=== PATIENT | female | born 1935 | race Caucasian/White ===

== ENCOUNTER → 2019-09-16 13:57 | Outpatient (CLI) | payer MEDICARE, OTHER, SELFPAY ==
[2019-09-16 14:51] LABS: Appearance Urine UA CLOUDY; Bilirubin Urine UA NEGATIVE (NEGATIVE); Color Urine UA YELLOW; Glucose Urine UA NEGATIVE (Negative); Ketones Urine UA NEGATIVE (NEGATIVE); Leukocyte Esterase Urine UA TRACE (NEGATIVE); Nitrite Urine UA POSITIVE (Negative); Occult Blood Urine UA NEGATIVE (Negative); Protein Urine UA NEGATIVE (Negative)
[2019-09-16 14:58] LABS: Add Manual Diff / Slide Review NO; Basophils Absolute Auto 0 /uL (0-100); Basophils Percent Auto 0.2 % (0-2); Eosinophils Absolute Auto 0 /uL (0-450); Eosinophils Percent Auto 0.1 % (2-4); Hematocrit 43.1 % (36-46); Hemoglobin 14.7 g/dL (12.0-16.0); Lymphocytes Absolute Auto 500 /uL (1100-4500); Lymphocytes Percent Auto 5.9 % (25-40); Mean Corpuscular HGB Conc 34.2 % (30-36); Mean Corpuscular Hemoglobin 33.1 PG (26-34); Mean Corpuscular Volume 96.9 fL (80-100); Monocytes Absolute Auto 1100 /uL (0-900); Monocytes Percent Auto 11.6 % (3-14); Neutrophils Absolute Auto 7600 /uL (1500-7000); Neutrophils Percent Auto 82.2 % (50-75); Platelet Count 121 X10^3/uL (150-400); Red Blood Cell Count 4.45 X10^6/uL (4.0-5.2); Red Cell Distribution Width 13.4 % (11.6-14.8); White Blood Cell Count 9.2 X10^3/uL (4.5-11.0)
[2019-09-16 15:01] LABS: pH Urine UA 5.5 (4.5-8.0)
[2019-09-16 15:02] LABS: Bacteria Urine Many (>30); Culture Indicated Urine Specimen Cultured; RBC Urine 0-1/HPF (0-5/HPF); WBC Urine 1-5/HPF (0-5/HPF)
[2019-09-16 15:52] LABS: Alanine Aminotransferase 18 IU/L (<35); Albumin 4.2 g/dL (3.5-5.0); Albumin Globulin Ratio 1.4 (1.0-2.8); Alkaline Phosphatase 123 U/L (38-126); Aspartate Aminotransferase 21 IU/L (14-36); BUN Creatinine Ratio 24.4 (6-22); Bilirubin Total 0.8 mg/dL (0.2-1.3); Blood Urea Nitrogen 22 mg/dL (7-17); Calcium 9.4 mg/dL (8.4-10.2); Carbon Dioxide 27 mmol/L (22-32); Chloride 103 mmol/L (98-107); Cholesterol 221 mg/dL (140-199); Estimated Glomerular Filt Rate > 60.0 mL/min (>60); Glucose 87 mg/dL (80-110); HDL Cholesterol 63 mg/dL (40-60); HEMOLYSIS < 15 (0-50); LDL Cholesterol Calculated 140 mg/dL (<100); Potassium 3.9 mmol/L (3.4-5.1); Sodium 139 mmol/L (137-145); Total Protein 7.2 g/dL (6.3-8.2); Triglycerides 90 mg/dL (35-150)
[2019-09-16 16:14] LABS: Vitamin D 25 Hydroxy (D3) 38.5 ng/mL (30.0-100.0)
[2019-09-16 16:29] LABS: TSH w/ Reflex to FT4 5.02 uIU/mL (0.47-4.68)
[2019-09-16 17:11] LABS: Free T4, Direct Thyroxine 0.93 ng/dL (0.78-2.19)
== END ==
PROVIDERS: PCP Family Medicine; Visit Provider Family Medicine
DX: E55.9 Vitamin D deficiency, unspecified (principal); E78.5 Hyperlipidemia, unspecified; R05 Cough; R29.6 Repeated falls; R41.3 Other amnesia
CPT/HCPCS: 36415; 80053; 80061; 81001; 82306; 84439; 84443; 85025; 87077; 87086; 87186

== ENCOUNTER 2019-09-19 09:37 | Inpatient (IN) | payer MEDICARE, OTHER, SELFPAY ==
[2019-09-19] VITALS (14 sets, daily range): BP systolic 95–112; BP diastolic 52–64; PULSE 61–83; RESP 15–25; TEMP 36.2–36.8; O2SAT 92–97; BMI 27.8
--- NOTE | 2019-09-19 09:45 | DI.RAD.S_ITS ---
PROCEDURE: XR CHEST 1V INDICATIONS: SOB, fever, chills, cough TECHNIQUE: One view of the chest was acquired. COMPARISON: [facility], CR, XR RIBS RIGHT WITH PA CHEST, 08/29/2019, 14:12. FINDINGS: Surgical changes and devices: None. Lungs and pleura: The aeration of the lungs is similar to the prior study. Linear atelectasis within the left midlung is present. There slight blunting of left costophrenic angle. No pneumothorax is present. No larger pulmonary consolidation is identified. Mediastinum: Mediastinal contours appear normal. Heart size is normal. There is aortic atherosclerosis. Bones and chest wall: No suspicious bony lesions. The bone mineralization appears decreased. The patient's known inferior right rib fracture is only faintly visualized. Overlying soft tissues appear unremarkable. IMPRESSION: 1. Possible trace left-sided pleural effusion. 2. Unchanged left hilar scarring. Dictated by: Dexter Cedeno M.D. on 09/19/2019 at 9:21 Approved by: Dexter Cedeno M.D. on 09/19/2019 at 9:23
[2019-09-19] MEDS: ALBUTEROL/IPRATROPIUM 3 ML AMPUL INH ×2 (10:01→17:26)
[2019-09-19] MEDS: SODIUM CHLORIDE 0.9% 1,000 ML 150 ML IV (10:34)
[2019-09-19] MEDS: methylPREDNISolone 125 MG/2 ML VIAL IV (10:34)
[2019-09-19 10:35] LABS: Add Manual Diff / Slide Review NO; Basophils Absolute Auto 0 /uL (0-100); Basophils Percent Auto 0.4 % (0-2); Eosinophils Absolute Auto 0 /uL (0-450); Eosinophils Percent Auto 0.2 % (2-4); Hematocrit 39.7 % (36-46); Hemoglobin 13.9 g/dL (12.0-16.0); Lymphocytes Absolute Auto 400 /uL (1100-4500); Lymphocytes Percent Auto 4.3 % (25-40); Mean Corpuscular Hemoglobin 33.4 PG (26-34); Mean Corpuscular Volume 95.4 fL (80-100); Monocytes Absolute Auto 1200 /uL (0-900); Monocytes Percent Auto 11.9 % (3-14); Neutrophils Absolute Auto 8400 /uL (1500-7000); Neutrophils Percent Auto 83.2 % (50-75); Platelet Count 124 X10^3/uL (150-400); Red Blood Cell Count 4.17 X10^6/uL (4.0-5.2); Red Cell Distribution Width 13.5 % (11.6-14.8); White Blood Cell Count 10.1 X10^3/uL (4.5-11.0)
[2019-09-19 10:49] LABS: Lactate (Lactic Acid) 0.9 mmol/L (0.7-2.1)
[2019-09-19 10:50] LABS: Blood Urea Nitrogen 18 mg/dL (7-17); Calcium 8.9 mg/dL (8.4-10.2); Carbon Dioxide 27 mmol/L (22-32); Chloride 102 mmol/L (98-107); Creatine Kinase 74 U/L (30-135); Estimated Glomerular Filt Rate > 60.0 mL/min (>60); Glucose 104 mg/dL (80-110); HEMOLYSIS < 15 (0-50); Magnesium 1.9 mg/dL (1.6-2.3); Potassium 3.7 mmol/L (3.4-5.1); Sodium 137 mmol/L (137-145)
--- NOTE | 2019-09-19 10:59 | ED.SOB ---
HPI - SOB/Dyspnea General Chief Complaint: Shortness of Breath/Dyspnea Stated Complaint: Weakness, SOB, Productive Cough Time Seen by Provider: 09/19/19 09:40 Source: patient and family Mode of arrival: Wheelchair Limitations: altered mental status History of Present Illness HPI Narrative: 83-year-old female former smoker with history of COPD and a recent fall resulting in broken ribs presents with a chief complaint of cough, shortness of breath fatigue as well as fever and shaking chills over the past few days. She is fatigued but denies any nausea, vomiting or diarrhea. She is otherwise well and free of complaint MD Complaint: shortness of breath and cough Onset (ago): day(s) Context: trauma/injury Severity: moderate Consistency/Duration: constant Relieving factors: rest Exacerbating factors: nothing Known history of: COPD Associated symptoms: chest pain (Rib pain) Treatment prior to arrival: none Related Data Home oxygen amount: none Home Medications Medication Instructions Recorded Confirmed lifitegrast 5 % eye drops in a EYE-BOTH BID each 09/16/19 09/16/19 dropperette Allergies Allergy/AdvReac Type Severity Reaction Status Date / Time No Known Drug Allergies Allergy Verified 09/16/19 13:03 Review of Systems Constitutional Constitutional: Reports chills, Denies fatigue, Reports fever(s), Denies frequent falls, Denies lethargy and Denies weakness Eyes Eyes: Denies change in vision, Denies eye discharge, Denies irritation and Denies loss of vision ENT Ears, Nose, Mouth, and Throat: Denies change in voice, Denies dizziness, Denies neck pain, Denies sore throat and Denies throat swelling Cardiovascular Cardiovascular: Denies chest pain, Denies irregular heart rhythm, Denies lightheadedness, Denies palpitations, Reports dyspnea, Denies dyspnea on exertion and Denies orthopnea Respiratory Respiratory: Reports cough, Reports pain with cough, Reports dyspnea, Denies dyspnea on exertion and Denies wheezing Gastrointestinal Gastrointestinal: Denies abdominal pain, Denies change in bowel habits, Denies diarrhea, Denies nausea and Denies vomiting Genitourinary Genitourinary: Denies hematuria, Denies flank pain, Denies urinary incontinence and Denies urinary urgency Musculoskeletal Musculoskeletal: Denies back pain, Denies muscle weakness, Denies neck pain, Denies numbness and Denies tingling Integumentary/Breasts Skin/Breast: Denies pruritus, Denies erythema, Denies rash and Denies wounds Neurologic Neurologic: Denies behavioral changes, Denies confusion, Denies dizziness, Denies frequent falls, Denies loss of vision, Denies numbness, Denies tingling and Denies weakness Psychiatric Psychiatric: Denies anxiety, Denies behavioral changes, Denies confusion, Denies depression, Denies homicidal ideation and Denies suicidal ideation Endocrine Endocrine: Denies fatigue, Denies flushing and Denies palpitations Hematologic/Lymphatic Hematologic/Lymphatic: Denies easy bruising Allergic/Immunologic Allergic/Immunologic: Denies urticaria, Denies throat swelling and Denies wheezing Patient History Medical History Cough (Acute) Dry eyes (Acute) Frequent falls (Acute) History of lung cancer in adulthood (Acute) Hyperlipidemia (Acute) Onychomycosis (Acute) Short-term memory loss (Acute) Surgical History History of pneumonectomy (Acute) Social History Smoking Status: Former smoker Exam Narrative Exam Narrative: GENERAL: [83] year old patient appears stated age. Appears unwell, frequent cough, wet sounding, poor historian HEAD: Atraumatic. Normocephalic. EYES: Pupils equal round and reactive. Extraocular motions intact. No scleral icterus. No injection or drainage. ENT: Nose without bleeding, purulent drainage. Throat without erythema, tonsillar hypertrophy or exudate. Airway patent. NECK: Trachea midline. Non tender CARDIOVASCULAR: Regular rate and rhythm without murmurs, gallops, or rubs. RESPIRATORY: Decreased breath sounds bilaterally with prolonged expiratory phase faint crackles in left base GASTROINTESTINAL: Abdomen soft, non-tender, nondistended. EXTREMITIES: No edema or joint tenderness. BACK: Nontender without deformity or crepitance. No flank tenderness. NEURO: AOx3. SKIN: No rash or erythema of visible areas Initial Vital Signs Initial Vital Signs: Vital Signs Temperature 98.2 F 09/19/19 09:55 Pulse Rate 70 09/19/19 09:55 Respiratory Rate 25 H 09/19/19 09:55 Blood Pressure 112/60 09/19/19 09:55 Pulse Oximetry 93 09/19/19 09:55 Course Course Course Narrative: Tremendous improvement in respiratory status after the above-stated therapies. We will perform orthostatics and ambulation trial, possible physical therapy evaluation Orders Ordered: ED Orders 09/19/19 09:45 Consult to Respiratory Therapy Evaluate & Treat XR chest 1V Stat EKG-12 Lead Stat 09/19/19 10:24 B Type Natriuretic Peptide Stat Basic Metabolic Panel Stat Blood Culture Stat Complete Blood Count AUTO DIFF Stat Lactate (Lactic Acid) Stat Magnesium Stat Procalcitonin Stat Troponin & CK Cardiac Panel Stat 09/19/19 10:30 Influenza A and B by PCR Rapid Stat Sodium Chloride (Normal Saline 0.9%) 1,000 mls @ 150 mls/hr IV CONT VILMA Last Admin: 09/19/19 10:34 Dose: 150 mls/hr Documented by: ORIN Discontinued Medications Albuterol/Ipratropium (Duoneb) 3 ml INH NOW ONE Stop: 09/19/19 09:45 Last Admin: 09/19/19 10:01 Dose: 3 ml Documented by: KALEB Methylprednisolone (Solu-Medrol 125 Mg Vial) 125 mg IV NOW ONE Stop: 09/19/19 09:45 Last Admin: 09/19/19 10:34 Dose: 125 mg Documented by: ORIN Vital Signs Vital signs: Vital Signs - 8 hr 09/19/19 09:55 09/19/19 10:01 09/19/19 10:32 Temperature 98.2 F Pulse Rate 70 75 Pulse Rate [Orthostatic Lying] Pulse Rate [Orthostatic Sitting] Pulse Rate [Orthostatic Standing] Respiratory Rate 25 H 18 Blood Pressure 112/60 Blood Pressure [Orthostatic Lying] Blood Pressure [Orthostatic Sitting] Blood Pressure [Orthostatic Standing] Blood Pressure [Right Arm] Pulse Oximetry 93 93 96 09/19/19 11:00 09/19/19 11:49 09/19/19 11:51 Temperature Pulse Rate 61 80 Pulse Rate [Orthostatic Lying] 64 Pulse Rate [Orthostatic Sitting] 70 Pulse Rate [Orthostatic Standing] 77 Respiratory Rate 20 Blood Pressure Blood Pressure [Orthostatic Lying] 107/55 L Blood Pressure [Orthostatic Sitting] 111/59 L Blood Pressure [Orthostatic Standing] 97/58 L Blood Pressure [Right Arm] 95/52 L Pulse Oximetry 97 93 MDM - SOB/Dyspnea Lab Data Result diagrams: 09/19/19 10:24 09/19/19 10:24 Labs: Lab Results 09/19/19 09/19/19 09/19/19 Range/Units 10:24 10:24 10:24 WBC 10.1 (4.5-11.0) X10^3/uL RBC 4.17 (4.0-5.2) X10^6/uL Hgb 13.9 (12.0-16.0) g/dL Hct 39.7 (36-46) % MCV 95.4 (80-100) fL MCH 33.4 (26-34) PG MCHC 35.0 (30-36) % RDW 13.5 (11.6-14.8) % Plt Count 124 L (150-400) X10^3/uL Neut % (Auto) 83.2 H (50-75) % Lymph % (Auto) 4.3 L (25-40) % [place] % (Auto) 11.9 (3-14) % Eos % (Auto) 0.2 L (2-4) % Baso % (Auto) 0.4 (0-2) % Neut # (Auto) 8400 H (8847-7986) /uL Lymph # (Auto) 400 L (1049-0924) /uL [place] # (Auto) 1200 H (0-900) /uL Eos # (Auto) 0 (0-450) /uL Baso # (Auto) 0 (0-100) /uL Sodium 137 (137-145) mmol/L Potassium 3.7 (3.4-5.1) mmol/L Chloride 102 (98-107) mmol/L Carbon Dioxide 27 (22-32) mmol/L BUN 18 H (7-17) mg/dL Creatinine 0.90 (0.52-1.04) mg/dL Estimated GFR > 60.0 (>60) mL/min BUN/Creatinine Ratio 20.0 (6-22) Glucose 104 (80-110) mg/dL Lactate (0.7-2.1) mmol/L Calcium 8.9 (8.4-10.2) mg/dL Magnesium 1.9 (1.6-2.3) mg/dL Total Creatine Kinase 74 (30-135) U/L CK-MB (CK-2) TNP CK-MB (CK-2) Rel Index TNP Troponin I < 0.012 (0.01-0.034) ng/mL B-Natriuretic Peptide 218 H (<100) Procalcitonin 0.07 (<0.5) ng/mL Influenza A & B (PCR) (Negative) 09/19/19 09/19/19 Range/Units 10:24 10:30 WBC (4.5-11.0) X10^3/uL RBC (4.0-5.2) X10^6/uL Hgb (12.0-16.0) g/dL Hct (36-46) % MCV (80-100) fL MCH (26-34) PG MCHC (30-36) % RDW (11.6-14.8) % Plt Count (150-400) X10^3/uL Neut % (Auto) (50-75) % Lymph % (Auto) (25-40) % [place] % (Auto) (3-14) % Eos % (Auto) (2-4) % Baso % (Auto) (0-2) % Neut # (Auto) (8142-1788) /uL Lymph # (Auto) (2742-0183) /uL [place] # (Auto) (0-900) /uL Eos # (Auto) (0-450) /uL Baso # (Auto) (0-100) /uL Sodium (137-145) mmol/L Potassium (3.4-5.1) mmol/L Chloride (98-107) mmol/L Carbon Dioxide (22-32) mmol/L BUN (7-17) mg/dL Creatinine (0.52-1.04) mg/dL Estimated GFR (>60) mL/min BUN/Creatinine Ratio (6-22) Glucose (80-110) mg/dL Lactate 0.9 (0.7-2.1) mmol/L Calcium (8.4-10.2) mg/dL Magnesium (1.6-2.3) mg/dL Total Creatine Kinase (30-135) U/L CK-MB (CK-2) CK-MB (CK-2) Rel Index Troponin I (0.01-0.034) ng/mL B-Natriuretic Peptide (<100) Procalcitonin (<0.5) ng/mL Influenza A & B (PCR) Negative (Negative) Imaging Data Chest x-ray: Radiologist's impression: Chart Viewer Diagnostics DATE TYPE STATUS AUTHOR Hx 09/19/19 09:45 Jr CedenodidiMeg Sen 83, F1935 ADM JAKOB, Main ED R06 165.1cm 75.75kg BMI: 27.8kg/m? Search Chart No Data to Display ONSET Today 13:30 Meg Beltran 83 F 1935 [place] [address] XRay Report Signed Patient: Meg Beltran CMR#: [id number] : 1935cct:[id number] Age/Sex: 83 / FDate of Service: 09/19/19 Loc: ED Accession Number: [id number] Procedure: XR chest 1V Ordering Provider: Cm Real D.O. PROCEDURE: XR CHEST 1V INDICATIONS: SOB, fever, chills, cough TECHNIQUE: One view of the chest was acquired. COMPARISON: [facility], CR, XR RIBS RIGHT WITH PA CHEST, 08/29/2019, 14:12. FINDINGS: Surgical changes and devices: None. Lungs and pleura: The aeration of the lungs is similar to the prior study. Linear atelectasis within the left midlung is present. There slight blunting of left costophrenic angle. No pneumothorax is present. No larger pulmonary consolidation is identified. Mediastinum: Mediastinal contours appear normal. Heart size is normal. There is aortic atherosclerosis. Bones and chest wall: No suspicious bony lesions. The bone mineralization appears decreased. The patient's known inferior right rib fracture is only faintly visualized. Overlying soft tissues appear unremarkable. IMPRESSION: 1. Possible trace left-sided pleural effusion. 2. Unchanged left hilar scarring. Dictated by: Dexter Cedeno M.D. on 09/19/2019 at 9:21 Approved by: Dexter Cedeno M.D. on 09/19/2019 at 9:23 MDM Narrative Medical decision making narrative: Patient presents with a complex story including a gradual decline which has rapidly worsened over the past few days. She was at home without sufficient support and has frequent falls. She presented with significant shortness of breath and initial pulse ox in the mid 80s. She did improve somewhat with our pulmonary toilet but ongoing evaluation was difficult to sort through. Patient has elements of her story and exam which are consistent with dehydration including dry mucous membranes, poor skin turgor and orthostatic hypotension. Furthermore she has exam elements consistent with CHF including a wet sounding cough, crackles in her bases, a chest x-ray route with pulmonary effusion and elevated BNP. For this reason the patient obviously needs fluid resuscitation but and a calculated fashion. Her PCP has taken steps to arrange home health care but that has yet to be established. Patient requires hospitalization for stabilization of her condition, further evaluation including physical therapy. Discharge Plan Departure Patient Disposition: Admitted as Observation Clinical Impression: Acute dehydration, Acute exacerbation of chronic obstructive pulmonary disease, Adult failure to thrive Admit Date/Time: 09/19/19 11:58 Admit Provider: Rina Jiang
[2019-09-19 11:02] LABS: Troponin I < 0.012 ng/mL (0.01-0.034)
[2019-09-19 11:05] LABS: Procalcitonin 0.07 ng/mL (<0.5)
[2019-09-19 11:06] LABS: B Type Natriuretic Peptide 218 (<100)
[2019-09-19 11:20] LABS: Influenza A and B by PCR Rapid Negative (Negative)
--- NOTE | 2019-09-19 11:50 | PC.NURSE ---
Patient feels dizzy upon standing
--- NOTE | 2019-09-19 11:51 | PC.NURSE ---
feels dizzy when walking
--- NOTE | 2019-09-19 15:43 | PC.NURSE ---
Day Shift- Report rec'd from MARK Burnham in ED at 1423. Pt arrived to unit at 1545 into room 208 with her daughter and great grandson. Pt assisted from stretcher to BR, pt unsteady, fatigued, used gait belt and pt's own cane. pt's daughter stated pt had fallen yesterday using a walker at home. Pt voided small amount then assisted to recliner chair then back to bed. Oriented to call light, bed alarm on. Brief skin assessment done. Pt had a fall 3-4 weeks ago and had right ribs broken. Yellow and green bruising noted to right mid flank and right mid buttock. Report given to evening RN , aware full admission needed. Dr. Jiang called and spoke to at 1502 to be made aware of pt's arrival to unit.
--- NOTE | 2019-09-19 16:25 | DI.ECHO.S_ITS ---
[facility]---------+ [facility] +---------+ : : [address] [place] : : : : [id number] : : : : Phone: [phone] Echocardiogram Report + + :Name: BROCK LAUGHLIN Study Date: 09/20/2019 Height: 65 in : :[facility] Weight: 167 lb : : Gender: Female BSA: 1.8 m2 : :: 1935 Age: 83 yrs BP: 109/58 mmHg: :Reason For Study: Syncope : : Performed By: [facility] Staff : :Referring: DRISS MILLER : + + Interpretation Summary Normal left ventricle size with ejection fraction 60-65%. Mild mitral annular calcification. Procedure: A two-dimensional transthoracic echocardiogram with color flow and Doppler was performed. The study quality was technically adequate. There is no prior echocardiogram noted for this patient. The patient was in normal sinus rhythm during the exam. Left Ventricle: The left ventricle is normal in size. There is normal left ventricular wall thickness. The ejection fraction is estimated to be 60-65%. There are no focal wall motion abnormalities. Right Ventricle: The right ventricle is normal in size and function. Atria: The left atrial size is normal. Right atrial size is normal. The interatrial septum is intact with no evidence for an atrial septal defect. Mitral Valve: The mitral valve is normal. There is mild mitral annular calcification. There is no mitral regurgitation noted. Aortic Valve: The aortic valve is trileaflet. The aortic valve opens well. There is trace aortic regurgitation. Tricuspid Valve: The tricuspid valve is normal in structure and function. There is trace tricuspid regurgitation. Pulmonary artery pressures cannot be estimated because of the lack of a measurable TR jet velocity. Pulmonic Valve: The pulmonic valve is normal in structure and function. There is mild pulmonic regurgitation. Great Vessels: The aortic root is normal size. The dimensions of the ascending aorta are normal. The pulmonary artery is normal size. The IVC is dilated (diameter is greater than 2.1 cm) yet it collapses greater than 50% with a sniff. This suggests a right atrial pressure of 8 mm Hg. Pericardium/ Pleura There is no pericardial effusion. There is no pleural effusion. MMode/2D Measurements & Calculations LVIDd: 3.9 cm LVOT diam: 1.9 cm LVIDs: 2.4 cm Ao root diam: 3.3 cm FS: 38.2 % Aortic Jxn: 2.8 cm EPSS: 0.40 cm asc Aorta Diam: 3.2 cm IVSd: 0.99 cm LVPWd: 0.98 cm LV schultz. diameter/BSA (cm/m^2): 2.2 LV sys. diameter/BSA (cm/m^2): 1.3 LA A2 area: 18.0 cm2 RA long axis: 3.9 cm LA A4 area: 18.4 cm2 RA area: 11.3 cm2 LA length (vol): 5.1 cm RA vol: 28.0 ml LA vol: 55.1 ml RA : 15.3 ml/m2 LA vol index: 30.1 ml/m2 IVC diam: 2.3 cm TAPSE: 2.0 cm Doppler Measurements & Calculations Ao V2 max: 129.7 cm/sec LVOT Max Jovan: 131.3 cm/sec Ao V2 mean: 90.0 cm/sec LV V1 max P.9 mmHg Ao max P.7 mmHg LV V1 VTI: 33.5 cm Ao mean P.8 mmHg JOE(I,D): 3.5 cm2 Ao V2 VTI: 28.0 cm JOE(V,D): 2.9 cm2 sev ratio: 1.2 JOE indexed to BSA (cm^2/m^2): 1.9 MV E max jovan: 74.0 cm/sec PA V2 max: 66.4 cm/sec MV A max jovan: 90.7 cm/sec PA V2 mean: 42.9 cm/sec MV E/A: 0.82 PA mean P.87 mmHg Med Peak E' Jovan: 8.1 cm/sec PA Accel Time: 0.07 sec E/E' med: 9.2 Lat Peak E' Jovan: 6.3 cm/sec E/E' lat: 11.7 E/e' average: 10.5 MV dec time: 0.27 sec SV(LVOT): 97.2 ml Electronically signed by: Silvina Saldivar on Reading Physician:09/20/2019 01:35 PM
--- NOTE | 2019-09-19 16:28 | P.HP_ITS ---
History of Present Illness History of Present Illness Date Patient Seen: 09/19/19 Chief complaint: Weakness, SOB, Productive Cough Narrative: The patient is an 83-year-old female with a history of COPD, a lung cancer in 2004 followed by recurrence in 2007 treated with radiation and chemoth erapy, history of acute kidney injury, history of thrombocytopenia, traumatic right pneumothorax requiring chest tube placement 1 year ago. The patient moved from [place] to [place] to be with her daughter 1 month ago. According to the daughter since she has moved to the area she has been weak, and experienced multiple falls. The daughter is concerned that her mom cannot be left alone because when she tries to ambulate she has fallen. She did sustain a rib fracture of for 3 of her ribs 2-3 weeks ago. In addition she has had increasing cough, shortness of breath, and fever. They do not know what her temperature has been however she has been gradually declining. The patient has a 45 pack year history of smoking. She quit in 2004. The patient was seen and evaluated in the emergency department. A chest x-ray was obtained which showed a small pleural effusion but no evidence of pneumonia. Her influenza screening was negative. The patient is saturating at 93% on room air, she did have orthostatic vital signs done in the emergency room and was found to be markedly orthostatic. The patient does report intermittent chest pain that lasts briefly and quickly resolves. She has not been evaluated for this. In addition the patient is somewhat tearful, she notes that 2 of her sisters a few months ago, she has recently relocated to the area, she has not made any sign ificant social acquaintances today. In addition the patient reports decreased appetite. She does not know if she has lost any weight. She does not report any difficulty with sleeping or hallucinations. The patient is admitted to the hospital at this time for generalized weakness, dehydration, at a COPD exacerbation. Patient History Medical History (Updated 09/19/19 @ 16:35 by Rina Jiang MD) COPD (chronic obstructive pulmonary disease) (Inactive) Cough (Acute) Dry eyes (Acute) Frequent falls (Acute) History of lung cancer (Acute) History of lung cancer in adulthood (Acute) History of pneumothorax (Acute) History of rib fracture (Acute) Hyperlipidemia (Acute) Onychomycosis (Acute) Short-term memory loss (Acute) Thrombocytopenia (Acute) Surgical History History of pneumonectomy (Acute) Family & Social History Family History (Updated 09/19/19 @ 16:36 by Rina Jiang MD) Sister Cancer Sister Multiple complications of type 2 diabetes mellitus Safety & Behavioral: Feels Safe in Current Yes Environment Tobacco & Substance use: Smoking Status Former smoker Meds Home Medications and Allergies Home Medications Medication Instructions Recorded Confirmed Type lifitegrast 5 % eye drops in a EYE-BOTH BID each 09/16/19 09/16/19 History dropperette Allergies Allergy/AdvReac Type Severity Reaction Status Date / Time No Known Drug Allergies Allergy Verified 09/16/19 13:03 Review of Systems Review of Systems ROS Unobtainable: All systems reviewed & are unremarkable except as noted in HPI and below Exam Vital Signs (past 8 hours): - 09/19/19 09:55 09/19/19 10:01 09/19/19 10:32 Temperature 98.2 F Pulse Rate 70 75 Pulse Rate [Orthostatic Lying] Pulse Rate [Orthostatic Sitting] Pulse Rate [Orthostatic Standing] Respiratory Rate 25 H 18 Blood Pressure 112/60 Blood Pressure [Orthostatic Lying] Blood Pressure [Orthostatic Sitting] Blood Pressure [Orthostatic Standing] Blood Pressure [Right Arm] Pulse Oximetry 93 93 96 09/19/19 11:00 09/19/19 11:49 09/19/19 11:51 Temperature Pulse Rate 61 80 Pulse Rate [Orthostatic Lying] 64 Pulse Rate [Orthostatic Sitting] 70 Pulse Rate [Orthostatic Standing] 77 Respiratory Rate 20 Blood Pressure Blood Pressure [Orthostatic Lying] 107/55 L Blood Pressure [Orthostatic Sitting] 111/59 L Blood Pressure [Orthostatic Standing] 97/58 L Blood Pressure [Right Arm] 95/52 L Pulse Oximetry 97 93 09/19/19 13:30 09/19/19 14:14 09/19/19 14:45 Temperature 97.1 F L Pulse Rate 61 68 67 Pulse Rate [Orthostatic Lying] Pulse Rate [Orthostatic Sitting] Pulse Rate [Orthostatic Standing] Respiratory Rate 17 15 16 Blood Pressure 110/64 Blood Pressure [Orthostatic Lying] Blood Pressure [Orthostatic Sitting] Blood Pressure [Orthostatic Standing] Blood Pressure [Right Arm] 109/55 L 108/56 L Pulse Oximetry 92 94 94 Oxygen Delivery Method Room Air Oxygen Flow Rate 0 Narrative Exam Narrative: Ill-appearing female tearful somewhat short of breath HEENT: Normocephalic atraumatic, extraocular muscles are intact, oropharynx reveals moist mucous membranes neck is supple without adenopathy Lungs: Decreased breath sounds, bibasilar crackles noted, no rhonchi or wheezing noted Cardiac exam: Regular rate rhythm, normal S1-S2 with a 2/6 systolic ejection murmur Abdomen: Soft nontender nondistended, no hepatosplenomegaly, no board-like rigidity, no palpable mass Extremities: No clubbing cyanosis or edema bilateral varicosities on the lower extremities are noted Skin exam: No lesions ulcers or rashes noted Neuro exam: Cranial nerves 2-12 are intact, speech is clear, there is no facial droop strength is symmetric and equal, sensation is grossly intact reflexes are brisk in the Patient know she is at the hospital, and anti Cordis, she knows what year it is, and can state who the current president is Objective Labs Result Diagrams: 09/19/19 10:24 09/19/19 10:24 Labs: Laboratory Results - last 24 hr 09/19/19 09/19/19 09/19/19 10:24 10:24 10:24 WBC 10.1 RBC 4.17 Hgb 13.9 Hct 39.7 MCV 95.4 MCH 33.4 MCHC 35.0 RDW 13.5 Plt Count 124 L Neut % (Auto) 83.2 H Lymph % (Auto) 4.3 L [place] % (Auto) 11.9 Eos % (Auto) 0.2 L Baso % (Auto) 0.4 Neut # (Auto) 8400 H Lymph # (Auto) 400 L [place] # (Auto) 1200 H Eos # (Auto) 0 Baso # (Auto) 0 Sodium 137 Potassium 3.7 Chloride 102 Carbon Dioxide 27 BUN 18 H Creatinine 0.90 Estimated GFR > 60.0 BUN/Creatinine Ratio 20.0 Glucose 104 Lactate Calcium 8.9 Magnesium 1.9 Total Creatine Kinase 74 CK-MB (CK-2) TNP CK-MB (CK-2) Rel Index TNP Troponin I < 0.012 B-Natriuretic Peptide 218 H Procalcitonin 0.07 Influenza A & B (PCR) 09/19/19 09/19/19 10:24 10:30 WBC RBC Hgb Hct MCV MCH MCHC RDW Plt Count Neut % (Auto) Lymph % (Auto) [place] % (Auto) Eos % (Auto) Baso % (Auto) Neut # (Auto) Lymph # (Auto) [place] # (Auto) Eos # (Auto) Baso # (Auto) Sodium Potassium Chloride Carbon Dioxide BUN Creatinine Estimated GFR BUN/Creatinine Ratio Glucose Lactate 0.9 Calcium Magnesium Total Creatine Kinase CK-MB (CK-2) CK-MB (CK-2) Rel Index Troponin I B-Natriuretic Peptide Procalcitonin Influenza A & B (PCR) Negative Assessment & Plan Assessment & Plan narrative: Impression 1. 83-year-old female admitted to the hospital for shortness of breath, cough, wheezing. Patient has a known history of COPD, she also has a 45 pack-year history of smoking, and a history of lung cancer. Patient had a recent rib fractures involving the left rib. She has a small left pleural effusion on chest x-ray. There is no evidence to suggest pneumonia. Plan at this time, patient will be started on albuterol Atrovent nebulizers, she will be given oral prednisone at 40 mg a day for 5 days, and will start her on ceftriaxone given her admission to the hospital. Chest CT to rule out PE patient had a mildly elevated BNP. She has had no history of echocardiogram or known diagnosis of heart failure. Will obtain a cardiac echo to evaluate her LV function further. Patient is not hypoxic, will use oxygen as needed. Procalcitonin is normal, influenza a and B is negative, lactate is negative as well. Will obtain a respiratory viral panel. 2. History of lung cancer, treated in 2004 and 2007 with radiation chemotherapy, no evidence to suggest recurrence at this time. Will continue to monitor closely 3. Weakness, with failure to thrive, the patient has known orthostatic hypotension, this is likely related to dehydration, patient will receive IV hydration and will recheck orthostatic vital signs in the morning. 4. Hyperlipidemia, will start low-dose statin patient will start simvastatin at 20 mg tonight. 5. Hypothyroidism, will start low-dose levothyroxine 6. Depression, patient is tearful during her exam, she admits to being sad over the loss of her sister, loss of her independence, and her recent move. I have asked the veneer clipper to visit with the patient, she is interested in meeting with veneer clipper, would consider antidepressant therapy as well. 7. History of thrombocytopenia, platelet count 124, will continue to follow 8. History of frequent falls, will ask PT OT to evaluate. Patient may require retirement at discharge given she is home alone during the day. Although the patient denies any symptoms of urinary tract infection, given her frequent falls dehydration decreased appetite and generalized weakness this will empirically treat with ceftriaxone for 3 days. Urine cultures growing E coli which is pansensitive. 9. Code status, the patient EKG like to be DNR. Will note that her record accordingly. Patient has been placed on Lovenox for DVT prophylaxis.
[2019-09-19] MEDS: DEXTROSE 5%-LACTATED RINGERS 1,000 ML 100 ML IV (17:00)
[2019-09-19] MEDS: CEFTRIAXONE 2 GM/50 ML FROZ.PIGGY IV (17:03)
--- NOTE | 2019-09-19 17:25 | PC.NURSE ---
Addendum entered by Aleta Aparicio R.N. 09/19/19 22:03: Dtr states pt has valuables in purse. Notified of Valuables policy. Dtr took purse containing all valuables home. Addendum entered by Aleta Aparicio R.N. 09/19/19 21:02: Pt has nicotine gum and requests to have it. Per Hospitalist okay to administer once sent to pharmacy for ID. Dtr to provide bring in more gum to be sent to pharmacy. Pt reports burning on urination. Hospitalist notified; no new orders. Original Note: Assumed care of pt at 1500. for rounding and orders written. Rosalba RN completed admission interventions. This documentation writer provided I.S. and flutter valve teaching. Pt demonstrated proper use; enc 10x/hr while awake. Sats 94% RA. Denies chest discomfort, pressure, SOB. SCD's placed on. IVF infusing per orders. Supportive family at bedside. Bed alarm on. Call light within reach.
[2019-09-19] MEDS: BUDESONIDE 0.5 MG/2 ML NEB INH (17:26)
[2019-09-19] MEDS: SENNOSIDES 8.6 MG TABLET 17.2 MG PO (21:32)
[2019-09-19] MEDS: SIMVASTATIN 20 MG TABLET PO (21:32)
[2019-09-19 21:58] LABS: D Dimer 3819 ng/mL (<230)
[2019-09-20] VITALS (19 sets, daily range): BP systolic 109–146; BP diastolic 54–87; PULSE 58–84; RESP 16–20; TEMP 36.1–36.7; O2SAT 92–98
[2019-09-20 00:36] LABS: Adenovirus Not Detected (Not Detect); Bordetella pertussis Not Detected (Not Detect); Chlamydophila pneumoniae Not Detected (Not Detect); Coronavirus 229E Not Detected (Not Detect); Coronavirus HKU1 Not Detected (Not Detect); Coronavirus NL 63 Not Detected (Not Detect); Coronavirus OC43 Not Detected (Not Detect); Human Metapneumovirus Not Detected (Not Detect); Human Rhinovirus/Enterovirus Not Detected (Not Detect); Influenza A Not Detected (Not Detect); Influenza B Not Detected (Not Detect); Mycoplasma pneumoniae Not Detected (Not Detect); Parainfluenza Virus 1 Not Detected (Not Detect); Parainfluenza Virus 2 Not Detected (Not Detect); Parainfluenza Virus 3 Not Detected (Not Detect); Parainfluenza Virus 4 Not Detected (Not Detect); Respiratory Syncytial Virus Not Detected (Not Detect)
[2019-09-20] MEDS: DEXTROSE 5%-LACTATED RINGERS 1,000 ML 100 ML IV (03:51)
[2019-09-20 06:03] LABS: Add Manual Diff / Slide Review NO; Basophils Absolute Auto 0 /uL (0-100); Basophils Percent Auto 0.1 % (0-2); Eosinophils Absolute Auto 0 /uL (0-450); Hematocrit 37.3 % (36-46); Hemoglobin 12.8 g/dL (12.0-16.0); Lymphocytes Absolute Auto 300 /uL (1100-4500); Lymphocytes Percent Auto 2.9 % (25-40); Mean Corpuscular HGB Conc 34.2 % (30-36); Mean Corpuscular Hemoglobin 32.9 PG (26-34); Mean Corpuscular Volume 96.2 fL (80-100); Monocytes Absolute Auto 400 /uL (0-900); Monocytes Percent Auto 4.1 % (3-14); Neutrophils Absolute Auto 9300 /uL (1500-7000); Neutrophils Percent Auto 92.9 % (50-75); Platelet Count 131 X10^3/uL (150-400); Red Blood Cell Count 3.88 X10^6/uL (4.0-5.2); Red Cell Distribution Width 13.2 % (11.6-14.8)
[2019-09-20 06:13] LABS: BUN Creatinine Ratio 21.7 (6-22); Blood Urea Nitrogen 13 mg/dL (7-17); Calcium 8.8 mg/dL (8.4-10.2); Carbon Dioxide 24 mmol/L (22-32); Chloride 107 mmol/L (98-107); Estimated Glomerular Filt Rate > 60.0 mL/min (>60); Glucose 177 mg/dL (80-110); HEMOLYSIS < 15 (0-50); Potassium 3.7 mmol/L (3.4-5.1); Sodium 139 mmol/L (137-145)
[2019-09-20] MEDS: BUDESONIDE 0.5 MG/2 ML NEB INH ×2 (06:13→21:57)
[2019-09-20] MEDS: ALBUTEROL/IPRATROPIUM 3 ML AMPUL INH ×3 (06:13→18:16)
--- NOTE | 2019-09-20 06:22 | DI.RAD.S_ITS ---
PROCEDURE: XR CHEST 2V INDICATIONS: r/o pneumonia TECHNIQUE: 2 views of the chest were acquired. COMPARISON: [facility], CR, XR CHEST 1V, 09/19/2019, 10:09. FINDINGS: Surgical changes and devices: None. Lungs and pleura: Scarring in the left midlung is stable. Small left-sided pleural effusion. No pneumothorax. Mediastinum: Mediastinal contours are normal. Heart size is normal. Bones and chest wall: No suspicious bony abnormalities. Soft tissues appear unremarkable. IMPRESSION: Small left-sided pleural effusion. Dictated by: Lulu Lane MD, PhD on 09/20/2019 at 8:30 Approved by: Lulu Lane MD, PhD on 09/20/2019 at 8:32
[2019-09-20] MEDS: predniSONE 20 MG TABLET 40 MG PO (09:22)
[2019-09-20] MEDS: ENOXAPARIN 40 MG/0.4 ML SYRINGE SUBCUT (09:23)
--- NOTE | 2019-09-20 09:58 | CM.DANOTE ---
Addendum entered by Pao Turner R.N. 09/20/19 14:09: Confirmed with Kate in UR, as case was reviewed with EHR/[employer], that she is inpatient status. Met with patient, daughter, Elmira, was not present. Was going to give her a Senior Resources book. Patient stated, she does want to go to [facility], but is hoping she can get better so she can be home for Thanksgiving. Patient will qualify for [facility] by 09/22. Addendum entered by Pao Turner R.N. 09/20/19 11:29: Did get in touch with April admissions at [facility]. She is currently reviewing. Let her know that inpatient status is not yet determined, and did discuss potential private pay. Original Note: DCP; Case received, EMR reviewed and met with patient. Daughter, Elmira, at bedside. Introduced self and role. Was able to speak to patient's daughter, Elmira, and retrieve baseline history, including health and activity level. DCP template/assessment, completed with information currently available. Patient is an 83 year old female who admitted yesterday morning to the care of the hospitalist team. PCP: Dr. Lang. Payer: confirmed: Medicare/[employer]. Patient came to the hospital via family vehicle, due to weakness, coughing, as well as increased shortness of breath. Patient has history of COPD, frequent falls. Patient holds diagnosis of hypotension, dehydration, COPD exacerbation, as well as pleural effusion. Met with daughter, Elmira, who was in room. When this town planner introduced self, daughter stated, what do you mean, where is physical therapy, she can't go home yet. Reassured that this rn field case manager was not stating that patient would be discharged, just introducing self for resource purposes. Daughter anxious, stated, we need to talk, she can't go home, I want her to go to [facility]. Let daughter know that currently patient is under observation status, and would need to be reviewed. Daughter stated, make the doctor have her be inpatient status. Reminded daughter that she would need to be reviewed by utilization review to indicate if she can be inpatient status. Discussed daily rate at [facility] if needed to pay privately, and daughter stated, she has the money. Daughter stated that her mother was living in [place] up until August, and she was having falls, not thriving,and had to go get her and bring her home. Patient also was at [facility] recently for rib fractures secondary to falls. Elmira stated that she lives with a friend, her mom is living with her. She stated, when I leave her alone, she falls, and she doesn't know how to use the walker, she falls over it. Daughter stated that patient had just seen Dr. Lang, and he ordered home health, but she stated, what good is that going to do. Reminded patient that insurance does not cover private caregivers as well. P: DCP will follow closely. Left [facility] a message regarding patient, and asked to review. Will meet again with daughter and discuss other home resources with Senior Resource book. Will see if patient meets inpatient criteria. Pao Turner RN/Night Club Manager
--- NOTE | 2019-09-20 10:42 | PT.IIE ---
Addendum entered and electronically signed by Dominique Cortez, PT 09/20/19 18:08: Pt wears glasses for vision impairment. Without her glasses she has double vision. Original Note: Current Diagnoses Chronic obstructive pulmonary disease with (acute) exacerbation (09/19/19) Surgical History (Last Reviewed 09/19/19 @ 11:02 by Cm Real DO) History of pneumonectomy (Acute) Medical History (Last Updated 09/19/19 @ 16:35 by Rina Jiang MD) COPD (chronic obstructive pulmonary disease) (Inactive) Cough (Acute) Dry eyes (Acute) Frequent falls (Acute) History of lung cancer (Acute) History of lung cancer in adulthood (Acute) History of pneumothorax (Acute) History of rib fracture (Acute) Hyperlipidemia (Acute) Onychomycosis (Acute) Short-term memory loss (Acute) Thrombocytopenia (Acute) Physical Therapy Inpatient Evaluation/Re-Eval M1 PT/OT-IP Prior Functional Status Start: 09/20/19 16:58 Freq: NEEDED Status: Active Protocol: Document 09/20/19 10:42 DLM (Rec: 09/20/19 18:06 DLM [id number]) Medical Review Prior Functional Status Medical History Reviewed Yes Diet/Fluid Consistency Regular Communication WFL Mobility and Gait Independent gait without device, recent decreased balance with falls at home, has been trying to use and upright cane to help balance Activities of Daily Living and IADL's Independent, has not been showering due to fear of falling when alone, Daughter recently has been home to assist during showers Prior Functional Level (Other details) Pt moved to [place] from [place] to stay with her Daughter. Pt has been alone during the day when family works. Social History Household Members family Living Arrangements House Number of Floors (Floors) Two Floors Number of Stairs To Enter/Railing? 2-3 Home Environment High Toilet,Walk in Shower Home Equipment Front Wheel Walker,Straight Cane,Shower Seat with Backrest ,Grab Bars Near Toilet,Grab Bars In Shower Employment Status Retired Additional Social History Comment upright cane M2 PT-IP Current Condition Start: 09/20/19 16:58 Freq: NEEDED Status: Active Protocol: Document 09/20/19 10:42 DLM (Rec: 09/20/19 18:06 DLM [id number]) Physical Therapy Current Condition Current Condition Evaluation Date 09/20/19 Treatment Diagnosis weakness, impaired balance and gait Onset Date 09/19/19 Precautions Other Precautions multiple falls in recent past, recent left rib fx's due to fall 2-3 weeks ago, Daughter voices concerns about leaving pt alone due to her falling M3 PT-IP Subjective Start: 09/20/19 16:58 Freq: NEEDED Status: Active Protocol: Document 09/20/19 10:42 DLM (Rec: 09/20/19 18:06 [facility] [id number]) Subjective Physical Therapy Visit Type Type Initial Evaluation Visit Start Time 09:40 Visit Stop Time 10:42 Total Visit Minutes 58 Number of BOILERHOUSE MECHANIC Visits 0 Physical Therapy Visit Comments Patient Comments She describes getting dizzy easily when she bends over. She has fallen in the past with bending over to clean her feet or pick something up. Patient Goals get better Therapy Pain Assessment Pain When Pain Assessed During Mobility Pain Present Pain Present Pain Reported Location Left Ribs Intensity 3 Scale Used Numeric (1 - 10) Description Aching M4 PT-IP Mobility and Gait Start: 09/20/19 16:58 Freq: NEEDED Status: Active Protocol: Document 09/20/19 10:42 DLM (Rec: 09/20/19 18:06 [facility] [id number]) PT-Bed Mobility Assessment Rolling Level of Assist Independent Supine to Sit Supine to Sit Standby Assistance Sit to Supine Sit to Supine Standby Assistance Scooting Scooting to Edge of Bed Standby Assistance Scooting Up and Down in Bed Standby Assistance PT-Transfer Assessment Sit to and From Stand Sit to and from Stand Contact Guard Assistance, Minimal Assistance,Use of Upper Extremities Equipment Transfer Assistive Device Gait Belt,Front Wheeled Walker Transfers Transfer Destination Chair Transfer Technique Stand Step Pivot Transfer Ability Level of Assist Minimal Assistance Comments Mobility Comments decreased standing balance Gait Assessment Gait Gait Assistance Required: Minimum Assistance Distance (Feet) 110 Assistive Devices Assistive Device Gait Belt,Front Wheeled Walker Factors Limiting Gait Function Factors Limiting Gait Function Decreased Activity Tolerance, Decreased Sensation,Poor Balance,Poor Safety Awareness Comments Gait Comments lateral losses of balance with any head motions or when gets distracted, hard for her to stay coordinated within the FWW, also trailed the upright cane for gait but she then needs mod assist with short shuffling steps and frequent losses of balance PT-Balance Assessment Sitting Balance and Reactions Static Sitting Balance Ability Good Dynamic Sitting Balance Ability Fair Standing Balance and Reactions Static Standing Balance Ability Fair Dynamic Standing Balance Ability Fair Balance Tests Single Limb Standing unable to lift foot without balance loss Romberg losses of balance, right lean and posterior the worst Tandem Standing unable Comments Other Balance Tests/Deviations/Treatment unable to move feet into : narrow base of support without UE support and/or assistance, decreased anticipatory balance reactions seen with head motions M5 PT-IP Objective Assessments Start: 09/20/19 16:58 Freq: NEEDED Status: Active Protocol: Document 09/20/19 10:42 DLM (Rec: 09/20/19 18:06 [facility] [id number]) Orientation Orientation/Cognition Level of Alertness Alert Orientation Name,Age,Birthday,Day of Week, Place Language Function Ability No Deficits Noted Safety Awareness Decreased Safety Awareness Memory Description Short Term Impaired Comments She perseverates, hard for her to switch tasks. Gross Range of Motion Upper Extremity ROM Assessment Right Impaired Impairments pain with right shoulder flexion greater than 90 degrees Lower Extremity ROM Assessment Within Functional Limits Strength Upper Extremity Strength Assessment Right Impaired Shoulder shoulder flexion 2+/5, ER 0/5 Elbow ext 3+/5 Lower Extremity Strength Assessment Within Functional Limits Coordination Assessment Gross Coordination Gross Coordination Impaired Assessment Foot Tapping Test Moderate Impairment Coordination Comments mild to moderate impairment in motor planning, slow to initiate new tasks Sensation Assessment Sensation Gross Sensation Right UE Impaired,Left UE Impaired,Right LE Impaired, Left LE Impaired Light Touch Impaired Proprioception (Position) Impaired Sensation Description Numbness Comments Sensation Comments toes into mid foot is numb, numbness in finger tips Muscle Tone Muscle Tone WNL Yes M6 PT-IP Treatment Start: 09/20/19 16:58 Freq: NEEDED Status: Active Protocol: Document 09/20/19 10:42 DLM (Rec: 09/20/19 18:06 [facility] [id number]) Physical Therapy Treatment Education Education Provided Safety M7 PT-IP Assessment and Plan Start: 09/20/19 16:58 Freq: NEEDED Status: Active Protocol: Document 09/20/19 10:42 DLM (Rec: 09/20/19 18:06 [facility] [id number]) PT Summary Assessment and Plan Potential Rehabilitation Potential Good Status of Condition at Evaluation Evolving Summary Impairments Strength,Balance,Coordination, Sensation,Cognition,Transfers, Gait,Activity Tolerance Assessment Summary Patient presents with significant standing balance deficits that are complicated by vision impairments, impaired LE sensation and impaired cognition. She is able to follow simple instructions but gets distracted easily. She continues to be at high fall risk and needs to learn to compensate by using a fWW as well as a balance retraining program to improve her functional balance. Pt has been falling at home. Her family works and is not available to provide 24/7 assist. She could benefit from SNF rehab to address her deficits and maximize her functional independence. Goals Transfer Goal Standby Assistance,Front Wheeled Walker Gait Goal Contact Guard Assistance,Front Wheel Walker Gait Distance 200 feet Other Goals Up and down 2-3 stairs with min assist Days to Meet Goals 4 Frequency of Treatment Frequency Of Treatment Twice a Day Treatment Plan Physical Therapy Treatment Plan Bed Mobility Training,Transfer Training,Gait Training, Therapeutic Exercise,Balance Retraining,Discharge Planning, Neuromuscular Re-ed Other Recommendations and Next Treatment Focus on gait training with Focus fWW Recommendations To Nursing Amount of Assist Needed 1 Person Assist Discharge Recommendations PT Discharge Recommendations SNF Rehab Other Discharge Recommendations she needs 24/7 physical assist at this time due to impaired balance, anticipate she will be able to learn how to use a FWW safely but she will need a lot of repetition due to impaired cognition
--- NOTE | 2019-09-20 12:38 | ST.IPCSEOM ---
Visit Care Team Role Provider Type Gagan Lang DO Primary Care Provider Physician Specialty: Medical Address: [address] [place] [address], [id number] Email: Cm Real DO Emergency Provider Physician Specialty: Emergency Medicine Address: [address] [place] [address], [id number] Email: [email or web address] Rina Jiang MD Admit Provider Physician Attending Provider Specialty: Internal Medicine Address: [address] [place] [address], [facility] Email: [email or web address] Current Diagnoses Chronic obstructive pulmonary disease with (acute) exacerbation (09/19/19) Past Medical History (Last Updated 09/19/19 @ 16:35 by Rina Jiang MD) COPD (chronic obstructive pulmonary disease) (Inactive Medical) Cough (Acute Medical) Dry eyes (Acute Medical) Frequent falls (Acute Medical) History of lung cancer (Acute Medical) History of lung cancer in adulthood (Acute Medical) History of pneumothorax (Acute Medical) History of rib fracture (Acute Medical) Hyperlipidemia (Acute Medical) Onychomycosis (Acute Medical) Short-term memory loss (Acute Medical) Thrombocytopenia (Acute Medical) 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 Jiang Setting Assessment Location Acute Care Visit Type Note Type Initial Evaluation Patient Information Identification Type Name,ID Wristband History The patient moved from [facility] to be with her daughter 1 month ago. According to the daughter since she has moved to the area she has been weak, and experienced multiple falls. In addition she has had increasing cough, shortness of breath, and fever. They do not know what her temperature has been however she has been gradually declining. A chest x -ray was obtained which showed a small pleural effusion but no evidence of pneumonia. Subjective Observations Pt had just finished a shower and was seated in bedside chair. Lunch tray in the room . Evaluation Liquids Trialed Thin Solids Trialed Regular Administration Type Self-Feeding Oral Impairment WFL Oral Phase Comments Om assessment noted structures and function WFL. Rotary chew with adequate mastication . Pharyngeal Impairment WFL Pharyngeal Phase Comments hyolaryngeal elevation and movement of the hyoid bone noted to be WFL upon palpation . No wet voicing, no cough or choke observed. No oral residue following bite of sandwich. Pharyngeal phase appeared to be WFL. Silent aspiration cannot be ruled out . Findings Dysphagia Type None observed Diet Recommendations Liquids Order Thin Diet Order Regular Medication Recommendations As Tolerated Aspiration Precautions Additional Precautions Standard aspiration precautions Treatment Plan Appropriate for Therapy No
--- NOTE | 2019-09-20 14:43 | OT.IP.EVAL ---
Current Diagnoses Chronic obstructive pulmonary disease with (acute) exacerbation (09/19/19) Past Medical History (Last Updated 09/19/19 @ 16:35 by Rina Jiang MD) COPD (chronic obstructive pulmonary disease) (Inactive) Cough (Acute) Dry eyes (Acute) Frequent falls (Acute) History of lung cancer (Acute) History of lung cancer in adulthood (Acute) History of pneumothorax (Acute) History of rib fracture (Acute) Hyperlipidemia (Acute) Onychomycosis (Acute) Short-term memory loss (Acute) Thrombocytopenia (Acute) Surgical History (Last Reviewed 09/19/19 @ 11:02 by Cm Real DO) History of pneumonectomy (Acute) Occupational Therapy Inpatient Evaluation/Re-Eval M1 PT/OT-IP Prior Functional Status Start: 09/20/19 17:02 Freq: NEEDED Status: Active Protocol: Document 09/20/19 14:43 [facility] (Rec: 09/20/19 18:16 [facility] [id number]) Medical Review Prior Functional Status Medical History Reviewed Yes Communication Independent. Mobility and Gait Pt states uses her upright cane in the house. Activities of Daily Living and IADL's Pt states prior to coming to the hospital able to ADl's and clean up after herself. Prior Functional Level (Other details) Per pt just moves from [facility] just one month ago to her daughter's house. Social History Household Members family Living Arrangements House Number of Floors (Floors) Two Floors Number of Stairs To Enter/Railing? Pt has one step to the walkway and then threshold to get into the house. Pt states bedroom on the 2nd floor-7 steps, landing, and then another 7 steps which both have left hand rail going up. Home Environment Walk in Shower Home Equipment Front Wheel Walker,Straight Cane,Shower Seat without Backrest,Grab Bars Near Toilet ,Grab Bars In Shower M2 OT-IP Current Condition Start: 09/20/19 17:02 Freq: Status: Active Protocol: Document 09/20/19 14:43 [facility] (Rec: 09/20/19 18:16 [facility] [id number]) Occupational Therapy Current Condition Current Condition Evaluation Date 09/20/19 Treatment Diagnosis COPD exacer, recent rib fractures, decreased balance & mobility Diagnosis Onset Date 09/19/19 Weight Bearing Status Weight Bearing Status Weight Bear as Tolerated M3 OT- IP Subjective and Pain Start: 09/20/19 17:02 Freq: Status: Active Protocol: Document 09/20/19 14:43 [facility] (Rec: 09/20/19 18:16 [facility] [id number]) OT- Subjective Occupational Therapy Visit Type Type Initial Evaluation Visit Start Time 14:43 Visit Stop Time 15:10 Total Visit Minutes 72 Notes Pt also seen from [id number] due to pt having to get IV put in prior to completion of OT eval. Occupational Therapy Visit Comments Patient Comments Pt willing to get up for OT eval to brush her teeth. Patient/Caregiver Goals Pt not sure what she wants at this time. Pt feeling down of not being at home, pt moved from [place] last month to [place]. OT Pain Assessment Pain When Pain Assessed During Mobility Pain Present Pain Present Pain Reported Location Back Intensity 3 Scale Used Numeric (1 - 10) Management Techniques Re-positioning M4 OT- IP ADL's Start: 09/20/19 17:02 Freq: Status: Active Protocol: Document 09/20/19 14:43 [facility] (Rec: 09/20/19 18:16 [facility] [id number]) OT GYL-Srzz-Adrueiy Comments OT Self-Feeding Comments Not at meal time, able to bring cup to mouth while brushing her teeth independently. OT ADL-Grooming General Evaluation Grooming Ability Standby Assistance Areas Needing Assistance Retrieving/Set-up of Grooming Items Comments OT Grooming Comments Standing at sink with FWW. OT ADL-Oral Care General Eval Oral Care Ability Independent OT ADL-Dressing General Eval Lower Body Dressing Ability Standby Assistance Comments OT Dressing Comments Pt able to sit at edge of bed and able to lean forwards to jean/doff socks on her own. Not able to assess for other LB dressing needs, due to decreased balance will need more assist. OT ADL-Toileting Comments OT Toileting Comments Pt states just used the toilet with nursing earlier. OT ADL-Bathing Comments OT Bathing Comments Per nursing aid , pt able to shower while sitting down and needing assist for her hair and back. M5 OT- IP IADL's Start: 09/20/19 17:02 Freq: Status: Active Protocol: Document 09/20/19 14:43 [facility] (Rec: 09/20/19 18:16 [facility] [id number]) OT-Instrumental Activities of Daily Living Home Safety Awareness Home Safety Comments Pt able to answer home safety questions 80% accuracy. Pt had no idea what to do if toilet overflowing or how to use a fire extinguisher. Medication Management Medication Management Comments Pt states takes minimal medications and says just takes them out of the bottle. Money Management Money Management Comments Pt states mainly writes check and recently thinking about having her daughter take over for money management needs. Driving Driving Caregiver Provides Assist M6 OT- IP Functional Cognition Start: 09/20/19 17:02 Freq: Status: Active Protocol: Document 09/20/19 14:43 [facility] (Rec: 09/20/19 18:16 [facility] [id number]) Cognitive Factors Limiting Selfcare Function Cognitive Ability Level of Alertness Alert Patient Orientation Name,Day of Week,Situation Attention Span Ability Capable of Focused Attention, Unable to Sustain Attention Ability to Follow Commands Able to Follow One Step Commands Memory Description Short Term Impaired Safety Awareness Underestimates Need for Assistance Problem Solving Ability Unable to Identify Errors, Needs Assist to Identify Solutions Executive Function Ability Unable to Filter Distractions, Unable to Organize Plans, Unable to Remember Details Cognitive Tests SLUMS Pt scored 17/30 , normal score for pt's level of education is 27/30. Pt's score implies dementia. Pt states has trouble with short term memory more recently since move to [place]. Pt highly distracted and at times perservaerates on details. Pt unable to do math calculation and even after having the problem written out. Pt not able to recall any of the 5 words given to her, unable to accurately draw the hours hands on the clock after time given, and only able to answer 2/4 questions after paragraph read. Cognitive Comments Cognitive Assessment Comments Pt needing concrete simple commands to follow. Pt needing vc for safety awareness to keep FWW in front of her at all times. OT- Vision and Hearing OT- Hearing Assessment OT- Hearing Assessment Hearing Impaired OT- Vision Assessment Visual Acuity Glasses All The Time Occular Pursuits Impaired Vertical Visual Pascal WFL Vision Assessment Comments Pt states has double vision is not wearing her glasses. M7 OT- IP Mobility and Balance Start: 09/20/19 17:02 Freq: Status: Active Protocol: Document 09/20/19 14:43 [facility] (Rec: 09/20/19 18:16 [facility] [id number]) OT- Bed Mobility Assessment Rolling Level of Assistance Standby Assistance Supine to Sit Supine to Sit Assist Standby Assistance Sit to Supine Sit to Supine Assist Standby Assistance Scooting Scooting to Edge of Bed Standby Assistance OT-Transfer Assessment Sit to and From Stand Sit to and from Stand Contact Guard Assistance Transfers Transfer Ability Contact Guard Assistance, Minimal Assistance Technique Transfer Destination Bed Transfer Technique Stand Step Pivot Devices Transfer Assistive Devices Gait Belt,Front Wheeled Walker Comments Mobility Comments SBA for bed mobility as tends to sit up into long sitting and then get her legs out of the bed. Pt coming to stand with CGA as tend to stand on her heels and leaning backwards and does not realize that she is not balanced. CGA/TODD with FWW to cristal to the sink. Educated pt to stand first and be mindful of how she is standing and to be sure her weight is well distributed on her whole foot and not just her heels. OT- Balance Assessment Sitting Balance and Reactions Static Sitting Balance Ability Normal Dynamic Sitting Balance Ability Good Standing Balance and Reactions Static Standing Balance Ability Fair Dynamic Standing Balance Ability Poor M8 OT- IP Objective Assessments Start: 09/20/19 17:02 Freq: Status: Active Protocol: Document 09/20/19 14:43 [facility] (Rec: 09/20/19 18:16 [facility] [id number]) OT Gross Range of Motion Upper Extremity Range of Motion Assessment Right Impaired ROM Impairments RUE internally rotates. OT Strength Upper Extremity Strength Assessment Right Impaired Comments Strength Comments RUE 2+/5 to 3+/5 form proximal to distal, LUE 4-/5. Pt not able to pull up blankets with her right hand. OT-Muscle Tone Assessment Muscle Tone WNL Yes OT Sensation Assessment Comments Summary Comments Pt states tends to drop things in her right hand due to decreased sensation. M9 OT- IP Assessment and Plan Start: 09/20/19 17:02 Freq: Status: Active Protocol: Document 09/20/19 14:43 [facility] (Rec: 09/20/19 18:16 [facility] [id number]) OT Summary Assessment and Plan Potential Rehabilitation Potential Good Analytic Complexity at Evaluation Moderate Summary OT Impairments Pain,Range of Motion,Strength, Balance,Functional Cognition, Functional Mobility,Self- Feeding,Grooming,Dressing, Toileting,Bathing,Toilet Transfers,Shower Transfers Progress Towards Goals Slow Progress due to Medical Issues,Slow Progress due to Cognition Assessment Summary Pt MOD complexity due to decreased balance, functional cognition, activity tolerance and now needing assist for functional mobility and not safe to return home alone as daughter works due to high risk of falls and decreased safety awareness of deficits and needs. Goals Self-Feeding Goal Independent Grooming Goal Independent Dressing Goal Independent Toileting Goal Independent Bathing Goal Standby Assistance Toilet Transfer Goal Independent Shower Transfer Goal Standby Assistance Patient/Caregiver Education Goal Demonstrate Energy Conservation and Pacing, Caregiver Independent Assisting Patient Days to Meet Goals 7 Frequency of Treatment Frequency Of Treatment Once a Day Treatment Plan OT Treatment Plan ADL Training,Functional Cognition Training,Functional Mobility,Patient/Family Education,Discharge Planning Other Treatment Recommendations and Next LB dressing and toileting , Treatment Focus FWW safety Discharge Recommendations OT Discharge Recommendations SNF Rehab Home Equipment Needs [facility]
--- NOTE | 2019-09-20 14:53 | DI.CT.S_ITS ---
PROCEDURE: CT ANGIO CHEST PE PROTOCOL INDICATIONS: pleuritc pain, recent rib fx, r/o P.E. TECHNIQUE: After the administration of intravenous contrast, 2 mm thick sections acquired from the pulmonary apices to the posterior costophrenic angles. 3-dimensional maximum intensity projection (MIP) coronal and sagittal reformats were then acquired through the thorax. For radiation dose reduction, the following was used: automated exposure control, adjustment of mA and/or kV according to patient size. COMPARISON: [facility], CR, XR RIBS RIGHT WITH PA CHEST, 08/29/2019, 14:12. [facility], CT, CT ABDOMEN WITH CONTRAST, 08/29/2019, 16:59. [facility], CR, XR CHEST 2V, 09/20/2019, 6:32. [facility], CR, XR CHEST 1V, 09/19/2019, 10:09. FINDINGS: Image quality: Excellent. Pulmonary arteries: Pulmonary arteries are normal in size, and demonstrate no intraluminal filling defects to suggest central pulmonary embolism. Lungs and pleura: There is a masslike density in the left upper lobe. A small left pleural effusion is present. No pneumothorax. Mild/moderate emphysema. Central and peripheral airways are patent. Mediastinum: Heart size is normal, without pericardial effusion. No mediastinal or hilar adenopathy. Thoracic aorta is normal in caliber and enhancement. Esophagus is normal in caliber, without hiatal hernia. Bones and chest wall: No suspicious bony lesions. Nonacut rib fractures are noted bilaterally. The thoracic spine appears intact throughout. Thyroid gland is normal. No axillary or supraclavicular adenopathy. Abdomen: Multiple low-density nodules are noted in the liver. Visualized upper abdominal solid organs appear normal in the early arterial phase of enhancement. IMPRESSION: 1. No evidence for pulmonary embolism. 2. A masslike density in the left upper lobe. Differential diagnoses include focal consolidation secondary to pneumonia, atelectasis, scars and lung mass. Recommend clinical correlation and followup. 3. There is a small left pleural effusion. 4. Multiple low density nodules in the liver are most likely cysts. 5. Non-acute fractures bilaterally. 6. Mild/moderate emphysema. 7. Small hiatal hernia. Dictated by: Qing Velasco M.D. on 09/20/2019 at 16:17 Approved by: Qing Velasco M.D. on 09/20/2019 at 16:41
--- NOTE | 2019-09-20 15:51 | PC.NURSE ---
Late entry: New peripheral IV placed in LUE by CHRISTOPHER Lorenz. Patient off floor approx [address] scan.
--- NOTE | 2019-09-20 16:30 | PT-IP ANOTE ---
Pt unavailable this afternoon due to working with OT then getting new IV. Will follow-up tomorrow
[2019-09-20] MEDS: CEFTRIAXONE 2 GM/50 ML FROZ.PIGGY IV (17:36)
--- NOTE | 2019-09-20 17:50 | P.PN_ITS ---
Subjective Subjective Date Patient Seen: 09/20/19 Interval history: Patient is 83-year-old female with history of treated lung cancer in 2004 and 2007, multiple rib fractures within the past month, history of recurrent falls and traumatic right pneumothorax requiring chest tube placement a year ago, untreated depression, recently moved from [place] to stay with her daughter presented due to dehydration and COPD exacerbation. Patient reports some improvement in breathing since admission. Exam Vital Signs (past 8 hours): - 09/20/19 12:20 09/20/19 12:30 09/20/19 13:47 Temperature 98.1 F Pulse Rate 75 Respiratory Rate 16 Blood Pressure 112/54 L Pulse Oximetry 97 97 98 09/20/19 16:30 Temperature 97.4 F L Pulse Rate 76 Respiratory Rate 18 Blood Pressure 137/87 Pulse Oximetry 95 Fraction of Inspired Oxygen 21 Oxygen Delivery Method Room Air Oxygen Flow Rate 0 Narrative Exam Narrative: General: Alert and pleasant though slightly tearful female sitting in chair and in no acute distress Neck: No lymphadenopathy Lungs: Mild bilateral wheeze, no crackles Heart: Regular rhythm Abdomen: Soft and nontender Extremities: Without edema Neurological: Appears depressed, nonfocal Objective Labs Result Diagrams: 09/20/19 05:44 09/20/19 05:44 Labs: Laboratory Results - last 24 hr 09/19/19 09/19/19 09/20/19 21:34 22:50 05:44 WBC 10.0 RBC 3.88 L Hgb 12.8 Hct 37.3 MCV 96.2 MCH 32.9 MCHC 34.2 RDW 13.2 Plt Count 131 L Neut % (Auto) 92.9 H Lymph % (Auto) 2.9 L [place] % (Auto) 4.1 Eos % (Auto) 0.0 L Baso % (Auto) 0.1 Neut # (Auto) 9300 H Lymph # (Auto) 300 L [place] # (Auto) 400 Eos # (Auto) 0 Baso # (Auto) 0 D-Dimer 3819 H Sodium Potassium Chloride Carbon Dioxide BUN Creatinine Estimated GFR BUN/Creatinine Ratio Glucose Calcium Chlamy pneumoniae PCR Not detected Adenovirus (PCR) Not detected B.parapertussis DNA PCR Not detected Coronavirus OC43 (PCR) Not detected Coronavirus HKU1 (PCR) Not detected Coronavirus 229E (PCR) Not detected Coronavirus NL63 (PCR) Not detected Human Metapneumovir PCR Not detected Influenza Type A (PCR) Not detected Influenza Type B (PCR) Not detected M. pneumoniae (PCR) Not detected Parainfluenza 1 (PCR) Not detected Parainfluenza 2 (PCR) Not detected Parainfluenza 3 (PCR) Not detected Parainfluenza 4 (PCR) Not detected RSV (PCR) Not detected Entero/Rhino (PCR) Not detected 09/20/19 05:44 WBC RBC Hgb Hct MCV MCH MCHC RDW Plt Count Neut % (Auto) Lymph % (Auto) [place] % (Auto) Eos % (Auto) Baso % (Auto) Neut # (Auto) Lymph # (Auto) [place] # (Auto) Eos # (Auto) Baso # (Auto) D-Dimer Sodium 139 Potassium 3.7 Chloride 107 Carbon Dioxide 24 BUN 13 Creatinine 0.60 Estimated GFR > 60.0 BUN/Creatinine Ratio 21.7 Glucose 177 H Calcium 8.8 Chlamy pneumoniae PCR Adenovirus (PCR) B.parapertussis DNA PCR Coronavirus OC43 (PCR) Coronavirus HKU1 (PCR) Coronavirus 229E (PCR) Coronavirus NL63 (PCR) Human Metapneumovir PCR Influenza Type A (PCR) Influenza Type B (PCR) M. pneumoniae (PCR) Parainfluenza 1 (PCR) Parainfluenza 2 (PCR) Parainfluenza 3 (PCR) Parainfluenza 4 (PCR) RSV (PCR) Entero/Rhino (PCR) Assessment & Plan Assessment & Plan narrative: Patient is 83-year-old female with history of treated lung cancer in 2004 and 2007, multiple rib fractures within the past month, history of recurrent falls and traumatic right pneumothorax requiring chest tube placement a year ago, untreated depression, recently moved from [place] to stay with her daughter admitted due to dehydration and COPD exacerbation. 1. Acute COPD exacerbation, present on admission -patient improving, productive cough, not hypoxic -elevated D-dimer, angio chest CT negative for pulmonary embolism -continue albuterol nebulizers and prednisone -continue Rocephin and switch to oral Ceftin prior to discharge 2. History of lung cancer, treated in 2004 and 2007 with radiation chemotherapy, no evidence to suggest recurrence at this time -chest CT showed left upper lobe masslike appearance which is likely scarring from previous radiation treatment in less likely due to a new lung mass or pneumonia, it would be helpful to obtain any previous imaging records from her providers in [place] 3. Acute dehydration with orthostatic hypotension, present on admission -improved with IV hydration, patient had been hesitant to get up from bed at home to eat and take fluids due to weakness and falls -encourage oral fluid intake 4. Weakness, failure to thrive, recurrent falls -multifactorial, continue PT and OT, she passed a swallowing study with ST 5. Chronic depression, untreated prior to admission -patient with sadness, loss of interest in activities now is open to antidepressant treatment -started citalopram 10 mg daily to continue as outpatient 6. Possible dementia -per OT MMSE patient scored 17/30 mainly having problems with short-term recall concerning for dementia although test affected by depression as well 7. Hypothyroidism, likely subclinical but may be affecting mood -outpatient labs September 16, 2019 TSH 5.02, normal free T4 0.93 -levothyroxine 25 mcg daily and recheck TSH in 4-6 weeks 8. Hyperlipidemia -patient previously on atorvastatin but ran out and discontinued, restarted atorvastatin 10 mg daily this admission 9. Urinary tract infection, present on admission -outpatient urine culture on 09/16/2019 grew pansensitive E coli -likely result of decreased fluid intake and avoiding going to bathroom due to mobility problems -continue Rocephin as above treatment for COPD exacerbation Patient with improving course but will need long term rehab due to weakness, frequent falls and failure to thrive. Quality VTE Deep Vein Thrombosis/Pulmonary Embolism Present on Admission: No
[2019-09-20] MEDS: SENNOSIDES 8.6 MG TABLET 17.2 MG PO (20:33)
[2019-09-20] MEDS: ATORVASTATIN 10 MG TABLET PO (20:34)
[2019-09-20] MEDS: SODIUM CHLORIDE 0.9% FLUSH 10 ML IV (20:34)
[2019-09-20] MEDS: NICOTINE 4 EACH PO (21:07)
[2019-09-21] VITALS (12 sets, daily range): BP systolic 116–149; BP diastolic 56–86; PULSE 58–78; RESP 16–24; TEMP 35.9–36.8; O2SAT 92–96
[2019-09-21] MEDS: ONDANSETRON 4 MG/2 ML INJ IV (00:28)
[2019-09-21] MEDS: LEVOTHYROXINE 50 MCG TABLET 25 MCG PO (06:10)
[2019-09-21] MEDS: BUDESONIDE 0.5 MG/2 ML NEB INH ×2 (06:12→19:44)
[2019-09-21] MEDS: ALBUTEROL/IPRATROPIUM 3 ML AMPUL INH ×3 (06:12→19:43)
[2019-09-21 06:32] LABS: BUN Creatinine Ratio 22.5 (6-22); Blood Urea Nitrogen 18 mg/dL (7-17); Calcium 8.7 mg/dL (8.4-10.2); Carbon Dioxide 27 mmol/L (22-32); Chloride 106 mmol/L (98-107); Estimated Glomerular Filt Rate > 60.0 mL/min (>60); Glucose 108 mg/dL (80-110); HEMOLYSIS < 15 (0-50); Potassium 3.8 mmol/L (3.4-5.1); Sodium 139 mmol/L (137-145)
--- NOTE | 2019-09-21 08:55 | OT.IP.TRT ---
Current Diagnoses Chronic obstructive pulmonary disease with (acute) exacerbation (09/19/19) Occupational Therapy Treatment Note M2 OT-IP Current Condition Start: 09/20/19 17:02 Freq: Status: Active Protocol: Document 09/20/19 14:43 [facility] (Rec: 09/20/19 18:16 [facility] [email or web address]) Occupational Therapy Current Condition Current Condition Evaluation Date 09/20/19 Treatment Diagnosis COPD exacer, recent rib fractures, decreased balance & mobility Diagnosis Onset Date 09/19/19 Weight Bearing Status Weight Bearing Status Weight Bear as Tolerated M3 OT- IP Subjective and Pain Start: 09/20/19 17:02 Freq: Status: Active Protocol: Document 09/21/19 14:19 [facility] (Rec: 09/21/19 14:36 [facility] [email or web address]) OT- Subjective Occupational Therapy Visit Type Type Treatment Note Visit Start Time 08:55 Visit Stop Time 09:30 Total Visit Minutes 35 Occupational Therapy Visit Comments Patient Comments Pt agreed to get up to use the bathroom and wash up at the sink. pt's daughter came in at the end of the session and expressed concerns that pt's short term memory and safety had declined recently. OT Pain Assessment Pain When Pain Assessed At Rest Pain Present Pain Present Pain Reported M4 OT- IP ADL's Start: 09/20/19 17:02 Freq: Status: Active Protocol: Document 09/21/19 14:19 [facility] (Rec: 09/21/19 14:36 [facility] [email or web address]) OT ADL-Grooming General Evaluation Grooming Ability Standby Assistance Areas Needing Assistance Retrieving/Set-up of Grooming Items Comments OT Grooming Comments Standing at sink with FWW. OT ADL-Oral Care General Eval Oral Care Ability Independent OT ADL-Dressing General Eval Lower Body Dressing Ability Contact Guard Assistance Comments OT Dressing Comments Pt able to doff/jean brief while sitting on the toilet. CGA for balance while standing to pull up brief over her hips. OT ADL-Toileting General Evaluation Toileting Ability Standby Assistance Comments OT Toileting Comments VC for completeness to wipe ude ot pt's decreased vision. M6 OT- IP Functional Cognition Start: 09/20/19 17:02 Freq: Status: Active Protocol: Document 09/21/19 14:19 [facility] (Rec: 09/21/19 14:36 [facility] [email or web address]) Cognitive Factors Limiting Selfcare Function Cognitive Ability Level of Alertness Alert,Confusional State Patient Orientation Name,Day of Week,Situation Attention Span Ability Capable of Focused Attention, Unable to Sustain Attention Ability to Follow Commands Able to Follow One Step Commands Memory Description Short Term Impaired Safety Awareness Underestimates Need for Assistance Problem Solving Ability Unable to Identify Errors, Needs Assist to Identify Solutions Executive Function Ability Unable to Filter Distractions, Unable to Organize Plans, Unable to Remember Details Cognitive Comments Cognitive Assessment Comments Pt states told someone had come in to have her sign papers in the AM, worried that she is not walking enough, and states that not sure what is going on with her care. Notified nursing but also re- explained what therapy focuses on with pt while in the hospital. Pt has decreased short term memory which may also feed into her frustrations as unable to remember what is being told to her. Pt would benefit form a memory book. Pt needing vc for safety awareness to keep FWW in front her at all times. M7 OT- IP Mobility and Balance Start: 09/20/19 17:02 Freq: Status: Active Protocol: Document 09/21/19 14:19 [facility] (Rec: 09/21/19 14:36 [facility] [email or web address]) OT- Bed Mobility Assessment Rolling Level of Assistance Standby Assistance Supine to Sit Supine to Sit Assist Standby Assistance Sit to Supine Sit to Supine Assist Standby Assistance Scooting Scooting to Edge of Bed Standby Assistance OT-Transfer Assessment Sit to and From Stand Sit to and from Stand Contact Guard Assistance Transfers Transfer Ability Contact Guard Assistance Technique Transfer Destination Bed,Toilet Transfer Technique Stand Step Pivot Devices Transfer Assistive Devices Gait Belt,Front Wheeled Walker Comments Mobility Comments CGA with FWW dur to decrease balance and at times FWW gets away from her. M8 OT- IP Objective Assessments Start: 09/20/19 17:02 Freq: Status: Active Protocol: Document 09/20/19 14:43 [facility] (Rec: 09/20/19 18:16 [facility] [email or web address]) OT Gross Range of Motion Upper Extremity Range of Motion Assessment Right Impaired ROM Impairments RUE internally rotates. OT Strength Upper Extremity Strength Assessment Right Impaired Comments Strength Comments RUE 2+/5 to 3+/5 form proximal to distal, LUE 4-/5. Pt not able to pull up blankets with her right hand. OT-Muscle Tone Assessment Muscle Tone WNL Yes OT Sensation Assessment Comments Summary Comments Pt states tends to drop things in her right hand due to decreased sensation. M9 OT- IP Assessment and Plan Start: 09/20/19 17:02 Freq: Status: Active Protocol: Document 09/21/19 14:19 [facility] (Rec: 09/21/19 14:36 [facility] [email or web address]) OT Summary Assessment and Plan Potential Rehabilitation Potential Good Analytic Complexity at Evaluation Moderate Summary OT Impairments Pain,Range of Motion,Strength, Balance,Functional Cognition, Functional Mobility,Self- Feeding,Grooming,Dressing, Toileting,Bathing,Toilet Transfers,Shower Transfers Progress Towards Goals Progressing Toward Goals,Slow Progress due to Cognition Assessment Summary Pt having difficulty with short term memory which influences her safety awareness. Pt will benefit form skilled rehab to work on safety awareness, memory strategies , to help increase independence for ADl and functional mobility needs. Pt to go to skilled rehab when medically stable. Goals Self-Feeding Goal Independent Grooming Goal Independent Dressing Goal Independent Toileting Goal Independent Bathing Goal Standby Assistance Toilet Transfer Goal Independent Shower Transfer Goal Standby Assistance Patient/Caregiver Education Goal Demonstrate Energy Conservation and Pacing, Caregiver Independent Assisting Patient Days to Meet Goals 5 Frequency of Treatment Frequency Of Treatment Once a Day Treatment Plan OT Treatment Plan ADL Training,Functional Cognition Training,Functional Mobility,Patient/Family Education,Discharge Planning Other Treatment Recommendations and Next shower safety Treatment Focus Discharge Recommendations OT Discharge Recommendations SNF Rehab Home Equipment Needs [facility] [place]
[2019-09-21] MEDS: CITALOPRAM 10 MG TABLET PO (10:05)
[2019-09-21] MEDS: ENOXAPARIN 40 MG/0.4 ML SYRINGE SUBCUT (10:05)
[2019-09-21] MEDS: SODIUM CHLORIDE 0.9% FLUSH 10 ML IV ×3 (10:05→22:05)
[2019-09-21] MEDS: predniSONE 20 MG TABLET 40 MG PO (10:05)
--- NOTE | 2019-09-21 10:50 | PT.IPTN ---
Current Diagnoses Chronic obstructive pulmonary disease with (acute) exacerbation (09/19/19) Physical Therapy Treatment Note M2 PT-IP Current Condition Start: 09/20/19 16:58 Freq: NEEDED Status: Active Protocol: Document 09/20/19 10:42 [facility] (Rec: 09/20/19 18:06 [facility] [id number]) Physical Therapy Current Condition Current Condition Evaluation Date 09/20/19 Treatment Diagnosis weakness, impaired balance and gait Onset Date 09/19/19 Precautions Other Precautions multiple falls in recent past, recent left rib fx's due to fall 2-3 weeks ago, Daughter voices concerns about leaving pt alone due to her falling M3 PT-IP Subjective Start: 09/20/19 16:58 Freq: NEEDED Status: Active Protocol: Document 09/21/19 10:50 [facility] (Rec: 09/21/19 12:15 [facility] [email or web address]) Subjective Physical Therapy Visit Type Type Treatment Note Visit Start Time 10:50 Visit Stop Time 11:25 Total Visit Minutes 35 Notes Treatment supervised by TYPESETTERS PRINTER Mariann. Number of TYPESETTERS PRINTER Visits 1 Physical Therapy Visit Comments Patient Comments Pt is eager to work with therapy today and go for a walk. Reported dizziness and mild nausea upon standing and is feeling more confused today . Therapy Pain Assessment Pain When Pain Assessed During Mobility Pain Present Pain Present Pain Reported Location Left Ribs Description Aching M4 PT-IP Mobility and Gait Start: 09/20/19 16:58 Freq: NEEDED Status: Active Protocol: Document 09/21/19 10:50 [facility] (Rec: 09/21/19 12:15 [facility] [email or web address]) PT-Bed Mobility Assessment Sit to Supine Sit to Supine Minimal Assistance,1 Person Assistance PT-Transfer Assessment Sit to and From Stand Sit to and from Stand Contact Guard Assistance, Minimal Assistance,Use of Upper Extremities Equipment Transfer Assistive Device Gait Belt,Front Wheeled Walker Transfers Transfer Destination Bed Transfer Technique Pt ambulated with FWW. Transfer Ability Level of Assist Minimal Assistance Comments Mobility Comments Pt remains CGA for sit<>stand with FWW. Required frequent cues for keeping one hand on FWW and one pushing up from bed and commode. Pt ambulated with FWW to use toilet, able to perform own pericare but needed assistance donning and doffing brief. Required min A and elevated head of bed to get legs back in bed secondary to ambulation. Pt had decreased balance while looking up and down. Pt left in bed with alarm on and all needs in reach. Daughter present in room. Gait Assessment Gait Gait Assistance Required: Contact Guard Assist Distance (Feet) 80 Able to Maintain Weight Bearing Status Yes During Gait Assistive Devices Assistive Device Gait Belt,Front Wheeled Walker Factors Limiting Gait Function Factors Limiting Gait Function Decreased Activity Tolerance, Decreased Sensation,Poor Balance,Poor Safety Awareness Comments Gait Comments Pt loses balance with head turns and looking up and down. Required cues for proper use of FWW. Pt had poor safety awareness and needed reminder to use FWW after handwashing at sink. Verbalized left rib discomfort and mild nausea during ambulation. Short step length due to poor balance and deconditioning. FWW was incorrect size, replaced with properly fitting FWW. M5 PT-IP Objective Assessments Start: 09/20/19 16:58 Freq: NEEDED Status: Active Protocol: Document 09/20/19 10:42 [facility] (Rec: 09/20/19 18:06 [facility] [id number]) Orientation Orientation/Cognition Level of Alertness Alert Orientation Name,Age,Birthday,Day of Week, Place Language Function Ability No Deficits Noted Safety Awareness Decreased Safety Awareness Memory Description Short Term Impaired Comments She perseverates, hard for her to switch tasks. Gross Range of Motion Upper Extremity ROM Assessment Right Impaired Impairments pain with right shoulder flexion greater than 90 degrees Lower Extremity ROM Assessment Within Functional Limits Strength Upper Extremity Strength Assessment Right Impaired Shoulder shoulder flexion 2+/5, ER 0/5 Elbow ext 3+/5 Lower Extremity Strength Assessment Within Functional Limits Coordination Assessment Gross Coordination Gross Coordination Impaired Assessment Foot Tapping Test Moderate Impairment Coordination Comments mild to moderate impairment in motor planning, slow to initiate new tasks Sensation Assessment Sensation Gross Sensation Right UE Impaired,Left UE Impaired,Right LE Impaired, Left LE Impaired Light Touch Impaired Proprioception (Position) Impaired Sensation Description Numbness Comments Sensation Comments toes into mid foot is numb, numbness in finger tips Muscle Tone Muscle Tone WNL Yes M6 PT-IP Treatment Start: 09/20/19 16:58 Freq: NEEDED Status: Active Protocol: Document 09/21/19 10:50 [facility] (Rec: 09/21/19 12:15 [facility] [email or web address]) Physical Therapy Treatment Exercises Exercises Ankle Pumps Education Education Provided Safety M7 PT-IP Assessment and Plan Start: 09/20/19 16:58 Freq: NEEDED Status: Active Protocol: Document 09/21/19 10:50 [facility] (Rec: 09/21/19 12:15 [facility] [email or web address]) PT Summary Assessment and Plan Potential Rehabilitation Potential Good Status of Condition at Evaluation Evolving Summary Impairments Strength,Balance,Coordination, Sensation,Cognition,Transfers, Gait,Activity Tolerance Assessment Summary Pt has impaired balance, poor safety awareness, and increased confusion. Able to tolerate ambulation ~80ft w/ FWW, but loses balance with head turns and required frequent cues for proper FWW use. Needs repetitive instructions to remember how to use FWW safely. Pt used toilet and washed hands at sink with FWW. CGA for sit<> stand, Min A for stand<>supine due to increased fatigue after ambulation. Goals Transfer Goal Standby Assistance,Front Wheeled Walker Gait Goal Contact Guard Assistance,Front Wheel Walker Gait Distance 200 feet Other Goals Up and down 2-3 stairs with min assist Days to Meet Goals 4 Frequency of Treatment Frequency Of Treatment Twice a Day Treatment Plan Physical Therapy Treatment Plan Bed Mobility Training,Transfer Training,Gait Training, Therapeutic Exercise,Balance Retraining,Discharge Planning, Neuromuscular Re-ed Other Recommendations and Next Treatment Focus on gait training with Focus fWW Recommendations To Nursing Amount of Assist Needed 1 Person Assist Discharge Recommendations PT Discharge Recommendations SNF Rehab Other Discharge Recommendations she needs 24/7 physical assist at this time due to impaired balance, anticipate she will be able to learn how to use a FWW safely but she will need a lot of repetition due to impaired cognition documentation reviewed by Essie Gamez
--- NOTE | 2019-09-21 12:24 | P.PN_ITS ---
Subjective Subjective Date Patient Seen: 09/21/19 Interval history: Patient is 83-year-old female with history of treated lung cancer in 2004 and 2007, multiple rib fractures within the past month, history of recurrent falls and traumatic right pneumothorax requiring chest tube placement over a year ago, untreated depression, recently moved from [place] to stay with her daughter presented to the hospital due to dehydration and COPD exacerbation. Patient reports some improvement in breathing since admission. Yesterday evening and last night she appeared disoriented, confused, thinking people were having her come and sign papers in middle of night. Exam Vital Signs (past 8 hours): - 09/21/19 06:13 09/21/19 10:21 09/21/19 10:24 Temperature 98.2 F Pulse Rate 58 L 78 Respiratory Rate 24 17 Blood Pressure 116/58 L Pulse Oximetry 93 93 94 Fraction of Inspired Oxygen 21 Oxygen Delivery Method Room Air Oxygen Flow Rate 0 Narrative Exam Narrative: General: Alert and pleasant though slightly anxious or worried appearing Neck: No lymphadenopathy Lungs: Mild bilateral wheeze, no crackles Heart: Regular rhythm Abdomen: Soft and nontender Extremities: Without edema Neurological: Affect slightly depressed, slightly anxious, nonfocal Objective Labs Result Diagrams: 09/20/19 05:44 09/21/19 06:05 Labs: Laboratory Results - last 24 hr 09/21/19 06:05 Sodium 139 Potassium 3.8 Chloride 106 Carbon Dioxide 27 BUN 18 H Creatinine 0.80 Estimated GFR > 60.0 BUN/Creatinine Ratio 22.5 H Glucose 108 Calcium 8.7 Assessment & Plan Assessment & Plan narrative: Patient is 83-year-old female with history of treated lung cancer in 2004 and 2007, multiple rib fractures within the past month, history of recurrent falls and traumatic right pneumothorax requiring chest tube placement over a year ago, untreated depression, recently moved from [place] to stay with her daughter admitted due to dehydration and COPD exacerbation. 1. Acute COPD exacerbation, present on admission -patient improving, productive cough, not hypoxic -elevated D-dimer, angio chest CT negative for pulmonary embolism -continue albuterol nebulizers and prednisone -continue Rocephin and switch to oral Ceftin prior to discharge 2. History of lung cancer, treated in 2004 and 2007 with radiation chemotherapy, no evidence to suggest recurrence at this time -chest CT showed left upper lobe masslike appearance which is likely scarring from previous radiation treatment -reviewed past records from [facility] from December 2017 when ame payton was in with traumatic pneumothorax, chest x-ray report at that time indicated stable scarring in the left central lung extending to the pleura, which probably corresponds to current CT finding -further imaging probably not necessary but can consider a repeat chest x-ray or CT in 3-6 months if there is any remaining concern 3. Acute dehydration with orthostatic hypotension, present on admission -improved with IV hydration, patient had been hesitant to get up from bed at home to eat and take fluids due to weakness and falls -encourage oral fluid intake 4. Weakness, failure to thrive, recurrent falls -multifactorial, continue PT and OT, she passed a swallowing study with ST 5. Chronic depression, untreated prior to admission -patient with sadness, loss of interest in activities now is open to antidepressant treatment -started citalopram 10 mg daily to continue as outpatient 6. Possible dementia -per OT MMSE patient scored 17/30 mainly having problems with short-term recall concerning for dementia although test affected by depression and acute illness in hospital -recommend repeat cognitive evaluation in outpatient setting 7. Hypothyroidism, likely subclinical but may be affecting mood -outpatient labs September 16, 2019 TSH 5.02, normal free T4 0.93 -levothyroxine 25 mcg daily and recheck TSH in 4-6 weeks 8. Hyperlipidemia -patient previously on atorvastatin but ran out and discontinued, restarted atorvastatin 10 mg daily this admission 9. Urinary tract infection, present on admission -outpatient urine culture on 09/16/2019 grew pansensitive E coli -likely result of decreased fluid intake and avoiding going to bathroom due to mobility problems -continue Rocephin as above treatment for COPD exacerbation Patient with improving course but will need fci rehab due to weakness, frequent falls and failure to thrive. We are expecting she will discharge to [facility] tomorrow Friday for rehab services. Quality VTE Deep Vein Thrombosis/Pulmonary Embolism Present on Admission: No
--- NOTE | 2019-09-21 12:35 | CM.DPC ---
DCP Cont: Spoke with Mylene at [facility] to inquire if patient can be accepted tomorrow. Also, she was going to get in touch with patient's daughter, Gia. After reviewing and speaking to daughter, is confirmed that she can be accepted tomorrow. PASSR completed. Daughter was in earlier, anxious, she was talking to nurse, Janeth. Daughter has also been having some personal problems, and an illness in the family. Have not yet been able to meet with her today. Will attempt later. P: Plan is for [facility] for tomorrow. Was going to bring by [employer] book for daughter, but can try later. Patient may need 24 hour care after [facility]. Pao Turner RN/Automobile Spring Repairer
[2019-09-21] MEDS: ACETAMINOPHEN 325 MG TABLET 650 MG PO (12:42)
--- NOTE | 2019-09-21 13:34 | PC.NURSE ---
Shift summary: Alert and oriented X3. Forgetful, and daughter reported that she felt her mom was more confused and a little paranoid today. Patient's daughter said that she addressed this with Dr Martinez when he made rounds and had her questions answered to her satisfaction. Patient has been appropriate with care interventions, is able to make needs known and follows commands appropriately. She has not been impulsive Denies shortness of breath. Lungs CTA, dim bases. Room air w/ SpO2 in the mid 90's. C/O pain in her back and ribs. Pain improved w/ application of warm blankets to back and 650 mg Tylenol. Resting quietly in bed at this time and appears comfortable. SCD's on BLE's. Call light and belongings within reach, bed alarm on.
--- NOTE | 2019-09-21 15:14 | PT.IPTN ---
documentation review by Essie Gamez PTA Current Diagnoses Chronic obstructive pulmonary disease with (acute) exacerbation (09/19/19) Physical Therapy Treatment Note M2 PT-IP Current Condition Start: 09/20/19 16:58 Freq: NEEDED Status: Active Protocol: Document 09/20/19 10:42 DLM (Rec: 09/20/19 18:06 DLM [id number]) Physical Therapy Current Condition Current Condition Evaluation Date 09/20/19 Treatment Diagnosis weakness, impaired balance and gait Onset Date 09/19/19 Precautions Other Precautions multiple falls in recent past, recent left rib fx's due to fall 2-3 weeks ago, Daughter voices concerns about leaving pt alone due to her falling M3 PT-IP Subjective Start: 09/20/19 16:58 Freq: NEEDED Status: Active Protocol: Document 09/21/19 15:14 URI (Rec: 09/21/19 16:24 URI [id number]) Subjective Physical Therapy Visit Type Type Treatment Note Visit Start Time 15:14 Visit Stop Time 15:40 Total Visit Minutes 26 Notes Treatment supervised by RISSA Waite. Number of LAY OUT FORMER Visits 2 Physical Therapy Visit Comments Patient Comments Pt sleeping upon arrival, but reported that she was waiting for PT to arrive. Therapy Pain Assessment Pain When Pain Assessed During Mobility Pain Present Pain Present Pain Reported Location Back Description Aching M4 PT-IP Mobility and Gait Start: 09/20/19 16:58 Freq: NEEDED Status: Active Protocol: Document 09/21/19 15:14 URI (Rec: 09/21/19 16:24 URI [id number]) PT-Bed Mobility Assessment Rolling Level of Assist Independent Supine to Sit Supine to Sit Standby Assistance Sit to Supine Sit to Supine Contact Guard Assistance,1 Person Assistance Scooting Scooting to Edge of Bed Standby Assistance Scooting Up and Down in Bed Standby Assistance PT-Transfer Assessment Sit to and From Stand Sit to and from Stand Contact Guard Assistance, Minimal Assistance,Use of Upper Extremities Equipment Transfer Assistive Device Gait Belt,Front Wheeled Walker Transfers Transfer Destination Bed Transfer Technique Pt ambulated with FWW. Transfer Ability Level of Assist Minimal Assistance Comments Mobility Comments Pt required less assistance with bed mobility this afternoon. SBA for scooting EOB and up and down in bed. CGA for sit<>stand, required cueing to push up from bed and keep only one hand on FWW. CGA for stand<>supine. Pt left in bed with all needs met and SCDs on. Gait Assessment Gait Gait Assistance Required: Contact Guard Assist Distance (Feet) 220 Able to Maintain Weight Bearing Status Yes During Gait Assistive Devices Assistive Device Gait Belt,Front Wheeled Walker Factors Limiting Gait Function Factors Limiting Gait Function Decreased Activity Tolerance, Decreased Sensation,Poor Balance,Poor Safety Awareness Comments Gait Comments Pt was more stable during ambulation this afternoon. Required cues to continue using FWW after stopping to look at artwork in hallways. Verbalized discomfort in L ribs, but denied nausea and dizziness. Improved step length with properly adjusted FWW. M5 PT-IP Objective Assessments Start: 09/20/19 16:58 Freq: NEEDED Status: Active Protocol: Document 09/20/19 10:42 DLM (Rec: 09/20/19 18:06 DLM [id number]) Orientation Orientation/Cognition Level of Alertness Alert Orientation Name,Age,Birthday,Day of Week, Place Language Function Ability No Deficits Noted Safety Awareness Decreased Safety Awareness Memory Description Short Term Impaired Comments She perseverates, hard for her to switch tasks. Gross Range of Motion Upper Extremity ROM Assessment Right Impaired Impairments pain with right shoulder flexion greater than 90 degrees Lower Extremity ROM Assessment Within Functional Limits Strength Upper Extremity Strength Assessment Right Impaired Shoulder shoulder flexion 2+/5, ER 0/5 Elbow ext 3+/5 Lower Extremity Strength Assessment Within Functional Limits Coordination Assessment Gross Coordination Gross Coordination Impaired Assessment Foot Tapping Test Moderate Impairment Coordination Comments mild to moderate impairment in motor planning, slow to initiate new tasks Sensation Assessment Sensation Gross Sensation Right UE Impaired,Left UE Impaired,Right LE Impaired, Left LE Impaired Light Touch Impaired Proprioception (Position) Impaired Sensation Description Numbness Comments Sensation Comments toes into mid foot is numb, numbness in finger tips Muscle Tone Muscle Tone WNL Yes M6 PT-IP Treatment Start: 09/20/19 16:58 Freq: NEEDED Status: Active Protocol: Document 09/21/19 15:14 URI (Rec: 09/21/19 16:24 [id number]) Physical Therapy Treatment Education Education Provided Safety M7 PT-IP Assessment and Plan Start: 09/20/19 16:58 Freq: NEEDED Status: Active Protocol: Document 09/21/19 15:14 URI (Rec: 09/21/19 16:24 [id number]) PT Summary Assessment and Plan Potential Rehabilitation Potential Good Status of Condition at Evaluation Evolving Summary Impairments Strength,Balance,Coordination, Sensation,Cognition,Transfers, Gait,Activity Tolerance Assessment Summary SBA > CGA for bed mobility and ambulation. Still required frequent cueing for proper usage of FWW. Able to ambulate ~220ft w/o increased dizziness, nausea, or loss of balance. Cues to wait and reach back before sitting back into bed. Pt appeared less confused compared to this morning. Goals Transfer Goal Standby Assistance,Front Wheeled Walker Gait Goal Contact Guard Assistance,Front Wheel Walker Gait Distance 200 feet Other Goals Up and down 2-3 stairs with min assist Days to Meet Goals 4 Frequency of Treatment Frequency Of Treatment Twice a Day Treatment Plan Physical Therapy Treatment Plan Bed Mobility Training,Transfer Training,Gait Training, Therapeutic Exercise,Balance Retraining,Discharge Planning, Neuromuscular Re-ed Other Recommendations and Next Treatment Focus on gait training with Focus fWW Recommendations To Nursing Amount of Assist Needed 1 Person Assist Discharge Recommendations PT Discharge Recommendations SNF Rehab Other Discharge Recommendations she needs 24/7 physical assist at this time due to impaired balance, anticipate she will be able to learn how to use a FWW safely but she will need a lot of repetition due to impaired cognition d
[2019-09-21] MEDS: CEFTRIAXONE 2 GM/50 ML FROZ.PIGGY IV (16:44)
[2019-09-21] MEDS: NICOTINE 4 EACH PO (17:53)
[2019-09-21] MEDS: SENNOSIDES 8.6 MG TABLET 17.2 MG PO (22:05)
[2019-09-21] MEDS: ATORVASTATIN 10 MG TABLET PO (22:05)
[2019-09-22 00:10] VITALS: BP 142/75; PULSE 58; RESP 16; TEMP 36.8; O2SAT 94
[2019-09-22 02:00] VITALS: O2SAT 93
[2019-09-22 05:00] VITALS: O2SAT 96
[2019-09-22] MEDS: ALBUTEROL/IPRATROPIUM 3 ML AMPUL INH (05:06)
[2019-09-22] MEDS: BUDESONIDE 0.5 MG/2 ML NEB INH (05:06)
[2019-09-22 05:29] VITALS: BP 140/75; PULSE 67; RESP 20; TEMP 36.6; O2SAT 91
[2019-09-22] MEDS: LEVOTHYROXINE 50 MCG TABLET 25 MCG PO (05:56)
[2019-09-22 06:00] VITALS: O2SAT 91
--- NOTE | 2019-09-22 07:35 | PM.DS.1 ---
History of Present Illness History of Present Illness Date Patient Seen: 09/19/19 Chief complaint: Weakness, SOB, Productive Cough Narrative: Written by Dr. Jiang: The patient is an 83-year-old female with a history of COPD, a lung cancer in 2004 followed by recurrence in 2007 treated with radiation and chemotherapy, history of acute kidney injury, history of thrombocytopenia, traumatic right pneumothorax requiring chest tube placement 1 year ago. The patient moved from [facility] to be with her daughter 1 month ago. According to the daughter since she has moved to the area she has been weak, and experienced multiple falls. The daughter is concerned that her mom cannot be left alone because when she tries to ambulate she has fallen. She did sustain a rib fracture of for 3 of her ribs 2-3 weeks ago. In addition she has had increasing cough, shortness of breath, and fever. They do not know what her temperature has been however she has been gradually declining. The patient has a 45 pack year history of smoking. She quit in 2004. The patient was seen and evaluated in the emergency department. A chest x-ray was obtained which showed a small pleural effusion but no evidence of pneumonia. Her influenza screening was negative. The patient is saturating at 93% on room air, she did have orthostatic vital signs done in the emergency room and was found to be markedly orthostatic. The patient does report intermittent chest pain that lasts briefly and quickly resolves. She has not been evaluated for this. In addition the patient is somewhat tearful, she notes that 2 of her sisters a few months ago, she has recently relocated to the area, she has not made any significant social acquaintances today. In addition the patient reports decreased appetite. She does not know if she has lost any weight. She does not report any difficulty with sleeping or hallucinations. The patient is admitted to the hospital at this time for generalized weakness, dehydration, at a COPD exacerbation. Discharge Providers Provider Date of admission: 09/19/19 11:58 Discharge Date: 09/22/19 Primary care physician: Gagan Lang DO Consults: 09/19/19 09:45 Consult to Respiratory Therapy Evaluate & Treat Comment: Physician Instructions: Evaluate and treat 09/19/19 16:20 Consult to Occupational Therapy Evaluate & Treat Comment: Physician Instructions: Evaluate and treat Consult to Physical Therapy Evaluate & Treat Comment: Physician Instructions: Evaluate and Treat Consult to Speech Therapy Evaluate & Treat Comment: cognitive eval Physician Instructions: Evaluate and treat 09/19/19 16:27 Consult to Pastoral Services Routine Comment: patient would like to speak with the vianca Discharge provider: Daisy Sterling DO Summary Hospital Course Discharge Diagnosis: 1. Acute COPD exacerbation, present on admission. Resolved. 2. History of lung cancer. 3. Acute dehydration with orthostatic hypotension, present on admission. Resolved. 4. Generalized weakness and deconditioning with recurrent falls and failure to thrive, present on admission. Active. 5. Acute E. coli urinary tract infection, present on admission. Resolving. 6. Chronic depression, untreated prior to admission. Stable. 7. Possible dementia, present on admission. 8. Subclinical and symptomatic hypothyroidism, present on admission. Active. 9. Hyperlipidemia, chronic, present on admission. Stable. Hospital Course: Meg Beltran is an 83-year-old female with a past medical history significant for treated lung cancer in 2004 and 2007, recurrent falls with multiple rib fractures within the past month, history of a traumatic right pneumothorax requiring chest tube placement over a year ago, and untreated depression who recently moved to [facility] to stay with her daughter and was admitted due to dehydration and COPD exacerbation. 1. Acute COPD exacerbation, present on admission. Resolved. -Patient with productive cough that is improving. -Elevated D-dimer, angio chest CT negative for pulmonary embolism. -Continued albuterol nebulizers every 6 hours while awake. -Continued prednisone 40 daily for 5 days. -Continued ceftriaxone 2 g IV daily x 3 days which is sufficient for COPD exacerbation and UTI as below. 2. History of lung cancer. -Treated in 2004 and 2007 with radiation and chemotherapy. No evidence to suggest recurrence at this time. -Chest CT demonstrated left upper lobe mass-like appearance which is likely scarring from previous radiation treatment. -Previous provider reviewed past records from [facility] from December 2017 when patient was in with traumatic pneumothorax, chest x-ray report at that time indicated stable scarring in the left central lung extending to the pleura, which probably corresponds to current CT finding. -Further imaging probably not necessary but can consider a repeat chest x-ray or CT in 3-6 months if there is any remaining concern. 3. Acute dehydration with orthostatic hypotension, present on admission. Resolved. -Patient had been hesitant to get up from bed at home to eat and take fluids due to weakness and recurrent falls. -Continued IV fluids until adequately hydrated then discontinued. Continued to encourage oral fluid intake. -Orthostasis resolved. 4. Generalized weakness and deconditioning with recurrent falls and failure to thrive, present on admission. Active. -Continued PT and OT evaluation and treatment. She passed a swallowing study with ST. -Depression is likely playing a significant role, as well as, possibly subclinical hypothyroidism. 5. Acute E. coli urinary tract infection, present on admission. Resolving. -Outpatient urine culture on 09/16/2019 grew pansensitive E coli. -Likely result of decreased fluid intake and avoiding going to bathroom due to mobility problems. -Continued ceftriaxone 2 g IV daily x 3 days as above treatment for COPD exacerbation. 6. Chronic depression, untreated prior to admission. Stable. -Patient with depressed mood, decreased energy, and loss of interest in activities. -She is now open to antidepressant treatment and started citalopram 10 mg daily. -Recommend depression continue to be monitored and treated as outpatient. May need to titrate citalopram to effect. 7. Possible dementia, present on admission. -Per OT MMSE patient scored +17/30 mainly having problems with short-term memory recall concerning for dementia although test affected by depression and acute illness in hospital. -Recommend repeat cognitive evaluation in outpatient setting once depression improving. 8. Subclinical and symptomatic hypothyroidism, present on admission. Active. -Subclinical hypothyroidism but may be affecting mood, therefore will treat. -Outpatient labs September 16, 2019 TSH 5.02, normal free T4 0.93 -Started and continued levothyroxine 25 mcg daily. Patient will need outpatient recheck of thyroid function in 4-6 weeks. 9. Hyperlipidemia, chronic, present on admission. Stable. -Patient previously on atorvastatin but ran out and discontinued. -Restarted and continued atorvastatin 10 mg daily. Exam Vital Signs (past 8 hours): - 09/22/19 00:10 09/22/19 02:00 09/22/19 05:00 Temperature 98.3 F Pulse Rate 58 L Respiratory Rate 16 Blood Pressure 142/75 H Pulse Oximetry 94 93 96 09/22/19 05:29 09/22/19 06:00 Temperature 97.8 F Pulse Rate 67 Respiratory Rate 20 Blood Pressure 140/75 Pulse Oximetry 91 91 Fraction of Inspired Oxygen 21 Oxygen Delivery Method Room Air Oxygen Flow Rate 0 Narrative Exam Narrative: General: Elderly female sitting in bedside chair and in no acute distress, well-developed, well-nourished, mildly anxious but appropriately interactive HEENT: Normocephalic, atraumatic. External ears without defect. Pupils equal, round, and reactive to light and accommodation. Anicteric sclerae, moist conjunctivae, and no lid lag. Oropharynx free of erythema and cobble stoning with moist mucosa. Neck: Supple with full range of motion. No jugular venous distension. No bruits. No lymphadenopathy or thyromegaly. Cardiovascular: Regular rate and rhythm without murmurs, rubs, or gallops appreciated. Pulmonary: Clear to auscultation bilaterally without crackles, wheezes, or rhonchi. Normal respiratory effort with no use of accessory muscles. Abdomen: Soft, bowel sounds present, nontender, nondistended. Mild reproducible and superficial flank/chest wall tenderness. No hepatosplenomegaly or masses appreciated. Extremities: No clubbing, cyanosis, or edema. Skin: Normal temperature, turgor, and texture; no rash, ulcers, or subcutaneous nodules appreciated. Neurological: Cranial nerves grossly intact. Generalized weakness. Psychiatric: Mildly anxious mood and affect. Alert and oriented to person and place. Probable [id number] dementia with short-term memory recall deficit. Objective Labs Result Diagrams: 09/20/19 05:44 09/21/19 06:05 Discharge Plan Discharge Plan Patient Disposition: SNF Transfer to: [facility] Under care of provider: Information Systems Administrator Discharge orders & Medications Prescriptions: New acetaminophen 325 mg Tablet 650 mg PO Q6HR PRN (Reason: As Needed For Fever/Mild Pain) Qty: 30 RF: 0 ipratropium-albuterol 0.5 mg-3 mg(2.5 mg base)/3 mL Solution For Nebulization 3 ml inhalation [id number] PRN (Reason: shortness of breath or wheezing) Qty: 90 RF: 0 atorvastatin [Lipitor] 10 mg Tablet 10 mg PO BEDTIME Qty: 30 RF: 0 citalopram 10 mg Tablet 10 mg PO DAILY Qty: 30 RF: 0 prednisone 20 mg Tablet 40 mg PO DAILY Qty: 4 RF: 0 levothyroxine [Synthroid] 50 mcg Tablet 25 mcg PO 0600 Qty: 30 RF: 0 bisacodyl 10 mg Suppository 10 mg MT DAILY PRN (Reason: Constipation) Qty: 10 RF: 0 Continued Xiidra 5 % dropperette EYE-BOTH BID RF: 0 Follow up/Referrals: Gagan Lang DO [Primary Care Provider] - Discharge Data Primary Care Provider: Gagan Lang Quality VTE Deep Vein Thrombosis/Pulmonary Embolism Present on Admission: No
[2019-09-22 09:00] VITALS: BP 145/73; PULSE 68; RESP 16; TEMP 36.3; O2SAT 94
[2019-09-22] MEDS: predniSONE 20 MG TABLET 40 MG PO (09:13)
[2019-09-22] MEDS: ENOXAPARIN 40 MG/0.4 ML SYRINGE SUBCUT (09:13)
[2019-09-22] MEDS: SODIUM CHLORIDE 0.9% FLUSH 10 ML IV (09:13)
[2019-09-22] MEDS: CITALOPRAM 10 MG TABLET PO (09:13)
--- NOTE | 2019-09-22 09:25 | PT.IPTN ---
Current Diagnoses Chronic obstructive pulmonary disease with (acute) exacerbation (09/19/19) Physical Therapy Treatment Note M2 PT-IP Current Condition Start: 09/20/19 16:58 Freq: NEEDED Status: Discharge Protocol: Document 09/20/19 10:42 DLM (Rec: 09/20/19 18:06 DLM [id number]) Physical Therapy Current Condition Current Condition Evaluation Date 09/20/19 Treatment Diagnosis weakness, impaired balance and gait Onset Date 09/19/19 Precautions Other Precautions multiple falls in recent past, recent left rib fx's due to fall 2-3 weeks ago, Daughter voices concerns about leaving pt alone due to her falling M3 PT-IP Subjective Start: 09/20/19 16:58 Freq: NEEDED Status: Discharge Protocol: Document 09/22/19 09:25 AB (Rec: 09/22/19 12:00 AB [id number]) Subjective Physical Therapy Visit Type Type Treatment Note Visit Start Time 09:25 Visit Stop Time 09:53 Total Visit Minutes 28 Number of TISSUE INSERTER Visits 0 Physical Therapy Visit Comments Patient Comments pt agreeable to do PT; requested to use the toilet Therapy Pain Assessment Pain When Pain Assessed At Rest Pain Present Pain Present Pain Reported Location Left Ribs Scale Used pain scale not stated Pain Management Techniques Re-positioning,Timing of Activity with Medications M4 PT-IP Mobility and Gait Start: 09/20/19 16:58 Freq: NEEDED Status: Discharge Protocol: Document 09/22/19 09:25 AB (Rec: 09/22/19 12:00 AB [id number]) PT-Bed Mobility Assessment Supine to Sit Supine to Sit Standby Assistance PT-Transfer Assessment Sit to and From Stand Sit to and from Stand Contact Guard Assistance,1 Person Assistance,Use of Upper Extremities Equipment Transfer Assistive Device Gait Belt,Front Wheeled Walker Orthotic/Prosthetic Devices or Brace: No Transfers Transfer Destination Toilet Transfer Technique ambulated using FWW Transfer Ability Level of Assist Contact Guard Assistance, Minimal Assistance,1 Person Assistance,Use of Upper Extremities Comments Mobility Comments pt can be impulsive and requires cues to slow down for safety. pt was able to ambulated to the toilet using FWW CGA to min A and cues. completed sit to stand from the toilet min A and cues and ambulated towards the sink using FWW CGA to min A and cues. pt was able to maintain standing CGA while completing handwashing. pt agreed to do more ambulation and also completed stair climbing. agreed to sit up on chair afterwards. Left pt with OT. Gait Assessment Gait Gait Assistance Required: Contact Guard Assist Distance (Feet) 50 Able to Maintain Weight Bearing Status Yes During Gait Assistive Devices Assistive Device Gait Belt,Front Wheeled Walker Orthotic/Prosthetic Devices or Brace: No Gait Deviations General Gait Pattern Antalgic,Decreased Stride Length,Decreased Feet Clearance Factors Limiting Gait Function Factors Limiting Gait Function Decreased Activity Tolerance, Decreased Strength,Difficulty Following Directions,Pain,Poor Balance,Poor Safety Awareness Comments Gait Comments completed ambulation 50 ft x 2 using FWW CGA to min A and cues for safety. Stair Climbing Assessment Evaluation Level of Assist On Stairs Minimal Assistance,1 Person Assistance Devices Stair Climbing Assistive Devices Left Railing Technique/Endurance Stair Climbing Direction Ascend and Descend Stair Climbing Technique Step to Step Number of Steps Climbed 3 Stair Climbing Set # Repetitions (reps) 2 Comments Stair Climbing Comments requires cues for safety and techniques. M5 PT-IP Objective Assessments Start: 09/20/19 16:58 Freq: NEEDED Status: Discharge Protocol: Document 09/20/19 10:42 DLM (Rec: 09/20/19 18:06 DL [id number]) Orientation Orientation/Cognition Level of Alertness Alert Orientation Name,Age,Birthday,Day of Week, Place Language Function Ability No Deficits Noted Safety Awareness Decreased Safety Awareness Memory Description Short Term Impaired Comments She perseverates, hard for her to switch tasks. Gross Range of Motion Upper Extremity ROM Assessment Right Impaired Impairments pain with right shoulder flexion greater than 90 degrees Lower Extremity ROM Assessment Within Functional Limits Strength Upper Extremity Strength Assessment Right Impaired Shoulder shoulder flexion 2+/5, ER 0/5 Elbow ext 3+/5 Lower Extremity Strength Assessment Within Functional Limits Coordination Assessment Gross Coordination Gross Coordination Impaired Assessment Foot Tapping Test Moderate Impairment Coordination Comments mild to moderate impairment in motor planning, slow to initiate new tasks Sensation Assessment Sensation Gross Sensation Right UE Impaired,Left UE Impaired,Right LE Impaired, Left LE Impaired Light Touch Impaired Proprioception (Position) Impaired Sensation Description Numbness Comments Sensation Comments toes into mid foot is numb, numbness in finger tips Muscle Tone Muscle Tone WNL Yes M6 PT-IP Treatment Start: 09/20/19 16:58 Freq: NEEDED Status: Discharge Protocol: Document 09/22/19 09:25 AB (Rec: 09/22/19 12:00 AB [id number]) Physical Therapy Treatment Education Education Provided Safety M7 PT-IP Assessment and Plan Start: 09/20/19 16:58 Freq: NEEDED Status: Discharge Protocol: Document 09/22/19 09:25 (Rec: 09/22/19 12:00 [id number]) PT Summary Assessment and Plan Potential Rehabilitation Potential Good Summary Impairments Pain,ROM,Strength,Balance, Coordination,Sensation,Tone, Cognition,Bed Mobility, Transfers,Gait,Activity Tolerance Progress Towards Goals Slow Progress - Other Assessment Summary pt requires CGA to min A with mobility. will require 24/7 assist at this time due to decrease safety awareness. pt will benefit from SNF rehab. Goals Bed Mobility Goal Independent Transfer Goal Standby Assistance,Front Wheeled Walker Gait Goal Contact Guard Assistance,Front Wheel Walker Gait Distance 200 feet Other Goals Up and down 2-3 stairs with min assist Days to Meet Goals 5 Frequency of Treatment Frequency Of Treatment Twice a Day Treatment Plan Physical Therapy Treatment Plan Bed Mobility Training,Transfer Training,Gait Training, Therapeutic Exercise,Balance Retraining,Discharge Planning, Neuromuscular Re-ed Recommendations To Nursing Amount of Assist Needed 1 Person Assist Discharge Recommendations PT Discharge Recommendations SNF Rehab
--- NOTE | 2019-09-22 10:07 | CM.DPC ---
DCP Discharge SNF Per MD, pt is medically stable to d/c to SNF today for further therapies and care. SW spoke to Mylene at [facility] who confirms they can accept the pt today and would like to transport around 1130. MARC met bedside with pt and RN and updated pt on d/c plan and timeline for today and pt states she is agreeable but wondering about her clothes and when her Dtr Katerina will arrive. SW called pt's Dtr Katerina and explained role and Dtr confirms she will be bedside within 10 min and has pt's clothes and is very agreeable with plan of [facility] at d/c and anticipated that it would be today around 1100. MARC updated [employer], N[facility], and RN on d/c to [facility] around 1130. Per OT, Dtr was quite anxious and stated she was having a panic attack due to many responsibilities at home she needs to take care of and was encouraged that pt in good hands with transport already set up through [facility] and encouraged to go home if needed and Dtr very appreciative. ZACHARY Bass kindly agrees to fax d/c packet to [facility] when available. Plan: Patient to d/c to [facility] today at 1130 via facility van prior to safe return to Dtr's house. MINERVA [place]
--- NOTE | 2019-09-22 10:59 | OT.IP.TRT ---
Current Diagnoses Chronic obstructive pulmonary disease with (acute) exacerbation (09/19/19) Occupational Therapy Treatment Note M3 OT- IP Subjective and Pain Start: 09/20/19 17:02 Freq: Status: Active Protocol: Document 09/22/19 10:59 PJM (Rec: 09/22/19 15:50 PJ [id number]) OT- Subjective Occupational Therapy Visit Type Type Treatment Note Visit Start Time 09:45 Visit Stop Time 10:59 Total Visit Minutes 74 Notes Pt's daughter here at beginning of session for education. Daughter anxious about d/c planning. project program manager here. Occupational Therapy Visit Comments Patient Comments I really need a shower. Patient/Caregiver Goals to get clean OT Pain Assessment Pain When Pain Assessed After Treatment Pain Present Pain Present Denied Pain M4 OT- IP ADL's Start: 09/20/19 17:02 Freq: Status: Active Protocol: Document 09/22/19 10:59 PJM (Rec: 09/22/19 15:50 PJ [id number]) OT RHB-Lxsq-Chodswp General Evaluation Self-Feeding Ability Independent OT ADL-Grooming General Evaluation Grooming Ability Standby Assistance Areas Needing Assistance Combing/Brushing Hair Comments OT Grooming Comments standing at sink with FWW OT ADL-Oral Care General Eval Oral Care Ability Standby Assistance Devices Oral Care Devices Toothbrush Comments Oral Care Comments standing at sink with FWW OT ADL-Dressing General Eval Upper Body Dressing Ability Standby Assistance Lower Body Dressing Ability Standby Assistance Areas Needing Assistance Underpants/Brief,Socks Comments OT Dressing Comments Pt able to cross legs to don and doff socks with SBA seated in chair OT ADL-Toileting Comments OT Toileting Comments did not occur this session OT ADL-Bathing Bathing Type Bathing Type Shower General Evaluation Bathing Ability Minimal Assistance Areas Needing Assistance Wash/Dry Back Devices Bathing Equipment Long Handled Sponge or [place], Hand Held Shower Sprayer, Shower Chair with Arms,Grab Bars Comments OT Bathing Comments Pt performs very slowly and repetitively scrubbing body parts 3-4x with unorganized bathing pattern noted. Pt needs min to mod verbal cues for sequencing and to use grab bars when standing for viky care. Long bath sponge provided. M6 OT- IP Functional Cognition Start: 09/20/19 17:02 Freq: Status: Active Protocol: Document 09/22/19 10:59 PJM (Rec: 09/22/19 15:50 [facility] [id number]) Cognitive Factors Limiting Selfcare Function Cognitive Ability Level of Alertness Alert Attention Span Ability Capable of Focused Attention, Capable of Sustained Attention Ability to Follow Commands Able to Follow One Step Commands Cognitive Comments Cognitive Assessment Comments pt mildly distractable and distracts herself with conversation at times, M7 OT- IP Mobility and Balance Start: 09/20/19 17:02 Freq: Status: Active Protocol: Document 09/22/19 10:59 PJM (Rec: 09/22/19 15:50 [facility] [id number]) OT-Transfer Assessment Sit to and From Stand Sit to and from Stand Contact Guard Assistance,1 Person Assistance Transfers Transfer Ability Contact Guard Assistance Technique Transfer Destination Chair,Shower Stall Transfer Technique Stand Step Pivot Devices Transfer Assistive Devices Gait Belt,Front Wheeled Walker OT- Gait Assessment Gait Gait Assistance Required: Contact Guard Assist Distance (Feet) 25 Assistive Devices Assistive Device Gait Belt,Front Wheeled Walker Comments Gait Ability Comments no loss of balance noted during functional mobility with FWW this session OT- Balance Assessment Sitting Balance and Reactions Static Sitting Balance Ability Good Standing Balance and Reactions Static Standing Balance Ability Good Dynamic Standing Balance Ability Good Comments Other Balance Tests/Deviations/Treatment use of grab bars when standing : in shower M9 OT- IP Assessment and Plan Start: 09/20/19 17:02 Freq: Status: Active Protocol: Document 09/22/19 10:59 PJM (Rec: 09/22/19 15:50 [facility] [id number]) OT Summary Assessment and Plan Potential Rehabilitation Potential Good Summary OT Impairments Functional Mobility,Dressing, Toileting,Bathing,Toilet Transfers,Shower Transfers Progress Towards Goals Progressing Toward Goals Assessment Summary Pt distracts self with conversation and needs verbal cues to organize and sequence self care tasks such as shower in order to complete task in a reasonable amount of time. Good effort and participation from pt with good balance with FWW during functional mobility in/out of shower. Recommend further rehab services at SNF at d/c. Pt recently moved in with her daughter and daughter works caring for her grandchildren during the day. Pt may be home alone at times. Per chart notes, pt to d/c to SNF later today. Frequency of Treatment Frequency Of Treatment Discharge Discharge Recommendations OT Discharge Recommendations SNF Rehab Home Equipment Needs to be determined in next rehab setting
--- NOTE | 2019-09-22 11:02 | PC.NURSE ---
Report given to Kanika at [facility] to prepare for patient to discharge to there at 1130 today.
--- NOTE | 2019-09-22 11:56 | PC.NURSE ---
Patient picked up by Faciliy designee for discharge to [facility], paperwork packet sent.
== END 2019-09-22 11:56 | DRG 191 ==
LOC: ED 11:57 → AC 09-20 07:01
PROVIDERS: Internal Medicine; Admitting Provider Internal Medicine; Emergency Provider Emergency Medicine; PCP Family Medicine; Visit Provider Internal Medicine
DX: J44.1 Chronic obstructive pulmonary disease with (acute) exacerbation (principal); N39.0 Urinary tract infection, site not specified; R62.7 Adult failure to thrive; Z68.24 Body mass index [BMI] 24.0-24.9, adult; F32.9 Major depressive disorder, single episode, unspecified; D69.6 Thrombocytopenia, unspecified; Z85.118 Personal history of other malignant neoplasm of bronchus and lung; E86.0 Dehydration; I95.1 Orthostatic hypotension; B96.20 Unspecified Escherichia coli [E. coli] as the cause of diseases classified elsewhere; Z87.891 Personal history of nicotine dependence; E78.5 Hyperlipidemia, unspecified; E03.9 Hypothyroidism, unspecified; R53.1 Weakness
CPT/HCPCS: 36415; 71045; 71046; 71275; 80048; 80053; 80061; 81001; 82306; 82550; 83605; 83735; 83880; 84145; 84439; 84443; 84484; 85025; 85379; 87040; 87077; 87086; 87186; 87502; 87633; 92610; 93005; 93306; 94640; 94667; 94760; 96361; 96374; 97116; 97162; 97166; 97530; 97535; 99283; 99284; J0696; J1650; J2405; J2930; J7121; Q9967

== ENCOUNTER 2019-10-27 10:42 | Emergency (ER) | payer MEDICARE, OTHER, SELFPAY ==
[2019-09-19 15:47] VITALS: BMI 27.8
[2019-10-27 10:48] VITALS: BP 114/60; PULSE 84; RESP 15; TEMP 36.5; O2SAT 98; BMI 25.2
[2019-10-27 11:06] VITALS: BP 100/60; PULSE 83; RESP 22; O2SAT 95
[2019-10-27 11:12] LABS: Add Manual Diff / Slide Review NO; Basophils Absolute Auto 0 /uL (0-100); Basophils Percent Auto 0.4 % (0-2); Eosinophils Absolute Auto 0 /uL (0-450); Eosinophils Percent Auto 0.6 % (2-4); Hematocrit 47.2 % (36-46); Hemoglobin 16.3 g/dL (12.0-16.0); Lymphocytes Absolute Auto 300 /uL (1100-4500); Mean Corpuscular HGB Conc 34.5 % (30-36); Mean Corpuscular Hemoglobin 33.1 PG (26-34); Mean Corpuscular Volume 96.1 fL (80-100); Monocytes Absolute Auto 500 /uL (0-900); Monocytes Percent Auto 7.7 % (3-14); Neutrophils Absolute Auto 5300 /uL (1500-7000); Neutrophils Percent Auto 86.3 % (50-75); Platelet Count 88 X10^3/uL (150-400); Red Blood Cell Count 4.91 X10^6/uL (4.0-5.2); Red Cell Distribution Width 15.3 % (11.6-14.8); White Blood Cell Count 6.2 X10^3/uL (4.5-11.0)
[2019-10-27 11:23] LABS: Alanine Aminotransferase 25 IU/L (<35); Albumin 3.5 g/dL (3.5-5.0); Albumin Globulin Ratio 1.3 (1.0-2.8); Alkaline Phosphatase 49 U/L (38-126); Aspartate Aminotransferase 33 IU/L (14-36); BUN Creatinine Ratio 23.8 (6-22); Bilirubin Total 0.9 mg/dL (0.2-1.3); Blood Urea Nitrogen 19 mg/dL (7-17); Calcium 8.1 mg/dL (8.4-10.2); Carbon Dioxide 24 mmol/L (22-32); Chloride 102 mmol/L (98-107); Estimated Glomerular Filt Rate > 60.0 mL/min (>60); Globulin 2.7 g/dL (1.7-4.1); Glucose 85 mg/dL (80-110); Lipase 23 U/L (23-300); Sodium 132 mmol/L (137-145); Total Protein 6.2 g/dL (6.3-8.2)
[2019-10-27 11:25] LABS: HEMOLYSIS 110 (0-50)
[2019-10-27 11:29] LABS: Potassium 4.5 mmol/L (3.4-5.1)
[2019-10-27 11:32] LABS: Prothrombin Time 11.2 SECONDS (10.1-12.7)
--- NOTE | 2019-10-27 11:32 | DI.CT.S_ITS ---
PROCEDURE: CT HEAD/BRAIN WO CON INDICATIONS: dizzy,lightheaded TECHNIQUE: Noncontrast 4.5 mm thick angled axial sections acquired from the foramen magnum to the vertex, with coronal and sagittal reformats. For radiation dose reduction, the following was used: automated exposure control, adjustment of mA and/or kV according to patient size. COMPARISON: None. FINDINGS: Image quality: Excellent. CSF spaces: Basal cisterns are patent. No extra-axial fluid collections. The ventricles are symmetric in size and shape. Brain: No intracranial bleeds or masses. There is marked cerebral volume loss for age, with resultant ventricular and sulcal prominence. There are periventricular and deep white matter chronic small vessel ischemic changes. There is intracranial internal carotid artery atherosclerosis. Skull and face: Calvarium and visualized facial bones appear intact, without suspicious lesions. Sinuses: There is left mild maxillary sinus mucosal thickening. Visualized sinuses and mastoids are otherwise clear. IMPRESSION: 1. No acute intracranial findings. 2. Findings consistent with chronic microvascular ischemic changes. Dictated by: Ana Coleman M.D. on 10/27/2019 at 10:59 Approved by: Ana Coleman M.D. on 10/27/2019 at 11:01
--- NOTE | 2019-10-27 11:32 | DI.RAD.S_ITS ---
PROCEDURE: XR ACUTE ABDOMEN SERIES INDICATIONS: weak, vomiting TECHNIQUE: One view chest and two views of the abdomen were acquired. COMPARISON: [facility], CR, XR CHEST 2V, 09/20/2019, 6:32. FINDINGS: Surgical changes and devices: None. Chest: Atelectasis or scar is present within the left midlung, unchanged from the prior plain film dated 09/20/19. The lungs are otherwise clear. No pleural effusion or pneumothorax. Abdomen: Bowel gas pattern is normal. No suspicious calcifications. Visualized solid organ contours appear normal. Bones: No suspicious bony lesions. IMPRESSION: 1. No acute cardiopulmonary or intra-abdominal findings. Dictated by: Ana Coleman M.D. on 10/27/2019 at 10:58 Approved by: Ana Coleman M.D. on 10/27/2019 at 10:58
[2019-10-27 11:34] LABS: PTT Partial Thromboplastin Tim 23 SECONDS (26.4-36.2)
--- NOTE | 2019-10-27 11:34 | ED.NAVMDI ---
HPI - Nausea/Vomiting/Diarrhea <Elina Plaza, JACKHAMMER OPERATOR-BC - Last Filed: 10/27/19 14:58> General Chief complaint: Nausea/Vomiting/Diarrhea Stated complaint: vomiting/weakness/uti?/dizziness x2 days Time Seen by Provider: 10/27/19 11:05 Source: patient Mode of arrival: Wheelchair Limitations: no limitations History of Present Illness HPI Narrative: The patient is an 83-year-old female former smoker with history of dehydration and UTI who presents with a daughter with a chief complaint of generalized weakness, smelly urine, vomiting, diarrhea, dark emesis on Friday, and dizziness. The patient was admitted to this facility on 09/19 for dehydration. She was discharged on the . She was transferred to [facility] for senior living rehab and was discharged from [facility] this past weekend. The patient has a history of COPD, lung cancer in 2004 followed by recurrence in 2007 those treated with radiation and chemotherapy, history of thrombocytopenia acute kidney injury traumatic right pneumothorax and generalized weakness and multiple falls. Today she states with the previously stated multiple complaints, denies any chest pain, does complain of dizziness all the time, denies any dysuria, but states that her urine smells. She is a poor historian, not sure when she was vomiting and not vomiting, not sure when she had diarrhea or did not have diarrhea. It is difficult to ascertain and appropriate history and timeline of sequential events leading up to the emergency department visit today. Related Data Home Medications Medication Instructions Recorded Confirmed lifitegrast 5 % eye drops in a EYE-BOTH BID each 09/16/19 09/16/19 dropperette Previous Rx's Medication Instructions Recorded acetaminophen 650 mg PO Q6HR PRN #30 tab 09/22/19 atorvastatin [Lipitor] 10 mg PO BEDTIME #30 tab 09/22/19 bisacodyl 10 mg AL DAILY PRN #10 ea 09/22/19 citalopram 10 mg PO DAILY #30 tab 09/22/19 ipratropium-albuterol 3 ml INHALATION [id number] PRN #90 ml 09/22/19 levothyroxine [Synthroid] 25 mcg PO 0600 #30 tab 09/22/19 prednisone 40 mg PO DAILY #4 tab 09/22/19 sulfamethoxazole-trimethoprim 1 tab PO BID #11 tab 10/27/19 [Bactrim DS] Allergies Allergy/AdvReac Type Severity Reaction Status Date / Time No Known Drug Allergies Allergy Verified 09/16/19 13:03 Review of Systems <RENATO Maldonado - Last Filed: 10/27/19 14:58> Review of Systems Narrative: GENERAL: See HPI HEENT: Denies sinus pain, ear pain, sore throat, difficulty swallowing, dizziness. RESPIRATORY: See HPI CARDIOVASCULAR: Denies chest pain, palpitations, orthopnea, edema, GASTROINTESTINAL: Denies nausea, vomiting, abdominal pain, diarrhea, constipation, melena. : See HPI MUSCULOSKELETAL: denies weakness, joint pain, or bony pain SKIN: Denies rash, skin lesions, or other NEUROLOGIC: Denies weakness, headache, numbness, change in speech, confusion, seizures, incoordination. PSYCHIATRIC: No concerning psychosocial issues. 12 point review of systems is negative except for those stated above Patient History <RENATO Maldonado - Last Filed: 10/27/19 14:58> Medical History COPD (chronic obstructive pulmonary disease) (Inactive) Cough (Acute) Dry eyes (Acute) Frequent falls (Acute) History of lung cancer (Acute) History of lung cancer in adulthood (Acute) History of pneumothorax (Acute) History of rib fracture (Acute) Hyperlipidemia (Acute) Onychomycosis (Acute) Short-term memory loss (Acute) Thrombocytopenia (Acute) Surgical History History of pneumonectomy (Acute) Family History Sister Cancer Sister Multiple complications of type 2 diabetes mellitus Social History household members: family Smoking Status: Former smoker alcohol intake: never Smoking Status: Former smoker Substance Use Type: does not use Exam <RENATO Maldonado - Last Filed: 10/27/19 14:58> Narrative Exam Narrative: GENERAL: Elderly female lying on stretcher in no acute distress HEAD: Atraumatic. Normocephalic. No temporal or scalp tenderness. EYES: Pupils equal round and reactive. Extraocular motions intact. No scleral icterus. No injection or drainage. Splinting slightly with right eye. Patient states that this is baseline. ENT: Nose without bleeding, purulent drainage or septal hematoma. Throat without erythema, tonsillar hypertrophy or exudate. Uvula midline. Airway patent. NECK: Trachea midline. No JVD or lymphadenopathy. Supple, nontender, no meningeal signs. CARDIOVASCULAR: Regular rate and rhythm RESPIRATORY: Clear to auscultation. Breath sounds equal bilaterally. No wheezes, rales, or rhonchi. Occasional cough. No increased respiratory effort. No stridor. No retractions. GASTROINTESTINAL: Abdomen soft, non-tender, nondistended. No hepato-splenomegaly, or palpable masses. No guarding. Active bowel sounds all 4 quadrants EXTREMITIES: No clubbing, cyanosis, or edema. No joint tenderness, effusion, or edema noted. BACK: Nontender without deformity or crepitance. No flank tenderness. NEURO: AOx3. strength is equal upper and lower extremities bilaterally. No gross cranial nerve deficit. Clear speech. Finger-nose test intact. SKIN: No rash or erythema on visible skin Initial Vital Signs Initial Vital Signs: Vital Signs Temperature 97.7 F 10/27/19 10:48 Pulse Rate 84 10/27/19 10:48 Respiratory Rate 15 10/27/19 10:48 Blood Pressure 114/60 10/27/19 10:48 Pulse Oximetry 98 10/27/19 10:48 <Elvira Cui DO - Last Filed: 10/28/19 07:10> Initial Vital Signs Initial Vital Signs: Vital Signs Temperature 97.7 F 10/27/19 10:48 Pulse Rate 84 10/27/19 10:48 Respiratory Rate 15 10/27/19 10:48 Blood Pressure 114/60 10/27/19 10:48 Pulse Oximetry 98 10/27/19 10:48 Scores <RENATO Maldonado - Last Filed: 10/27/19 14:58> GCS Patricia coma scale eye opening: Spontaneous Patricia coma scale verbal response: Orientated [place] coma scale motor response: Obey commands [place] coma scale total score: 15 Course <RENATO Maldonado - Last Filed: 10/27/19 14:58> Orders Ordered: Discontinued Medications Sodium Chloride (Normal Saline 0.9%) 1,000 mls @ 150 mls/hr IV CONT VILMA Last Admin: 10/27/19 14:26 Dose: Not Given Documented by: ROVERTO Sodium Chloride (Normal Saline 0.9%) 1,000 mls @ 1,000 mls/hr IV BOLUS ONE Stop: 10/27/19 12:49 Last Infusion: 10/27/19 14:05 Dose: 0 mls/hr Documented by: Admin: 10/27/19 12:07 Dose: 1,000 mls/hr Documented by: ROVERTO Ondansetron HCl (Zofran) 4 mg IV NOW ONE Stop: 10/27/19 11:33 Last Admin: 10/27/19 12:05 Dose: 4 mg Documented by: ROVERTO Ondansetron HCl (Zofran Odt Prepack) 1 bottle MISC SEEINSTR ONE Stop: 10/27/19 14:14 Last Admin: 10/27/19 14:19 Dose: 1 bottle Documented by: ROVERTO Trimethoprim/Sulfamethoxazole (Bactrim Ds Prepack) 1 bottle MISC SEEINSTR ONE Stop: 10/27/19 13:55 Last Admin: 10/27/19 14:08 Dose: 1 bottle Documented by: ROVERTO Trimethoprim/Sulfamethoxazole (Bactrim Ds) 1 tab PO NOW ONE Stop: 10/27/19 13:55 Last Admin: 10/27/19 14:08 Dose: 1 tab Documented by: ROVERTO Vital Signs Vital signs: Vital Signs - 8 hr 10/27/19 10:48 10/27/19 11:06 10/27/19 12:00 Temperature 97.7 F Pulse Rate 84 83 76 Respiratory Rate 15 22 12 Blood Pressure 114/60 Blood Pressure [Left Arm] 100/60 121/53 L Pulse Oximetry 98 95 100 10/27/19 12:45 10/27/19 13:39 10/27/19 14:15 Temperature Pulse Rate 71 66 70 Respiratory Rate 15 20 17 Blood Pressure Blood Pressure [Left Arm] 101/50 L 115/51 L 117/93 H Pulse Oximetry 100 99 91 <Elvira Cui DO - Last Filed: 10/28/19 07:10> Orders Ordered: Discontinued Medications Sodium Chloride (Normal Saline 0.9%) 1,000 mls @ 150 mls/hr IV CONT VILMA Last Admin: 10/27/19 14:26 Dose: Not Given Documented by: ROVERTO Sodium Chloride (Normal Saline 0.9%) 1,000 mls @ 1,000 mls/hr IV BOLUS ONE Stop: 10/27/19 12:49 Last Infusion: 10/27/19 14:05 Dose: 0 mls/hr Documented by: Admin: 10/27/19 12:07 Dose: 1,000 mls/hr Documented by: ROVERTO Ondansetron HCl (Zofran) 4 mg IV NOW ONE Stop: 10/27/19 11:33 Last Admin: 10/27/19 12:05 Dose: 4 mg Documented by: ROVERTO Ondansetron HCl (Zofran Odt Prepack) 1 bottle MISC SEEINSTR ONE Stop: 10/27/19 14:14 Last Admin: 10/27/19 14:19 Dose: 1 bottle Documented by: ROVERTO Trimethoprim/Sulfamethoxazole (Bactrim Ds Prepack) 1 bottle MISC SEEINSTR ONE Stop: 10/27/19 13:55 Last Admin: 10/27/19 14:08 Dose: 1 bottle Documented by: ROVERTO Trimethoprim/Sulfamethoxazole (Bactrim Ds) 1 tab PO NOW ONE Stop: 10/27/19 13:55 Last Admin: 10/27/19 14:08 Dose: 1 tab Documented by: ROVERTO Vital Signs Vital signs: Vital Signs - 8 hr 10/27/19 10:48 10/27/19 11:06 10/27/19 12:00 Temperature 97.7 F Pulse Rate 84 83 76 Respiratory Rate 15 22 12 Blood Pressure 114/60 Blood Pressure [Left Arm] 100/60 121/53 L Pulse Oximetry 98 95 100 10/27/19 12:45 10/27/19 13:39 10/27/19 14:15 Temperature Pulse Rate 71 66 70 Respiratory Rate 15 20 17 Blood Pressure Blood Pressure [Left Arm] 101/50 L 115/51 L 117/93 H Pulse Oximetry 100 99 91 MDM - Nausea/Vomiting/Diarrhea <RENATO Maldonado - Last Filed: 10/27/19 14:58> Lab Data Result diagrams: 10/27/19 11:03 10/27/19 11:03 Labs: Lab Results 12/10/27/19 10/27/19 Range/Units 11:03 11:03 11:03 WBC 6.2 (4.5-11.0) X10^3/uL RBC 4.91 (4.0-5.2) X10^6/uL Hgb 16.3 H (12.0-16.0) g/dL Hct 47.2 H (36-46) % MCV 96.1 (80-100) fL MCH 33.1 (26-34) PG MCHC 34.5 (30-36) % RDW 15.3 H (11.6-14.8) % Plt Count 88 L (150-400) X10^3/uL Neut % (Auto) 86.3 H (50-75) % Lymph % (Auto) 5.0 L (25-40) % [place] % (Auto) 7.7 (3-14) % Eos % (Auto) 0.6 L (2-4) % Baso % (Auto) 0.4 (0-2) % Neut # (Auto) 5300 (3532-7000) /uL Lymph # (Auto) 300 L (8749-4774) /uL [place] # (Auto) 500 (0-900) /uL Eos # (Auto) 0 (0-450) /uL Baso # (Auto) 0 (0-100) /uL PT 11.2 (10.1-12.7) SECONDS INR 1.0 (0.9-1.3) APTT 23 L (26.4-36.2) SECONDS Sodium 132 L (137-145) mmol/L Potassium 4.5 (3.4-5.1) mmol/L Chloride 102 (98-107) mmol/L Carbon Dioxide 24 (22-32) mmol/L BUN 19 H (7-17) mg/dL Creatinine 0.80 (0.52-1.04) mg/dL Estimated GFR > 60.0 (>60) mL/min BUN/Creatinine Ratio 23.8 H (6-22) Glucose 85 (80-110) mg/dL Calcium 8.1 L (8.4-10.2) mg/dL Magnesium (1.6-2.3) mg/dL Total Bilirubin 0.9 (0.2-1.3) mg/dL AST 33 (14-36) IU/L ALT 25 (<35) IU/L Alkaline Phosphatase 49 (38-126) U/L Total Creatine Kinase (30-135) U/L CK-MB (CK-2) CK-MB (CK-2) Rel Index Troponin I (0.01-0.034) ng/mL B-Natriuretic Peptide (<100) Total Protein 6.2 L (6.3-8.2) g/dL Albumin 3.5 (3.5-5.0) g/dL Globulin 2.7 (1.7-4.1) g/dL Albumin/Globulin Ratio 1.3 (1.0-2.8) Lipase 23 (23-300) U/L Procalcitonin (<0.5) ng/mL Urine RBC (0-5/HPF) Urine WBC (0-5/HPF) Ur Squamous Epith Cells (0-5/HPF) Urine Bacteria (None) Ur Culture Indicated? Influenza A (RT-PCR) (NEGATIVE) Influenza B (RT-PCR) (NEGATIVE) 10/27/19 10/27/19 10/27/19 Range/Units 11:03 11:03 11:03 WBC (4.5-11.0) X10^3/uL RBC (4.0-5.2) X10^6/uL Hgb (12.0-16.0) g/dL Hct (36-46) % MCV (80-100) fL MCH (26-34) PG MCHC (30-36) % RDW (11.6-14.8) % Plt Count (150-400) X10^3/uL Neut % (Auto) (50-75) % Lymph % (Auto) (25-40) % [place] % (Auto) (3-14) % Eos % (Auto) (2-4) % Baso % (Auto) (0-2) % Neut # (Auto) (3392-4117) /uL Lymph # (Auto) (8245-1153) /uL [place] # (Auto) (0-900) /uL Eos # (Auto) (0-450) /uL Baso # (Auto) (0-100) /uL PT (10.1-12.7) SECONDS INR (0.9-1.3) APTT (26.4-36.2) SECONDS Sodium (137-145) mmol/L Potassium (3.4-5.1) mmol/L Chloride (98-107) mmol/L Carbon Dioxide (22-32) mmol/L BUN (7-17) mg/dL Creatinine (0.52-1.04) mg/dL Estimated GFR (>60) mL/min BUN/Creatinine Ratio (6-22) Glucose (80-110) mg/dL Calcium (8.4-10.2) mg/dL Magnesium (1.6-2.3) mg/dL Total Bilirubin (0.2-1.3) mg/dL AST (14-36) IU/L ALT (<35) IU/L Alkaline Phosphatase (38-126) U/L Total Creatine Kinase 36 (30-135) U/L CK-MB (CK-2) TNP CK-MB (CK-2) Rel Index TNP Troponin I 0.019 (0.01-0.034) ng/mL B-Natriuretic Peptide < 100 (<100) Total Protein (6.3-8.2) g/dL Albumin (3.5-5.0) g/dL Globulin (1.7-4.1) g/dL Albumin/Globulin Ratio (1.0-2.8) Lipase (23-300) U/L Procalcitonin 0.11 (<0.5) ng/mL Urine RBC (0-5/HPF) Urine WBC (0-5/HPF) Ur Squamous Epith Cells (0-5/HPF) Urine Bacteria (None) Ur Culture Indicated? Influenza A (RT-PCR) (NEGATIVE) Influenza B (RT-PCR) (NEGATIVE) 10/27/19 10/27/19 10/27/19 Range/Units 11:03 11:59 13:15 WBC (4.5-11.0) X10^3/uL RBC (4.0-5.2) X10^6/uL Hgb (12.0-16.0) g/dL Hct (36-46) % MCV (80-100) fL MCH (26-34) PG MCHC (30-36) % RDW (11.6-14.8) % Plt Count (150-400) X10^3/uL Neut % (Auto) (50-75) % Lymph % (Auto) (25-40) % [place] % (Auto) (3-14) % Eos % (Auto) (2-4) % Baso % (Auto) (0-2) % Neut # (Auto) (4176-3559) /uL Lymph # (Auto) (7707-4140) /uL [place] # (Auto) (0-900) /uL Eos # (Auto) (0-450) /uL Baso # (Auto) (0-100) /uL PT (10.1-12.7) SECONDS INR (0.9-1.3) APTT (26.4-36.2) SECONDS Sodium (137-145) mmol/L Potassium (3.4-5.1) mmol/L Chloride (98-107) mmol/L Carbon Dioxide (22-32) mmol/L BUN (7-17) mg/dL Creatinine (0.52-1.04) mg/dL Estimated GFR (>60) mL/min BUN/Creatinine Ratio (6-22) Glucose (80-110) mg/dL Calcium (8.4-10.2) mg/dL Magnesium 2.1 (1.6-2.3) mg/dL Total Bilirubin (0.2-1.3) mg/dL AST (14-36) IU/L ALT (<35) IU/L Alkaline Phosphatase (38-126) U/L Total Creatine Kinase (30-135) U/L CK-MB (CK-2) CK-MB (CK-2) Rel Index Troponin I (0.01-0.034) ng/mL B-Natriuretic Peptide (<100) Total Protein (6.3-8.2) g/dL Albumin (3.5-5.0) g/dL Globulin (1.7-4.1) g/dL Albumin/Globulin Ratio (1.0-2.8) Lipase (23-300) U/L Procalcitonin (<0.5) ng/mL Urine RBC None seen (0-5/HPF) Urine WBC 1-5/hpf (0-5/HPF) Ur Squamous Epith Cells 0-1 /hpf (0-5/HPF) Urine Bacteria Many (>30) H (None) Ur Culture Indicated? Specimen cultured Influenza A (RT-PCR) Flu a negative (NEGATIVE) Influenza B (RT-PCR) Flu b negative (NEGATIVE) Urine Dip Bedside Urine Glucose Negative Bedside Urine Bilirubin - Negative Bedside Urine Ketone - Negative Urine Specific [place] 1.010 Bedside Urine Occult Blood - Negative Bedside Urine pH 6.0 Bedside Urine Protein - Negative Bedside Urine Urobilinogen - Negative Bedside Urine Nitrite + Positive Bedside Urine Leukocytes - Negative Esterase ECG Data Attestation: I personally reviewed and interpreted this ECG as follows: Interpretation: Sinus rhythm. Ventricular rate 81. P.r. interval 144. QRS duration 88. Viewed by Dr. Cui [facility] Narrative Medical decision making narrative: The patient is an 83-year-old female who presents with multiple complaints with her daughter. The patient has negative troponin, normal EKG cup normal acute abdomen series. Given her complaints about dark vomited few days ago, I did ask to do a rectal exam to perform Hemoccult. She refused. Patient repeatedly declined rectal exam to me and nursing staff. Thus I did not perform a rectal exam as the patient refused. The patient's lab work came back grossly normal, though she had slight hemoconcentration with a hemoglobin of 16.3. Given her exam I believe that this is related to dehydration. She was given IV fluids in the emergency department and felt much improved.. Urine is very concerning for UTI as it is nitrate positive and has bacteria. The patient requested to go home, and I'm okay with this as she has no leukocytosis, procalcitonin is less than 0.5. Thus I started her on Bactrim. I discussed at length that she needs to come back to emergency department for any acute concerns such as fever, inability keep down fluids flank pain etc.. She was given a 1st dose of Bactrim in the emergency department and given a take-home pack as pharmacies are closed due to the holiday. She was able to tolerate her antibiotics very well. Also encouraged that she follow up with primary care provider in the next few days. Patient did have no questions or concerns upon discharge and state understanding return precautions as well as follow-up care. The patient has been able to ambulate steadily with her walker throughout her stay in the emergency department. <Elvira Cui, DO - Last Filed: 10/28/19 07:10> Lab Data Labs: Lab Results 10/27/19 10/27/19 10/27/19 Range/Units 11:03 11:03 11:03 WBC 6.2 (4.5-11.0) X10^3/uL RBC 4.91 (4.0-5.2) X10^6/uL Hgb 16.3 H (12.0-16.0) g/dL Hct 47.2 H (36-46) % MCV 96.1 (80-100) fL MCH 33.1 (26-34) PG MCHC 34.5 (30-36) % RDW 15.3 H (11.6-14.8) % Plt Count 88 L (150-400) X10^3/uL Neut % (Auto) 86.3 H (50-75) % Lymph % (Auto) 5.0 L (25-40) % [place] % (Auto) 7.7 (3-14) % Eos % (Auto) 0.6 L (2-4) % Baso % (Auto) 0.4 (0-2) % Neut # (Auto) 5300 (4402-2744) /uL Lymph # (Auto) 300 L (0390-4369) /uL [place] # (Auto) 500 (0-900) /uL Eos # (Auto) 0 (0-450) /uL Baso # (Auto) 0 (0-100) /uL PT 11.2 (10.1-12.7) SECONDS INR 1.0 (0.9-1.3) APTT 23 L (26.4-36.2) SECONDS Sodium 132 L (137-145) mmol/L Potassium 4.5 (3.4-5.1) mmol/L Chloride 102 (98-107) mmol/L Carbon Dioxide 24 (22-32) mmol/L BUN 19 H (7-17) mg/dL Creatinine 0.80 (0.52-1.04) mg/dL Estimated GFR > 60.0 (>60) mL/min BUN/Creatinine Ratio 23.8 H (6-22) Glucose 85 (80-110) mg/dL Calcium 8.1 L (8.4-10.2) mg/dL Magnesium (1.6-2.3) mg/dL Total Bilirubin 0.9 (0.2-1.3) mg/dL AST 33 (14-36) IU/L ALT 25 (<35) IU/L Alkaline Phosphatase 49 (38-126) U/L Total Creatine Kinase (30-135) U/L CK-MB (CK-2) CK-MB (CK-2) Rel Index Troponin I (0.01-0.034) ng/mL B-Natriuretic Peptide (<100) Total Protein 6.2 L (6.3-8.2) g/dL Albumin 3.5 (3.5-5.0) g/dL Globulin 2.7 (1.7-4.1) g/dL Albumin/Globulin Ratio 1.3 (1.0-2.8) Lipase 23 (23-300) U/L Procalcitonin (<0.5) ng/mL Urine RBC (0-5/HPF) Urine WBC (0-5/HPF) Ur Squamous Epith Cells (0-5/HPF) Urine Bacteria (None) Ur Culture Indicated? Influenza A (RT-PCR) (NEGATIVE) Influenza B (RT-PCR) (NEGATIVE) 10/27/19 10/27/19 10/27/19 Range/Units 11:03 11:03 11:03 WBC (4.5-11.0) X10^3/uL RBC (4.0-5.2) X10^6/uL Hgb (12.0-16.0) g/dL Hct (36-46) % MCV (80-100) fL MCH (26-34) PG MCHC (30-36) % RDW (11.6-14.8) % Plt Count (150-400) X10^3/uL Neut % (Auto) (50-75) % Lymph % (Auto) (25-40) % [place] % (Auto) (3-14) % Eos % (Auto) (2-4) % Baso % (Auto) (0-2) % Neut # (Auto) (3195-8853) /uL Lymph # (Auto) (9648-9601) /uL [place] # (Auto) (0-900) /uL Eos # (Auto) (0-450) /uL Baso # (Auto) (0-100) /uL PT (10.1-12.7) SECONDS INR (0.9-1.3) APTT (26.4-36.2) SECONDS Sodium (137-145) mmol/L Potassium (3.4-5.1) mmol/L Chloride (98-107) mmol/L Carbon Dioxide (22-32) mmol/L BUN (7-17) mg/dL Creatinine (0.52-1.04) mg/dL Estimated GFR (>60) mL/min BUN/Creatinine Ratio (6-22) Glucose (80-110) mg/dL Calcium (8.4-10.2) mg/dL Magnesium (1.6-2.3) mg/dL Total Bilirubin (0.2-1.3) mg/dL AST (14-36) IU/L ALT (<35) IU/L Alkaline Phosphatase (38-126) U/L Total Creatine Kinase 36 (30-135) U/L CK-MB (CK-2) TNP CK-MB (CK-2) Rel Index TNP Troponin I 0.019 (0.01-0.034) ng/mL B-Natriuretic Peptide < 100 (<100) Total Protein (6.3-8.2) g/dL Albumin (3.5-5.0) g/dL Globulin (1.7-4.1) g/dL Albumin/Globulin Ratio (1.0-2.8) Lipase (23-300) U/L Procalcitonin 0.11 (<0.5) ng/mL Urine RBC (0-5/HPF) Urine WBC (0-5/HPF) Ur Squamous Epith Cells (0-5/HPF) Urine Bacteria (None) Ur Culture Indicated? Influenza A (RT-PCR) (NEGATIVE) Influenza B (RT-PCR) (NEGATIVE) 10/27/19 10/27/19 10/27/19 Range/Units 11:03 11:59 13:15 WBC (4.5-11.0) X10^3/uL RBC (4.0-5.2) X10^6/uL Hgb (12.0-16.0) g/dL Hct (36-46) % MCV (80-100) fL MCH (26-34) PG MCHC (30-36) % RDW (11.6-14.8) % Plt Count (150-400) X10^3/uL Neut % (Auto) (50-75) % Lymph % (Auto) (25-40) % [place] % (Auto) (3-14) % Eos % (Auto) (2-4) % Baso % (Auto) (0-2) % Neut # (Auto) (5204-8160) /uL Lymph # (Auto) (1322-6459) /uL [place] # (Auto) (0-900) /uL Eos # (Auto) (0-450) /uL Baso # (Auto) (0-100) /uL PT (10.1-12.7) SECONDS INR (0.9-1.3) APTT (26.4-36.2) SECONDS Sodium (137-145) mmol/L Potassium (3.4-5.1) mmol/L Chloride (98-107) mmol/L Carbon Dioxide (22-32) mmol/L BUN (7-17) mg/dL Creatinine (0.52-1.04) mg/dL Estimated GFR (>60) mL/min BUN/Creatinine Ratio (6-22) Glucose (80-110) mg/dL Calcium (8.4-10.2) mg/dL Magnesium 2.1 (1.6-2.3) mg/dL Total Bilirubin (0.2-1.3) mg/dL AST (14-36) IU/L ALT (<35) IU/L Alkaline Phosphatase (38-126) U/L Total Creatine Kinase (30-135) U/L CK-MB (CK-2) CK-MB (CK-2) Rel Index Troponin I (0.01-0.034) ng/mL B-Natriuretic Peptide (<100) Total Protein (6.3-8.2) g/dL Albumin (3.5-5.0) g/dL Globulin (1.7-4.1) g/dL Albumin/Globulin Ratio (1.0-2.8) Lipase (23-300) U/L Procalcitonin (<0.5) ng/mL Urine RBC None seen (0-5/HPF) Urine WBC 1-5/hpf (0-5/HPF) Ur Squamous Epith Cells 0-1 /hpf (0-5/HPF) Urine Bacteria Many (>30) H (None) Ur Culture Indicated? Specimen cultured Influenza A (RT-PCR) Flu a negative (NEGATIVE) Influenza B (RT-PCR) Flu b negative (NEGATIVE) Urine Dip Bedside Urine Glucose Negative Bedside Urine Bilirubin - Negative Bedside Urine Ketone - Negative Urine Specific [place] 1.010 Bedside Urine Occult Blood - Negative Bedside Urine pH 6.0 Bedside Urine Protein - Negative Bedside Urine Urobilinogen - Negative Bedside Urine Nitrite + Positive Bedside Urine Leukocytes - Negative Esterase ECG Data Attestation: I personally reviewed and interpreted this ECG as follows: Prior ECG tracings: available for review Interpretation: Normal sinus rhythm rate 81 p.r. interval 144 QRS [address] elevation depression or T-wave inversion Discharge Plan Departure Patient Disposition: Home Clinical Impression: Dehydration Urinary tract infection Qualifiers: Urinary tract infection type: site unspecified Hematuria presence: without hematuria Qualified Code(s): N39.0 - Urinary tract infection, site not specified Discharge Date/Time: 10/27/19 14:46 Instructions: DI for Dehydration -- Adult, DI for Urinary Tract Infection (UTI) Activity Restrictions/Additional Instructions: Thank you for trusting us with your care today. Today we found a urinary tract infection and dehydration. Please push fluids at home. Your urine shows signs of infection. I've started you on Bactrim. I sent this prescription to [facility] in [place]. You have received a take-home pack of 2 doses to get you through until the pharmacy opens. We also gave you a dose in the emergency department today. You will have a total of 14 doses or 1 week of treatment There is a urine culture pending, and if we need to change your antibiotics we will call you with that results. Please follow-up with primary care provider in the next few days Please monitor for worsening such as fevers, back pain, inability keep down fluids etcetera Please come back to emergency department for any acute concerns Prescriptions: New sulfamethoxazole-trimethoprim [Bactrim DS] 800-160 mg tablet 1 tab PO BID Qty: 11 RF: 0 No Action Xiidra 5 % dropperette EYE-BOTH BID RF: 0 acetaminophen 325 mg Tablet 650 mg PO Q6HR PRN (Reason: As Needed For Fever/Mild Pain) Qty: 30 RF: 0 ipratropium-albuterol 0.5 mg-3 mg(2.5 mg base)/3 mL Solution For Nebulization 3 ml inhalation [id number] PRN (Reason: shortness of breath or wheezing) Qty: 90 RF: 0 atorvastatin [Lipitor] 10 mg Tablet 10 mg PO BEDTIME Qty: 30 RF: 0 citalopram 10 mg Tablet 10 mg PO DAILY Qty: 30 RF: 0 prednisone 20 mg Tablet 40 mg PO DAILY Qty: 4 RF: 0 levothyroxine [Synthroid] 50 mcg Tablet 25 mcg PO 0600 Qty: 30 RF: 0 bisacodyl 10 mg Suppository 10 mg AL DAILY PRN (Reason: Constipation) Qty: 10 RF: 0 Referrals: Gagan Lang DO [Primary Care Provider] -
[2019-10-27 11:36] LABS: Creatine Kinase 36 U/L (30-135)
[2019-10-27 11:40] LABS: B Type Natriuretic Peptide < 100 (<100)
[2019-10-27 11:51] LABS: Magnesium 2.1 mg/dL (1.6-2.3)
[2019-10-27 11:52] LABS: Procalcitonin 0.11 ng/mL (<0.5)
[2019-10-27 11:58] LABS: Troponin I 0.019 ng/mL (0.01-0.034)
[2019-10-27 12:00] VITALS: BP 121/53; PULSE 76; RESP 12; O2SAT 100
[2019-10-27] MEDS: ONDANSETRON 4 MG/2 ML INJ IV (12:05)
[2019-10-27] MEDS: SODIUM CHLORIDE 0.9% 1,000 ML 1000 ML IV (12:07)
[2019-10-27 12:42] LABS: Influenza A - CEPHEID Flu A NEGATIVE (NEGATIVE); Influenza B - CEPHEID Flu B NEGATIVE (NEGATIVE)
[2019-10-27 12:45] VITALS: BP 101/50; PULSE 71; RESP 15; O2SAT 100
[2019-10-27 13:30] LABS: RBC Urine None Seen (0-5/HPF)
[2019-10-27 13:39] VITALS: BP 115/51; PULSE 66; RESP 20; O2SAT 99
[2019-10-27 13:42] LABS: Bacteria Urine Many (>30); Culture Indicated Urine Specimen Cultured; Squamous Epithelial Cell Urine 0-1 /HPF (0-5/HPF); WBC Urine 1-5/HPF (0-5/HPF)
[2019-10-27] MEDS: TRIMETH/SULFA 160/800 PREPACK 1 BOTTLE MISC (14:08)
[2019-10-27] MEDS: TRIMETH/SULFA 160/800 (DS) TABLET 1 TAB PO (14:08)
[2019-10-27 14:15] VITALS: BP 117/93; PULSE 70; RESP 17; O2SAT 91
[2019-10-27] MEDS: ONDANSETRON 4 MG ODT PREPACK 1 BOTTLE MISC (14:19)
== END 2019-10-27 14:46 | disposition home or self-care (01) ==
PROVIDERS: Emergency Medicine; Emergency Provider Nurse Practitioner Family; PCP Family Medicine
DX: E86.0 Dehydration (principal); N39.0 Urinary tract infection, site not specified; R42 Dizziness and giddiness
CPT/HCPCS: 36415; 70450; 74022; 80053; 81003; 81015; 82550; 83690; 83735; 83880; 84145; 84484; 85025; 85610; 85730; 87077; 87086; 87186; 87502; 93005; 96361; 96374; 99284; 99285; J2405

== ENCOUNTER 2019-11-10 02:55 | Emergency (ER) | payer MEDICARE, OTHER, SELFPAY ==
[2019-09-19 15:47] VITALS: BMI 27.8
--- NOTE | 2019-11-10 02:58 | DI.RAD.S_ITS ---
PROCEDURE: XR CHEST 1V INDICATIONS: Chest pain TECHNIQUE: One view of the chest was acquired. COMPARISON: [facility], CR, XR RIBS RIGHT WITH PA CHEST, 08/29/2019, 14:12. [facility], CR, XR CHEST 1V, 09/19/2019, 10:09. FINDINGS: Surgical changes and devices: None. Lungs and pleura: Lungs are clear of acute opacities. Parenchymal scarring in the left midlung is stable. No pleural effusions or pneumothorax. Mediastinum: Mediastinal contours appear normal. Heart size is normal. Bones and chest wall: Right third, fourth, fifth and sixth rib fractures are stable compared to prior examination.. No suspicious bony lesions. Overlying soft tissues appear unremarkable. IMPRESSION: No acute cardiopulmonary disease process. Dictated by: Lulu Lane MD, PhD on 11/10/2019 at 9:31 Approved by: Lulu Lane MD, PhD on 11/10/2019 at 9:33
[2019-11-10 03:06] VITALS: BP 139/71; PULSE 77; RESP 20; TEMP 37; O2SAT 94
--- NOTE | 2019-11-10 03:17 | ED.CHESTPAIN ---
HPI - Chest Pain General Chief Complaint: Chest Pain Stated Complaint: chest pain Time Seen by Provider: 11/10/19 02:57 Source: patient and family (Granddaughter) Mode of arrival: Wheelchair Limitations: no limitations History of Present Illness HPI narrative: Patient is an 83-year-old female who arrived by private vehicle for evaluation of right-sided chest discomfort. According to the patient and her granddaughter who is at bedside she has had pain on the right side of her chest since sometime yesterday. Unsure the exact onset. Unsure whether not it was a fast onset or slow onset. Does have pain with palpation and movement. Does have pain with taking a deep breath. States it starts under her right breast moves of the right side of her chest than over to her sternum on the right. Has not tried anything for symptoms prior to arrival. Has had a cough. No fevers. Related Data Home Medications Medication Instructions Recorded Confirmed lifitegrast 5 % eye drops in a EYE-BOTH BID each 09/16/19 09/16/19 dropperette Previous Rx's Medication Instructions Recorded acetaminophen 650 mg PO Q6HR PRN #30 tab 09/22/19 atorvastatin [Lipitor] 10 mg PO BEDTIME #30 tab 09/22/19 bisacodyl 10 mg OK DAILY PRN #10 ea 09/22/19 ipratropium-albuterol 3 ml INHALATION [id number] PRN #90 ml 09/22/19 levothyroxine [Synthroid] 25 mcg PO 0600 #30 tab 09/22/19 prednisone 40 mg PO DAILY #4 tab 09/22/19 sulfamethoxazole-trimethoprim 1 tab PO BID #11 tab 10/27/19 [Bactrim DS] donepezil 5 mg tablet 5 mg PO BEDTIME #30 tab 11/02/19 Allergies Allergy/AdvReac Type Severity Reaction Status Date / Time No Known Drug Allergies Allergy Verified 09/16/19 13:03 Review of Systems Constitutional Constitutional: Denies fever(s) Cardiovascular Cardiovascular: Reports chest pain Respiratory Respiratory: Reports cough, Reports pain on inspiration and Denies wheezing Gastrointestinal Gastrointestinal: Denies abdominal pain, Denies nausea and Denies vomiting Integumentary/Breasts Skin/Breast: Denies lesions and Denies rash Neurologic Neurologic: Denies behavioral changes Psychiatric Psychiatric: Denies behavioral changes Hematologic/Lymphatic Hematologic/Lymphatic: Denies easy bleeding and Denies easy bruising Allergic/Immunologic Allergic/Immunologic: Denies wheezing Patient History Medical History COPD (chronic obstructive pulmonary disease) (Inactive) Cough (Acute) Dry eyes (Acute) Frequent falls (Acute) History of lung cancer (Acute) History of lung cancer in adulthood (Acute) History of pneumothorax (Acute) History of rib fracture (Acute) Hyperlipidemia (Acute) Memory loss (Acute) Mobility impaired (Acute) Onychomycosis (Acute) Short-term memory loss (Acute) Thrombocytopenia (Acute) Surgical History History of pneumonectomy (Acute) Social History household members: family Smoking Status: Former smoker alcohol intake: never Smoking Status: Former smoker Substance Use Type: does not use Exam Initial Vital Signs Initial Vital Signs: Vital Signs Temperature 98.6 F 11/10/19 03:06 Pulse Rate 77 11/10/19 03:06 Respiratory Rate 20 11/10/19 03:06 Blood Pressure 139/71 11/10/19 03:06 Pulse Oximetry 94 11/10/19 03:06 Const General: cooperative and comfortable Orientation: alert and awake HENMT Head: normal to inspection and normocephalic Chest Chest: No crepitus and tenderness (Right-sided chest wall) Resp Effort & Inspection: normal respiratory effort Auscultation: clear to auscultation bilaterally Cardio Rate: regular rate Rhythm: regular rhythm GI Inspection: non-distended Palpation: soft Skin Lesions: no lesions Rashes: no rashes Neuro General: alert and awake Cognition: normal cognition Speech: speech normal Extrem General: normal to inspection, capillary refill normal and No edema Psych Appearance: grossly normal and well kempt Scores GCS [place] coma scale eye opening: Spontaneous [place] coma scale verbal response: Orientated [place] coma scale motor response: Obey commands Patricia coma scale total score: 15 Course Orders Ordered: ED Orders 11/10/19 02:58 XR chest 1V Stat EKG-12 Lead Stat 11/10/19 03:10 Complete Blood Count AUTO DIFF Stat Comprehensive Metabolic Panel Stat Lipase Stat Partial Thromboplastin Time Stat Prothrombin Time INR Stat Troponin I Stat Vital Signs Vital signs: Vital Signs - 8 hr 11/10/19 03:06 Temperature 98.6 F Pulse Rate 77 Respiratory Rate 20 Blood Pressure 139/71 Pulse Oximetry 94 MDM - Chest Pain Medical Records Data Attestation: I reviewed the patient's medical records. Lab Data Attestation: I reviewed the patient's lab results. Result diagrams: 11/10/19 03:10 11/10/19 03:10 Labs: Lab Results 11/10/19 11/10/19 11/10/19 Range/Units 03:10 03:10 03:10 WBC 5.0 (4.5-11.0) X10^3/uL RBC 4.51 (4.0-5.2) X10^6/uL Hgb 14.8 (12.0-16.0) g/dL Hct 43.7 (36-46) % MCV 96.9 (80-100) fL MCH 32.8 (26-34) PG MCHC 33.9 (30-36) % RDW 15.8 H (11.6-14.8) % Plt Count 203 (150-400) X10^3/uL Neut % (Auto) 68.4 (50-75) % Lymph % (Auto) 14.6 L (25-40) % [place] % (Auto) 15.5 H (3-14) % Eos % (Auto) 0.6 L (2-4) % Baso % (Auto) 0.9 (0-2) % Neut # (Auto) 3500 (6399-4916) /uL Lymph # (Auto) 700 L (2009-9632) /uL [place] # (Auto) 800 (0-900) /uL Eos # (Auto) 0 (0-450) /uL Baso # (Auto) 0 (0-100) /uL PT 10.8 (10.1-12.7) SECONDS INR 0.9 (0.9-1.3) APTT 31 D (26.4-36.2) SECONDS Sodium 137 (137-145) mmol/L Potassium 4.0 (3.4-5.1) mmol/L Chloride 103 (98-107) mmol/L Carbon Dioxide 27 (22-32) mmol/L BUN 24 H (7-17) mg/dL Creatinine 1.10 H (0.52-1.04) mg/dL Estimated GFR 47.7 L (>60) mL/min BUN/Creatinine Ratio 21.8 (6-22) Glucose 92 (80-110) mg/dL Calcium 9.5 (8.4-10.2) mg/dL Total Bilirubin 0.5 (0.2-1.3) mg/dL AST 27 (14-36) IU/L ALT 22 (<35) IU/L Alkaline Phosphatase 94 (38-126) U/L Troponin I < 0.012 (0.01-0.034) ng/mL Total Protein 7.0 (6.3-8.2) g/dL Albumin 4.0 (3.5-5.0) g/dL Globulin 3.0 (1.7-4.1) g/dL Albumin/Globulin Ratio 1.3 (1.0-2.8) Lipase 69 (23-300) U/L Imaging Data Chest x-ray: Radiologist's Impression: Chronic changes, with particular scarring and retraction of the left hilar region, similar to previous study. No acute abnormality ECG Data Attestation: I personally reviewed and interpreted this ECG as follows: Prior ECG tracings: not available for review Interpretation: Sinus rhythm Ventricular rate is 77 Normal axis Normal QRS Normal QTC No ST T wave changes MDM Narrative Medical decision making narrative: Patient has had symptoms for greater than 6 hours. Troponin is negative. EKG is unremarkable. Chest x-ray shows no signs of pneumonia. Does show the old right-sided rib fractures which are healed. There's no signs of pneumothorax. Patient has reproducible right-sided chest pain. It is anterior to the midaxillary line. There's no rash over the area. The rest of her labs are unremarkable. Low suspicion for ACS per low suspicion for PE given the history and physical exam. Hold on further workup for now. I did discuss this with the patient and the granddaughter. I did discuss that we did not have an exact etiology however I felt that it is unlikely to be intra thoracic given the fact that I can reproduce the symptoms by very light palpation on the right side of the chest wall. Suspect musculoskeletal. Will provide symptom treatment. Patient does have a walker and a cane at home. We did discuss the importance of being careful with these medications as they can cause her to become somewhat drowsy and fall. Patient a and granddaughter expressed understanding and agreement plan. Discharge Plan Departure Patient Disposition: Home Clinical Impression: Right-sided chest wall pain Instructions: DI for Atypical Chest Pain Activity Restrictions/Additional Instructions: Continue all of your medications as directed. I recommend that later today you contact your primary provider for a follow-up. Be careful with the medications that you were given here in the emergency department. They can make you somewhat drowsy. Use your cane and/or walker at home. Return to the emergency department for any new or worsening symptoms Prescriptions: No Action Xiidra 5 % dropperette EYE-BOTH BID RF: 0 donepezil [Aricept] 5 mg tablet 5 mg PO BEDTIME Qty: 30 RF: 1 acetaminophen 325 mg Tablet 650 mg PO Q6HR PRN (Reason: As Needed For Fever/Mild Pain) Qty: 30 RF: 0 ipratropium-albuterol 0.5 mg-3 mg(2.5 mg base)/3 mL Solution For Nebulization 3 ml inhalation [id number] PRN (Reason: shortness of breath or wheezing) Qty: 90 RF: 0 atorvastatin [Lipitor] 10 mg Tablet 10 mg PO BEDTIME Qty: 30 RF: 0 prednisone 20 mg Tablet 40 mg PO DAILY Qty: 4 RF: 0 levothyroxine [Synthroid] 50 mcg Tablet 25 mcg PO 0600 Qty: 30 RF: 0 bisacodyl 10 mg Suppository 10 mg OK DAILY PRN (Reason: Constipation) Qty: 10 RF: 0 sulfamethoxazole-trimethoprim [Bactrim DS] 800-160 mg tablet 1 tab PO BID Qty: 11 RF: 0 Referrals: Gagan Lang DO [Primary Care Provider] -
[2019-11-10 03:25] LABS: Add Manual Diff / Slide Review NO; Basophils Absolute Auto 0 /uL (0-100); Basophils Percent Auto 0.9 % (0-2); Eosinophils Absolute Auto 0 /uL (0-450); Eosinophils Percent Auto 0.6 % (2-4); Hematocrit 43.7 % (36-46); Hemoglobin 14.8 g/dL (12.0-16.0); Lymphocytes Absolute Auto 700 /uL (1100-4500); Lymphocytes Percent Auto 14.6 % (25-40); Mean Corpuscular HGB Conc 33.9 % (30-36); Mean Corpuscular Hemoglobin 32.8 PG (26-34); Mean Corpuscular Volume 96.9 fL (80-100); Monocytes Absolute Auto 800 /uL (0-900); Monocytes Percent Auto 15.5 % (3-14); Neutrophils Absolute Auto 3500 /uL (1500-7000); Neutrophils Percent Auto 68.4 % (50-75); Platelet Count 203 X10^3/uL (150-400); Red Blood Cell Count 4.51 X10^6/uL (4.0-5.2); Red Cell Distribution Width 15.8 % (11.6-14.8)
[2019-11-10 03:35] LABS: Alanine Aminotransferase 22 IU/L (<35); Albumin Globulin Ratio 1.3 (1.0-2.8); Alkaline Phosphatase 94 U/L (38-126); Aspartate Aminotransferase 27 IU/L (14-36); BUN Creatinine Ratio 21.8 (6-22); Bilirubin Total 0.5 mg/dL (0.2-1.3); Blood Urea Nitrogen 24 mg/dL (7-17); Calcium 9.5 mg/dL (8.4-10.2); Carbon Dioxide 27 mmol/L (22-32); Chloride 103 mmol/L (98-107); Estimated Glomerular Filt Rate 47.7 mL/min (>60); Glucose 92 mg/dL (80-110); HEMOLYSIS 21 (0-50); Lipase 69 U/L (23-300); Sodium 137 mmol/L (137-145)
[2019-11-10 03:38] LABS: INR 0.9 (0.9-1.3); Prothrombin Time 10.8 SECONDS (10.1-12.7)
[2019-11-10 03:40] LABS: PTT Partial Thromboplastin Tim 31 SECONDS (26.4-36.2)
[2019-11-10 03:47] LABS: Troponin I < 0.012 ng/mL (0.01-0.034)
[2019-11-10 04:00] VITALS: BP 131/70; PULSE 72; RESP 17; O2SAT 98
[2019-11-10] MEDS: CODEINE/ACETAMINOPHEN 30/300 TABLET 1 TAB PO (04:34)
[2019-11-10] MEDS: CODEINE/APAP 30/300 PREPACK 1 BOTTLE MISC (04:34)
[2019-11-10 04:45] VITALS: BP 132/72; PULSE 69; RESP 16; O2SAT 97
== END 2019-11-10 04:45 | disposition home or self-care (01) ==
PROVIDERS: Emergency Provider Emergency Medicine; PCP Family Medicine
DX: R07.89 Other chest pain (principal)
CPT/HCPCS: 36415; 71045; 80053; 83690; 84484; 85025; 85610; 85730; 93005; 99284; 99285

== ENCOUNTER 2019-11-15 12:15 | Emergency (ER) | payer MEDICARE, OTHER, SELFPAY ==
[2019-09-19 15:47] VITALS: BMI 27.8
[2019-11-15 12:20] VITALS: BP 143/63; PULSE 73; RESP 15; TEMP 37; O2SAT 95
--- NOTE | 2019-11-15 12:37 | DI.RAD.S_ITS ---
PROCEDURE: XR CHEST 1V INDICATIONS: green phlegm/ cough/ chest pain TECHNIQUE: One view of the chest was acquired. COMPARISON: [facility], CR, XR CHEST 1V, 09/19/2019, 10:09. [facility], CR, XR CHEST 2V, 09/20/2019, 6:32. [facility], CT, CT ANGIO CHEST PE PROTOCOL, 09/20/2019, 15:41. [facility], CR, XR CHEST 1V, 11/10/2019, 3:02. FINDINGS: Surgical changes and devices: None. Lungs and pleura: Left perihilar linear opacities are redemonstrated compatible scarring. There is also slightly increased soft tissue fullness in the left perihilar region. No acute consolidation. No pleural effusions or pneumothorax. Mediastinum: Mediastinal contours appear normal. Heart size is normal. Bones and chest wall: No suspicious bony lesions. There are multiple old right posterior rib fractures redemonstrated. Overlying soft tissues appear unremarkable. IMPRESSION: 1. No acute consolidation. 2. Left perihilar opacity suggestive of scarring or atelectasis redemonstrated with perihilar soft tissue opacity which appears slightly increased in prominence. Recommend followup chest CT when clinically feasible to evaluate for possible underlying mass lesion. Dictated by: Rene Martinez M.D. on 11/15/2019 at 12:56 Approved by: Rene Martinez M.D. on 11/15/2019 at 13:01
[2019-11-15 13:01] VITALS: BP 137/69; PULSE 77; RESP 18; O2SAT 95
[2019-11-15 13:36] LABS: Influenza A - CEPHEID Flu A NEGATIVE (NEGATIVE); Influenza B - CEPHEID Flu B NEGATIVE (NEGATIVE)
[2019-11-15] MEDS: SODIUM CHLORIDE 0.9% 1,000 ML 500 ML IV (13:38)
[2019-11-15 14:02] LABS: Add Manual Diff / Slide Review NO; Basophils Absolute Auto 0 /uL (0-100); Basophils Percent Auto 0.3 % (0-2); Eosinophils Absolute Auto 0 /uL (0-450); Eosinophils Percent Auto 0.1 % (2-4); Hemoglobin 14.1 g/dL (12.0-16.0); Lymphocytes Absolute Auto 400 /uL (1100-4500); Lymphocytes Percent Auto 5.2 % (25-40); Mean Corpuscular HGB Conc 34.4 % (30-36); Mean Corpuscular Hemoglobin 33.1 PG (26-34); Mean Corpuscular Volume 96.4 fL (80-100); Monocytes Absolute Auto 1200 /uL (0-900); Monocytes Percent Auto 15.3 % (3-14); Neutrophils Absolute Auto 6400 /uL (1500-7000); Neutrophils Percent Auto 79.1 % (50-75); Platelet Count 159 X10^3/uL (150-400); Red Blood Cell Count 4.26 X10^6/uL (4.0-5.2); White Blood Cell Count 8.1 X10^3/uL (4.5-11.0)
[2019-11-15 14:03] VITALS: BP 140/70; PULSE 73; RESP 22; O2SAT 96
[2019-11-15 14:06] LABS: Prothrombin Time 11.4 SECONDS (10.1-12.7)
[2019-11-15 14:08] LABS: PTT Partial Thromboplastin Tim 30 SECONDS (26.4-36.2)
[2019-11-15 14:10] LABS: Alanine Aminotransferase 18 IU/L (<35); Albumin 3.7 g/dL (3.5-5.0); Albumin Globulin Ratio 1.3 (1.0-2.8); Alkaline Phosphatase 95 U/L (38-126); Aspartate Aminotransferase 25 IU/L (14-36); BUN Creatinine Ratio 18.8 (6-22); Bilirubin Total 0.7 mg/dL (0.2-1.3); Blood Urea Nitrogen 15 mg/dL (7-17); Calcium 9.3 mg/dL (8.4-10.2); Carbon Dioxide 30 mmol/L (22-32); Chloride 103 mmol/L (98-107); Estimated Glomerular Filt Rate > 60.0 mL/min (>60); Globulin 2.9 g/dL (1.7-4.1); Glucose 91 mg/dL (80-110); HEMOLYSIS < 15 (0-50); Lipase 143 U/L (23-300); Sodium 139 mmol/L (137-145); Total Protein 6.6 g/dL (6.3-8.2)
[2019-11-15 14:28] LABS: B Type Natriuretic Peptide 172 (<100)
[2019-11-15 14:30] VITALS: BP 135/77; PULSE 63; RESP 18; O2SAT 95
[2019-11-15 14:38] LABS: Procalcitonin < 0.05 ng/mL (<0.5)
[2019-11-15 15:00] VITALS: BP 134/63; PULSE 77; RESP 20; O2SAT 96
[2019-11-15 15:09] LABS: Creatine Kinase < 20 U/L (30-135)
[2019-11-15 15:22] LABS: Troponin I 0.015 ng/mL (0.01-0.034)
[2019-11-15] MEDS: BENZONATATE 100 MG CAPSULE PO (15:29)
[2019-11-15 16:00] VITALS: BP 129/69; PULSE 72; RESP 20; O2SAT 95
--- NOTE | 2019-11-15 18:19 | ED_ITS ---
HPI - URI/Sore Throat <Elina Plaza, CLINICAL ASST-BC - Last Filed: 11/15/19 18:26> General Chief Complaint: Upper Respiratory Symptoms Stated Complaint: productive cough,chest pain Time Seen by Provider: 11/15/19 12:46 Source: patient and family Mode of arrival: Wheelchair Limitations: no limitations History of Present Illness HPI Narrative: The patient is an 83-year-old female former smoker who presents with family member for chief complaint of cough, congestion for the past 4 days as well as continued right-sided chest pain. She was seen at this facility on 11/10/2019. She denies any fevers nausea vomiting or diarrhea or abdominal pain. She states that 4 days ago she developed cough and congestion, now she has a very productive cough. She states that her right side of her chest hurts as well. Denies any shortness of breath. Has not taken anything at home to feel better. She had the flu shot this year. She states that she is producing yellow-green sputum. 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 They are asking if I can help facilitate follow-up with primary care provider as they do not have an appointment for several weeks Related Data Home Medications Medication Instructions Recorded Confirmed lifitegrast 5 % eye drops in a EYE-BOTH BID each 09/16/19 09/16/19 dropperette Previous Rx's Medication Instructions Recorded acetaminophen 650 mg PO Q6HR PRN #30 tab 09/22/19 atorvastatin [Lipitor] 10 mg PO BEDTIME #30 tab 09/22/19 bisacodyl 10 mg TN DAILY PRN #10 ea 09/22/19 ipratropium-albuterol 3 ml INHALATION [id number] PRN #90 ml 09/22/19 levothyroxine [Synthroid] 25 mcg PO 0600 #30 tab 09/22/19 prednisone 40 mg PO DAILY #4 tab 09/22/19 sulfamethoxazole-trimethoprim 1 tab PO BID #11 tab 10/27/19 [Bactrim DS] donepezil 5 mg tablet 5 mg PO BEDTIME #30 tab 11/02/19 trazodone 50 mg tablet 50 mg PO BEDTIME #90 tab 11/11/19 Allergies Allergy/AdvReac Type Severity Reaction Status Date / Time No Known Drug Allergies Allergy Verified 09/16/19 13:03 Review of Systems <RENATO Maldonado - Last Filed: 11/15/19 18:26> Review of Systems Narrative: GENERAL: Denies chills, fatigue, malaise, fever, sweats. HEENT: Denies sinus pain, ear pain, sore throat, difficulty swallowing, dizziness. RESPIRATORY: See HPI CARDIOVASCULAR: See HPI GASTROINTESTINAL: Denies nausea, vomiting, abdominal pain, diarrhea, constipation, melena. : Denies dysuria, frequency, incontinence, hematuria, urinary retention. MUSCULOSKELETAL: denies weakness, joint pain, or bony pain SKIN: Denies rash, skin lesions, or other NEUROLOGIC: Denies weakness, headache, numbness, change in speech, confusion, seizures, incoordination. PSYCHIATRIC: No concerning psychosocial issues. 12 point review of systems is negative except for those stated above Patient History <RENATO Maldonado - Last Filed: 11/15/19 18:26> Medical History COPD (chronic obstructive pulmonary disease) (Inactive) Cough (Acute) Dry eyes (Acute) Frequent falls (Acute) History of lung cancer (Acute) History of lung cancer in adulthood (Acute) History of pneumothorax (Acute) History of rib fracture (Acute) Hyperlipidemia (Acute) Memory loss (Acute) Mobility impaired (Acute) Onychomycosis (Acute) Short-term memory loss (Acute) Thrombocytopenia (Acute) Surgical History History of pneumonectomy (Acute) Family History Sister Cancer Sister Multiple complications of type 2 diabetes mellitus Social History household members: family Smoking Status: Former smoker alcohol intake: never Smoking Status: Former smoker Substance Use Type: does not use Exam <RENATO Maldonado - Last Filed: 11/15/19 18:26> Narrative Exam Narrative: GENERAL: This is a well-nourished, well-developed patient, in no apparent distress HEAD: Atraumatic. Normocephalic. No temporal or scalp tenderness. EYES: Pupils equal round and reactive. Extraocular motions intact. No scleral icterus. No injection or drainage. ENT: Nose without bleeding, purulent drainage or septal hematoma. Throat without erythema, tonsillar hypertrophy or exudate. Uvula midline. Airway patent. NECK: Trachea midline. No JVD or lymphadenopathy. Supple, nontender, no meningeal signs. CARDIOVASCULAR: Regular rate and rhythm RESPIRATORY: Clear to auscultation. Breath sounds equal bilaterally. No wheezes, rales, or rhonchi. Productive cough throughout exam. Pain to palpation right lower ribs. Pain to anterior posterior chest wall compression. Pain to lateral chest wall compression GASTROINTESTINAL: Abdomen soft, non-tender, nondistended. No hepato- splenomegaly, or palpable masses. No guarding. EXTREMITIES: No clubbing, cyanosis, or edema. No joint tenderness, effusion, or edema noted. BACK: Nontender without deformity or crepitance. No flank tenderness. NEURO: AOx3. SKIN: No rash or erythema on exam Initial Vital Signs Initial Vital Signs: Vital Signs Temperature 98.6 F 11/15/19 12:20 Pulse Rate 73 11/15/19 12:20 Respiratory Rate 15 11/15/19 12:20 Blood Pressure 143/63 H 11/15/19 12:20 Pulse Oximetry 95 11/15/19 12:20 <Elvira Cui DO - Last Filed: 11/16/19 07:18> Initial Vital Signs Initial Vital Signs: Vital Signs Temperature 98.6 F 11/15/19 12:20 Pulse Rate 73 11/15/19 12:20 Respiratory Rate 15 11/15/19 12:20 Blood Pressure 143/63 H 11/15/19 12:20 Pulse Oximetry 95 11/15/19 12:20 Scores <RENATO Maldonado - Last Filed: 11/15/19 18:26> GCS Patricia coma scale eye opening: Spontaneous [place] coma scale verbal response: Orientated Patricia coma scale motor response: Obey commands Patricia coma scale total score: 15 Course <RENATO Maldonado - Last Filed: 11/15/19 18:26> Orders Ordered: Discontinued Medications Benzonatate (Tessalon Perles) 100 mg PO NOW ONE Stop: 11/15/19 14:46 Last Admin: 11/15/19 15:29 Dose: 100 mg Documented by: GUERDA Sodium Chloride (Normal Saline 0.9%) 1,000 mls @ 1,000 mls/hr IV BOLUS ONE Stop: 11/15/19 14:34 Last Infusion: 11/15/19 16:09 Dose: 0 mls/hr Documented by: Admin: 11/15/19 13:38 Dose: 500 mls/hr Documented by: GUERDA Vital Signs Vital signs: Vital Signs - 8 hr 11/15/19 12:20 11/15/19 13:01 11/15/19 14:03 Temperature 98.6 F Pulse Rate 73 77 73 Respiratory Rate 15 18 22 Blood Pressure 143/63 H Blood Pressure [Right Arm] 137/69 140/70 Pulse Oximetry 95 95 96 11/15/19 14:30 11/15/19 15:00 11/15/19 16:00 Temperature Pulse Rate 63 77 72 Respiratory Rate 18 20 20 Blood Pressure Blood Pressure [Right Arm] 135/77 134/63 129/69 Pulse Oximetry 95 96 95 <Elvira Cui DO - Last Filed: 11/16/19 07:18> Orders Ordered: Discontinued Medications Benzonatate (Tessalon Perles) 100 mg PO NOW ONE Stop: 11/15/19 14:46 Last Admin: 11/15/19 15:29 Dose: 100 mg Documented by: GUERDA Sodium Chloride (Normal Saline 0.9%) 1,000 mls @ 1,000 mls/hr IV BOLUS ONE Stop: 11/15/19 14:34 Last Infusion: 11/15/19 16:09 Dose: 0 mls/hr Documented by: Admin: 11/15/19 13:38 Dose: 500 mls/hr Documented by: GUERDA Vital Signs Vital signs: Vital Signs - 8 hr 11/15/19 12:20 11/15/19 13:01 11/15/19 14:03 Temperature 98.6 F Pulse Rate 73 77 73 Respiratory Rate 15 18 22 Blood Pressure 143/63 H Blood Pressure [Right Arm] 137/69 140/70 Pulse Oximetry 95 95 96 11/15/19 14:30 11/15/19 15:00 11/15/19 16:00 Temperature Pulse Rate 63 77 72 Respiratory Rate 18 20 20 Blood Pressure Blood Pressure [Right Arm] 135/77 134/63 129/69 Pulse Oximetry 95 96 95 MDM - URI/Sore Throat <Elina PlazaRUP- - Last Filed: 11/15/19 18:26> Differential Diagnosis Differential diagnosis: Likely upper respiratory infection, sinusitis, viral infection and influenza Lab Data Result diagrams: 11/15/19 13:50 11/15/19 13:50 Labs: Lab Results 11/15/19 11/15/19 11/15/19 Range/Units 12:58 13:50 13:50 WBC 8.1 (4.5-11.0) X10^3/uL RBC 4.26 (4.0-5.2) X10^6/uL Hgb 14.1 (12.0-16.0) g/dL Hct 41.0 (36-46) % MCV 96.4 (80-100) fL MCH 33.1 (26-34) PG MCHC 34.4 (30-36) % RDW 16.0 H (11.6-14.8) % Plt Count 159 (150-400) X10^3/uL Neut % (Auto) 79.1 H (50-75) % Lymph % (Auto) 5.2 L (25-40) % [place] % (Auto) 15.3 H (3-14) % Eos % (Auto) 0.1 L (2-4) % Baso % (Auto) 0.3 (0-2) % Neut # (Auto) 6400 (7861-8275) /uL Lymph # (Auto) 400 L (8766-9250) /uL [place] # (Auto) 1200 H (0-900) /uL Eos # (Auto) 0 (0-450) /uL Baso # (Auto) 0 (0-100) /uL PT 11.4 (10.1-12.7) SECONDS INR 1.0 (0.9-1.3) APTT 30 (26.4-36.2) SECONDS Sodium (137-145) mmol/L Potassium (3.4-5.1) mmol/L Chloride (98-107) mmol/L Carbon Dioxide (22-32) mmol/L BUN (7-17) mg/dL Creatinine (0.52-1.04) mg/dL Estimated GFR (>60) mL/min BUN/Creatinine Ratio (6-22) Glucose (80-110) mg/dL Calcium (8.4-10.2) mg/dL Magnesium (1.6-2.3) mg/dL Total Bilirubin (0.2-1.3) mg/dL AST (14-36) IU/L ALT (<35) IU/L Alkaline Phosphatase (38-126) U/L Total Creatine Kinase (30-135) U/L CK-MB (CK-2) CK-MB (CK-2) Rel Index Troponin I (0.01-0.034) ng/mL B-Natriuretic Peptide (<100) Total Protein (6.3-8.2) g/dL Albumin (3.5-5.0) g/dL Globulin (1.7-4.1) g/dL Albumin/Globulin Ratio (1.0-2.8) Lipase (23-300) U/L Procalcitonin (<0.5) ng/mL Influenza A (RT-PCR) Flu a negative (NEGATIVE) Influenza B (RT-PCR) Flu b negative (NEGATIVE) 11/15/19 11/15/19 11/15/19 Range/Units 13:50 13:50 13:50 WBC (4.5-11.0) X10^3/uL RBC (4.0-5.2) X10^6/uL Hgb (12.0-16.0) g/dL Hct (36-46) % MCV (80-100) fL MCH (26-34) PG MCHC (30-36) % RDW (11.6-14.8) % Plt Count (150-400) X10^3/uL Neut % (Auto) (50-75) % Lymph % (Auto) (25-40) % [place] % (Auto) (3-14) % Eos % (Auto) (2-4) % Baso % (Auto) (0-2) % Neut # (Auto) (7525-7398) /uL Lymph # (Auto) (6971-5556) /uL [place] # (Auto) (0-900) /uL Eos # (Auto) (0-450) /uL Baso # (Auto) (0-100) /uL PT (10.1-12.7) SECONDS INR (0.9-1.3) APTT (26.4-36.2) SECONDS Sodium 139 (137-145) mmol/L Potassium 4.0 (3.4-5.1) mmol/L Chloride 103 (98-107) mmol/L Carbon Dioxide 30 (22-32) mmol/L BUN 15 (7-17) mg/dL Creatinine 0.80 (0.52-1.04) mg/dL Estimated GFR > 60.0 (>60) mL/min BUN/Creatinine Ratio 18.8 (6-22) Glucose 91 (80-110) mg/dL Calcium 9.3 (8.4-10.2) mg/dL Magnesium 2.0 (1.6-2.3) mg/dL Total Bilirubin 0.7 (0.2-1.3) mg/dL AST 25 (14-36) IU/L ALT 18 (<35) IU/L Alkaline Phosphatase 95 (38-126) U/L Total Creatine Kinase (30-135) U/L CK-MB (CK-2) CK-MB (CK-2) Rel Index Troponin I (0.01-0.034) ng/mL B-Natriuretic Peptide 172 H (<100) Total Protein 6.6 (6.3-8.2) g/dL Albumin 3.7 (3.5-5.0) g/dL Globulin 2.9 (1.7-4.1) g/dL Albumin/Globulin Ratio 1.3 (1.0-2.8) Lipase 143 D (23-300) U/L Procalcitonin (<0.5) ng/mL Influenza A (RT-PCR) (NEGATIVE) Influenza B (RT-PCR) (NEGATIVE) 11/15/19 11/15/19 Range/Units 13:50 13:50 WBC (4.5-11.0) X10^3/uL RBC (4.0-5.2) X10^6/uL Hgb (12.0-16.0) g/dL Hct (36-46) % MCV (80-100) fL MCH (26-34) PG MCHC (30-36) % RDW (11.6-14.8) % Plt Count (150-400) X10^3/uL Neut % (Auto) (50-75) % Lymph % (Auto) (25-40) % [place] % (Auto) (3-14) % Eos % (Auto) (2-4) % Baso % (Auto) (0-2) % Neut # (Auto) (6878-5865) /uL Lymph # (Auto) (1564-3947) /uL [place] # (Auto) (0-900) /uL Eos # (Auto) (0-450) /uL Baso # (Auto) (0-100) /uL PT (10.1-12.7) SECONDS INR (0.9-1.3) APTT (26.4-36.2) SECONDS Sodium (137-145) mmol/L Potassium (3.4-5.1) mmol/L Chloride (98-107) mmol/L Carbon Dioxide (22-32) mmol/L BUN (7-17) mg/dL Creatinine (0.52-1.04) mg/dL Estimated GFR (>60) mL/min BUN/Creatinine Ratio (6-22) Glucose (80-110) mg/dL Calcium (8.4-10.2) mg/dL Magnesium (1.6-2.3) mg/dL Total Bilirubin (0.2-1.3) mg/dL AST (14-36) IU/L ALT (<35) IU/L Alkaline Phosphatase (38-126) U/L Total Creatine Kinase < 20 L (30-135) U/L CK-MB (CK-2) TNP CK-MB (CK-2) Rel Index TNP Troponin I 0.015 (0.01-0.034) ng/mL B-Natriuretic Peptide (<100) Total Protein (6.3-8.2) g/dL Albumin (3.5-5.0) g/dL Globulin (1.7-4.1) g/dL Albumin/Globulin Ratio (1.0-2.8) Lipase (23-300) U/L Procalcitonin < 0.05 (<0.5) ng/mL Influenza A (RT-PCR) (NEGATIVE) Influenza B (RT-PCR) (NEGATIVE) Imaging Data Chest x-ray: Radiologist's Impression: [address] [place] [id number] XRay Report Signed Patient: Meg Beltran CMR#: [id number] : 8Acct:[id number] Age/Sex: 83 / FDate of Service: 11/15/19 Loc: ED Accession Number: [id number] Procedure: XR chest 1V Ordering Provider: Elvira Cui D.O. PROCEDURE: XR CHEST 1V INDICATIONS: green phlegm/ cough/ chest pain TECHNIQUE: One view of the chest was acquired. COMPARISON: [facility], CR, XR CHEST 1V, 09/19/2019, 10:09. [facility], CR, XR CHEST 2V, 09/20/2019, 6:32. [facility], CT, CT ANGIO CHEST PE PROTOCOL, 09/20/2019, 15:41. [facility], CR, XR CHEST 1V, 11/10/2019, 3:02. FINDINGS: Surgical changes and devices: None. Lungs and pleura: Left perihilar linear opacities are redemonstrated compatible scarring. There is also slightly increased soft tissue fullness in the left perihilar region. No acute consolidation. No pleural effusions or pneumothorax. Mediastinum: Mediastinal contours appear normal. Heart size is normal. Bones and chest wall: No suspicious bony lesions. There are multiple old right posterior rib fractures redemonstrated. Overlying soft tissues appear unremarkable. IMPRESSION: 1. No acute consolidation. 2. Left perihilar opacity suggestive of scarring or atelectasis redemonstrated with perihilar soft tissue opacity which appears slightly increased in prominence. Recommend followup chest CT when clinically feasible to evaluate for possible underlying mass lesion. Dictated by: Rene Martinez M.D. on 11/15/2019 at 12:56 Approved by: Rene Martinez M.D. on 11/15/2019 at 13:01 ECG Data Attestation: I personally reviewed and interpreted this ECG as follows: Interpretation: Ventricular rate 73. P.r. interval 146. QRS duration 95.viewed by Dr Cui MDM Narrative Medical decision making narrative: The patient is an 83-year-old female who presents with a chief complaint of cough, congestion, concern for pneumonia and continued chest wall pain. She does negative for the flu, x-ray shows no pneumonia, but recurrent soft tissue opacity. Overall her lab work is very reassuring, no leukocytosis, negative procalcitonin helping to rule out pneumonia or any bacterial process at this point time. The patient requesting go home, given that she is hemodynamically stable and has been throughout her stay, I'm okay with this. I did call and speak with nursing staff at Dr. Lang's office, who is her primary care provider and they state that she has an appointment for the 15th at 9:30 a.m.. I discussed this at length with the patient and her family member. Discussed at length coming back to the emergency department for any acute concerns such as concern of heart attack, stroke, severe shortness of breath etc.. Discussed follow-up with primary care provider. Patient and family state understanding of return precautions as well as follow-up care and have no questions or concerns upon discharge. <Elvira Cui, DO - Last Filed: 11/16/19 07:18> Lab Data Labs: Lab Results 11/15/19 11/15/19 11/15/19 Range/Units 12:58 13:50 13:50 WBC 8.1 (4.5-11.0) X10^3/uL RBC 4.26 (4.0-5.2) X10^6/uL Hgb 14.1 (12.0-16.0) g/dL Hct 41.0 (36-46) % MCV 96.4 (80-100) fL MCH 33.1 (26-34) PG MCHC 34.4 (30-36) % RDW 16.0 H (11.6-14.8) % Plt Count 159 (150-400) X10^3/uL Neut % (Auto) 79.1 H (50-75) % Lymph % (Auto) 5.2 L (25-40) % [place] % (Auto) 15.3 H (3-14) % Eos % (Auto) 0.1 L (2-4) % Baso % (Auto) 0.3 (0-2) % Neut # (Auto) 6400 (9047-7716) /uL Lymph # (Auto) 400 L (3373-9123) /uL [place] # (Auto) 1200 H (0-900) /uL Eos # (Auto) 0 (0-450) /uL Baso # (Auto) 0 (0-100) /uL PT 11.4 (10.1-12.7) SECONDS INR 1.0 (0.9-1.3) APTT 30 (26.4-36.2) SECONDS Sodium (137-145) mmol/L Potassium (3.4-5.1) mmol/L Chloride (98-107) mmol/L Carbon Dioxide (22-32) mmol/L BUN (7-17) mg/dL Creatinine (0.52-1.04) mg/dL Estimated GFR (>60) mL/min BUN/Creatinine Ratio (6-22) Glucose (80-110) mg/dL Calcium (8.4-10.2) mg/dL Magnesium (1.6-2.3) mg/dL Total Bilirubin (0.2-1.3) mg/dL AST (14-36) IU/L ALT (<35) IU/L Alkaline Phosphatase (38-126) U/L Total Creatine Kinase (30-135) U/L CK-MB (CK-2) CK-MB (CK-2) Rel Index Troponin I (0.01-0.034) ng/mL B-Natriuretic Peptide (<100) Total Protein (6.3-8.2) g/dL Albumin (3.5-5.0) g/dL Globulin (1.7-4.1) g/dL Albumin/Globulin Ratio (1.0-2.8) Lipase (23-300) U/L Procalcitonin (<0.5) ng/mL Influenza A (RT-PCR) Flu a negative (NEGATIVE) Influenza B (RT-PCR) Flu b negative (NEGATIVE) 11/15/19 11/15/19 11/15/19 Range/Units 13:50 13:50 13:50 WBC (4.5-11.0) X10^3/uL RBC (4.0-5.2) X10^6/uL Hgb (12.0-16.0) g/dL Hct (36-46) % MCV (80-100) fL MCH (26-34) PG MCHC (30-36) % RDW (11.6-14.8) % Plt Count (150-400) X10^3/uL Neut % (Auto) (50-75) % Lymph % (Auto) (25-40) % [place] % (Auto) (3-14) % Eos % (Auto) (2-4) % Baso % (Auto) (0-2) % Neut # (Auto) (6893-0237) /uL Lymph # (Auto) (2195-2074) /uL [place] # (Auto) (0-900) /uL Eos # (Auto) (0-450) /uL Baso # (Auto) (0-100) /uL PT (10.1-12.7) SECONDS INR (0.9-1.3) APTT (26.4-36.2) SECONDS Sodium 139 (137-145) mmol/L Potassium 4.0 (3.4-5.1) mmol/L Chloride 103 (98-107) mmol/L Carbon Dioxide 30 (22-32) mmol/L BUN 15 (7-17) mg/dL Creatinine 0.80 (0.52-1.04) mg/dL Estimated GFR > 60.0 (>60) mL/min BUN/Creatinine Ratio 18.8 (6-22) Glucose 91 (80-110) mg/dL Calcium 9.3 (8.4-10.2) mg/dL Magnesium 2.0 (1.6-2.3) mg/dL Total Bilirubin 0.7 (0.2-1.3) mg/dL AST 25 (14-36) IU/L ALT 18 (<35) IU/L Alkaline Phosphatase 95 (38-126) U/L Total Creatine Kinase (30-135) U/L CK-MB (CK-2) CK-MB (CK-2) Rel Index Troponin I (0.01-0.034) ng/mL B-Natriuretic Peptide 172 H (<100) Total Protein 6.6 (6.3-8.2) g/dL Albumin 3.7 (3.5-5.0) g/dL Globulin 2.9 (1.7-4.1) g/dL Albumin/Globulin Ratio 1.3 (1.0-2.8) Lipase 143 D (23-300) U/L Procalcitonin (<0.5) ng/mL Influenza A (RT-PCR) (NEGATIVE) Influenza B (RT-PCR) (NEGATIVE) 11/15/19 11/15/19 Range/Units 13:50 13:50 WBC (4.5-11.0) X10^3/uL RBC (4.0-5.2) X10^6/uL Hgb (12.0-16.0) g/dL Hct (36-46) % MCV (80-100) fL MCH (26-34) PG MCHC (30-36) % RDW (11.6-14.8) % Plt Count (150-400) X10^3/uL Neut % (Auto) (50-75) % Lymph % (Auto) (25-40) % [place] % (Auto) (3-14) % Eos % (Auto) (2-4) % Baso % (Auto) (0-2) % Neut # (Auto) (7706-1946) /uL Lymph # (Auto) (8112-7922) /uL [place] # (Auto) (0-900) /uL Eos # (Auto) (0-450) /uL Baso # (Auto) (0-100) /uL PT (10.1-12.7) SECONDS INR (0.9-1.3) APTT (26.4-36.2) SECONDS Sodium (137-145) mmol/L Potassium (3.4-5.1) mmol/L Chloride (98-107) mmol/L Carbon Dioxide (22-32) mmol/L BUN (7-17) mg/dL Creatinine (0.52-1.04) mg/dL Estimated GFR (>60) mL/min BUN/Creatinine Ratio (6-22) Glucose (80-110) mg/dL Calcium (8.4-10.2) mg/dL Magnesium (1.6-2.3) mg/dL Total Bilirubin (0.2-1.3) mg/dL AST (14-36) IU/L ALT (<35) IU/L Alkaline Phosphatase (38-126) U/L Total Creatine Kinase < 20 L (30-135) U/L CK-MB (CK-2) TNP CK-MB (CK-2) Rel Index TNP Troponin I 0.015 (0.01-0.034) ng/mL B-Natriuretic Peptide (<100) Total Protein (6.3-8.2) g/dL Albumin (3.5-5.0) g/dL Globulin (1.7-4.1) g/dL Albumin/Globulin Ratio (1.0-2.8) Lipase (23-300) U/L Procalcitonin < 0.05 (<0.5) ng/mL Influenza A (RT-PCR) (NEGATIVE) Influenza B (RT-PCR) (NEGATIVE) Discharge Plan Departure Patient Disposition: Home Clinical Impression: Right-sided chest wall pain, Cough Upper respiratory infection Qualifiers: URI type: unspecified URI Qualified Code(s): J06.9 - Acute upper respiratory infection, unspecified Discharge Date/Time: 11/15/19 16:26 Instructions: DI for Cough -- Adult, DI for Viral Upper Respiratory Infection -- Adult Activity Restrictions/Additional Instructions: Please follow-up with primary care provider. Your lab work and evaluation today came back normal. Your sputum cultures are pending. This will result in 48-72 hours. We will call you if we need to add antibiotics You have an appointment with primary care provider Dr. Lang at 9:30 a.m. on the . Please come back to the emergency department for any acute concerns In the meantime please use conservative measures such as [id number] medications etc. Prescriptions: No Action trazodone 50 mg tablet 50 mg PO BEDTIME Qty: 90 RF: 1 Xiidra 5 % dropperette EYE-BOTH BID RF: 0 donepezil [Aricept] 5 mg tablet 5 mg PO BEDTIME Qty: 30 RF: 1 acetaminophen 325 mg Tablet 650 mg PO Q6HR PRN (Reason: As Needed For Fever/Mild Pain) Qty: 30 RF: 0 ipratropium-albuterol 0.5 mg-3 mg(2.5 mg base)/3 mL Solution For Nebulization 3 ml inhalation [id number] PRN (Reason: shortness of breath or wheezing) Qty: 90 RF: 0 atorvastatin [Lipitor] 10 mg Tablet 10 mg PO BEDTIME Qty: 30 RF: 0 prednisone 20 mg Tablet 40 mg PO DAILY Qty: 4 RF: 0 levothyroxine [Synthroid] 50 mcg Tablet 25 mcg PO 0600 Qty: 30 RF: 0 bisacodyl 10 mg Suppository 10 mg TN DAILY PRN (Reason: Constipation) Qty: 10 RF: 0 sulfamethoxazole-trimethoprim [Bactrim DS] 800-160 mg tablet 1 tab PO BID Qty: 11 RF: 0 Referrals: Gagan Lang DO [Primary Care Provider] -
--- NOTE | 2019-11-29 10:54 | ONC.MSW ---
Description: Initial Referral Navigation T/C Activity: Left message for granddaughter confirming that we have received pt's referral, however that I need to speak more with her due to pt's extensive dementia and low functional status.
--- NOTE | 2019-11-30 11:15 | ONC.MSW ---
Addendum entered and electronically signed by MINERVA Gill 11/30/19 11:46: GranddaughterTerri (not Landon, wrong name) called back and provided information re: pt's mental and medical status. Pt is able to make her own decisions, has short-term memory loss but able to provide for most long-term medical history questions. She has not been uncooperative or violent with family, as indicated in her recent medical record. Terri is able to transport her here safely. Pt's cancer diagnosis is remote, and is considered in remission, however she is complaining of pain and feels that she is recurring. All records in [place]. CAPSULE FILLING MACHINE OPERATOR will move forward with requesting records and will forward to scheduling to set-up next available inital consult visit for mid-December. Original Note: Description: T/C re: referral Activity: CAPSULE FILLING MACHINE OPERATOR called and left a second message for pt's granddaughterLandon, re: concerns and wanting to discuss the referral and scheduling. Requested return call.
== END 2019-11-15 16:26 | disposition home or self-care (01) ==
PROVIDERS: Emergency Medicine; Emergency Provider Nurse Practitioner Family; PCP Family Medicine
DX: R07.89 Other chest pain (principal); R05 Cough; J06.9 Acute upper respiratory infection, unspecified
CPT/HCPCS: 71045; 80053; 82550; 83690; 83735; 83880; 84145; 84484; 85025; 85610; 85730; 87070; 87077; 87185; 87205; 87502; 93005; 96360; 96361; 99284; 99285

== ENCOUNTER 2019-12-04 20:17 | Observation (INO) | payer MEDICARE, OTHER, SELFPAY ==
[2019-09-19 15:47] VITALS: BMI 27.8
[2019-12-04 20:19] VITALS: BP 132/68; PULSE 59; RESP 18; O2SAT 94
--- NOTE | 2019-12-04 20:28 | DI.RAD.S_ITS ---
PROCEDURE: XR CHEST 1V INDICATIONS: Left-sided rhonchi, syncopal episode x2 TECHNIQUE: One view of the chest was acquired. COMPARISON: [facility], CR, XR CHEST 1V, 11/15/2019, 12:46. FINDINGS: Surgical changes and devices: None. Lungs and pleura: Scattered subsegmental atelectasis and/or scarring. No focal consolidation. No pleural effusions or pneumothorax. Mediastinum: Mediastinal contours appear normal. Heart size is normal. Bones and chest wall: No suspicious bony lesions. Overlying soft tissues appear unremarkable. IMPRESSION: Scattered subsegmental atelectasis and/or scarring. No acute consolidation. Dictated by: Bob Low M.D. on 12/04/2019 at 20:43 Approved by: Bob Low M.D. on 12/04/2019 at 20:44
[2019-12-04 20:30] VITALS: BP 136/70; PULSE 56; RESP 18; O2SAT 99
--- NOTE | 2019-12-04 20:32 | ED.SYNCOPE ---
HPI - Syncope General Chief Complaint: Syncope Stated Complaint: syncope x 2 Time Seen by Provider: 12/04/19 20:18 Source: patient and EMS Mode of arrival: EMS History of Present Illness HPI narrative: 83-year-old woman with a history of significant COPD lung cancer pneumonectomy hyperlipidemia and short-term memory loss currently living in an assisted living facility. She completed a 7 day course of doxycycline on November 26. At her assisted living facility her daughter was visiting and she apparently had a syncopal episode. Daughter describes apneic and no heart rate. Three compressions of CPR were started and she seemed to revive. Medics were called. Initially she was alert not complaining of any pain transferring heard to the stretcher she had another syncopal episode that lasted approximately 30 seconds with spontaneous resolution. She was not on the monitor at that time. She does have her advanced directives with her she would not want to have CPR or be intubated (this was confirmed with her in the emergency room on arrival) but she would want to have additional treatment and diagnostic studies as are appropriate. Related Data Previous Rx's Medication Instructions Recorded acetaminophen 650 mg PO Q6HR PRN #30 tab 09/22/19 atorvastatin [Lipitor] 10 mg PO BEDTIME #30 tab 09/22/19 levothyroxine [Synthroid] 25 mcg PO 0600 #30 tab 09/22/19 donepezil 5 mg tablet 5 mg PO BEDTIME #30 tab 11/02/19 trazodone 50 mg tablet 50 mg PO BEDTIME #90 tab 11/11/19 omeprazole 20 mg tablet,delayed 20 mg PO DAILY #30 tab 11/17/19 release sennosides 8.6 mg capsule 8.6 mg PO DAILY PRN #0 cap 11/19/19 Allergies Allergy/AdvReac Type Severity Reaction Status Date / Time No Known Drug Allergies Allergy Verified 12/04/19 20:32 Review of Systems Review of Systems Narrative: Complete review of systems is challenging due to her memory loss. She reports no pain, no fevers, she has had a slight cough recently but feels that this is her baseline. She states that she does not use any inhalers remainder of review is not able to be completely answered due to her memory issues Patient History Medical History (Updated 12/05/19 @ 01:20 by Shruti Zamora MD) Acid reflux (Acute) Adult failure to thrive (Acute) COPD (chronic obstructive pulmonary disease) (Inactive) Cough (Acute) Dry eyes (Acute) Frequent falls (Acute) History of lung cancer in adulthood (Acute) History of pneumothorax (Acute) History of rib fracture (Acute) Hyperlipidemia (Acute) Hypothyroidism (acquired) (Acute) Mobility impaired (Acute) Onychomycosis (Acute) Short-term memory loss (Acute) Thrombocytopenia (Acute) Surgical History History of pneumonectomy (Acute) Family History Sister Cancer Sister Multiple complications of type 2 diabetes mellitus Social History household members: family Smoking Status: Former smoker alcohol intake: never Smoking Status: Former smoker alcohol intake frequency: 0-2 drinks per day Substance Use Type: does not use Exam Narrative Exam Narrative: General: Frail, pale slightly confused but in no acute distress. HEENT: Moist mucous membranes, normal sclera with reactive pupils, Neck: No JVD, supple Respiratory: Lungs scattered wheeze throughout all lung almod[place]ar and rhonchi in the left upper lung field. Full and symmetrical air movement without accessory muscle use Cardiac: Regular rate and rhythm no murmurs no bruits Abdomen: Soft nontender good bowel tones, no flank pain Skin: Pale but dry, no rashes Neurologic: Grossly neurologically intact with no obvious asymmetries or abnormalities, cognitive status reportedly at her baseline Extremities: No trauma, well perfused Psych: Cooperative, mildly confused. Poor insight Initial Vital Signs Initial Vital Signs: Vital Signs Pulse Rate 59 L 12/04/19 20:19 Respiratory Rate 18 12/04/19 20:19 Blood Pressure 132/68 12/04/19 20:19 Pulse Oximetry 94 12/04/19 20:19 Course Orders Ordered: ED Orders 12/04/19 20:28 XR chest 1V Stat 12/04/19 20:30 EKG-12 Lead Stat 12/04/19 20:40 Complete Blood Count AUTO DIFF Stat Comprehensive Metabolic Panel Stat Procalcitonin Stat Troponin & CK Cardiac Panel Stat 12/04/19 23:11 CT chest w con Stat CT head/brain wo con Stat Sodium Chloride (Normal Saline 0.9%) 1,000 mls @ 150 mls/hr IV CONT VILMA Last Admin: 12/04/19 20:36 Dose: 150 mls/hr Documented by: GUERDA Discontinued Medications Ketorolac Tromethamine (Toradol) 15 mg IV NOW ONE Stop: 12/04/19 21:07 Last Admin: 12/04/19 21:11 Dose: 15 mg Documented by: ROVERTO Vital Signs Vital signs: Vital Signs - 8 hr 12/04/19 20:19 12/04/19 20:30 12/04/19 21:00 Pulse Rate 59 L 56 L 54 L Respiratory Rate 18 18 Blood Pressure 132/68 Blood Pressure [Left Arm] 136/70 144/65 H Pulse Oximetry 94 99 99 12/04/19 22:03 12/04/19 23:00 12/05/19 00:00 Pulse Rate 49 L 59 L 61 Respiratory Rate 15 Blood Pressure Blood Pressure [Left Arm] 149/63 H 146/65 H 145/65 H Pulse Oximetry 98 97 94 12/05/19 00:38 Pulse Rate 50 L Respiratory Rate 15 Blood Pressure Blood Pressure [Left Arm] 148/68 H Pulse Oximetry 98 MDM - Syncope Medical Records Attestation: I reviewed the patient's medical records. Lab Data Result diagrams: 12/04/19 20:40 12/04/19 20:40 Labs: Lab Results 12/04/19 12/04/19 12/04/19 Range/Units 20:40 20:40 20:40 WBC 5.9 (4.5-11.0) X10^3/uL RBC 3.85 L (4.0-5.2) X10^6/uL Hgb 12.7 (12.0-16.0) g/dL Hct 38.0 (36-46) % MCV 98.7 (80-100) fL MCH 32.9 (26-34) PG MCHC 33.4 (30-36) % RDW 16.4 H (11.6-14.8) % Plt Count 158 (150-400) X10^3/uL Neut % (Auto) 80.3 H (50-75) % Lymph % (Auto) 7.8 L (25-40) % [place] % (Auto) 10.5 (3-14) % Eos % (Auto) 0.6 L (2-4) % Baso % (Auto) 0.8 (0-2) % Neut # (Auto) 4700 (7792-7920) /uL Lymph # (Auto) 500 L (9253-4459) /uL [place] # (Auto) 600 (0-900) /uL Eos # (Auto) 0 (0-450) /uL Baso # (Auto) 0 (0-100) /uL Sodium 138 (137-145) mmol/L Potassium 4.3 (3.4-5.1) mmol/L Chloride 104 (98-107) mmol/L Carbon Dioxide 29 (22-32) mmol/L BUN 14 (7-17) mg/dL Creatinine 0.80 (0.52-1.04) mg/dL Estimated GFR > 60.0 (>60) mL/min BUN/Creatinine Ratio 17.5 (6-22) Glucose 99 (80-110) mg/dL Calcium 8.9 (8.4-10.2) mg/dL Total Bilirubin 0.3 (0.2-1.3) mg/dL AST 40 H (14-36) IU/L ALT 25 (<35) IU/L Alkaline Phosphatase 112 (38-126) U/L Total Creatine Kinase 30 (30-135) U/L CK-MB (CK-2) TNP CK-MB (CK-2) Rel Index TNP Troponin I < 0.012 (0.01-0.034) ng/mL Total Protein 6.9 (6.3-8.2) g/dL Albumin 3.6 (3.5-5.0) g/dL Globulin 3.3 (1.7-4.1) g/dL Albumin/Globulin Ratio 1.1 (1.0-2.8) Procalcitonin < 0.05 (<0.5) ng/mL Point of Care Testing Glucose POC 103 Imaging Data Chest x-ray: My Impression: Chest x-rays from October and November are reviewed. CT a from September of 2019 is also reviewed. She continues to have a left perihilar opacity with undetermined clinical significance. Radiologist's Impression: Read by Dr. Low, radiologist. Impression: Scattered subsegmental atelectasis and/or scarring no acute consolidation New chest x-ray: Attestation: I personally reviewed and interpreted this imaging study as follows: My Impression: Left mid lobe consolidation is more noticeable when compared to November 15, 2019 Radiologist's Impression: IMPRESSION: Scattered subsegmental atelectasis and/or scarring. No acute consolidation. Dictated by: Bob Low M.D. on 12/04/2019 at 20:43 MDM Narrative Medical decision making narrative: Patient was seen in the emergency room on November 15 with cough sputum culture grew out Haemophilus influenzae which was treated with 7 days of doxycycline Today with 2 episodes of syncope 1 of which her daughter describes as being completely unresponsive with CPR started less than a minute done before she was alert again. Workup in the emergency department does not suggest significant infection, electrolyte abnormalities, pulmonary embolism, acute coronary syndrome, significant metastatic disease, stroke or other life-threatening findings. She does continue to have this finding in the left upper lung field noted in September and again on CT scans and chest x-rays today does not seem to be significantly changed however definitive diagnosis of this lung consolidation remains to be defined. Long discussion with patient and her daughter. The daughter is very reluctant to take her back to the assisted living facility where there is minimal assistance in the middle of the night given the 2 episodes of syncope. Patient is willing to stay in the hospital for observation overnight. Will plan on an observation admit with a primary diagnosis of syncope with continued telemetry. Will evaluate further tomorrow morning to figure out what next steps are. Plan for observation admission is reviewed with SREEKANTH Low, and patient will be admitted overnight Discharge Plan Departure Patient Disposition: Admitted as Observation Clinical Impression: Syncope Qualifiers: Syncope type: unspecified Qualified Code(s): R55 - Syncope and collapse
[2019-12-04] MEDS: SODIUM CHLORIDE 0.9% 1,000 ML 150 ML IV (20:36)
[2019-12-04 20:49] LABS: Add Manual Diff / Slide Review NO; Basophils Absolute Auto 0 /uL (0-100); Basophils Percent Auto 0.8 % (0-2); Eosinophils Absolute Auto 0 /uL (0-450); Eosinophils Percent Auto 0.6 % (2-4); Hemoglobin 12.7 g/dL (12.0-16.0); Lymphocytes Absolute Auto 500 /uL (1100-4500); Lymphocytes Percent Auto 7.8 % (25-40); Mean Corpuscular HGB Conc 33.4 % (30-36); Mean Corpuscular Hemoglobin 32.9 PG (26-34); Mean Corpuscular Volume 98.7 fL (80-100); Monocytes Absolute Auto 600 /uL (0-900); Monocytes Percent Auto 10.5 % (3-14); Neutrophils Absolute Auto 4700 /uL (1500-7000); Neutrophils Percent Auto 80.3 % (50-75); Platelet Count 158 X10^3/uL (150-400); Red Blood Cell Count 3.85 X10^6/uL (4.0-5.2); Red Cell Distribution Width 16.4 % (11.6-14.8); White Blood Cell Count 5.9 X10^3/uL (4.5-11.0)
[2019-12-04 20:59] LABS: Alanine Aminotransferase 25 IU/L (<35); Albumin 3.6 g/dL (3.5-5.0); Albumin Globulin Ratio 1.1 (1.0-2.8); Alkaline Phosphatase 112 U/L (38-126); Aspartate Aminotransferase 40 IU/L (14-36); BUN Creatinine Ratio 17.5 (6-22); Bilirubin Total 0.3 mg/dL (0.2-1.3); Blood Urea Nitrogen 14 mg/dL (7-17); Calcium 8.9 mg/dL (8.4-10.2); Carbon Dioxide 29 mmol/L (22-32); Chloride 104 mmol/L (98-107); Creatine Kinase 30 U/L (30-135); Estimated Glomerular Filt Rate > 60.0 mL/min (>60); Globulin 3.3 g/dL (1.7-4.1); Glucose 99 mg/dL (80-110); HEMOLYSIS 27 (0-50); Potassium 4.3 mmol/L (3.4-5.1); Sodium 138 mmol/L (137-145); Total Protein 6.9 g/dL (6.3-8.2)
[2019-12-04 21:00] VITALS: BP 144/65; PULSE 54; O2SAT 99
[2019-12-04 21:11] LABS: Troponin I < 0.012 ng/mL (0.01-0.034)
[2019-12-04] MEDS: KETOROLAC 60 MG/2 ML VIAL 15 MG IV (21:11)
[2019-12-04 21:19] LABS: Procalcitonin < 0.05 ng/mL (<0.5)
[2019-12-04 22:03] VITALS: BP 149/63; PULSE 49; RESP 15; O2SAT 98
[2019-12-04 23:00] VITALS: BP 146/65; PULSE 59; O2SAT 97
--- NOTE | 2019-12-04 23:11 | DI.CT.S_ITS ---
PROCEDURE: CT CHEST W CON INDICATIONS: Concern for new/for current lung cancer versus pneumonia. TECHNIQUE: After the administration of intravenous contrast, 5 mm thick sections acquired from the pulmonary apices to the posterior costophrenic angles. 1 mm axial lung, 5 mm thick coronal and sagittal reformats and 7 mm axial MIP were acquired. For radiation dose reduction, the following was used: automated exposure control, adjustment of mA and/or kV according to patient size. COMPARISON: [facility], CT, CT ANGIO CHEST PE PROTOCOL, 09/20/2019, 15:41. FINDINGS: Image quality: Excellent. Lungs and pleura: Perihilar opacity within the left upper lobe is present, as before. Right basilar scarring is present, as before. No pleural effusions or pneumothorax. Central and peripheral airways are patent and normal in caliber. Mediastinum: Heart size is normal. Calcification of the coronary vasculature. No pericardial effusion. No mediastinal or hilar adenopathy by size criteria. Thoracic aorta and central pulmonary arteries are normal in size. Esophagus is normal in caliber. No change in moderate hiatal hernia. Bones and chest wall: No suspicious bony lesions. No vertebral body compression fractures. No axillary or supraclavicular adenopathy by size criteria. Thyroid gland is within normal limits. Abdomen: Visualized portions of the upper abdomen demonstrate multiple hepatic cysts, as before. IMPRESSION: 1. No acute process. 2. No change in left upper lobe perihilar density. If there is clinical concern for malignancy, further assessment with PETCT examination is recommended. 3. Concordant with preliminary interpretation. Dictated by: Dio Rodas M.D. on 12/05/2019 at 7:42 Approved by: Dio Rodas M.D. on 12/05/2019 at 7:49
--- NOTE | 2019-12-04 23:11 | DI.CT.S_ITS ---
PROCEDURE: CT HEAD/BRAIN WO CON INDICATIONS: syncope x 2, h/o lung cancer TECHNIQUE: Noncontrast 4.5 mm thick angled axial sections acquired from the foramen magnum to the vertex, with coronal and sagittal reformats. For radiation dose reduction, the following was used: automated exposure control, adjustment of mA and/or kV according to patient size. COMPARISON: [facility], CT, CT HEAD/BRAIN WO CON, 10/27/2019, 11:39. FINDINGS: Image quality: Excellent. CSF spaces: Basal cisterns are patent. No extra-axial fluid collections. The ventricles are symmetric in size and shape. Brain: No intracranial bleeds or masses. There is cerebral volume loss for age, with resultant ventricular and sulcal prominence. There are periventricular and deep white matter chronic small vessel ischemic changes. There is intracranial internal carotid artery atherosclerosis. Skull and face: Calvarium and visualized facial bones appear intact, without suspicious lesions. Sinuses: Visualized sinuses and mastoids are clear. IMPRESSION: No acute intracranial abnormality. Concordant with preliminary interpretation. Dictated by: Dio Rodas M.D. on 12/05/2019 at 7:41 Approved by: Dio Rodas M.D. on 12/05/2019 at 7:42
[2019-12-05] VITALS (10 sets, daily range): BP systolic 100–174; BP diastolic 52–91; PULSE 46–74; RESP 15–23; TEMP 36.3–36.8; O2SAT 93–98; BMI 24.7
[2019-12-05 02:04] LABS: Magnesium 2.2 mg/dL (1.6-2.3)
[2019-12-05 02:16] LABS: Troponin I < 0.012 ng/mL (0.01-0.034)
--- NOTE | 2019-12-05 03:06 | P.HP_ITS ---
History of Present Illness History of Present Illness Date Patient Seen: 12/05/19 Time Patient Seen: 03:00 Chief complaint: syncope x 2 Narrative: Meg Beltran is a pleasant 83-year-old female with a history of bilateral lung cancer, hypertension, and mild cognitive impairment who fell in her assisted living area. She does not remember what happened only that she woke up and a lot of people were around her. Per the emergency room provider, she collapsed and she was found to have no pulse. Apparently CPR was started on her at the facility, and then they called EMS. EMS apparently reported that she also had what appeared to be another syncopal episode but they did not do CPR on her. Patient stated to me after much questioning that she did not want have compressions or defibrillation. All 3 of her troponins drawn during this admission have been negative. She does complain of diffuse chest and chest wall pain as well as right-sided posterior shoulder pain. She also states that she has had a really bad headache that started yesterday which now appears to be less prominent. She also stated that she had nausea issues drop in her bedroom and she has been plagued with some constipation as of the last few days. She was recently treated with dox ycycline for UTI and completed that course few days ago. She states that she did not have any urinary symptoms but that it showed up on a urinalysis that she took. She has continuing problems with anxiety. She states that she wears glasses due to having double vision after having undergone which she states has cataract surgery a few years ago in [facility] she denies any problems with her dentition, throat though has had a history of throat surgery for polyps, palpitations, shortness of breath, skin rashes or lesions. Approximately 2 years ago she fell causing a right-sided pneumothorax and fracturing 3 ribs. She was hospitalized for approximately 9 days during that. At that time they assessed she had mild cognitive impairment which was worsened by pain medications. She recently relocated to the [facility] to be closer to her grandchildren after living for number of years in [facility]. Patient History Medical History (Updated 12/05/19 @ 01:20 by Shruti Zamora MD) Acid reflux (Acute) Adult failure to thrive (Acute) COPD (chronic obstructive pulmonary disease) (Inactive) Cough (Acute) Dry eyes (Acute) Frequent falls (Acute) History of lung cancer in adulthood (Acute) History of pneumothorax (Acute) History of rib fracture (Acute) Hyperlipidemia (Acute) Hypothyroidism (acquired) (Acute) Mobility impaired (Acute) Onychomycosis (Acute) Short-term memory loss (Acute) Thrombocytopenia (Acute) Surgical History History of pneumonectomy (Acute) Family & Social History Family History Sister Cancer Sister Multiple complications of type 2 diabetes mellitus Social History: household members family Safety & Behavioral: Feels Safe in Current Yes Environment Been Physically Hurt or No Threatened By a Person Tobacco & Substance use: Smoking Status Former smoker, 40-45 year pack history alcohol intake never alcohol intake frequency 0-2 drinks per day Substance Use Type does not use Meds Home Medications and Allergies Home Medications Medication Instructions Recorded Confirmed Type acetaminophen 650 mg PO Q6HR PRN #30 tab 09/22/19 12/04/19 Rx atorvastatin [Lipitor] 10 mg PO BEDTIME #30 tab 09/22/19 12/04/19 Rx levothyroxine [Synthroid] 25 mcg PO 0600 #30 tab 09/22/19 12/04/19 Rx donepezil 5 mg tablet 5 mg PO BEDTIME #30 tab 11/02/19 12/04/19 Rx trazodone 50 mg tablet 50 mg PO BEDTIME #90 tab 11/11/19 12/04/19 Rx omeprazole 20 mg tablet,delayed 20 mg PO DAILY #30 tab 11/17/19 12/04/19 Rx release sennosides 8.6 mg capsule 8.6 mg PO DAILY PRN #0 cap 11/19/19 12/04/19 Rx Allergies Allergy/AdvReac Type Severity Reaction Status Date / Time No Known Drug Allergies Allergy Verified 12/04/19 20:32 Review of Systems Review of Systems ROS: Yes All systems reviewed with the patient and are negative except as otherwise documented Exam Vital Signs (past 8 hours): - 12/04/19 20:19 12/04/19 20:30 12/04/19 21:00 Pulse Rate 59 L 56 L 54 L Respiratory Rate 18 18 Blood Pressure 132/68 Blood Pressure [Left Arm] 136/70 144/65 H Pulse Oximetry 94 99 99 12/04/19 22:03 12/04/19 23:00 12/05/19 00:00 Pulse Rate 49 L 59 L 61 Respiratory Rate 15 Blood Pressure Blood Pressure [Left Arm] 149/63 H 146/65 H 145/65 H Pulse Oximetry 98 97 94 12/05/19 00:38 12/05/19 01:25 Pulse Rate 50 L 57 L Respiratory Rate 15 23 Blood Pressure Blood Pressure [Left Arm] 148/68 H 147/63 H Pulse Oximetry 98 97 Oxygen Delivery Method Room Air Oxygen Flow Rate 97.8 Narrative Exam Narrative: Gen: Alert, oriented, well-developed 83 y.o. female, appears uncomfortable HEENT: normocephalic, atraumatic, conjunctiva clear, sclera non-icteric, oral mucosa pink and moist Neck: supple, full ROM Resp: Lungs CTA, non-labored breathing CV: RRR, no murmur or rubs Abd: soft, non-tender, normoactive BTs Skin: Dry with no edema no lesions or rashes, dry and intact Neuro: Alert and oriented X 4 w/no focal deficits Extremities: moves all 4 extremities, is ambulatory, negative Alyssa?s sign Psyche: normal mood and affect. Objective Labs Result Diagrams: 12/04/19 20:40 12/04/19 20:40 Labs: Laboratory Results - last 24 hr 12/04/19 12/04/19 12/04/19 20:40 20:40 20:40 WBC 5.9 RBC 3.85 L Hgb 12.7 Hct 38.0 MCV 98.7 MCH 32.9 MCHC 33.4 RDW 16.4 H Plt Count 158 Neut % (Auto) 80.3 H Lymph % (Auto) 7.8 L [place] % (Auto) 10.5 Eos % (Auto) 0.6 L Baso % (Auto) 0.8 Neut # (Auto) 4700 Lymph # (Auto) 500 L [place] # (Auto) 600 Eos # (Auto) 0 Baso # (Auto) 0 Sodium 138 Potassium 4.3 Chloride 104 Carbon Dioxide 29 BUN 14 Creatinine 0.80 Estimated GFR > 60.0 BUN/Creatinine Ratio 17.5 Glucose 99 Calcium 8.9 Magnesium Total Bilirubin 0.3 AST 40 H ALT 25 Alkaline Phosphatase 112 Total Creatine Kinase 30 CK-MB (CK-2) TNP CK-MB (CK-2) Rel Index TNP Troponin I < 0.012 Total Protein 6.9 Albumin 3.6 Globulin 3.3 Albumin/Globulin Ratio 1.1 Procalcitonin < 0.05 12/05/19 12/05/19 01:45 01:45 WBC RBC Hgb Hct MCV MCH MCHC RDW Plt Count Neut % (Auto) Lymph % (Auto) [place] % (Auto) Eos % (Auto) Baso % (Auto) Neut # (Auto) Lymph # (Auto) [place] # (Auto) Eos # (Auto) Baso # (Auto) Sodium Potassium Chloride Carbon Dioxide BUN Creatinine Estimated GFR BUN/Creatinine Ratio Glucose Calcium Magnesium 2.2 Total Bilirubin AST ALT Alkaline Phosphatase Total Creatine Kinase CK-MB (CK-2) CK-MB (CK-2) Rel Index Troponin I < 0.012 Total Protein Albumin Globulin Albumin/Globulin Ratio Procalcitonin Assessment & Plan Assessment & Plan narrative: Meg Beltran this is a pleasant 83-year-old female who will be placed into observation for further workup of her syncope. 1. Syncopal episode, acute, present on admission * It appears that the patient arrested prior to being transported to the emergency department and was revived * Patient continues to be DNR/DNI, a discussion needs to be held with the timothy ent as to how much more intervention she would want to have * I have ordered an echocardiogram as well as orthostatic vitals until such time as those discussions have been made with the patient and her family regarding additional interventions. 2. Generalized chest wall pain, acute, present on admission * Patient will have as needed acetaminophen for mild pain * She is also ordered for IV ketorolac 15 mg q.6 as needed for more severe pain 3. Hypothyroidism, chronic * Continue home dose of levothyroxine 25 mcg p.o. daily 4. Mild cognitive impairment, patient appears to be in a very early stage of dementia * Continue home dose of donepezil 5 mg p.o. at bedtime 5. Hyperlipidemia, chronic * Continue home dose of atorvastatin 10 mg p.o. daily FEN: 0.45 normal saline at 84 mL/hour to avoid volume overload, low-sodium diet, chemistries in the am Patient is placed into observation as her stay is not likely to exceed 2 midnights. VTE Prophylaxis: Heparin 5000 mg subcu twice daily Medications reconciled: Yes Disposition: Patient may require higher level of care than which is getting in an independent assisted care facility, or may benefit from acute rehab. Code Status: DNR/DNI Quality VTE Deep Vein Thrombosis/Pulmonary Embolism Present on Admission: No
[2019-12-05] MEDS: SODIUM CHLORIDE 0.45% 1,000 ML 84 ML IV (04:13)
[2019-12-05] MEDS: KETOROLAC 15 MG/ML VIAL IV (04:13)
[2019-12-05] MEDS: LEVOTHYROXINE 50 MCG TABLET 25 MCG PO (05:59)
[2019-12-05 06:01] LABS: Add Manual Diff / Slide Review NO; Basophils Absolute Auto 0 /uL (0-100); Basophils Percent Auto 0.8 % (0-2); Eosinophils Absolute Auto 0 /uL (0-450); Eosinophils Percent Auto 0.4 % (2-4); Hematocrit 36.1 % (36-46); Hemoglobin 12.1 g/dL (12.0-16.0); Lymphocytes Absolute Auto 800 /uL (1100-4500); Lymphocytes Percent Auto 13.2 % (25-40); Mean Corpuscular HGB Conc 33.6 % (30-36); Mean Corpuscular Hemoglobin 32.9 PG (26-34); Monocytes Absolute Auto 900 /uL (0-900); Monocytes Percent Auto 14.8 % (3-14); Neutrophils Absolute Auto 4500 /uL (1500-7000); Neutrophils Percent Auto 70.8 % (50-75); Platelet Count 147 X10^3/uL (150-400); Red Blood Cell Count 3.68 X10^6/uL (4.0-5.2); Red Cell Distribution Width 16.3 % (11.6-14.8); White Blood Cell Count 6.3 X10^3/uL (4.5-11.0)
[2019-12-05 06:12] LABS: BUN Creatinine Ratio 13.8 (6-22); Blood Urea Nitrogen 11 mg/dL (7-17); Calcium 8.7 mg/dL (8.4-10.2); Carbon Dioxide 27 mmol/L (22-32); Chloride 106 mmol/L (98-107); Estimated Glomerular Filt Rate > 60.0 mL/min (>60); Glucose 83 mg/dL (80-110); HEMOLYSIS < 15 (0-50); Potassium 3.9 mmol/L (3.4-5.1); Sodium 137 mmol/L (137-145)
[2019-12-05 06:21] LABS: NT-proBNP (BNP-Adult 18+) 358 pg/mL (<450)
[2019-12-05 06:52] LABS: RBC Urine None Seen (0-5/HPF); WBC Urine None Seen (0-5/HPF)
[2019-12-05 06:57] LABS: Bilirubin Urine UA NEGATIVE (NEGATIVE); Color Urine UA YELLOW; Glucose Urine UA NEGATIVE (Negative); Ketones Urine UA NEGATIVE (NEGATIVE); Leukocyte Esterase Urine UA NEGATIVE (NEGATIVE); Nitrite Urine UA POSITIVE (Negative); Occult Blood Urine UA TRACE-INTACT (Negative); Protein Urine UA NEGATIVE (Negative)
[2019-12-05 06:59] LABS: Appearance Urine UA SL CLOUDY; pH Urine UA 7.5 (4.5-8.0)
[2019-12-05 07:09] LABS: Bacteria Urine Many (>30); Culture Indicated Urine Specimen Cultured
[2019-12-05 07:54] LABS: TSH w/ Reflex to FT4 2.41 uIU/mL (0.47-4.68)
[2019-12-05 08:38] LABS: Troponin I < 0.012 ng/mL (0.01-0.034)
[2019-12-05] MEDS: SODIUM CHLORIDE 0.9% 1,000 ML 84 ML IV ×2 (09:26→20:10)
--- NOTE | 2019-12-05 09:49 | CM.DANOTE ---
Patient is an 83 year old female who was admitted on 12/05/19 for Syncope x2. Pt has [employer] and [employer] for insurance and her PCP is Dr. Gagan Lang. EMR was reviewed. Per MD, pt with hx of bilateral lung cancer, mild cognitive impairment, and Echo ordered and pending to determine if possible pacemaker needed. MD plans to have further Goals of Care discussion with pt and family after Echo and test results. PT/OT ordered and pending. SW met bedside with pt and explained role and pt alert and oriented x2 and confirms that she moved from [place] a few months ago in Aug 2019 to [facility] to be near family and was last admitted in Sep 2019 and discharged to [facility] SNF rehab prior to safe return home with Dtr Nichole in [place]. Pt states that since her admit to [facility], she moved from her Dtr Nichole's house into [facility] on [address] since pt required more assist than her Dtr could provide. Pt states she feels [facility] staff could be more helpful but is agreeable to return if SNF not needed. Pt aware that PT/OT to work with her to determine if SNF needed again at d/c although pt is currently OBS Status which could be a barrier if SNF needed. Pt states that over the past two years she has been attempting to update her Will and POA but has not officially completed it yet. Pt confirms that her primary contact is her granddtr Terri ([phone]) who lives on [address] and that her next contacts are her Dtr's friend Marcellus ([phone]) and then her Dtr Nichole ([phone]). Pt agreeable with SW calling any of those contacts. SW called all 3 numbers and left general messages and received return call from pt's GrandDtr Terri who confirms that she has been the primary contact and coordinator of services for the pt over the past few months. Terri confirms that pt has been at [facility] and SW updated that PT/OT to work with pt to help determine needs at d/c and pending Echo to determine possible cause of pt's medical issues. SW discussed DPOA and Kealey states pt has discussed making her the DPOA and Kealey states she would be agreeable to medical POA and SW discussed DPOA brochure and copy would be left in pt's room for when she comes to visit later today or for sure tomorrow to help continue coordinating care. Plan: SW to follow closely after Echo and PT/OT eval and recommendations towards coordinating return to [facility] vs possible SNF. Attempted to call [facility] but left msg as they are shorter staffed on the weekend. MINERVA Whittington Discharge Planning/Care Management CM Discharge Assessment Start: 12/05/19 09:45 Freq: Status: Active Protocol: Document 12/05/19 09:45 BF (Rec: 12/05/19 09:48 BF [id number]) Discharge Planning Assessment Assigned Elevator Builder MINERVA Jenkins DPOA/Assigned Designee Name working on pwk Advance Directives? Yes Advance Directives on File No History Provided By Patient,Family Member,Medical Record Has Patient been admitted in last 30 No days? Prior Living Arrangements Assisted Living Comment [facility] [place] Household Members none Type of transporation used prior to Relies on Others admit Facility Name Admitted From: [facility] Willing to Return to Facility? Yes Independent with ADL's Yes: mostly Is patient alert and oriented? Yes: mild cog impairment Needs Assistance With Managing Medications,Home Chores / Shopping Caregiver for Another No DME Already Rented / Owned FWW / Walker Comment Waiting for PT/OT eval and recommendations for possible SNF Discharge Plan Group Home Facility Transportation Arrangement Facility if SNF and family if home Additional Comment hx of [facility] in Sep 2019 Whiteboard Updated in Patient Room with Yes name and ext. # of Elevator Builder Review Status In Process Please Provide Date Initial DC 12/05/19 Assessment Was Performed Next Review Type Continued Stay Review
--- NOTE | 2019-12-05 10:00 | DI.ECHO.S_ITS ---
[facility]---------+ [facility] +---------+ : : [address] : : : : [id number] : : : : Phone: [phone]---------+ Echocardiogram Report + + :Name: BROCK LAUGHLIN Study Date: 12/05/2019 Height: 55 in : :Hospital Exam Location: [facility] Weight: 160 lb : : Gender: Female BSA: 1.6 m2 : :: 1935 Age: 83 yrs BP: 100/56 mmHg: :Reason For Study: Syncopal episode : :Ordering Physician: Luna : :Hospitalist Performed By: Miri Gamble : :Referring: GEETHA TONG : + + Interpretation Summary The left ventricle is normal in size. Left ventricular systolic function is normal without focal wall motion abnormalities. The ejection fraction is estimated to be 60-65%. There has been no significant change since the previous study. Diastolic parameters suggest probable normal left ventricular diastolic function and normal filling pressures. The right ventricle is not well visualized. The right ventricle grossly appears normal in size with probable normal systolic function. The right ventricular systolic pressure is estimated to be at least 40 mmHg based on an estimated right atrial pressure of 15 mm Hg. The left atrial size is normal. The right atrium was not measured due to suboptimal image quality. There is no significant valvular heart disease. The aortic root is normal size. Procedure: A two-dimensional transthoracic echocardiogram with color flow and Doppler was performed. The study quality was technically adequate. Comparison is made with the echocardiogram of 09/20/2019. The patient was imaged while laying supine and was unable to be repositioned. The patient was unable to tolerate the apical window due to significant chest pain. The patient was in normal sinus rhythm during the exam. Left Ventricle: The left ventricle is normal in size. There is normal left ventricular wall thickness. Left ventricular systolic function is normal without focal wall motion abnormalities. The ejection fraction is estimated to be 60-65%. There has been no significant change since the previous study. Diastolic parameters suggest probable normal left ventricular diastolic function and normal filling pressures. Right Ventricle: The right ventricle is not well visualized. The right ventricle grossly appears normal in size with probable normal systolic function. Atria: The left atrial size is normal. The right atrium was not measured due to suboptimal image quality. The interatrial septum is intact with no evidence for an atrial septal defect. Mitral Valve: The mitral valve is normal in structure and function. There is mild mitral annular calcification. There is trace mitral regurgitation. Aortic Valve: The aortic valve is trileaflet. The aortic valve opens well. There is mild aortic valve sclerosis. There is trace aortic regurgitation. Tricuspid Valve: The tricuspid valve is normal in structure and function. There is mild tricuspid regurgitation. The right ventricular systolic pressure is estimated to be at least 40 mmHg based on an estimated right atrial pressure of 15 mm Hg. Pulmonic Valve: The pulmonic valve is normal in structure and function. There is mild pulmonic regurgitation. There is no significant valvular heart disease. Great Vessels: The aortic root is normal size. The ascending aorta is normal in size. The IVC is dilated (diameter is greater than 2.1 cm) and it collapses less than 50% with a sniff. This suggests a high right atrial pressure of 15 mm Hg. Pericardium/ Pleura There is no pericardial effusion. There is an anterior echo-free space consistent with a fat pad. There is no pleural effusion. MMode/2D Measurements & Calculations LVIDd: 4.6 cm LVOT diam: 1.9 cm LVIDs: 2.5 cm Ao root diam: 3.4 cm FS: 45.7 % asc Aorta Diam: 3.4 cm IVSd: 0.83 cm LVPWd: 0.89 cm LV schultz. diameter/BSA (cm/m^2): 2.9 LV sys. diameter/BSA (cm/m^2): 1.6 LA A2 area: 16.4 cm2 IVC diam: 2.2 cm LA A4 area: 15.0 cm2 LA length (vol): 4.6 cm LA vol: 45.3 ml LA vol index: 28.4 ml/m2 Doppler Measurements & Calculations Ao V2 max: 117.0 cm/sec LVOT Max Jovan: 93.8 cm/sec Ao V2 mean: 77.9 cm/sec LV V1 max P.5 mmHg Ao max P.5 mmHg LV V1 VTI: 20.7 cm Ao mean P.8 mmHg JOE(I,D): 2.3 cm2 Ao V2 VTI: 26.4 cm JOE(V,D): 2.3 cm2 sev ratio: 0.78 JOE indexed to BSA (cm^2/m^2): 1.4 MV E max jovan: 56.1 cm/sec TR max jovan: 250.0 cm/sec MV A max jovan: 59.2 cm/sec TR max P.0 mmHg MV E/A: 0.95 PA V2 max: 56.8 cm/sec Med Peak E' Jovan: 6.4 cm/sec PA V2 mean: 41.4 cm/sec E/E' med: 8.7 PA mean P.73 mmHg Lat Peak E' Jovan: 8.1 cm/sec PA pr(Accel): 44.1 mmHg E/E' lat: 6.9 E/e' average: 7.8 MV dec time: 0.17 sec SV(LVOT): 59.9 ml Reading Physician:04:25 PM
--- NOTE | 2019-12-05 11:26 | OT.IP.EVAL ---
Past Medical History (Last Updated 12/04/19 @ 20:40 by Shruti Zamora MD) Acid reflux (Acute) Adult failure to thrive (Acute) COPD (chronic obstructive pulmonary disease) (Inactive) Cough (Acute) Dry eyes (Acute) Frequent falls (Acute) History of lung cancer in adulthood (Acute) History of pneumothorax (Acute) History of rib fracture (Acute) Hyperlipidemia (Acute) Hypothyroidism (acquired) (Acute) Mobility impaired (Acute) Onychomycosis (Acute) Short-term memory loss (Acute) Thrombocytopenia (Acute) Surgical History (Last Reviewed 12/04/19 @ 20:37 by Shruti Zamora MD) History of pneumonectomy (Acute) Occupational Therapy Inpatient Evaluation/Re-Eval M1 PT/OT-IP Prior Functional Status Start: 12/05/19 11:30 Freq: NEEDED Status: Active Protocol: Document 12/05/19 14:38 CGR (Rec: 12/05/19 14:54 CGR [id number]) Medical Review Prior Functional Status Medical History Reviewed Yes Communication Pt is an effective verbal communicator Mobility and Gait Pt was IND with 4WW Activities of Daily Living and IADL's Pt needed assist wtih bathing, meds, and meal reminders to go to the dining [facility] for meals. Social History Household Members none Living Arrangements Assisted Living Home Environment Standard Height Toilet Home Equipment Front Wheel Walker,Four Wheel Walker,Straight Cane,Raised Toilet Seat w/Armrests,Shower Seat without Backrest Employment Status Retired Additional Social History Comment Pt's daughters live near by. Pt moved recently from [place]. M2 OT-IP Current Condition Start: 12/05/19 14:38 Freq: Status: Active Protocol: Document 12/05/19 14:38 CGR (Rec: 12/05/19 14:54 CGR [email or web address]) Occupational Therapy Current Condition Current Condition Evaluation Date 12/05/19 Treatment Diagnosis syncope/cardiac arrest requiring CPR Diagnosis Onset Date 12/05/19 M3 OT- IP Subjective and Pain Start: 12/05/19 14:38 Freq: Status: Active Protocol: Document 12/05/19 14:38 CGR (Rec: 12/05/19 14:54 CGR [email or web address]) OT- Subjective Occupational Therapy Visit Type Type Initial Evaluation Visit Start Time 10:45 Visit Stop Time 11:26 Total Visit Minutes 41 OT Pain Assessment Pain When Pain Assessed At Rest Pain Present Pain Present Pain Reported Location Left Ribs Intensity 5 Scale Used Numeric (1 - 10) Management Techniques Modification of Treatment,Re- positioning,Timing of Activity with Medications M4 OT- IP ADL's Start: 12/05/19 14:38 Freq: Status: Active Protocol: Document 12/05/19 14:38 CGR (Rec: 12/05/19 14:54 CGR [email or web address]) OT [id number] Comments OT Self-Feeding Comments Not meal time OT ADL-Grooming General Evaluation Grooming Ability Standby Assistance Areas Needing Assistance Retrieving/Set-up of Grooming Items,Combing/Brushing Hair, Face Washing Comments OT Grooming Comments standing at sink OT ADL-Oral Care General Eval Oral Care Ability Contact Guard Assistance Areas of Assistance Brushing Teeth Comments Oral Care Comments standing at sink OT ADL-Dressing General Eval Lower Body Dressing Ability Independent Areas Needing Assistance Socks Comments OT Dressing Comments seated in chair OT ADL-Toileting General Evaluation Toileting Ability Standby Assistance Devices Toileting Assistive Devices Grab Bars Comments OT Toileting Comments Needed VC for hand placement OT ADL-Bathing Comments OT Bathing Comments Not performed on this date M5 OT- IP IADL's Start: 12/05/19 14:38 Freq: Status: Active Protocol: Document 12/05/19 14:38 CGR (Rec: 12/05/19 14:54 CGR [email or web address]) OT-Instrumental Activities of Daily Living Deficits IADL Deficits Identified Deficits Home Safety Awareness Awareness of Need for Assistance at Home Decreased Awareness Ability to Problem Solve Emergency Able to Problem Solve Situations Medication Management Medication Management Caregiver Administers Money Management Money Management Caregiver Provides Assistance Meal Preparation Meal Preparation Caregiver Provides Assist Aboriginal Education Teacher Aboriginal Education Teacher Caregiver Provides Assist Driving Driving Comments Pt does not drive M6 OT- IP Functional Cognition Start: 12/05/19 14:38 Freq: Status: Active Protocol: Document 12/05/19 14:38 CGR (Rec: 12/05/19 14:54 CGR [email or web address]) Cognitive Factors Limiting Selfcare Function Cognitive Ability Level of Alertness Alert Patient Orientation Name,Age,Birthday,Month,Date, Year,Day of Week,Place, Situation Attention Span Ability Capable of Focused Attention, Capable of Sustained Attention Ability to Follow Commands Able to Follow One Step Commands with Increased Time, Able to Follow One Step Commands with Repetition Safety Awareness Underestimates Need for Assistance Cognitive Comments Cognitive Assessment Comments Pt may benefit from formal cog assessment. OT- Vision and Hearing OT- Hearing Assessment OT- Hearing Assessment WFL OT- Vision Assessment Visual Acuity Glasses All The Time Visual Attentiveness WFL Occular Pursuits WFL Visual Convergence WFL Visual Pascal WFL M7 OT- IP Mobility and Balance Start: 12/05/19 14:38 Freq: Status: Active Protocol: Document 12/05/19 14:38 CGR (Rec: 12/05/19 14:54 CGR [email or web address]) OT-Transfer Assessment Sit to and From Stand Sit to and from Stand Contact Guard Assistance Transfers Transfer Ability Contact Guard Assistance Technique Transfer Destination Chair,Toilet Transfer Technique Stand Step Pivot Devices Transfer Assistive Devices Gait Belt,Front Wheeled Walker Comments Mobility Comments mobility around the room OT- Gait Assessment Gait Gait Assistance Required: Contact Guard Assist Assistive Devices Assistive Device Gait Belt,Front Wheeled Walker Comments Gait Ability Comments mobility around the room OT- Balance Assessment Sitting Balance and Reactions Static Sitting Balance Ability Normal Dynamic Sitting Balance Ability Good M8 OT- IP Objective Assessments Start: 12/05/19 14:38 Freq: Status: Active Protocol: Document 12/05/19 14:38 CGR (Rec: 12/05/19 14:54 CGR [email or web address]) OT Gross Range of Motion Upper Extremity Range of Motion Assessment Within Functional Limits OT Strength Upper Extremity Strength Assessment Within Functional Limits Comments Strength Comments grossly 4/5 OT- Coordination Assessment Upper Extremity Finger to Nose Test Within Functional Limits Finger Tapping Test Within Functional Limits OT-Muscle Tone Assessment Muscle Tone WNL Yes OT Sensation Assessment Edema Edema Absent M9 OT- IP Assessment and Plan Start: 12/05/19 14:38 Freq: Status: Active Protocol: Document 12/05/19 14:38 CGR (Rec: 12/05/19 14:54 CGR [email or web address]) OT Summary Assessment and Plan Potential Rehabilitation Potential Good Analytic Complexity at Evaluation Low Summary OT Impairments Pain,Balance,Functional Cognition,Functional Mobility, Grooming,Dressing,Toileting, Bathing,Toilet Transfers, Shower Transfers,Activity Tolerance Progress Towards Goals Slow Progress due to Activity Tolerance Assessment Summary Pt presents as a low complexity evalution after syncope/cardiac arrest. Pt states pain to the chest after chest compressions. Pt likley to benefit from SNF upon discharge for increased mobility, endurance, and ADLs. DMe recommendations defered to SNF. Goals Self-Feeding Goal Independent Grooming Goal Independent Dressing Goal Independent Toileting Goal Independent Bathing Goal Independent Toilet Transfer Goal Independent Shower Transfer Goal Independent Days to Meet Goals 5 Frequency of Treatment Frequency Of Treatment Once a Day Treatment Plan OT Treatment Plan ADL Training,Functional Cognition Training,Functional Mobility,Patient/Family Education,Discharge Planning Discharge Recommendations OT Discharge Recommendations SNF Rehab Home Equipment Needs TBD Transportation Needs at Discharge Private Vehicle
[2019-12-05] MEDS: IBUPROFEN 600 MG TABLET PO ×2 (11:34→20:02)
[2019-12-05] MEDS: ACETAMINOPHEN 325 MG TABLET 650 MG PO ×2 (15:57→23:54)
--- NOTE | 2019-12-05 16:00 | PT.IIE ---
Surgical History (Last Reviewed 12/04/19 @ 20:37 by Shruti Zamora MD) History of pneumonectomy (Acute) Medical History (Last Updated 12/04/19 @ 20:40 by Shruti Zamora MD) Acid reflux (Acute) Adult failure to thrive (Acute) COPD (chronic obstructive pulmonary disease) (Inactive) Cough (Acute) Dry eyes (Acute) Frequent falls (Acute) History of lung cancer in adulthood (Acute) History of pneumothorax (Acute) History of rib fracture (Acute) Hyperlipidemia (Acute) Hypothyroidism (acquired) (Acute) Mobility impaired (Acute) Onychomycosis (Acute) Short-term memory loss (Acute) Thrombocytopenia (Acute) Physical Therapy Inpatient Evaluation/Re-Eval M1 PT/OT-IP Prior Functional Status Start: 12/05/19 11:30 Freq: NEEDED Status: Active Protocol: Document 12/05/19 15:46 AW (Rec: 12/05/19 16:15 AW [id number]) Medical Review Prior Functional Status Medical History Reviewed Yes Communication Pt is an effective verbal communicator Mobility and Gait Pt was IND with 4WW. She reports 4 falls in the past year, at least one injurious with broken ribs Activities of Daily Living and IADL's Pt needed assist wtih bathing, meds, and meal reminders to go to the dining [facility] for meals. Prior Functional Level (Other details) Pt wears glasses 100% of the time and reports double vision without them Social History Household Members none Living Arrangements Assisted Living Number of Stairs To Enter/Railing? Pt resides at [facility] in [place] Home Environment Standard Height Toilet Home Equipment Front Wheel Walker,Four Wheel Walker,Straight Cane,Raised Toilet Seat w/Armrests,Shower Seat without Backrest Employment Status Retired Additional Social History Comment Pt's daughters live near by. Pt moved recently from [place]. M2 PT-IP Current Condition Start: 12/05/19 11:30 Freq: NEEDED Status: Active Protocol: Document 12/05/19 15:46 AW (Rec: 12/05/19 16:15 AW [id number]) Physical Therapy Current Condition Current Condition Evaluation Date 12/05/19 Treatment Diagnosis syncope, cardiac arrest, impaired mobility Onset Date 1543 Weight Bearing Status Weight Bearing Status Full Weight Bearing M3 PT-IP Subjective Start: 12/05/19 11:30 Freq: NEEDED Status: Active Protocol: Document 12/05/19 15:46 AW (Rec: 12/05/19 16:15 AW [id number]) Subjective Physical Therapy Visit Type Type Initial Evaluation Visit Start Time 15:14 Visit Stop Time 15:43 Total Visit Minutes 29 Physical Therapy Visit Comments Patient Comments Pt very sleepy and in pain but willing to work with PT Therapy Pain Assessment Pain When Pain Assessed At Rest Pain Present Pain Present Pain Reported Location Left Ribs Intensity 8 Description Sharp,Stabbing Pain Management Techniques Re-positioning M4 PT-IP Mobility and Gait Start: 12/05/19 11:30 Freq: NEEDED Status: Active Protocol: Document 12/05/19 15:46 AW (Rec: 12/05/19 16:15 AW [id number]) PT-Bed Mobility Assessment Supine to Sit Supine to Sit Contact Guard Assistance Sit to Supine Sit to Supine Contact Guard Assistance, Minimal Assistance Scooting Scooting to Edge of Bed Standby Assistance PT-Transfer Assessment Sit to and From Stand Sit to and from Stand Contact Guard Assistance,1 Person Assistance Equipment Transfer Assistive Device Gait Belt,Front Wheeled Walker Orthotic/Prosthetic Devices or Brace: No Transfers Transfer Destination Bed,Toilet Transfer Technique pt ambulated with FWW Transfer Ability Level of Assist Contact Guard Assistance Comments Mobility Comments Pt was sleeping upon therapist arrival but roused easily and was able to attend to task. She completed supine to sit CGA and cues to splint her right chest wall with a pillow during movement. She completed sit to stand using FWW but required max cues to use the walker as she tended to leave it and depend on countertop and grab bars instead. She stood without UE support to manage her briefs and transferred to the toilet CGA. On the toilet, she was able to change her own briefs with CGA and cues for positioning and safety. She stood again CGA with reliance on grab bars and pulled up her briefs, then ambulated with FWW toward the sink, again requiring CGA and cues to use the walker. She stood at the sink to wash her hands, occasionally gasping with pain as she reached for the soap and water. Pt then ambulated back to the bed CGA and cues. She transferred to EOB SBA and required CGA to min A to lift her legs back up on to the bed. Pt was positioned there with call light and table within reach. Reported to RN that pt was requesting medication for pain. Prior to activity: BP 154/66, HR 65 After activity: BP: 169/65, HR 47 (bradycardia reported to hospitalist) Gait Assessment Gait Gait Assistance Required: Contact Guard Assist Distance (Feet) 10 Able to Maintain Weight Bearing Status Yes During Gait Assistive Devices Assistive Device Gait Belt,Front Wheeled Walker Orthotic/Prosthetic Devices or Brace: No Gait Deviations General Gait Pattern Antalgic,Decreased Stride Length,Decreased Feet Clearance,Flexed Trunk Factors Limiting Gait Function Factors Limiting Gait Function Decreased Activity Tolerance, Decreased Strength,Difficulty Following Directions,Pain,Poor Safety Awareness Comments Gait Comments See mobility comments. Pt required cues at all times to keep contact with the walker as she was easily distractible secondary to pain in her chest wall. Stair Climbing Assessment Comments Stair Climbing Comments Not assessed. No steps at [facility] PT-Balance Assessment Sitting Balance and Reactions Static Sitting Balance Ability Good Dynamic Sitting Balance Ability Fair Standing Balance and Reactions Static Standing Balance Ability Fair Dynamic Standing Balance Ability Fair Device Used FWW M5 PT-IP Objective Assessments Start: 12/05/19 11:30 Freq: NEEDED Status: Active Protocol: Document 12/05/19 15:46 AW (Rec: 12/05/19 16:15 AW [id number]) Orientation Orientation/Cognition Level of Alertness Alert Orientation Name,Month,Place,Situation Language Function Ability No Deficits Noted Safety Awareness Decreased Safety Awareness Gross Range of Motion Lower Extremity ROM Assessment Within Functional Limits Strength Lower Extremity Strength Assessment Bilaterally Impaired Comments Strength Comments Limited MMT due to all force through extremities increasing her chest wall pain Sensation Assessment Sensation Gross Sensation WNL M6 PT-IP Treatment Start: 12/05/19 11:30 Freq: NEEDED Status: Active Protocol: Document 12/05/19 15:46 AW (Rec: 12/05/19 16:15 AW [id number]) Physical Therapy Treatment Education Education Provided Precautions,Safety Other Treatments Other Treatment Performed Provided education on role of PT, plan of care. Also initiated discharge planning conversation M7 PT-IP Assessment and Plan Start: 12/05/19 11:30 Freq: NEEDED Status: Active Protocol: Document 12/05/19 15:46 AW (Rec: 12/05/19 16:15 AW [id number]) PT Summary Assessment and Plan Potential Rehabilitation Potential Good Status of Condition at Evaluation Evolving Summary Impairments Pain,Strength,Balance, Cognition,Bed Mobility, Transfers,Gait,Activity Tolerance Assessment Summary Meg is an 83yo woman admitted after recent fall, syncopal episode, likely cardiac arrest. At baseline, pt lives in an [facility] (<1 month), is independent with 4WW, and was able to walk laps around her residential facility. On evaluation, pt has poor activity tolerance and is limited by 8/10 pain to her chest wall following compressions. She presents with decreased BLE strength, decreased safety awareness, and difficulty following directions likely secondary to distraction of pain. PT recommends SNF rehab at discharge to increase independence and safety at [facility] . Goals Bed Mobility Goal Independent Transfer Goal Independent,Four Wheeled Walker Gait Goal Independent,Four Wheel Walker Gait Distance 200 Days to Meet Goals 10 Frequency of Treatment Frequency Of Treatment Once a Day Treatment Plan Physical Therapy Treatment Plan Bed Mobility Training,Transfer Training,Gait Training, Therapeutic Exercise,Balance Retraining,Discharge Planning, Hot or Cold Pack,Neuromuscular Re-ed,Coordination Retraining ,Manual Therapy Other Recommendations and Next Treatment transfers, progress gait Focus distance, assess gait with 4WW Recommendations To Nursing Amount of Assist Needed 1 Person Assist Discharge Recommendations PT Discharge Recommendations SNF Rehab Equipment Needed for Home Before defer to subacute rehab Discharge Transportation Needs at Discharge Private Vehicle
--- NOTE | 2019-12-05 16:52 | PM.PN.1 ---
Subjective Subjective Date Patient Seen: 12/05/19 Exam Vital Signs (past 8 hours): - 12/05/19 14:56 12/05/19 16:16 12/05/19 16:17 Temperature 97.8 F 97.8 F Pulse Rate 62 58 L Pulse Rate [Orthostatic Lying] 58 L Pulse Rate [Orthostatic Sitting] 56 L Pulse Rate [Orthostatic Standing] 54 L Respiratory Rate 16 19 Blood Pressure 100/52 L 163/65 H Blood Pressure [Orthostatic Lying] 163/65 H Blood Pressure [Orthostatic Sitting] 174/82 H Blood Pressure [Orthostatic Standing] 159/71 H Pulse Oximetry 96 95 Oxygen Delivery Method Room Air Oxygen Flow Rate 0 Objective Labs Result Diagrams: 12/05/19 05:20 12/05/19 05:20 Labs: Laboratory Results - last 24 hr 12/04/19 12/04/19 12/04/19 20:40 20:40 20:40 WBC 5.9 RBC 3.85 L Hgb 12.7 Hct 38.0 MCV 98.7 MCH 32.9 MCHC 33.4 RDW 16.4 H Plt Count 158 Neut % (Auto) 80.3 H Lymph % (Auto) 7.8 L [place] % (Auto) 10.5 Eos % (Auto) 0.6 L Baso % (Auto) 0.8 Neut # (Auto) 4700 Lymph # (Auto) 500 L [place] # (Auto) 600 Eos # (Auto) 0 Baso # (Auto) 0 Sodium 138 Potassium 4.3 Chloride 104 Carbon Dioxide 29 BUN 14 Creatinine 0.80 Estimated GFR > 60.0 BUN/Creatinine Ratio 17.5 Glucose 99 Calcium 8.9 Magnesium Total Bilirubin 0.3 AST 40 H ALT 25 Alkaline Phosphatase 112 Total Creatine Kinase 30 CK-MB (CK-2) TNP CK-MB (CK-2) Rel Index TNP Troponin I < 0.012 NT-Pro-B Natriuret Pep Total Protein 6.9 Albumin 3.6 Globulin 3.3 Albumin/Globulin Ratio 1.1 Procalcitonin < 0.05 TSH Urine Color Urine Appearance Urine pH Ur Specific [place] Urine Protein Urine Glucose (UA) Urine Ketones Urine Occult Blood Urine Nitrate Urine Bilirubin Urine Urobilinogen Ur Leukocyte Esterase Urine RBC Urine WBC Urine Bacteria Ur Culture Indicated? 12/05/19 12/05/19 12/05/19 01:45 01:45 05:20 WBC 6.3 RBC 3.68 L Hgb 12.1 Hct 36.1 MCV 98.0 MCH 32.9 MCHC 33.6 RDW 16.3 H Plt Count 147 L Neut % (Auto) 70.8 Lymph % (Auto) 13.2 L [place] % (Auto) 14.8 H Eos % (Auto) 0.4 L Baso % (Auto) 0.8 Neut # (Auto) 4500 Lymph # (Auto) 800 L [place] # (Auto) 900 Eos # (Auto) 0 Baso # (Auto) 0 Sodium Potassium Chloride Carbon Dioxide BUN Creatinine Estimated GFR BUN/Creatinine Ratio Glucose Calcium Magnesium 2.2 Total Bilirubin AST ALT Alkaline Phosphatase Total Creatine Kinase CK-MB (CK-2) CK-MB (CK-2) Rel Index Troponin I < 0.012 NT-Pro-B Natriuret Pep Total Protein Albumin Globulin Albumin/Globulin Ratio Procalcitonin TSH Urine Color Urine Appearance Urine pH Ur Specific [place] Urine Protein Urine Glucose (UA) Urine Ketones Urine Occult Blood Urine Nitrate Urine Bilirubin Urine Urobilinogen Ur Leukocyte Esterase Urine RBC Urine WBC Urine Bacteria Ur Culture Indicated? 12/05/19 12/05/19 12/05/19 05:20 05:20 05:20 WBC RBC Hgb Hct MCV MCH MCHC RDW Plt Count Neut % (Auto) Lymph % (Auto) [place] % (Auto) Eos % (Auto) Baso % (Auto) Neut # (Auto) Lymph # (Auto) [place] # (Auto) Eos # (Auto) Baso # (Auto) Sodium 137 Potassium 3.9 Chloride 106 Carbon Dioxide 27 BUN 11 Creatinine 0.80 Estimated GFR > 60.0 BUN/Creatinine Ratio 13.8 Glucose 83 Calcium 8.7 Magnesium Total Bilirubin AST ALT Alkaline Phosphatase Total Creatine Kinase CK-MB (CK-2) CK-MB (CK-2) Rel Index Troponin I NT-Pro-B Natriuret Pep 358 Total Protein Albumin Globulin Albumin/Globulin Ratio Procalcitonin TSH 2.41 Urine Color Urine Appearance Urine pH Ur Specific [place] Urine Protein Urine Glucose (UA) Urine Ketones Urine Occult Blood Urine Nitrate Urine Bilirubin Urine Urobilinogen Ur Leukocyte Esterase Urine RBC Urine WBC Urine Bacteria Ur Culture Indicated? 12/05/19 12/05/19 05:20 06:15 WBC RBC Hgb Hct MCV MCH MCHC RDW Plt Count Neut % (Auto) Lymph % (Auto) [place] % (Auto) Eos % (Auto) Baso % (Auto) Neut # (Auto) Lymph # (Auto) [place] # (Auto) Eos # (Auto) Baso # (Auto) Sodium Potassium Chloride Carbon Dioxide BUN Creatinine Estimated GFR BUN/Creatinine Ratio Glucose Calcium Magnesium Total Bilirubin AST ALT Alkaline Phosphatase Total Creatine Kinase CK-MB (CK-2) CK-MB (CK-2) Rel Index Troponin I < 0.012 NT-Pro-B Natriuret Pep Total Protein Albumin Globulin Albumin/Globulin Ratio Procalcitonin TSH Urine Color Yellow Urine Appearance Sl cloudy Urine pH 7.5 Ur Specific [place] 1.010 Urine Protein Negative Urine Glucose (UA) Negative Urine Ketones Negative Urine Occult Blood Trace-intact Urine Nitrate Positive Urine Bilirubin Negative Urine Urobilinogen 1.0 Ur Leukocyte Esterase Negative Urine RBC None seen Urine WBC None seen Urine Bacteria Many (>30) H Ur Culture Indicated? Specimen cultured Assessment & Plan Assessment & Plan narrative: Brief progress note: Patient seen and examined. Physical exam unchanged except noted bradycardia and reproducible chest wall pain with palpation. Patient is currently hemodynamically stable. TSH and electrolytes normal. Review of telemetry demonstrates sinus bradycardia with average heart rate 40s without significant ectopy. EKG demonstrated sinus bradycardia without significant heart block or other conduction abnormalities. The patient had increase in heart rate to the mid 70s with activity with nursing, however, patient's heart rate remained in the 40s during activity with physical therapy. The patient reports that her heart rate is normally in the 70-80's. Requested records from her assisted living facility at [facility] in [facility] which corroberated that patient's heart rate on average is 60s to 80s without any documented 40's (for which her heart rate has been in the low 40's during her entire hospitalization thus far). Ordered echocardiogram, pending. Discussed case with on-call oil refiner, , who recommends continued cardiac monitoring for 1-2 days and if patient develops symptomatic bradycardia and or significant ectopy such as sinus pause would transfer the patient to [facility] for pacemaker insertion on Friday12/07/2019 and temporary treatment with atropine and/or transcutaneous pacing with sedation. If the patient does not have any significant events during her hospitalization demonstrated on telemetry or symptomatic bradycardia he would recommend a 2 week cardiac heart monitor called Zahra placed by Cardiology for which I have preemptively faxed the patient's information/face sheet to cardiology. Continue conservative treatment for chest wall pain after CPR with ice packs, Tylenol, ibuprofen and/or tramadol as needed for chest wall pain/muscle spasms. Quality VTE Deep Vein Thrombosis/Pulmonary Embolism Present on Admission: No
--- NOTE | 2019-12-05 17:48 | PC.NURSE ---
Addendum entered by Valerie Gillis R.N. 12/05/19 22:36: Pt spent much of shift in bed with eyes closed without signs of distress or discomfort. Pain is intermittent to chest and right rib cage towards back. Ibuprofen and tylenol to treat. Minimal assistance into bathroom to void. Pt is continent and incontinent of urine. Continuous pulse oximeter in place for sleep. 02 sats upper 90's on room air. Pedal pulses present BL with doppler. BL calf scd's in place. Original Note: Physical therapist reports pt in 8/10 pain. This automobile service writer enters room and pt lying quietly in bed awake, alert. Provided pt with tylenol as ordered. Pt reports spasm-type chest pain radiating to right posterior rib cage. Dr. Sterling is aware. Orthostatic pulse and blood pressures completed. Tele in place. BL calf scd's in place. Encouraged to call for needs. Dr. Sterling in to speak with pt.
[2019-12-05] MEDS: DONEPEZIL 5 MG TABLET PO (20:02)
[2019-12-05] MEDS: DOCUSATE 100 MG CAPSULE PO (20:02)
[2019-12-05] MEDS: ATORVASTATIN 10 MG TABLET PO (20:02)
[2019-12-06 00:03] VITALS: BP 140/70; PULSE 84; RESP 18; TEMP 36.7; O2SAT 95
[2019-12-06] MEDS: TRAMADOL 50 MG TABLET PO ×3 (01:24→21:25)
--- NOTE | 2019-12-06 01:35 | PC.NURSE ---
Addendum entered by Aleida Varela R.N. 12/06/19 06:47: Discussed Ibuprofen schedule with Devante STACK. Since patient took Ibuprofen at 0507 she stated to not start the scheduled Ibuprofen until 1500 Addendum entered by Aleida Varela R.N. 12/06/19 06:25: care plan updated as pain is not being controlled. Kala STACK, informed of pain control issues and new orders received for scheduled Tylenol + Ibuprofen and wants them scheduled so patient gets something q3h plus continue to have Tramadol available for breakthrough pain. Orders entered and night pharmacist, Suzy, contacted to enter correct schedule so that pain meds are ordered for q3h. Addendum entered by Aleida Varela R.N. 12/06/19 06:12: States pain has gotten worse since receiving Ibuprofen and rates severity as 7/10; medicated with Tylenol and warm blanket applied for comfort. Addendum entered by Aleida Varela R.N. 12/06/19 05:13: Has been sleeping past several hours. This morning states pain at rest is 3/10 but increases with movement of arm; medicated with Ibuprofen. Addendum entered by Aleida Varela R.N. 12/06/19 01:45: 0124 Patient up to bathroom again (has been sleeping) and states pain has returned and is now 9/10 in severity so accepting of taking Tramadol for pain. Original Note: 0000 Patient is oriented but forgetful with some short term memory loss. Breath sounds CTA with RA sat of 95%; on continuous pulse oximetry. Denies SOB or dizziness. HRR with telemetry reading of SR w/rate of 60; has been running HR of 40-50 range. Denies nausea. BT present and abdomen is soft. Is incontinent of urine due to urinary urgency but also voids on toilet; denies dysuria. Able to move self in bed. Out of bed with walker and 1 assist and can be unsteady due to LE weakness. Complains of pain in right chest/ribs/flank presumably from CPR performed prior to admission; medicated with Tylenol as patient is wanting to avoid narcotics. Noted bruises to bilateral UE and left LE. PP weak but palpable. Wearing bilateral calf SCD's. Fall risk score is high and bed alarm is activated.
[2019-12-06 04:45] VITALS: BP 167/71; PULSE 54; RESP 16; TEMP 36.5; O2SAT 93
[2019-12-06] MEDS: IBUPROFEN 600 MG TABLET PO ×2 (05:07→21:25)
[2019-12-06] MEDS: LEVOTHYROXINE 50 MCG TABLET 25 MCG PO (05:10)
[2019-12-06] MEDS: ACETAMINOPHEN 325 MG TABLET 650 MG PO ×2 (06:09→17:19)
[2019-12-06 06:10] VITALS: BP 156/78; BP 170/89; BP 183/86; PULSE 52; PULSE 55
[2019-12-06 07:20] LABS: BUN Creatinine Ratio 14.3 (6-22); Blood Urea Nitrogen 10 mg/dL (7-17); Calcium 8.4 mg/dL (8.4-10.2); Carbon Dioxide 28 mmol/L (22-32); Chloride 108 mmol/L (98-107); Estimated Glomerular Filt Rate > 60.0 mL/min (>60); Glucose 85 mg/dL (80-110); HEMOLYSIS 16 (0-50); Potassium 3.9 mmol/L (3.4-5.1); Sodium 139 mmol/L (137-145)
[2019-12-06 08:00] VITALS: BP 162/67; PULSE 55; RESP 18; TEMP 36.6; O2SAT 96
--- NOTE | 2019-12-06 08:38 | PC.NURSE ---
Day Shift Pt up this AM, set up for breakfast. C/o pain in R side. States that she has been having this pain for 2 years, this is not new pain for her. up to bathroom with FWW and SBA.
[2019-12-06] MEDS: SODIUM CHLORIDE 0.9% 1,000 ML 84 ML IV (08:59)
--- NOTE | 2019-12-06 12:03 | OT.IP.TRT ---
Occupational Therapy Treatment Note M2 OT-IP Current Condition Start: 12/05/19 14:38 Freq: Status: Active Protocol: Document 12/05/19 14:38 [facility] (Rec: 12/05/19 14:54 [facility] [email or web address]) Occupational Therapy Current Condition Current Condition Evaluation Date 12/05/19 Treatment Diagnosis syncope/cardiac arrest requiring CPR Diagnosis Onset Date 12/05/19 M3 OT- IP Subjective and Pain Start: 12/05/19 14:38 Freq: Status: Active Protocol: Document 12/06/19 12:09 [facility] (Rec: 12/06/19 12:43 [facility] [id number]) OT- Subjective Occupational Therapy Visit Type Type Treatment Note Visit Start Time 11:08 Visit Stop Time 12:03 Occupational Therapy Visit Comments Patient Comments Pt still in bed and able to encourage pt to get up to use the bathroom and clean up at the sink. Patient/Caregiver Goals Pt wanting to go home. However pt is afraid on falling and knows that she is not stable on her feet . OT Pain Assessment Pain When Pain Assessed During Mobility Pain Present Pain Present Pain Reported M4 OT- IP ADL's Start: 12/05/19 14:38 Freq: Status: Active Protocol: Document 12/06/19 12:09 [facility] (Rec: 12/06/19 12:43 [facility] [id number]) OT OCB-[id number]-Ijyjads Comments OT Self-Feeding Comments Not meal time OT ADL-Grooming General Evaluation Grooming Ability Standby Assistance Areas Needing Assistance Retrieving/Set-up of Grooming Items,Combing/Brushing Hair, Face Washing Comments OT Grooming Comments standing at sink OT ADL-Oral Care General Eval Oral Care Ability Standby Assistance Comments Oral Care Comments standing at sink OT ADL-Dressing General Eval Lower Body Dressing Ability Standby Assistance,Contact Guard Assistance Areas Needing Assistance Underpants/Brief Comments OT Dressing Comments Pt able to lean lever while on the toilet to jean/doff brief . Pt had to be told to change her brief as did not realize that it was wet. Pt needing CGA to stand as tends to lean on her heel while standing while trying to pull up her brief up over her hips. OT ADL-Toileting General Evaluation Toileting Ability Standby Assistance Devices Toileting Assistive Devices Grab Bars Comments OT Toileting Comments Needed VC for hand placement and safety. OT ADL-Bathing Comments OT Bathing Comments Pt states too tired. M5 OT- IP IADL's Start: 12/05/19 14:38 Freq: Status: Active Protocol: Document 12/05/19 14:38 [facility] (Rec: 12/05/19 14:54 [facility] [email or web address]) OT-Instrumental Activities of Daily Living Deficits IADL Deficits Identified Deficits Home Safety Awareness Awareness of Need for Assistance at Home Decreased Awareness Ability to Problem Solve Emergency Able to Problem Solve Situations Medication Management Medication Management Caregiver Administers Money Management Money Management Caregiver Provides Assistance Meal Preparation Meal Preparation Caregiver Provides Assist Train Examiner Train Examiner Caregiver Provides Assist Driving Driving Comments Pt does not drive M6 OT- IP Functional Cognition Start: 12/05/19 14:38 Freq: Status: Active Protocol: Document 12/06/19 12:09 [facility] (Rec: 12/06/19 12:43 [facility] [email or web address]) Cognitive Factors Limiting Selfcare Function Cognitive Ability Level of Alertness Alert Patient Orientation Name,Year,Place,Situation Attention Span Ability Capable of Focused Attention, Capable of Sustained Attention Ability to Follow Commands Able to Follow One Step Commands with Increased Time, Able to Follow One Step Commands with Repetition Memory Description Short Term Impaired Safety Awareness Underestimates Need for Assistance Problem Solving Ability Unable to Identify Errors, Needs Assist to Identify Solutions Cognitive Tests SLUMS Pt scored 17/30 on 09/20/19, today scored 17/30 , score implies dementia. Pt able to recall 14 animals in one minute, able to recall 2/5 objects after time passed, unable to draw clock hands after time given, only able to answer 1/4 questions right after a paragraph read. Cognitive Comments Cognitive Assessment Comments VC for FWW safety to keep the FWW in front of her at all times. VC to push up with her right hand and left hand on the FWW to stand. VC to reach back to surfaces before sitting. VC to use the M7 OT- IP Mobility and Balance Start: 12/05/19 14:38 Freq: Status: Active Protocol: Document 12/06/19 12:09 [facility] (Rec: 12/06/19 12:43 [facility] [email or web address]) OT- Bed Mobility Assessment Rolling Type of Rolling Roll to Left Supine to Sit Supine to Sit Assist Standby Assistance Scooting Scooting to Edge of Bed Standby Assistance OT-Transfer Assessment Sit to and From Stand Sit to and from Stand Standby Assistance,Contact Guard Assistance Transfers Transfer Ability Standby Assistance,Minimal Assistance Technique Transfer Destination Bed,Chair,Toilet Devices Transfer Assistive Devices Gait Belt,Front Wheeled Walker Comments Mobility Comments Pt needing TODD to stand from lower surfaces. Pt able to use FWW however tends to want to hold the middle on the FWW with right hand versus use of right handle on FWW. OT- Gait Assessment Gait Gait Assistance Required: Contact Guard Assist Assistive Devices Assistive Device Gait Belt,Front Wheeled Walker OT- Balance Assessment Sitting Balance and Reactions Static Sitting Balance Ability Normal Dynamic Sitting Balance Ability Good Standing Balance and Reactions Static Standing Balance Ability Fair M8 OT- IP Objective Assessments Start: 12/05/19 14:38 Freq: Status: Active Protocol: Document 12/05/19 14:38 [facility] (Rec: 12/05/19 14:54 [facility] [email or web address]) OT Gross Range of Motion Upper Extremity Range of Motion Assessment Within Functional Limits OT Strength Upper Extremity Strength Assessment Within Functional Limits Comments Strength Comments grossly 4/5 OT- Coordination Assessment Upper Extremity Finger to Nose Test Within Functional Limits Finger Tapping Test Within Functional Limits OT-Muscle Tone Assessment Muscle Tone WNL Yes OT Sensation Assessment Edema Edema Absent M9 OT- IP Assessment and Plan Start: 12/05/19 14:38 Freq: Status: Active Protocol: Document 12/06/19 12:09 [facility] (Rec: 12/06/19 12:43 [facility] [email or web address]) OT Summary Assessment and Plan Potential Rehabilitation Potential Good Analytic Complexity at Evaluation Low Summary OT Impairments Pain,Balance,Functional Cognition,Functional Mobility, Grooming,Dressing,Toileting, Bathing,Toilet Transfers, Shower Transfers,Activity Tolerance Progress Towards Goals Slow Progress due to Pain,Slow Progress due to Activity Tolerance,Slow Progress due to Cognition Assessment Summary Pt main barriers are decreased safety awareness, balance, decreased activity tolerance and high risk for falls at this time. Pt will benefit from increased assist at her assistive living for all dressing,toileting, and bathing needs for ADl's and functional mobility at this time due to pt's decreased dynamic balance and overall safety awareness. Goals Self-Feeding Goal Independent Grooming Goal Independent Dressing Goal Independent Toileting Goal Independent Bathing Goal Standby Assistance Toilet Transfer Goal Independent Shower Transfer Goal Standby Assistance Days to Meet Goals 5 Frequency of Treatment Frequency Of Treatment Once a Day Treatment Plan OT Treatment Plan ADL Training,Functional Cognition Training,Functional Mobility,Patient/Family Education,Discharge Planning Discharge Recommendations OT Discharge Recommendations Home with Assistance,Home with 24/7 Assist,Home Health,SNF Rehab Other Discharge Recommendations If pt does not qualify for SNF recommend increased assist at her assistive living as pt is a high fall risk. Recommend 24 /7 assist however if pt able to consistently call for needs may not need 24/7 assist but definitely increased assist. Transportation Needs at Discharge Private Vehicle
--- NOTE | 2019-12-06 12:39 | PT.IPTN ---
Physical Therapy Treatment Note M2 PT-IP Current Condition Start: 12/05/19 11:30 Freq: NEEDED Status: Active Protocol: Document 12/05/19 15:46 [facility] (Rec: 12/05/19 16:15 AW [id number]) Physical Therapy Current Condition Current Condition Evaluation Date 12/05/19 Treatment Diagnosis syncope, cardiac arrest, impaired mobility Onset Date 1543 Weight Bearing Status Weight Bearing Status Full Weight Bearing M3 PT-IP Subjective Start: 12/05/19 11:30 Freq: NEEDED Status: Active Protocol: Document 12/06/19 12:39 [facility] (Rec: 12/06/19 13:47 [facility] [id number]) Subjective Physical Therapy Visit Type Type Treatment Note Visit Start Time 12:39 Visit Stop Time 12:55 Total Visit Minutes 16 Number of EXTRUDER OPERATOR MULTIPLE Visits 1 Physical Therapy Visit Comments Patient Comments Pt wanting to get back to bed. Therapy Pain Assessment Pain When Pain Assessed At Rest Pain Present Pain Present Pain Reported M4 PT-IP Mobility and Gait Start: 12/05/19 11:30 Freq: NEEDED Status: Active Protocol: Document 12/06/19 12:39 [facility] (Rec: 12/06/19 13:47 [facility] [id number]) PT-Bed Mobility Assessment Sit to Supine Sit to Supine Contact Guard Assistance Scooting Scooting to Edge of Bed Standby Assistance PT-Transfer Assessment Sit to and From Stand Sit to and from Stand Contact Guard Assistance,1 Person Assistance Equipment Transfer Assistive Device Gait Belt Orthotic/Prosthetic Devices or Brace: No Transfers Transfer Destination Bed Transfer Technique Stand Step Pivot Transfer Ability Level of Assist Contact Guard Assistance Comments Mobility Comments Pt sitting in chair upon arrival stating she is feeling very nauseated and wanting to get back to bed. Pt refused ambulation with 4WW. Pt stood with CGA with therapist in front of pt, pt's left arm on therapists shoulder, pt performed stand step pivot to bed CGA. Pt sat on bed CGA and SBA for sit-supine. Pt was able to scoot up in bed SBA. Pt with emesis in emesis bag. RN notified pt was ill, bed alarm on and call light near. Gait Assessment Comments Gait Comments Pt refused ambulation. M5 PT-IP Objective Assessments Start: 12/05/19 11:30 Freq: NEEDED Status: Active Protocol: Document 12/05/19 15:46 AW (Rec: 12/05/19 16:15 AW [id number]) Orientation Orientation/Cognition Level of Alertness Alert Orientation Name,Month,Place,Situation Language Function Ability No Deficits Noted Safety Awareness Decreased Safety Awareness Gross Range of Motion Lower Extremity ROM Assessment Within Functional Limits Strength Lower Extremity Strength Assessment Bilaterally Impaired Comments Strength Comments Limited MMT due to all force through extremities increasing her chest wall pain Sensation Assessment Sensation Gross Sensation WNL M6 PT-IP Treatment Start: 12/05/19 11:30 Freq: NEEDED Status: Active Protocol: Document 12/05/19 15:46 AW (Rec: 12/05/19 16:15 AW [id number]) Physical Therapy Treatment Education Education Provided Precautions,Safety Other Treatments Other Treatment Performed Provided education on role of PT, plan of care. Also initiated discharge planning conversation M7 PT-IP Assessment and Plan Start: 12/05/19 11:30 Freq: NEEDED Status: Active Protocol: Document 12/06/19 12:39 [facility] (Rec: 12/06/19 13:47 [facility] [id number]) PT Summary Assessment and Plan Potential Rehabilitation Potential Good Status of Condition at Evaluation Evolving Summary Impairments Pain,Strength,Balance, Cognition,Bed Mobility, Transfers,Gait,Activity Tolerance Assessment Summary Pt with nausea wanting to get back to bed. Pt required CGA- SBA for sit-stand, stand step pivot and bed mobility. Pt refused gait training. Pt with emesis once in bed. RN informed. Goals Bed Mobility Goal Independent Transfer Goal Independent,Four Wheeled Walker Gait Goal Independent,Four Wheel Walker Gait Distance 200 Days to Meet Goals 10 Frequency of Treatment Frequency Of Treatment Once a Day Treatment Plan Physical Therapy Treatment Plan Bed Mobility Training,Transfer Training,Gait Training, Therapeutic Exercise,Balance Retraining,Discharge Planning, Hot or Cold Pack,Neuromuscular Re-ed,Coordination Retraining ,Manual Therapy Recommendations To Nursing Amount of Assist Needed 1 Person Assist Discharge Recommendations PT Discharge Recommendations SNF Rehab Equipment Needed for Home Before defer to subacute rehab Discharge Transportation Needs at Discharge Private Vehicle
[2019-12-06] MEDS: ALPRAZolam 0.25 MG TABLET PO (12:45)
[2019-12-06] MEDS: ONDANSETRON 4 MG/2 ML INJ IV (12:52)
--- NOTE | 2019-12-06 13:20 | PC.NURSE ---
Day Shift Pt very anxious this AM and afternoon. She got up this morning but did not want to do her orthostatic VS, we agreed to do them in the afternoon. Pt was in the chair and working with OT, she was very distraught after doing cognitive eval with OT about her score. Kept saying, how can she expect me to do this test when i've told her i'm dizzy and my head is spinning. Monique told everyone that I've been nauseated all day. explained to pt that she never told me she was nauseated this AM. She then became very defensive saying i'm not going through this, i told you this morning i was nauseated. then it turned into well why would i have told you i was nauseated i don't want to bother you. Gave pt 0.25 xanax to help with her anxiety after this, she then vomited about 150 ml, gave pt zofran IV and she was sleeping afterwards. With all of this, pt refused her orthostatic VS again. She declined to take her 1200 tylenol as well.
--- NOTE | 2019-12-06 13:39 | P.PN_ITS ---
Subjective Subjective Date Patient Seen: 12/06/19 Time Patient Seen: 13:40 Interval history: Meg Beltran is a pleasant 83-year-old female with a history of bilateral lung cancer, hypertension, and mild cognitive impairment who was admitted after syncopal episode with possible arrest, however this is unclear. She remained profoundly bradycardic overnight while sleeping to as low as 39, however when she awakes her heart rates are improved into the low 50s. Card iology was previously consulted and recommended outpatient monitoring after prolonged observation while admitted. This morning she complained of intermittent dizziness and nausea, not seemingly related to her heart rate. Today she underwent cognitive testing with occupational therapy. Afterwards she was profoundly upset with the testing and complaining of nausea and dizziness. Her heart rate unremarkable during this episode. Exam Vital Signs (past 8 hours): - 12/06/19 06:10 12/06/19 08:00 Temperature 97.8 F Pulse Rate 55 L Pulse Rate [Orthostatic Lying] 52 L Pulse Rate [Orthostatic Sitting] 55 L Pulse Rate [Orthostatic Standing] 52 L Respiratory Rate 18 Blood Pressure 162/67 H Blood Pressure [Orthostatic Lying] 156/78 H Blood Pressure [Orthostatic Sitting] 183/86 H Blood Pressure [Orthostatic Standing] 170/89 H Pulse Oximetry 96 Oxygen Delivery Method Room Air Oxygen Flow Rate 0 Narrative Exam Narrative: GENERAL APPEARANCE: Well developed, well nourished, anxious pearl earing SKIN: Inspection of the skin reveals no rashes, ulcerations or petechiae. HEENT: The sclerae were anicteric and conjunctivae were pink and moist. Extraocular movements were intact and pupils were equal, round with normal accommodation. External inspection of the ears and nose showed no scars, lesions, or masses. Lips, teeth, and gums showed normal mucosa. The oral mucosa, hard and soft palate, tongue and posterior pharynx were unremarkable. NECK: Supple and symmetric. There was no thyroid enlargement, and no tenderness, or masses were felt. CHEST: Severe right-sided chest tenderness upon palpation. Equal expansion bilaterally. LUNGS: Auscultation of the lungs revealed no wheezes, rhonchi, or rales. CARDIOVASCULAR: There was a bradycardic rate and regular rhythm without any murmurs, gallops, rubs. Peripheral pulses were 2+ and symmetric. ABDOMEN: Soft and nontender with normal bowel sounds. No ascites was noted. MUSCULOSKELETAL: There was no tenderness or effusions noted. Muscle strength and tone were normal. EXTREMITIES: No cyanosis, clubbing or edema. NEUROLOGIC: Alert. Skips between time periods frequently. Normal strength and grossly intact sensation bilaterally to light touch. Objective Labs Result Diagrams: 12/05/19 05:20 12/06/19 07:04 Labs: Laboratory Results - last 24 hr 12/06/19 07:04 Sodium 139 Potassium 3.9 Chloride 108 H Carbon Dioxide 28 BUN 10 Creatinine 0.70 Estimated GFR > 60.0 BUN/Creatinine Ratio 14.3 Glucose 85 Calcium 8.4 Magnesium 2.0 Assessment & Plan Assessment & Plan narrative: Meg Beltran this is a pleasant 83-year-old female who will be placed into observation for further workup of her syncope. 1. Syncopal episode, acute, present on admission It appears that the patient either arrested or syncopized prior to being transported to the emergency department and was revived Patient continues to be DNR/DNI, Etiology is possibly vasovagal versus cardiogenic in origin (see bradycardia below). She has been profoundly bradycardic into the 30s here, however she has no significant pauses and these are primarily when she is sleeping. She has not had any episodes of syncope while admitted. Discussed with Cardiology yesterday who recommended continued cardiac monitoring for 1-2 days and if patient develops symptomatic bradycardia and or significant ectopy such as sinus pause would transfer the patient to [facility] for pacemaker insertion on Friday12/07/2019 and temporary treatment with atropine and/or transcutaneous pacing with sedation. If the patient does not have any significant events during her hospitalization demonstrated on telemetry or symptomatic bradycardia he would recommend a 2 week cardiac heart monitor called Zahra placed by Cardiology for which Dr. Sterling preemptively faxed the patient's information/face sheet to cardiology. Continue conservative treatment for chest wall pain after CPR with ice packs, Tylenol, ibuprofen and/or tramadol as needed for chest wall pain/muscle spasms. 2. Generalized chest wall pain, acute, present on admission -likely secondary to compressions that were given to her. Patient will have as needed acetaminophen for mild pain She is also ordered for IV ketorolac 15 mg q.6 as needed for more severe pain 3. Bradycardia, present on admission - management as noted above - continue telemetry. 4. Hypothyroidism, chronic Continue home dose of levothyroxine 25 mcg p.o. daily 5. 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 at bedtime Patient has very significant anxiety surrounding this diagnosis as evidence by occupational therapy encounter today. 6. Hyperlipidemia, chronic Continue home dose of atorvastatin 10 mg p.o. daily Patient remains observation status. Should she not have any further events on telemetry she can be discharged tomorrow. VTE Prophylaxis: Heparin 5000 mg subcu twice daily Quality VTE Deep Vein Thrombosis/Pulmonary Embolism Present on Admission: No
--- NOTE | 2019-12-06 13:44 | CM.DPC ---
DCP/continued: Reviewed chart. Received phone call from Birgit Vicente at [facility] ph# [phone]. She reports that she will need to come to [facility] and do a bedside assessment prior to patient's return. Birgit plans to be here tomorrow around 10:00AM. Patient remains in OBS status and this is not expected to change. Therapy has seen patient and report patient most likely will benefit from additional care at [facility]. Therefore, Birgit will evaluate tomorrow. D/C anticipated within the next 24hrs. P: Return to [facility] when medically stable. Birgit to evaluate tomorrow. MINERVA Emery
[2019-12-06 15:37] VITALS: BP 156/75; BP 162/80; BP 168/72; PULSE 56; PULSE 60; PULSE 62; RESP 19; TEMP 36.3; O2SAT 95
[2019-12-06 19:29] VITALS: BP 158/76; PULSE 53; RESP 19; TEMP 36.1; O2SAT 95
[2019-12-06] MEDS: ATORVASTATIN 10 MG TABLET PO (21:22)
[2019-12-06] MEDS: HEPARIN 5,000 UNIT/ML VIAL 5000 UNIT SUBCUT (21:22)
[2019-12-06] MEDS: DONEPEZIL 5 MG TABLET PO (21:22)
--- NOTE | 2019-12-06 23:18 | PC.NURSE ---
Evening note: Meg was anxious at times tonight, disoriented to details & events, able to distract/redirect easily. Acceptive of medications & nurse care tonight. Sat in recliner for meal, ate about 1/2 of dinner and then requested chicken noodle soup instead. At 1900 or so she was transferred back to bed. Dozing at times. When wakeful reports significant pain to her right chest and flank. I talked with her for a while about her pain, we talked about radiation and the lasting effects it can have, she said I didn't even think about that. Patient medicated with Tramadol, she is now dozing. IV has been saline locked tonight, in report the day nurse told me that patient was now saline locked. In handoff/report tonight, Aleida FLORES NOC shift pointed out that IVF were still active on JAN. I notified Karissa STACK of this finding, and asked if patient still needed to be on IVF. She said she did not think so, and that she would DC the IVF from the JAN. I notified Aleida of the physician's response.
[2019-12-07] VITALS (7 sets, daily range): BP systolic 125–176; BP diastolic 68–82; PULSE 55–70; RESP 18–19; TEMP 35.9–37.4; O2SAT 91–94; BMI 24.8
[2019-12-07] MEDS: ACETAMINOPHEN 325 MG TABLET 650 MG PO ×3 (00:02→17:59)
--- NOTE | 2019-12-07 01:29 | PC.NURSE ---
Addendum entered by Aleida Varela R.N. 12/07/19 06:43: Patient had another 120cc bile green emesis. Addendum entered by Aleida Varela R.N. 12/07/19 06:23: After being medicated with thyroid medication patient became nauseated and had emesis of bile colored liquid along with medication; approximately 20cc emesis. Medicated with Zofran. Addendum entered by Aleida Varela R.N. 12/07/19 06:11: Has been noted to be sleeping when patient checks done but this morning patient states she didn't sleep at all last night because of the SCD's. 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 When instructed that she has the right to refuse any treatments states then I want to sign out of here. Discussed that MD notes indicate possible discharge today and patient seems satisfied with that response. SCD's removed. Medicated with Tylenol for pain control and patient states she has no pain this morning. Original Note: 0019 Patient asleep and awakened for VS and scheduled Tylenol for pain control. Prior to waking had FLACC of 0 but once woken starts complaining of pain in right chest/axilla/ribs and seems to have spasm like sharp pains with movement. Rates pain severity as 6/10. Is alert and oriented but forgetful; off on date by 1 day. Breath sounds with expiratory wheezes in left lobes; RA sat 93%. Placed on continuous oximetry per MD order. HRR with telemetry reading of SB; noted HR fluctuates 40-60 range. Does complain of some mild dizziness upon first getting out of bed. Denies nausea. BT present and states she is passing flatus. Wears a pull up and dribbles urine/incontinent due to urgency but also voids on toilet; denies dysuria or frequency. Is able to move self in bed. Out of bed with walker and 1 assist due to LE weakness. Buttocks appearing red tonight but blanchable; barrier cream applied after toileting. Wearing bilateral calf SCD's. After getting back to bed warm blanket applied to right chest and is currently asleep. Fall risk score is high and bed alarm is activated.
[2019-12-07] MEDS: IBUPROFEN 600 MG TABLET PO ×3 (02:54→15:01)
[2019-12-07] MEDS: LEVOTHYROXINE 50 MCG TABLET 25 MCG PO (06:08)
[2019-12-07] MEDS: ONDANSETRON 4 MG/2 ML INJ IV (06:19)
[2019-12-07] MEDS: SODIUM CHLORIDE 0.9% FLUSH 10 ML IV ×2 (06:19→09:14)
[2019-12-07] MEDS: HEPARIN 5,000 UNIT/ML VIAL 5000 UNIT SUBCUT (09:08)
--- NOTE | 2019-12-07 09:58 | PC.NURSE ---
Day Shift- With pt's permission, spoke with pt's Daughter Mack Jones who lives in [place], #[phone]. Mack stated she is her mom's POA since 2001 and renewed again in 2012. Spoke with Mack at 0920 & 0950. Update given, Mack requested to speak with [employer], their number given. Pt ate 100% of muffin for breakfast, slightly nauseated, able to take pill with water. C/O mid chest pain, non radiating. Hard to take a deep breath. AE to right mid and lower lung area faint coarseness and LLL is diminished AE upon auscultation. O2 sat 91% on RA, on continuous O2 monitoring. Discontinue Orthostatic BP/P checks per Dr. Bennett at 0930. High fall risk precautions in place, Bed alarm on. Call light and phone within reach.
--- NOTE | 2019-12-07 10:42 | PM.DS.1 ---
History of Present Illness History of Present Illness Date Patient Seen: 12/07/19 Time Patient Seen: 10:42 Chief complaint: syncope x 2 Narrative: As per SREEKANTH Vaughan: Meg Beltran is a pleasant 83-year-old female with a history of bilateral lung cancer, hypertension, and mild cognitive impairment who fell in her assisted living area. She does not remember what happened only that she woke up and a lot of people were around her. Per the emergency room provider, she collapsed and she was found to have no pulse. Apparently CPR was started on her at the facility, and then they called EMS. EMS apparently reported that she also had what appeared to be another syncopal episode but they did not do CPR on her. Patient stated to me after much questioning that she did not want have compressions or defibrillation. All 3 of her troponins drawn during this admission have been negative. She does complain of diffuse chest and chest wall pain as well as right-sided posterior shoulder pain. She also states that she has had a really bad headache that started yesterday which now appears to be less prominent. She also stated that she had nausea issues drop in her bedroom and she has been plagued with some constipation as of the last few days. She was recently treated with doxycycline for UTI and completed that course few days ago. She states that she did not have any urinary symptoms but that it showed up on a urinalysis that she took. She has continuing problems with anxiety. She states that she wears glasses due to having double vision after having undergone which she states has cataract surgery a few years ago in [facility] she denies any problems with her dentition, throat though has had a history of throat surgery for polyps, palpitations, shortness of breath, skin rashes or lesions. Approximately 2 years ago she fell causing a right-sided pneumothorax and fracturing 3 ribs. She was hospitalized for approximately 9 days during that. At that time they assessed she had mild cognitive impairment which was worsened by pain medications. She recently relocated to the [facility] to be closer to her grandchildren after living for number of years in [facility]. Discharge Providers Provider Date of admission: 12/05/19 01:22 Discharge Date: 12/07/19 Primary care physician: Gagan Lang DO Consults: 12/05/19 09:04 Consult to Occupational Therapy Evaluate & Treat Comment: Falls at home, cog eval, Physician Instructions: Evaluate and treat Consult to Physical Therapy Evaluate & Treat Comment: Falls at home, assess gait Physician Instructions: Evaluate and Treat Discharge provider: Apollo Bennett DO Summary Hospital Course Discharge Diagnosis: 1. Syncopal episode, acute, present on admission 2. Generalized chest wall pain, acute, present on admission - 3. Bradycardia, present on admission, improved. 4. Hypothyroidism, chronic 5. Mild cognitive impairment 6. Hyperlipidemia, chronic Hospital Course: Meg Beltran this is a pleasant 83-year-old female who was admitted under observation for syncope with possible symptomatic bradycardia. Patient did have a heart rate to 39 while sleeping, however when alert her HR had improved. She is to follow up with cardiology for a prolonged monitor for further evaluation as an outpatient. There were no pauses or concerning blocks on telemetry while admitted. 1. Syncopal episode, acute, present on admission It appears that the patient either arrested or syncopized prior to being transported to the emergency department. She was given 3 chest compressions per report and then woke up. Patient continues to be DNR/DNI, Etiology is possibly vasovagal versus cardiogenic in origin (see bradycardia below). She has been profoundly bradycardic into the 30s here, however she has no significant pauses and these are primarily when she is sleeping. She has not had any episodes of syncope while admitted. Discussed with Cardiology yesterday who recommended continued cardiac monitoring for 1-2 days and if patient develops symptomatic bradycardia and or significant ectopy such as sinus pause would transfer the patient to [facility] for pacemaker insertion. If the patient did not have any significant events during her hospitalization demonstrated on telemetry or symptomatic bradycardia he recommended a 2 week cardiac heart monitor called Zahra placed by Cardiology for which Dr. Sterling preemptively faxed the patient's information/face sheet to cardiology. Continue conservative treatment for chest wall pain after CPR with ice packs, Tylenol, ibuprofen and/or tramadol as needed for chest wall pain/muscle spasms. 2. Generalized chest wall pain, acute, present on admission -likely secondary to compressions that were given to her as well as previous rib fractures reported. Patient will have as needed acetaminophen as needed and physical therapy. 3. Bradycardia, present on admission, improved. - management as noted above, her HR did improve on the day of discharge and was usually in the 50s while sleeping. 4. Hypothyroidism, chronic Continue home dose of levothyroxine 25 mcg p.o. daily 5. 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 at bedtime Patient has very significant anxiety surrounding this diagnosis as evidence by occupational therapy encounter when admitted. 6. Hyperlipidemia, chronic Continue home dose of atorvastatin 10 mg p.o. daily Exam Vital Signs (past 8 hours): - 12/07/19 06:00 12/07/19 07:20 12/07/19 08:00 Temperature 97.0 F L 97.6 F Pulse Rate 58 L 55 L Respiratory Rate 18 18 Blood Pressure 176/78 H 162/70 H Pulse Oximetry 93 91 94 12/07/19 09:15 Temperature Pulse Rate Respiratory Rate Blood Pressure Pulse Oximetry 91 Oxygen Delivery Method Room Air Oxygen Flow Rate 0 Narrative Exam Narrative: GENERAL APPEARANCE: Well developed, well nourished, anxious appearing SKIN: Inspection of the skin reveals no rashes, ulcerations or petechiae. HEENT: The sclerae were anicteric and conjunctivae were pink and moist. Extraocular movements were intact and pupils were equal, round with normal accommodation. External inspection of the ears and nose showed no scars, lesions, or masses. Lips, teeth, and gums showed normal mucosa. The oral mucosa, hard and soft palate, tongue and posterior pharynx were unremarkable. NECK: Supple and symmetric. There was no thyroid enlargement, and no tenderness, or masses were felt. CHEST: Severe right-sided chest tenderness upon palpation. Equal expansion bilaterally. LUNGS: Auscultation of the lungs revealed no wheezes, rhonchi, or rales. CARDIOVASCULAR: There was a bradycardic rate and regular rhythm without any murmurs, gallops, rubs. Peripheral pulses were 2+ and symmetric. ABDOMEN: Soft and nontender with normal bowel sounds. No ascites was noted. MUSCULOSKELETAL: There was no tenderness or effusions noted. Muscle strength and tone were normal. EXTREMITIES: No cyanosis, clubbing or edema. NEUROLOGIC: Alert. Skips between time periods frequently. Normal strength and grossly intact sensation bilaterally to light touch. Objective Labs Result Diagrams: 12/05/19 05:20 12/06/19 07:04 Discharge Plan Discharge Plan Patient Disposition: Home Discharge comment: You were admitted to the hospital after a fall. You had a slow heart rate but did not show any evidence of pauses. This heart rate was mainly low while you slept and improved over time. You are to follow-up with the director of retail marketing for placement of a monitor to further monitor your heart rate as an outpatient. No changes were made to your medications. Your blood pressure is slightly high, but you were not started on a medication over concern for getting dizzy. Please follow up with your primary care provider in the next 2 weeks for a blood pressure check. Discharge orders & Medications Prescriptions: Continued trazodone 50 mg tablet 50 mg PO BEDTIME Qty: 90 RF: 1 omeprazole 20 mg tablet,delayed release (DR/EC) 20 mg PO DAILY Qty: 30 RF: 3 senna 8.6 mg capsule 8.6 mg PO DAILY PRN (Reason: constipation) Qty: 0 RF: 3 donepezil [Aricept] 5 mg tablet 5 mg PO BEDTIME Qty: 30 RF: 1 acetaminophen 325 mg Tablet 650 mg PO Q6HR PRN (Reason: As Needed For Fever/Mild Pain) Qty: 30 RF: 0 atorvastatin [Lipitor] 10 mg Tablet 10 mg PO BEDTIME Qty: 30 RF: 0 levothyroxine [Synthroid] 50 mcg Tablet 25 mcg PO 0600 Qty: 30 RF: 0 Follow up/Referrals: Gagan Lang DO [Primary Care Provider] - Discharge Health Status Health Concerns: Bradycardia Syncope Diet/Activity/Treatments Diet: Diet as Tolerated Activity: As tolerated Visit Report/Discharge Packet Instructions: DI for Syncope in Adults (Fainting) Discharge Data Primary Care Provider: Gagan Lang Attending Provider: Kala Low Admit Date/Time: 12/05/19 01:22 Discharges patient from system. Discharge Date/Time: 12/07/19 18:05 Quality VTE Deep Vein Thrombosis/Pulmonary Embolism Present on Admission: No
--- NOTE | 2019-12-07 11:03 | PT.IPTN ---
Physical Therapy Treatment Note M2 PT-IP Current Condition Start: 12/05/19 11:30 Freq: NEEDED Status: Active Protocol: Document 12/05/19 15:46 AW (Rec: 12/05/19 16:15 AW [id number]) Physical Therapy Current Condition Current Condition Evaluation Date 12/05/19 Treatment Diagnosis syncope, cardiac arrest, impaired mobility Onset Date 1543 Weight Bearing Status Weight Bearing Status Full Weight Bearing M3 PT-IP Subjective Start: 12/05/19 11:30 Freq: NEEDED Status: Active Protocol: Document 12/07/19 11:03 CLB (Rec: 12/07/19 12:30 CLB [id number]) Subjective Physical Therapy Visit Type Type Treatment Note Visit Start Time 11:03 Visit Stop Time 11:24 Total Visit Minutes 21 Notes OT present Number of MICROBIOLOGY SOIL SCIENTIST Visits 2 Physical Therapy Visit Comments Patient Comments Pt willing to ambulate before having shower. Therapy Pain Assessment Pain When Pain Assessed At Rest Pain Present Pain Present Pain Reported Location Right Ribs Pain Behaviors Holding Area,Wincing M4 PT-IP Mobility and Gait Start: 12/05/19 11:30 Freq: NEEDED Status: Active Protocol: Document 12/07/19 11:03 CLB (Rec: 12/07/19 12:30 CLB [id number]) PT-Bed Mobility Assessment Supine to Sit Supine to Sit Contact Guard Assistance Scooting Scooting to Edge of Bed Standby Assistance PT-Transfer Assessment Sit to and From Stand Sit to and from Stand Contact Guard Assistance,1 Person Assistance Equipment Transfer Assistive Device Gait Belt,Front Wheeled Walker Orthotic/Prosthetic Devices or Brace: No Transfers Transfer Destination Bed,Toilet Transfer Technique pt ambulated with FWW Transfer Ability Level of Assist Contact Guard Assistance Comments Mobility Comments Pt in bed upon arrival, pt required CGA for bed mobilty and cues for hand placement with sit to stand for safety. Pt also required cues to scoot to edge of bed before standing. Pt ambulated to bathroom, once in BR pt left walker and began reaching for door jams and wall rails. Pt given instruction to use walker until she is in front of toilet. Pt then required cues for proper alignment in front of toilet before sitting down on toilet. Pt able to doff soiled breif then required direction for donning clean brief. Pt ambulated in [place] returning to room for seated rest break on EOB, pt performed sit<>stand x2 with cuing for proper hand placement for safety. Left pt on EOB with OT. Gait Assessment Gait Gait Assistance Required: Contact Guard Assist Distance (Feet) 60 Able to Maintain Weight Bearing Status Yes During Gait Assistive Devices Assistive Device Gait Belt,Front Wheeled Walker ,4 Wheeled Walker Orthotic/Prosthetic Devices or Brace: No Gait Deviations General Gait Pattern Antalgic,Decreased Stride Length,Decreased Feet Clearance,Flexed Trunk Factors Limiting Gait Function Factors Limiting Gait Function Decreased Activity Tolerance, Decreased Strength,Difficulty Following Directions,Pain,Poor Safety Awareness Comments Gait Comments Pt ambulated with 4WW Min A with cues to keep walker close , pt had difficulty maneuvering 4WW. Pt then used FWW with improved gait quality requiring CGA. Pt ambulated ~ 60ft with FWW/CGA. M5 PT-IP Objective Assessments Start: 12/05/19 11:30 Freq: NEEDED Status: Active Protocol: Document 12/05/19 15:46 AW (Rec: 12/05/19 16:15 AW [id number]) Orientation Orientation/Cognition Level of Alertness Alert Orientation Name,Month,Place,Situation Language Function Ability No Deficits Noted Safety Awareness Decreased Safety Awareness Gross Range of Motion Lower Extremity ROM Assessment Within Functional Limits Strength Lower Extremity Strength Assessment Bilaterally Impaired Comments Strength Comments Limited MMT due to all force through extremities increasing her chest wall pain Sensation Assessment Sensation Gross Sensation WNL M6 PT-IP Treatment Start: 12/05/19 11:30 Freq: NEEDED Status: Active Protocol: Document 12/05/19 15:46 AW (Rec: 12/05/19 16:15 AW [id number]) Physical Therapy Treatment Education Education Provided Precautions,Safety Other Treatments Other Treatment Performed Provided education on role of PT, plan of care. Also initiated discharge planning conversation M7 PT-IP Assessment and Plan Start: 12/05/19 11:30 Freq: NEEDED Status: Active Protocol: Document 12/07/19 11:03 CLB (Rec: 12/07/19 12:30 CLB [id number]) PT Summary Assessment and Plan Potential Rehabilitation Potential Good Status of Condition at Evaluation Evolving Summary Impairments Pain,Strength,Balance, Cognition,Bed Mobility, Transfers,Gait,Activity Tolerance Assessment Summary Pt required CGA for bed mobility and sit<>stand. During sit<>stand pt required cues for hand placement on stable surface before standing and reaching back before sitting to assist with safety. Pt ambulated CGA with FWW as pt was unable to manuever with 4WW, pt stated 4WW was wobbly. After ambulation in [place] pt refused to enter her room stating it was not her room. After explaining to pt that she was in the hospital and not at [facility] pt was agreeable to re-enter her room. Pt would benefit from [facility] rehab to increase endurance and strength, if pt is returning to [facility] pt will need increased assist and would benefit from . Goals Bed Mobility Goal Independent Transfer Goal Independent,Four Wheeled Walker Gait Goal Independent,Four Wheel Walker Gait Distance 200 Days to Meet Goals 10 Frequency of Treatment Frequency Of Treatment Once a Day Treatment Plan Physical Therapy Treatment Plan Bed Mobility Training,Transfer Training,Gait Training, Therapeutic Exercise,Balance Retraining,Discharge Planning, Hot or Cold Pack,Neuromuscular Re-ed,Coordination Retraining ,Manual Therapy Recommendations To Nursing Amount of Assist Needed 1 Person Assist Discharge Recommendations PT Discharge Recommendations Home with Assistance,Home Health,SNF Rehab Transportation Needs at Discharge Private Vehicle
--- NOTE | 2019-12-07 12:00 | OT.IP.TRT ---
Occupational Therapy Treatment Note M2 OT-IP Current Condition Start: 12/05/19 14:38 Freq: Status: Active Protocol: Document 12/05/19 14:38 CGR (Rec: 12/05/19 14:54 CGR [id number]) Occupational Therapy Current Condition Current Condition Evaluation Date 12/05/19 Treatment Diagnosis syncope/cardiac arrest requiring CPR Diagnosis Onset Date 12/05/19 M3 OT- IP Subjective and Pain Start: 12/05/19 14:38 Freq: Status: Active Protocol: Document 12/07/19 12:16 CCC (Rec: 12/07/19 12:41 CCC [email or web address]) OT- Subjective Occupational Therapy Visit Type Type Treatment Note Visit Start Time 11:08 Visit Stop Time 12:03 Total Visit Minutes 55 Occupational Therapy Visit Comments Patient Comments Pt agreeable to take a shower after working with [employer]. Patient/Caregiver Goals To go home. OT Pain Assessment Pain When Pain Assessed During Mobility Pain Present Pain Present Pain Reported M4 OT- IP ADL's Start: 12/05/19 14:38 Freq: Status: Active Protocol: Document 12/07/19 12:16 [facility] (Rec: 12/07/19 12:41 CCC [id number]) OT PCC-Yxrf-Dhaurxr General Evaluation Self-Feeding Ability Independent OT ADL-Dressing General Eval Upper Body Dressing Ability Moderate Assistance Lower Body Dressing Ability Maximum Assistance Areas Needing Assistance Underpants/Brief,Socks,Shoes Comments OT Dressing Comments Due to pain with right ribs while bending over, pt needing assist to jean her socks, shoes, and brief up over the right side. Pt able to fasten her bra from the front however due to right UE/rib pain not able to twist the bra around and needing assist to fasten from the back instead. Therefore at this time, pt will need assist for all dressing needs. OT ADL-Toileting General Evaluation Toileting Ability Standby Assistance Devices Toileting Assistive Devices Grab Bars Comments OT Toileting Comments With use of grab bars, pt able to lean over to jean/doff brief and pull up over her hips with close SBA. At this time pt will need assist when going to the bathroom. Pt was incontinent of bladder. OT ADL-Bathing Bathing Type Bathing Type Shower General Evaluation Bathing Ability Moderate Assistance Devices Bathing Equipment Shower Chair with Arms Comments OT Bathing Comments Pt able to do most of shower, needing CGA while standing for pericare needs and assist for washing/drying her back. M5 OT- IP IADL's Start: 12/05/19 14:38 Freq: Status: Active Protocol: Document 12/05/19 14:38 CGR (Rec: 12/05/19 14:54 CGR [id number]) OT-Instrumental Activities of Daily Living Deficits IADL Deficits Identified Deficits Home Safety Awareness Awareness of Need for Assistance at Home Decreased Awareness Ability to Problem Solve Emergency Able to Problem Solve Situations Medication Management Medication Management Caregiver Administers Money Management Money Management Caregiver Provides Assistance Meal Preparation Meal Preparation Caregiver Provides Assist Cath Lab Technologist Cath Lab Technologist Caregiver Provides Assist Driving Driving Comments Pt does not drive M6 OT- IP Functional Cognition Start: 12/05/19 14:38 Freq: Status: Active Protocol: Document 12/07/19 12:16 [facility] (Rec: 12/07/19 12:41 [facility] [id number]) Cognitive Factors Limiting Selfcare Function Cognitive Ability Level of Alertness Alert Patient Orientation Name,Year,Place,Situation Attention Span Ability Capable of Focused Attention, Capable of Sustained Attention Ability to Follow Commands Able to Follow One Step Commands with Increased Time, Able to Follow One Step Commands with Repetition Memory Description Immediate Impaired,Short Term Impaired Safety Awareness Underestimates Need for Assistance Problem Solving Ability Unable to Identify Errors, Needs Assist to Identify Solutions Cognitive Comments Cognitive Assessment Comments When pt walking with [employer] in the hallway from her room and forgot that she was in the hospital. Pt forgot that she took off her glasses prior to the shower. Pt thinking that her kids form [place] were coming to pick her up to take her home. Decreased safety awareness of FWW use and needs reminders to reach back to surfaces sitting to and push up with her hands while coming to stand. Pt needing cues to sit to jean/doff brief pants as pt initially trying to get dressed while standing. Pt needing safety cues to line up to the toilet before sitting down. M7 OT- IP Mobility and Balance Start: 12/05/19 14:38 Freq: Status: Active Protocol: Document 12/07/19 12:16 [facility] (Rec: 12/07/19 12:41 [facility] [id number]) OT- Bed Mobility Assessment Rolling Type of Rolling Roll to Right Supine to Sit Supine to Sit Assist Standby Assistance Scooting Scooting to Edge of Bed Standby Assistance OT-Transfer Assessment Sit to and From Stand Sit to and from Stand Standby Assistance,Contact Guard Assistance Transfers Transfer Ability Standby Assistance,Contact Guard Assistance Technique Transfer Destination Bed,Chair,Toilet Devices Transfer Assistive Devices Gait Belt,Front Wheeled Walker Comments Mobility Comments Pt at times needing CGA for balance while coming to stand otherwise SBA mainly due to decreased safety awareness. [employer] did trial 4ww as pt states uses that at home and determined not safe for pt to use as pt too unsteady on her feet and needing TODD for balance. OT- Gait Assessment Gait Gait Assistance Required: Standby Assistance,Contact Guard Assist Assistive Devices Assistive Device Gait Belt,Front Wheeled Walker OT- Balance Assessment Sitting Balance and Reactions Static Sitting Balance Ability Normal Dynamic Sitting Balance Ability Good Standing Balance and Reactions Static Standing Balance Ability Fair Dynamic Standing Balance Ability Poor M8 OT- IP Objective Assessments Start: 12/05/19 14:38 Freq: Status: Active Protocol: Document 12/05/19 14:38 CGR (Rec: 12/05/19 14:54 CGR [email or web address]) OT Gross Range of Motion Upper Extremity Range of Motion Assessment Within Functional Limits OT Strength Upper Extremity Strength Assessment Within Functional Limits Comments Strength Comments grossly 4/5 OT- Coordination Assessment Upper Extremity Finger to Nose Test Within Functional Limits Finger Tapping Test Within Functional Limits OT-Muscle Tone Assessment Muscle Tone WNL Yes OT Sensation Assessment Edema Edema Absent M9 OT- IP Assessment and Plan Start: 12/05/19 14:38 Freq: Status: Active Protocol: Document 12/07/19 12:16 CCC (Rec: 12/07/19 12:41 CCC [email or web address]) OT Summary Assessment and Plan Potential Rehabilitation Potential Good Analytic Complexity at Evaluation Low Summary OT Impairments Pain,Balance,Functional Cognition,Functional Mobility, Grooming,Dressing,Toileting, Bathing,Toilet Transfers, Shower Transfers,Activity Tolerance Progress Towards Goals Progressing Toward Goals,Slow Progress due to Cognition Assessment Summary Pt still having difficulty with safety awareness , short term memory needs, and dynamic balance. Recommend skilled rehab versus home with home health and increased assistance form her facility especially for toileting, dressing, bathing, and mobility needs as pt is a high fall risk. Pt may do better in her home environment versus skilled rehab due to familiarity as pt has decreased short term memory and safety awareness. Goals Self-Feeding Goal Independent Grooming Goal Independent Dressing Goal Independent Toileting Goal Independent Bathing Goal Standby Assistance Toilet Transfer Goal Independent Shower Transfer Goal Standby Assistance Days to Meet Goals 5 Frequency of Treatment Frequency Of Treatment Once a Day Treatment Plan OT Treatment Plan ADL Training,Functional Cognition Training,Functional Mobility,Patient/Family Education,Discharge Planning Discharge Recommendations OT Discharge Recommendations Home with Assistance,Home with 24/7 Assist,Home Health,SNF Rehab Other Discharge Recommendations Pt does not qualify for SNF per insurance , therefore recommend increased assist at her assistive living as pt is a high fall risk. Recommend 24 /7 assist however is consistent to call for needs may not need 24/7 assist but increased assist. Transportation Needs at Discharge Private Vehicle
--- NOTE | 2019-12-07 12:21 | CM.DPC ---
DCP Cont: Faxed signed med list to Birgit at [facility] at fax # [phone]. Informed her that discharge would follow once signed by Dr. Bennett. Fax confirmation scanned in. Shelia Samano, [facility] Pupil Personnel Services Director
--- NOTE | 2019-12-07 15:41 | CM.DANOTE ---
DCP/continued: Reviewed chart. Birgit from [facility] finally came and confirmed that patient okay to return to [facility] today. Medication list faxed to [facility] and d/c summary will be faxed when it becomes available. Met with patient and she is very happy about returning home today. Per Birgit patient on service for HH with [facility]. Asked JUICE/Shelia to provide [facility] with update re: hospitalization and continuing HH. With patient's permission placed call to patient's granddaughter/Kealey and she reports that she can provide transport after work today. No additional needs identified. P: Home with HH resumed through [facility]. MINERVA Emery
--- NOTE | 2019-12-07 18:08 | PC.NURSE ---
DC note: I reviewed DC instructions with Meg and her granddaughter Radha. They are aware that they need to call Dr. Lang's office in the AM to set up follow up appointment, and that he will refer them to cardiology for outpatient heart monitoring. Patient is wearing own clothes, all belongings gathered and sent with Radha. Radha to take her to [facility] private car. All belongings & DC paperwork sent with them. Patient medicated with 2 tylenol for c/o pain 05/12 prior to DC from hospital.
--- NOTE | 2019-12-08 09:25 | CM.DPC ---
DCP Cont: Faxed order/clinicals/F2F to [facility] at fax # [phone] to resume home health. Fax confirmation scanned in. Shelia Samano, [facility] HospitalBusiness Development Officer
--- NOTE | 2019-12-08 10:57 | CM.DPC ---
DCP Cont: Faxed discharge summary to [facility] at fax # [phone] and to [facility] at fax # [phone]. Both fax confirmations scanned in. Shelia Samano, [employer] Professor
--- NOTE | 2019-12-22 10:19 | PC.NURSE ---
Late entry: NS stop time 12/05 [id number]
--- NOTE | 2019-12-22 13:27 | PC.NURSE ---
Late entry: NS stop time 12/05 [id number]
== END 2019-12-07 18:05 | disposition home or self-care (01) ==
LOC: ED 12-05 01:20 → AC 12-05 01:22
PROVIDERS: Internal Medicine; Admitting Provider Nurse Practitioner Family; Emergency Provider Emergency Medicine; PCP Family Medicine; Referring Provider Emergency Medicine; Visit Provider Nurse Practitioner Family
DX: R55 Syncope and collapse (principal); R07.89 Other chest pain; E03.9 Hypothyroidism, unspecified; G31.84 Mild cognitive impairment of uncertain or unknown etiology; E78.5 Hyperlipidemia, unspecified; R00.1 Bradycardia, unspecified
CPT/HCPCS: 36415; 70450; 71045; 71260; 80048; 80053; 81001; 82550; 82962; 83735; 83880; 84145; 84443; 84484; 85025; 87077; 87086; 87186; 93005; 93010; 93306; 94762; 96361; 96372; 96374; 96375; 96376; 97116; 97129; 97162; 97165; 97530; 97535; 99284; 99285; G0378; J1644; J1885; J2405; J7050; Q9967

== ENCOUNTER → 2020-01-05 09:40 | Oncology outpatient (ONC) | payer MEDICARE, OTHER, SELFPAY ==
[2019-12-07 02:44] VITALS: BMI 24.8
--- NOTE | 2019-12-22 10:24 | P.CONONC_ITS ---
History of Present Illness - Data of Consult Primary Care Provider: Gagan Lang, DO - Consult Narrative Narrative: Meg Beltran is an 83 year old female, former smoker, with history of small- cell lung cancer (2004), soq-hejnm-xoho lung cancer (2013), now with a recurrent left hilar mass. In 2004, she was treated to a total of 54 Gy in 30 fractions to the left lung and regional lymph nodes for a limited stage small-cell cancer of the left lower lobe with hilar adenopathy, completing radiation on 09/17/2005. She received concurrent chemotherapy with cisplatin and etoposide. She subsequently received prophylactic cranial irradiation (27 Gy in 15 fractions), which was finished in January 2006. She was followed in [facility]. In July 2014, she developed cough and pleuritic chest pain. CT imaging showed a 1.1 cm right lower lobe lesion. CT-guided biopsy on 08/01/2014 confirmed adenocarcinoma, consistent with lung primary. PET scan on 08/12/2014 did not show any significant hypermetabolic activity. The patient declined surgical consultation, preferring to undergo SBRT. She received 50 Gy in 5 fractions of 10 Gy each, completed on 09/09/2014. She is subsequently was followed with routine imaging and serial evaluation. At 1 point, she had a fall, which fractured her anterior right ribs and also cause pneumothorax, for which she was hospitalized, but ultimately recovered. CT chest at the [facility] on 03/22/2019 noted post treatment changes in the left hilum, which were stable. She had patchy areas of basilar fibrosis, also stable. There were no masses or infiltrates. She had no regional lymphadenopathy. She moved to [place] to be closer to her daughter. CT angiogram on 09/20/2019, done to evaluate pleuritic chest pain and rib fracture, showed no evidence of pulmonary emboli, but there was a masslike density in the left upper lobe. A small left pleural effusion was also present. She had zfei-lv-stbcssqc emphysema. Multiple low-density nodules in the liver were felt most likely to be cysts. She was found unresponsive on 12/04/2019, and successfully resuscitated by her daughter and EMS. CT chest at [facility] on 12/04/2019 showed a stable left upper lobe perihilar density. PET scan for further evaluation was recommended. CT of the head on 12/04/2019 showed no acute intracranial abnormality. She and family are concerned about recurrent cancer. She complains of cough, with chest pain. Memory is poor. She continues to have longstanding problems with balance. She uses a cane. No headaches. No nausea vomiting. No recent weight change. She requests further evaluation for probable recurrent lung cancer. CC: Hardeep Sandoval MD Home Medications and Allergies Home Medications Medication Instructions Recorded Confirmed Type acetaminophen 650 mg PO Q6HR PRN #30 tab 09/22/19 12/09/19 Rx omeprazole 20 mg tablet,delayed 20 mg PO DAILY #30 tab 11/17/19 12/09/19 Rx release sennosides 8.6 mg capsule 8.6 mg PO DAILY PRN #0 cap 11/19/19 12/09/19 Rx levothyroxine 50 mcg tablet 25 mcg PO 0600 #30 tab 12/14/19 Rx atorvastatin 10 mg tablet 10 mg PO BEDTIME #30 tab 12/15/19 Rx donepezil 5 mg tablet 5 mg PO BEDTIME #30 tab 12/15/19 Rx trazodone 50 mg tablet 50 mg PO BEDTIME #90 tab 12/15/19 Rx inhalational spacing device #1 each 12/16/19 Rx Allergies Allergy/AdvReac Type Severity Reaction Status Date / Time No Known Drug Allergies Allergy Verified 12/09/19 09:24 Medical History - Medical, Surgical, Family History Medical History: Medical History (Last Updated 12/22/19 @ 11:22 by Hardeep Sandoval MD) Acid reflux Adult failure to thrive COPD (chronic obstructive pulmonary disease) Cough Dry eyes Frequent falls History of lung cancer in adulthood History of pneumothorax History of rib fracture Hyperlipidemia Hypothyroidism (acquired) Mobility impaired Non-small cell cancer of right lung Onychomycosis Physician orders for life-sustaining treatment (POLST) form indicates patient wish for jt-cfe-trklwqqwzfs status Short-term memory loss Small cell lung cancer, left lower lobe Thrombocytopenia Surgical History: Surgical History (Last Reviewed 12/04/19 @ 20:37 by Shruti Zamora MD) History of pneumonectomy Family History: Family History (Last Reviewed 12/04/19 @ 20:37 by Shruti Zamora MD) Sister Cancer Sister Multiple complications of type 2 diabetes mellitus - Social History Smoking Status: Former smoker Review of Systems - Patient Self-Reported Symptoms SR Constitution: Fatigue/Malaise SR Cardiovascular issues: Chest pain, discomfort, tightness SR Musculoskeletal issues: Joint pain or swelling SR Neuro issues: Lightheaded/dizzy Constitutional: poor state of general health, decreased activity level, decreased exercise tolerance Respiratory: shortness of breath Exam Narrative: HEENT: Pupils equally round reactive to light extraocular muscles intact sclerae anicteric conjunctiva pink mucous membranes moist no oral lesions Nodes no palpable adenopathy in the neck axilla or groin Chest: Decreased breath sounds at the left base. Otherwise clear. Cardiac exam regular rate and rhythm with normal S1 and S2. One of 6 systolic ejection murmur at the apex Abdomen: Soft nontender with normoactive bowel tones no splenomegaly or masses Extremities: Trace pedal edema 2+ distal pulses no calf tenderness Assessment and Plan (1) Non-small cell cancer of right lung Current visit: Yes Status: Acute The patient was diagnosed in July 2014, when she presented with increased chest pain. CT-guided biopsy on 08/01/2014 confirmed adenocarcinoma, consistent with lung primary. She opted for SBRT, and received 50 Gy in 5 fractions, completed on 09/09/2014. She has been followed with routine serial imaging. CT chest on 12/04/2019 shows a left upper lobe perihilar density, concerning for recurrent malignancy. Obtain PET scan for further evaluation. If this lesion is suspicious, recommend tissue acquisition. Check baseline laboratory studies today, including CBC differential platelets, CMP, and CEA. Return to clinic after imaging to review findings and discuss further management. (2) Small cell lung cancer, left lower lobe Current visit: Yes Status: Acute The patient was diagnosed in 2004 with limited stage small cell cancer of the left lower lung with hilar lymphadenopathy. She received 54 Gy to the left lung with concurrent chemotherapy with cisplatin and etoposide. She received prophylactic cranial radiation, which finished in January 2006. She has had no evidence of recurrence.
[2019-12-22 10:35] VITALS: BP 119/67; PULSE 55; RESP 16; O2SAT 98
--- NOTE | 2019-12-22 11:49 | ONC.SCHED ---
PET scan scheduled for 12/29/19 check in time of 5:10 PM
[2019-12-22 13:10] LABS: Alanine Aminotransferase 18 IU/L (<35); Albumin Globulin Ratio 1.3 (1.0-2.8); Alkaline Phosphatase 143 U/L (38-126); Aspartate Aminotransferase 35 IU/L (14-36); Bilirubin Total 0.7 mg/dL (0.2-1.3); Blood Urea Nitrogen 14 mg/dL (7-17); Calcium 9.2 mg/dL (8.4-10.2); Carbon Dioxide 23 mmol/L (22-32); Chloride 106 mmol/L (98-107); Estimated Glomerular Filt Rate > 60.0 mL/min (>60); Glucose 99 mg/dL (80-110); HEMOLYSIS 37 (0-50); Potassium 3.6 mmol/L (3.4-5.1); Sodium 140 mmol/L (137-145)
[2019-12-22 13:16] LABS: Add Manual Diff / Slide Review NO; Basophils Absolute Auto 100 /uL (0-100); Eosinophils Absolute Auto 100 /uL (0-450); Eosinophils Percent Auto 1.2 % (2-4); Hematocrit 41.4 % (36-46); Hemoglobin 14.4 g/dL (12.0-16.0); Lymphocytes Absolute Auto 600 /uL (1100-4500); Lymphocytes Percent Auto 9.1 % (25-40); Mean Corpuscular HGB Conc 34.7 % (30-36); Mean Corpuscular Hemoglobin 33.5 PG (26-34); Mean Corpuscular Volume 96.8 fL (80-100); Monocytes Absolute Auto 700 /uL (0-900); Monocytes Percent Auto 11.1 % (3-14); Neutrophils Absolute Auto 4800 /uL (1500-7000); Neutrophils Percent Auto 77.6 % (50-75); Platelet Count 134 X10^3/uL (150-400); Red Blood Cell Count 4.28 X10^6/uL (4.0-5.2); Red Cell Distribution Width 15.5 % (11.6-14.8); White Blood Cell Count 6.1 X10^3/uL (4.5-11.0)
[2019-12-22 13:40] LABS: Carcinoembryonic Antigen 1.3 ng/mL (0.1-3.0)
[2020-01-05 10:19] VITALS: BP 129/76; PULSE 56; RESP 16; TEMP 36.8; O2SAT 99
--- NOTE | 2020-01-05 10:32 | P.PNONC_ITS ---
PN -Subjective Interval history: Meg Beltran is an 83-year-old former smoker female who was evaluated by Dr. Sandoval 2 weeks ago and returns today for follow-up, along with her daughter. 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 She subsequently received PCI (27 Gy over 15 fractions) ending in 01/2016. She was followed in [place], [place]. In 07/2014, she developed a 1.1 cm right lower lobe mass, biopsied (08/01/2014), positive for pulmonary adenocarcinoma. PET-CT (08/12/2014) was otherwise negative for hypermetabolic activity elsewhere. She declined surgical consultation, but was treated with SBRT 50 Gy over 5 fractions, ending 09/09/2014. In 03/2019, [facility] chest at [facility] showed post treatment changes in left perihilar, stable. She moved to [facility] to be closer to her daughter. CTPA 09/20/2019, done for evaluation of pleuritic chest pain and rib fracture was negative for PE, but showed masslike density left upper lobe. Then on 12/04/2019, she was found unresponsive at home and was resuscitated initially by family and then paramedics, then was taken to [facility]. CT chest 12/04/2019 showed stable left upper lobe perihilar density. PET-CT was recommended. PET-CT 12/29/2019 is a negative study. The large perihilar opacity demonstrates low-level increased FDG activity with SUV 1.7, suggesting post radiation benign inflammatory changes. There is a small left effusion. There is sternal fracture and multiple rib fractures bilaterally (suspect related to recent CPR). There was focal subcutaneous uptake in posterior aspect of right upper arm, but no mass on accompanying CT. Today she feels well, no physical complaints. She is reassured that she does not have recurrent lung cancer and she is cancer free. - Patient Self-Reported Symptoms SR Constitution: Fatigue/Malaise SR eye issues: Double vision SR ears, nose, mouth, throat issues: Difficulty swallowing SR respiratory issues: Shortness of breath SR Cardiovascular issues: Chest pain, discomfort, tightness SR Musculoskeletal issues: Joint pain or swelling SR Neuro issues: Lightheaded/dizzy Home Medications and Allergies Home Medications Medication Instructions Recorded Confirmed Type acetaminophen 650 mg PO Q6HR PRN #30 tab 09/22/19 01/05/20 Rx sennosides 8.6 mg capsule 8.6 mg PO DAILY PRN #0 cap 11/19/19 01/05/20 Rx levothyroxine 50 mcg tablet 25 mcg PO 0600 #30 tab 12/14/19 01/05/20 Rx inhalational spacing device #1 each 12/16/19 12/22/19 Rx Allergies Allergy/AdvReac Type Severity Reaction Status Date / Time No Known Drug Allergies Allergy Verified 12/09/19 09:24 Exam Vital signs: Vital Signs Temp Pulse Resp BP Pulse Ox 01/05/20 10:19 98.3 F 56 L 16 129/76 99 Intake and Output 01/04/20 01/05/20 01/05/20 23:59 07:59 15:59 Other: Weight 67.4 kg Patient Weight 01/05/20 23:59 Weight 67.4 kg - Constitutional positive no acute distress - Routine HEENT Exam Head: Present: normocephalic, atraumatic - Routine Neck Exam Present: supple. Absent: lymphadenopathy - Routine Respiratory Exam Present: Clear to auscultation bilaterally - Routine Cardiovascular Exam Present: RRR - Routine Abdominal Exam Present: soft. Absent: tenderness Palpation/Percussion: Absent: hepatomegaly, splenomegaly - Routine Extremities Exam Absent: edema - Routine Neurological Exam Present: alert, oriented X3 Results - Labs Laboratory Last Values WBC 6.1 X10^3/uL (4.5-11.0) 12/22/19 13:00 RBC 4.28 X10^6/uL (4.0-5.2) 12/22/19 13:00 Hgb 14.4 g/dL (12.0-16.0) 12/22/19 13:00 Hct 41.4 % (36-46) 12/22/19 13:00 MCV 96.8 fL (80-100) 12/22/19 13:00 MCH 33.5 PG (26-34) 12/22/19 13:00 MCHC 34.7 % (30-36) 12/22/19 13:00 RDW 15.5 % (11.6-14.8) H 12/22/19 13:00 Plt Count 134 X10^3/uL (150-400) L 12/22/19 13:00 Neut % (Auto) 77.6 % (50-75) H 12/22/19 13:00 Lymph % (Auto) 9.1 % (25-40) L 12/22/19 13:00 [place] % (Auto) 11.1 % (3-14) 12/22/19 13:00 Eos % (Auto) 1.2 % (2-4) L 12/22/19 13:00 Baso % (Auto) 1.0 % (0-2) 12/22/19 13:00 Neut # (Auto) 4800 /uL (8264-2501) 12/22/19 13:00 Lymph # (Auto) 600 /uL (0843-1930) L 12/22/19 13:00 [place] # (Auto) 700 /uL (0-900) 12/22/19 13:00 Eos # (Auto) 100 /uL (0-450) 12/22/19 13:00 Baso # (Auto) 100 /uL (0-100) 12/22/19 13:00 Sodium 140 mmol/L (137-145) 12/22/19 12:00 Potassium 3.6 mmol/L (3.4-5.1) 12/22/19 12:00 Chloride 106 mmol/L (98-107) 12/22/19 12:00 Carbon Dioxide 23 mmol/L (22-32) 12/22/19 12:00 BUN 14 mg/dL (7-17) 12/22/19 12:00 Creatinine 0.70 mg/dL (0.52-1.04) 12/22/19 12:00 Estimated GFR > 60.0 mL/min (>60) 12/22/19 12:00 BUN/Creatinine Ratio 20.0 (6-22) 12/22/19 12:00 Glucose 99 mg/dL (80-110) 12/22/19 12:00 Calcium 9.2 mg/dL (8.4-10.2) 12/22/19 12:00 Total Bilirubin 0.7 mg/dL (0.2-1.3) 12/22/19 12:00 AST 35 IU/L (14-36) 12/22/19 12:00 ALT 18 IU/L (<35) 12/22/19 12:00 Alkaline Phosphatase 143 U/L (38-126) H 12/22/19 12:00 Total Protein 7.0 g/dL (6.3-8.2) 12/22/19 12:00 Albumin 4.0 g/dL (3.5-5.0) 12/22/19 12:00 Globulin 3.0 g/dL (1.7-4.1) 12/22/19 12:00 Albumin/Globulin Ratio 1.3 (1.0-2.8) 12/22/19 12:00 Carcinoembryonic Ag 1.3 ng/mL (0.1-3.0) 12/22/19 12:00 Assessment and Plan (1) Non-small cell cancer of right lung Current visit: Yes Status: Acute The patient was diagnosed in July 2014, CT-guided biopsy on 08/01/2014 confirmed adenocarcinoma, consistent with lung primary, treated with SBRT, no evidence of recurrence. She is reassured. (2) Small cell lung cancer, left lower lobe Current visit: Yes Status: Acute The patient was diagnosed in 2004 with limited stage small cell cancer of the left lower lung with hilar lymphadenopathy, treated with concurrent chest chemo radiotherapy followed by PCI. The left perihilar opacity is non FDG avid and represents chronic postradiation fibrotic changes. She is reassured. This patient does not need further oncology follow-up.
--- NOTE | 2020-01-05 10:46 | ONC.MSW ---
Description: Resources, Advanced Directives Activity: Met with pt and dtr to provide information and resources re: transportation and advanced directives. Pt presents with observable dementia symptoms, was unable to follow the conversation or understand any of what this AIR INTERCEPT CONTROLLER was discussing. Dtr had questions re: how to get pt here if the dtr is sick and can't drive her. Discussed options, as well as the availability of the [facility] Medical Relief Fund to help with transportation costs. Discussed advanced directives, provided pt/dtr DPOA for Healthcare forms to complete, per dtr's request. *At the end of pt's visit w/provider, he stated that she no longer has cancer, and does not need to come back, which alleviates all of the transportation concerns. No further needs indicated at this time.
== END ==
PROVIDERS: Internal Medicine Hematology & Oncology; PCP Family Medicine; Referring Provider Family Medicine; Visit Provider Internal Medicine Hematology & Oncology
DX: Z08 Encounter for follow-up examination after completed treatment for malignant neoplasm (principal); Z85.118 Personal history of other malignant neoplasm of bronchus and lung; Z87.891 Personal history of nicotine dependence
CPT/HCPCS: 36415; 80053; 82378; 85025; 99205; 99214; 99215

== ENCOUNTER → 2020-06-16 11:03 | Outpatient (CLI) | payer MEDICARE, OTHER, SELFPAY ==
[2020-05-17 10:35] VITALS: BMI 24.8
[2020-06-16 13:24] LABS: RBC Urine None Seen (0-5/HPF)
[2020-06-16 13:38] LABS: Appearance Urine UA CLEAR; Bilirubin Urine UA NEGATIVE (NEGATIVE); Color Urine UA YELLOW; Glucose Urine UA NEGATIVE (Negative); Ketones Urine UA NEGATIVE (NEGATIVE); Leukocyte Esterase Urine UA TRACE (NEGATIVE); Nitrite Urine UA POSITIVE (Negative); Occult Blood Urine UA NEGATIVE (Negative); Protein Urine UA NEGATIVE (Negative); Specific Gravity Urine UA <=1.005 (1.000-1.035); Urobilinogen Urine UA 0.2 E.U./dL (0.2)
[2020-06-16 13:48] LABS: Bacteria Urine Many (>30); Culture Indicated Urine Specimen Cultured; WBC Urine 5-10/HPF (0-5/HPF)
== END ==
PROVIDERS: PCP Family Medicine; Visit Provider Family Medicine
DX: N39.0 Urinary tract infection, site not specified (principal)
CPT/HCPCS: 81001; 87077; 87086; 87186

== ENCOUNTER 2020-11-06 17:05 | Emergency (ER) | payer MEDICARE, OTHER, SELFPAY ==
[2020-05-17 10:35] VITALS: BMI 24.8
[2020-11-06] VITALS (13 sets, daily range): BP systolic 138–162; BP diastolic 70–110; PULSE 67–74; RESP 16–22; TEMP 36.7; O2SAT 94–99
--- NOTE | 2020-11-06 17:12 | DI.RAD.S_ITS ---
PROCEDURE: XR CHEST 1V INDICATIONS: chest pain TECHNIQUE: One view of the chest was acquired. COMPARISON: [facility], CT, CT CHEST W CON, 12/04/2019, 23:16. [facility], CR, XR CHEST 1V, 12/04/2019, 20:31. [facility], CR, XR CHEST 1V, 11/15/2019, 12:46. FINDINGS: Surgical changes and devices: None. Lungs and pleura: Platelike streaky opacity in the left mid lung is unchanged. No consolidation. No pleural effusions or pneumothorax. Mediastinum: Mediastinal contours appear normal. Heart size is normal. Bones and chest wall: No suspicious bony lesions. Overlying soft tissues appear unremarkable. IMPRESSION: No acute airspace opacity identified. Stable atelectasis/scarring in the left lung. Dictated by: Emmanuel Montesinos M.D. on 11/06/2020 at 17:07 Approved by: Emmanuel Montesinos M.D. on 11/06/2020 at 17:09
[2020-11-06 17:46] LABS: Add Manual Diff / Slide Review NO; Basophils Absolute Auto 0 /uL (0-100); Basophils Percent Auto 0.3 % (0-2); Eosinophils Absolute Auto 0 /uL (0-450); Eosinophils Percent Auto 0.3 % (2-4); Hematocrit 45.4 % (36-46); Hemoglobin 15.3 g/dL (12.0-16.0); Lymphocytes Absolute Auto 300 /uL (1100-4500); Lymphocytes Percent Auto 4.6 % (25-40); Mean Corpuscular HGB Conc 33.7 % (30-36); Mean Corpuscular Hemoglobin 32.5 PG (26-34); Mean Corpuscular Volume 96.4 fL (80-100); Monocytes Absolute Auto 1000 /uL (0-900); Monocytes Percent Auto 13.9 % (3-14); Neutrophils Absolute Auto 6100 /uL (1500-7000); Neutrophils Percent Auto 80.9 % (50-75); Platelet Count 92 X10^3/uL (150-400); Red Blood Cell Count 4.71 X10^6/uL (4.0-5.2); White Blood Cell Count 7.6 X10^3/uL (4.5-11.0)
[2020-11-06 17:50] LABS: Prothrombin Time 11.1 SECONDS (10.1-12.7)
[2020-11-06 17:53] LABS: PTT Partial Thromboplastin Tim 27 SECONDS (26.4-36.2)
[2020-11-06 17:54] LABS: Alanine Aminotransferase 20 IU/L (<35); Albumin 4.1 g/dL (3.5-5.0); Albumin Globulin Ratio 1.2 (1.0-2.8); Alkaline Phosphatase 69 U/L (38-126); Aspartate Aminotransferase 25 IU/L (14-36); BUN Creatinine Ratio 21.3 (6-22); Bilirubin Total 0.5 mg/dL (0.2-1.3); Blood Urea Nitrogen 16 mg/dL (7-17); Calcium 9.2 mg/dL (8.4-10.2); Carbon Dioxide 29 mmol/L (22-32); Chloride 104 mmol/L (98-107); Creatine Kinase 26 U/L (30-135); Estimated Glomerular Filt Rate > 60.0 mL/min (>60); Globulin 3.4 g/dL (1.7-4.1); Glucose 100 mg/dL (80-110); HEMOLYSIS < 15 (0-50); Lipase 48 U/L (23-300); Potassium 4.4 mmol/L (3.4-5.1); Sodium 136 mmol/L (137-145); Total Protein 7.5 g/dL (6.3-8.2)
[2020-11-06 18:06] LABS: NT-proBNP (BNP-Adult 18+) 432 pg/mL (<450); Troponin I < 0.012 ng/mL (0.01-0.034)
[2020-11-06 18:07] LABS: COVID19 -Nasal RAPID Negative (Negative)
--- NOTE | 2020-11-06 18:47 | ED.GENADULT ---
HPI - General Adult General Chief complaint: Shortness of Breath/Dyspnea Stated complaint: chest pain Time Seen by Provider: 11/06/20 17:59 Source: EMS Mode of arrival: EMS Related Data Previous Rx's Medication Instructions Recorded inhalational spacing device #1 each 12/16/19 nitrofurantoin macrocrystal 100 mg 100 mg PO BID #10 cap 10/31/20 capsule Allergies Allergy/AdvReac Type Severity Reaction Status Date / Time No Known Drug Allergies Allergy Verified 06/16/20 10:55 Patient History Medical History (Updated 06/16/20 @ 11:39 by Gagan Lang DO) Acid reflux Adult failure to thrive Auditory hallucinations COPD (chronic obstructive pulmonary disease) Cough Dry eyes Frequent falls History of lung cancer in adulthood History of pneumothorax History of rib fracture Hyperlipidemia Hypothyroidism (acquired) Mobility impaired Non-small cell cancer of right lung Onychomycosis Physician orders for life-sustaining treatment (POLST) form indicates patient wish for hq-avh-zrwmysihvtb status Short-term memory loss Small cell lung cancer, left lower lobe Thrombocytopenia UTI (urinary tract infection) Surgical History (Updated 12/22/19 @ 11:17 by Hardeep Sandoval MD) History of pneumonectomy Family History Sister Cancer Sister Multiple complications of type 2 diabetes mellitus Social History household members: none Smoking Status: Former smoker alcohol intake: former Smoking Status: Former smoker alcohol intake frequency: other Substance Use Type: does not use Exam Initial Vital Signs Initial Vital Signs: Vital Signs Temperature 98.1 F 11/06/20 17:05 Pulse Rate 68 11/06/20 17:05 Respiratory Rate 18 11/06/20 17:05 Blood Pressure 138/72 11/06/20 17:05 Pulse Oximetry 97 11/06/20 17:05 Course Orders Ordered: ED Orders 11/06/20 17:12 XR chest 1V Stat EKG-12 Lead Stat 11/06/20 17:25 BNP [NT-proBNP (BNP-Adult 18+)] Stat Complete Blood Count AUTO DIFF Stat Comprehensive Metabolic Panel Stat Lipase Stat Partial Thromboplastin Time Stat Prothrombin Time INR Stat Troponin & CK Cardiac Panel Stat 11/06/20 17:50 COVID19 Stat Vital Signs Vital signs: Vital Signs - 8 hr 11/06/20 17:05 11/06/20 17:11 11/06/20 17:30 Temperature 98.1 F Pulse Rate 68 68 71 Respiratory Rate 18 19 19 Blood Pressure 138/72 157/73 H Pulse Oximetry 97 98 98 11/06/20 18:00 Temperature Pulse Rate 67 Respiratory Rate 18 Blood Pressure 152/70 H Pulse Oximetry 99 Medical Decision Making Lab Data Result diagrams: 11/06/20 17:25 11/06/20 17:25 Labs: Lab Results 11/06/20 11/06/20 11/06/20 Range/Units 17:25 17:25 17:25 WBC 7.6 (4.5-11.0) X10^3/uL RBC 4.71 (4.0-5.2) X10^6/uL Hgb 15.3 (12.0-16.0) g/dL Hct 45.4 (36-46) % MCV 96.4 (80-100) fL MCH 32.5 (26-34) PG MCHC 33.7 (30-36) % RDW 14.0 (11.6-14.8) % Plt Count 92 L (150-400) X10^3/uL Neut % (Auto) 80.9 H (50-75) % Lymph % (Auto) 4.6 L (25-40) % Coleman % (Auto) 13.9 (3-14) % Eos % (Auto) 0.3 L (2-4) % Baso % (Auto) 0.3 (0-2) % Neut # (Auto) 6100 (5431-5494) /uL Lymph # (Auto) 300 L (4947-9205) /uL Coleman # (Auto) 1000 H (0-900) /uL Eos # (Auto) 0 (0-450) /uL Baso # (Auto) 0 (0-100) /uL PT 11.1 (10.1-12.7) SECONDS INR 1.0 (0.9-1.3) APTT 27 (26.4-36.2) SECONDS Sodium 136 L (137-145) mmol/L Potassium 4.4 (3.4-5.1) mmol/L Chloride 104 (98-107) mmol/L Carbon Dioxide 29 (22-32) mmol/L BUN 16 (7-17) mg/dL Creatinine 0.75 (0.52-1.04) mg/dL Estimated GFR > 60.0 (>60) mL/min BUN/Creatinine Ratio 21.3 (6-22) Glucose 100 (80-110) mg/dL Calcium 9.2 (8.4-10.2) mg/dL Total Bilirubin 0.5 (0.2-1.3) mg/dL AST 25 (14-36) IU/L ALT 20 (<35) IU/L Alkaline Phosphatase 69 (38-126) U/L Total Creatine Kinase 26 L (30-135) U/L CK-MB (CK-2) TNP CK-MB (CK-2) Rel Index TNP Troponin I < 0.012 (0.01-0.034) ng/mL NT-Pro-B Natriuret Pep 432 (<450) pg/mL Total Protein 7.5 (6.3-8.2) g/dL Albumin 4.1 (3.5-5.0) g/dL Globulin 3.4 (1.7-4.1) g/dL Albumin/Globulin Ratio 1.2 (1.0-2.8) Lipase 48 (23-300) U/L SARS-CoV-2 (PCR) (Negative) 11/06/20 Range/Units 17:50 WBC (4.5-11.0) X10^3/uL RBC (4.0-5.2) X10^6/uL Hgb (12.0-16.0) g/dL Hct (36-46) % MCV (80-100) fL MCH (26-34) PG MCHC (30-36) % RDW (11.6-14.8) % Plt Count (150-400) X10^3/uL Neut % (Auto) (50-75) % Lymph % (Auto) (25-40) % [place] % (Auto) (3-14) % Eos % (Auto) (2-4) % Baso % (Auto) (0-2) % Neut # (Auto) (5185-3023) /uL Lymph # (Auto) (0235-1322) /uL Coleman # (Auto) (0-900) /uL Eos # (Auto) (0-450) /uL Baso # (Auto) (0-100) /uL PT (10.1-12.7) SECONDS INR (0.9-1.3) APTT (26.4-36.2) SECONDS Sodium (137-145) mmol/L Potassium (3.4-5.1) mmol/L Chloride (98-107) mmol/L Carbon Dioxide (22-32) mmol/L BUN (7-17) mg/dL Creatinine (0.52-1.04) mg/dL Estimated GFR (>60) mL/min BUN/Creatinine Ratio (6-22) Glucose (80-110) mg/dL Calcium (8.4-10.2) mg/dL Total Bilirubin (0.2-1.3) mg/dL AST (14-36) IU/L ALT (<35) IU/L Alkaline Phosphatase (38-126) U/L Total Creatine Kinase (30-135) U/L CK-MB (CK-2) CK-MB (CK-2) Rel Index Troponin I (0.01-0.034) ng/mL NT-Pro-B Natriuret Pep (<450) pg/mL Total Protein (6.3-8.2) g/dL Albumin (3.5-5.0) g/dL Globulin (1.7-4.1) g/dL Albumin/Globulin Ratio (1.0-2.8) Lipase (23-300) U/L SARS-CoV-2 (PCR) Negative (Negative) Discharge Plan Departure Prescriptions: No Action (DME) [facility] Spacer See Rx Instructions .ROUTE .MEDSUPPLY Qty: 1 RF: 0 nitrofurantoin macrocrystal 100 mg capsule 100 mg PO BID Qty: 10 RF: 0
--- NOTE | 2020-11-06 18:47 | ED.GENADULT ---
HPI - General Adult General Chief complaint: Shortness of Breath/Dyspnea Stated complaint: chest pain Time Seen by Provider: 11/06/20 17:59 Source: patient and EMS Mode of arrival: EMS Limitations: no limitations History of Present Illness HPI narrative: Patient is a 84-year-old female sent by EMS from her assisted living facility for evaluation. Patient states that for the past several days/2 weeks has had a right-sided chest discomfort especially with taking a deep breath. She denies problems with breathing. There is also some reports of confusion however the patient does not think that she is confused. She states she is somewhat uncertain as to why the staff at the facility called EMS to bring her in. She states that she does not necessarily want to be in the emergency department. States she does not think that she needs to be in the emergency department. She states the right-sided chest discomfort has been daily for the past 2 weeks. Not worse with palpation. Not worse with movement. No cough. Related Data Previous Rx's Medication Instructions Recorded inhalational spacing device #1 each 12/16/19 nitrofurantoin macrocrystal 100 mg 100 mg PO BID #10 cap 10/31/20 capsule nitrofurantoin monohyd/m-cryst 100 mg PO Q12H 5 Days #10 cap 11/06/20 [Macrobid] Allergies Allergy/AdvReac Type Severity Reaction Status Date / Time No Known Drug Allergies Allergy Verified 06/16/20 10:55 Review of Systems Constitutional Constitutional: Denies headache(s) ENT Ears, Nose, Mouth, and Throat: Denies headache(s) Cardiovascular Cardiovascular: Reports chest pain and Denies dyspnea Respiratory Respiratory: Reports pain on inspiration and Denies dyspnea Gastrointestinal Gastrointestinal: Denies abdominal pain, Denies nausea and Denies vomiting Genitourinary Genitourinary: Denies dysuria Genitourinary: Denies dysuria Musculoskeletal Musculoskeletal: Denies arthralgias and Denies myalgias Integumentary/Breasts Skin/Breast: Denies rash Neurologic Neurologic: Denies behavioral changes and Denies headache(s) Psychiatric Psychiatric: Denies behavioral changes Hematologic/Lymphatic Hematologic/Lymphatic: Denies easy bleeding and Denies easy bruising Patient History Medical History Acid reflux Adult failure to thrive Auditory hallucinations COPD (chronic obstructive pulmonary disease) Cough Dry eyes Frequent falls History of lung cancer in adulthood History of pneumothorax History of rib fracture Hyperlipidemia Hypothyroidism (acquired) Mobility impaired Non-small cell cancer of right lung Onychomycosis Physician orders for life-sustaining treatment (POLST) form indicates patient wish for [id number] status Short-term memory loss Small cell lung cancer, left lower lobe Thrombocytopenia UTI (urinary tract infection) Surgical History (Updated 12/22/19 @ 11:17 by Hardeep Sandoval MD) History of pneumonectomy Family History Sister Cancer Sister Multiple complications of type 2 diabetes mellitus Social History household members: none Smoking Status: Former smoker alcohol intake: former Smoking Status: Former smoker alcohol intake frequency: other Substance Use Type: does not use Exam Initial Vital Signs Initial Vital Signs: Vital Signs Temperature 98.1 F 11/06/20 17:05 Pulse Rate 68 11/06/20 17:05 Respiratory Rate 18 11/06/20 17:05 Blood Pressure 138/72 11/06/20 17:05 Pulse Oximetry 97 11/06/20 17:05 Const General: cooperative and comfortable Limitations: mental status not altered (Patient knows year, date, date, location) HENMT Head: normal to inspection and normocephalic Chest Chest: No crepitus and No tenderness Resp Effort & Inspection: normal respiratory effort Auscultation: clear to auscultation bilaterally Cardio Rate: regular rate Rhythm: regular rhythm GI Inspection: non-distended Palpation: soft Skin Lesions: no lesions Rashes: no rashes Neuro General: patient alert and patient awake Cognition: normal cognition Speech: speech normal Extrem General: normal to inspection and capillary refill normal Psych Appearance: well kempt Scores GCS Patricia coma scale eye opening: Spontaneous Patricia coma scale verbal response: Orientated Daniel coma scale motor response: Obey commands Daniel coma scale total score: 15 Course Orders Ordered: ED Orders 11/06/20 20:10 Urine Culture Stat Urine Microscopic Stat 11/06/20 20:18 Troponin I Stat Discontinued Medications Nitrofurantoin Macrocrystals (Nitrofurantoin Er 100 Mg Capsule) 100 mg PO NOW ONE Stop: 11/06/20 21:26 Last Admin: 11/06/20 21:37 Dose: 100 mg Documented by: LUCIANA Vital Signs Vital signs: Vital Signs - 8 hr 11/06/20 20:30 11/06/20 21:00 11/06/20 21:30 Pulse Rate 70 69 74 Respiratory Rate 19 18 18 Blood Pressure 159/73 H 160/74 H 156/110 H Pulse Oximetry 95 96 95 11/06/20 21:35 11/06/20 22:00 Pulse Rate 71 72 Respiratory Rate 20 16 Blood Pressure 162/72 H 148/77 H Pulse Oximetry 95 94 Medical Decision Making Medical Records Medical records reviewed: Yes I reviewed the patient's medical records. Lab Data Lab results reviewed: Yes I reviewed the patient's lab results. Result diagrams: 11/06/20 17:25 11/06/20 17:25 Labs: Lab Results 11/06/20 11/06/20 11/06/20 Range/Units 17:25 17:25 17:25 WBC 7.6 (4.5-11.0) X10^3/uL RBC 4.71 (4.0-5.2) X10^6/uL Hgb 15.3 (12.0-16.0) g/dL Hct 45.4 (36-46) % MCV 96.4 (80-100) fL MCH 32.5 (26-34) PG MCHC 33.7 (30-36) % RDW 14.0 (11.6-14.8) % Plt Count 92 L (150-400) X10^3/uL Neut % (Auto) 80.9 H (50-75) % Lymph % (Auto) 4.6 L (25-40) % [place] % (Auto) 13.9 (3-14) % Eos % (Auto) 0.3 L (2-4) % Baso % (Auto) 0.3 (0-2) % Neut # (Auto) 6100 (7637-6440) /uL Lymph # (Auto) 300 L (2607-4901) /uL [place]linger # (Auto) 1000 H (0-900) /uL Eos # (Auto) 0 (0-450) /uL Baso # (Auto) 0 (0-100) /uL PT 11.1 (10.1-12.7) SECONDS INR 1.0 (0.9-1.3) APTT 27 (26.4-36.2) SECONDS Sodium 136 L (137-145) mmol/L Potassium 4.4 (3.4-5.1) mmol/L Chloride 104 (98-107) mmol/L Carbon Dioxide 29 (22-32) mmol/L BUN 16 (7-17) mg/dL Creatinine 0.75 (0.52-1.04) mg/dL Estimated GFR > 60.0 (>60) mL/min BUN/Creatinine Ratio 21.3 (6-22) Glucose 100 (80-110) mg/dL Calcium 9.2 (8.4-10.2) mg/dL Total Bilirubin 0.5 (0.2-1.3) mg/dL AST 25 (14-36) IU/L ALT 20 (<35) IU/L Alkaline Phosphatase 69 (38-126) U/L Total Creatine Kinase 26 L (30-135) U/L CK-MB (CK-2) TNP CK-MB (CK-2) Rel Index TNP Troponin I < 0.012 (0.01-0.034) ng/mL NT-Pro-B Natriuret Pep 432 (<450) pg/mL Total Protein 7.5 (6.3-8.2) g/dL Albumin 4.1 (3.5-5.0) g/dL Globulin 3.4 (1.7-4.1) g/dL Albumin/Globulin Ratio 1.2 (1.0-2.8) Lipase 48 (23-300) U/L Urine RBC (0-5/HPF) Urine WBC (0-5/HPF) Ur Squamous Epith Cells (0-5/HPF) Amorphous Sediment Urine Bacteria (None) Ur Culture Indicated? Micro UA Comment SARS-CoV-2 (PCR) (Negative) 11/06/20 11/06/20 11/06/20 Range/Units 17:50 20:10 20:18 WBC (4.5-11.0) X10^3/uL RBC (4.0-5.2) X10^6/uL Hgb (12.0-16.0) g/dL Hct (36-46) % MCV (80-100) fL MCH (26-34) PG MCHC (30-36) % RDW (11.6-14.8) % Plt Count (150-400) X10^3/uL Neut % (Auto) (50-75) % Lymph % (Auto) (25-40) % [place]linger % (Auto) (3-14) % Eos % (Auto) (2-4) % Baso % (Auto) (0-2) % Neut # (Auto) (5446-8085) /uL Lymph # (Auto) (4057-7832) /uL [place]linger # (Auto) (0-900) /uL Eos # (Auto) (0-450) /uL Baso # (Auto) (0-100) /uL PT (10.1-12.7) SECONDS INR (0.9-1.3) APTT (26.4-36.2) SECONDS Sodium (137-145) mmol/L Potassium (3.4-5.1) mmol/L Chloride (98-107) mmol/L Carbon Dioxide (22-32) mmol/L BUN (7-17) mg/dL Creatinine (0.52-1.04) mg/dL Estimated GFR (>60) mL/min BUN/Creatinine Ratio (6-22) Glucose (80-110) mg/dL Calcium (8.4-10.2) mg/dL Total Bilirubin (0.2-1.3) mg/dL AST (14-36) IU/L ALT (<35) IU/L Alkaline Phosphatase (38-126) U/L Total Creatine Kinase (30-135) U/L CK-MB (CK-2) CK-MB (CK-2) Rel Index Troponin I < 0.012 (0.01-0.034) ng/mL NT-Pro-B Natriuret Pep (<450) pg/mL Total Protein (6.3-8.2) g/dL Albumin (3.5-5.0) g/dL Globulin (1.7-4.1) g/dL Albumin/Globulin Ratio (1.0-2.8) Lipase (23-300) U/L Urine RBC 0-1/hpf (0-5/HPF) Urine WBC 1-5/hpf (0-5/HPF) Ur Squamous Epith Cells 0-1 /hpf (0-5/HPF) Amorphous Sediment 1+ Urine Bacteria Many (>30) H (None) Ur Culture Indicated? Specimen cultured Micro UA Comment Nit + SARS-CoV-2 (PCR) Negative (Negative) Urine Dip Bedside Urine Glucose Negative Bedside Urine Bilirubin - Negative Bedside Urine Ketone - Negative Urine Specific [place] 1.015 Bedside Urine Occult Blood - Negative Bedside Urine pH 7.5 Bedside Urine Protein - Negative Bedside Urine Urobilinogen - Negative Bedside Urine Nitrite + Positive Bedside Urine Leukocytes - Negative Esterase Point of care testing: Urine Dip Bedside Urine Glucose Negative Bedside Urine Bilirubin - Negative Bedside Urine Ketone - Negative Urine Specific [place] 1.015 Bedside Urine Occult Blood - Negative Bedside Urine pH 7.5 Bedside Urine Protein - Negative Bedside Urine Urobilinogen - Negative Bedside Urine Nitrite + Positive Bedside Urine Leukocytes - Negative Esterase Imaging Data Chest x-ray: Radiologist's Impression: [address] [id number] ReportSigned Patient: Meg Beltran CMR#: [id number]: [id number]:[id number]/Sex: 84 / FDate of Service: 11/06/20Loc: EDAccession Number: [id number] Procedure: XR chest 1V Ordering Provider: Elina Gutiérrez D.O. PROCEDURE: XR CHEST 1V INDICATIONS: chest pain TECHNIQUE: One view of the chest was acquired. COMPARISON: [facility], CT, CT CHEST W CON, 12/04/2019, 23:16. [facility], CR, XR CHEST 1V, 12/04/2019, 20:31. [facility], CR, XR CHEST 1V, 11/15/2019, 12:46. FINDINGS: Surgical changes and devices: None. Lungs and pleura: Platelike streaky opacity in the left mid lung is unchanged. No consolidation. No pleural effusions or pneumothorax. Mediastinum: Mediastinal contours appear normal. Heart size is normal. Bones and chest wall: No suspicious bony lesions. Overlying soft tissues appear unremarkable. IMPRESSION: No acute airspace opacity identified. Stable atelectasis/scarring in the left lung. Dictated by: Emmanuel Montesinos M.D. on 11/06/2020 at 17:07 Approved by: Emmanuel Montesinos M.D. on 11/06/2020 at 17:09 ECG Data Attestation: I personally reviewed and interpreted this ECG as follows: Prior ECG tracings: not available for review Interpretation: Sinus rhythm Ventricular rate is 74 Normal axis Normal QRS Normal QTC No ST T wave changes MDM Narrative Medical decision making narrative: EKG is unremarkable, chest x-ray is unremarkable, labs are unremarkable to include troponin negative x2. Patient has had 2 weeks of symptoms. She does seem to be somewhat repetitive when explaining why she is here the ER however she is alert oriented x3 and has a GCS of 15. She stated multiple times that she did not necessarily want to come to the emergency department but the staff at the facility called EMS. She states ?I hate it when they do that ?the right-sided chest discomfort does seem to be maximum when she is taking a deep breath although she is not in respiratory distress in her lung exam is unremarkable. Low suspicion for pneumonia. No indication for a pneumothorax. I do have low suspicion for pulmonary embolism given her physical exam. I feel patient could be safely discharged home without further workup in the emergency department. She was given return precautions. Patient expressed understanding and agreement. Discharge Plan Departure Patient Disposition: Home Clinical Impression: Atypical chest pain, Urinary tract infection Instructions: DI for Urinary Tract Infection (UTI), DI for Atypical Chest Pain Activity Restrictions/Additional Instructions: I recommend that tomorrow her primary doctor is called for a follow-up appointment. Take the antibiotics as directed for the incidental urinary tract infection that was found today. Return to the emergency department for any new or worsening symptoms Prescriptions: New nitrofurantoin monohyd/m-cryst [Macrobid] 100 mg capsule 100 mg PO Q12H 5 Days Qty: 10 RF: 0 No Action [facility] Spacer See Rx Instructions .ROUTE .MEDSUPPLY Qty: 1 RF: 0 nitrofurantoin macrocrystal 100 mg capsule 100 mg PO BID Qty: 10 RF: 0 Referrals: Gagan Lang DO [Primary Care Provider] -
[2020-11-06 20:53] LABS: Troponin I < 0.012 ng/mL (0.01-0.034)
[2020-11-06 21:01] LABS: Amorphous Sediment Urine 1+; Bacteria Urine Many (>30); Culture Indicated Urine Specimen Cultured; RBC Urine 0-1/HPF (0-5/HPF); Squamous Epithelial Cell Urine 0-1 /HPF (0-5/HPF); Urine Comments NIT +; WBC Urine 1-5/HPF (0-5/HPF)
[2020-11-06] MEDS: NITROFURANTOIN ER 100 MG CAPSULE PO (21:37)
== END 2020-11-06 23:10 | disposition home or self-care (01) ==
PROVIDERS: Emergency Medicine; Emergency Provider Emergency Medicine; PCP Family Medicine
DX: R07.89 Other chest pain (principal); N39.0 Urinary tract infection, site not specified; R42 Dizziness and giddiness; E78.5 Hyperlipidemia, unspecified; E03.9 Hypothyroidism, unspecified; J44.9 Chronic obstructive pulmonary disease, unspecified; Z20.822 Contact with and (suspected) exposure to COVID-19
CPT/HCPCS: 36415; 71045; 80053; 81003; 81015; 82550; 83690; 83880; 84484; 85025; 85610; 85730; 87077; 87086; 87186; 87635; 93005; 99284; C9803

== ENCOUNTER 2020-11-07 11:59 | Observation (INO) | payer MEDICARE, OTHER, SELFPAY ==
[2020-05-17 10:35] VITALS: BMI 24.8
[2020-11-07] VITALS (20 sets, daily range): BP systolic 108–133; BP diastolic 56–66; PULSE 58–68; RESP 15–25; TEMP 36.5–36.6; O2SAT 94–99; BMI 24.7
--- NOTE | 2020-11-07 12:07 | ED_ITS ---
HPI - Fall General Chief Complaint: Fall Stated Complaint: Ground Level Fall Time Seen by Provider: 11/07/20 12:09 Source: patient and EMS Mode of arrival: EMS Limitations: no limitations History of Present Illness HPI Narrative: 84-year-old female comes in with ground level fall. Patient was seen yesterday. She was diagnosed with UTI but seen for right sided chest pain and given a dose of Bactrim here and discharged home. Patient states that she remembers being in bed this morning she does not remember actually getting out of bed and woke up on the floor. She is unsure if she tripped and but she did feel very dizzy like she might pass out right before the event. She describes maybe a mild headache, no vision changes. She does not complain of any chest pain initially but keeps grabbing the right side of her chest. She did have 1 episode of emesis EN route with EMS. She does not believe she has had any issues with bowel movements or obvious urinary changes. She denies any neck or back pain. Patient denies any swelling in her lower extremities. She states she does not take any medications regularly. She has had some prior surgeries. She states that she lives in independent living facility. She has some weakness on her right upper extremity today which she states has been chronic and ongoing for an extended period of time. Related Data Previous Rx's Medication Instructions Recorded nitrofurantoin monohyd/m-cryst 100 mg PO Q12H 5 Days #10 cap 11/06/20 [Macrobid] Allergies Allergy/AdvReac Type Severity Reaction Status Date / Time No Known Drug Allergies Allergy Verified 06/16/20 10:55 Review of Systems Review of Systems ROS Unobtainable: All systems reviewed & are unremarkable except as noted in HPI and below Patient History Medical History Acid reflux Adult failure to thrive Auditory hallucinations COPD (chronic obstructive pulmonary disease) Cough Dry eyes Frequent falls History of lung cancer in adulthood History of pneumothorax History of rib fracture Hyperlipidemia Hypothyroidism (acquired) Mobility impaired Non-small cell cancer of right lung Onychomycosis Physician orders for life-sustaining treatment (POLST) form indicates patient wish for as-lgp-smneunliicz status Short-term memory loss Small cell lung cancer, left lower lobe Thrombocytopenia UTI (urinary tract infection) Surgical History History of pneumonectomy Family History Sister Cancer Sister Multiple complications of type 2 diabetes mellitus Social History household members: none Smoking Status: Former smoker alcohol intake: former Smoking Status: Former smoker alcohol intake frequency: other Substance Use Type: does not use Exam Narrative Exam Narrative: GEN: well nourished, well appearing elderly female, alert and oriented x x3, patient appears to be in mild distress. HEENT: Atraumatic, pupils are equal round reactive to light, extraocular movements are intact, nares are clear, TMs are clear with no fluid, there is no conjunctival pallor. Throat is clear without any exudates, erythema, tonsillar enlargement or uvular deviation, patient has some droop of right upper lid, no lower facial droop. HEART: Regular rate and rhythm without murmur, clicks, rubs. No carotid bruits, pulses are equal in upper and lower extremities LUNGS:Lungs clear to auscultation, no wheezes, rales, + crackles bilaterally, chest moves symmetrically, patient has some right-sided chest tenderness. No obvious ecchymosis or bruising. No flail chest. No tachypnea accessory muscle use. ABD:bowel sounds normal, soft, non-tender, no guarding, rebound, rigidity, no masses noted, no hepatosplenomegaly :No CVA tenderness BACK: No cervical, thoracic or lumbar vertebral point tenderness. Patient has range of motion. Patient's gait is not tested. Muscle strength is 5/5 in lower extremities, patient has drift with right upper extremity but is able to lift fully off the bed. No drift on the left. Sensation intact in upper and lower extremities. MSCL: Non-tender,full range of motion NEURO:CN 2-12 intact, sensation normal, right ataxia with finger nose finger test normal, none on left, bilaterally heel coulter test normal Initial Vital Signs Initial Vital Signs: Vital Signs Pulse Rate 68 11/07/20 12:02 Respiratory Rate 21 11/07/20 12:02 Pulse Oximetry 94 11/07/20 12:02 Scores NIH Stroke Scale Level of Conciousness: Alert, keenly responsive Ask month/age: Answers both questions correctly. Open/close eyes, close hand: Performs both tasks correctly Best gaze horizontal: Normal Visual almodovar: No visual loss Facial palsy: Minor paralysis, flattened nasolabial fold, asymmetry on smiling (upper face not lower face) Left arm drift: No drift for full 10 sec Right arm drift: Drifts down, not to bed Left leg drift: No drift for full 5 sec Right leg drift: No drift for full 5 sec Limb ataxia: Present in one limb Sensory on face/arms/legs: Normal, no sensory loss Best language: No aphasia, normal Dysarthria: Mild to mod,some slurring Extinction or inattention: No abnormality Total NIH Stroke scale score: 4 Course Orders Ordered: ED Orders 11/07/20 12:06 EKG-12 Lead Stat 11/07/20 12:09 CT cervical spine wo con Stat CT head/brain wo con Stat Urine Drug Screen, Rapid Stat 11/07/20 12:14 XR chest 1V Stat 11/07/20 12:15 COVID19 Stat 11/07/20 12:24 Complete Blood Count AUTO DIFF Stat Comprehensive Metabolic Panel Stat Lactate (Lactic Acid) Stat NT-proBNP (BNP-Adult 18+) Stat Partial Thromboplastin Time Stat Procalcitonin Stat Prothrombin Time INR Stat Thyroid Stimulating Hormone Stat Troponin & CK Cardiac Panel Stat 11/07/20 12:29 Blood Culture Stat 11/07/20 13:21 CT angio head and neck Stat 11/07/20 15:06 MR stroke Stat Sodium Chloride (Normal Saline 0.9%) 1,000 mls @ 150 mls/hr IV CONT VILMA Last Infusion: 11/07/20 16:36 Dose: 0 mls/hr Documented by: Infusion: 11/07/20 15:59 Dose: 150 mls/hr Documented by: Infusion: 11/07/20 15:35 Dose: 0 mls/hr Documented by: Admin: 11/07/20 12:50 Dose: 150 mls/hr Documented by: THIEN Discontinued Medications Aspirin (Aspirin 81 Mg Chew Tab) 324 mg PO NOW ONE Stop: 11/07/20 14:26 Last Admin: 11/07/20 14:31 Dose: 324 mg Documented by: THIEN Ceftriaxone Sodium/Dextrose (Rocephin) 1 gm in 50 mls @ 100 mls/hr IV NOW ONE Stop: 11/07/20 15:04 Last Infusion: 11/07/20 16:32 Dose: 0 mls/hr Documented by: Infusion: 11/07/20 16:00 Dose: 100 mls/hr Documented by: Infusion: 11/07/20 15:35 Dose: 0 mls/hr Documented by: Admin: 11/07/20 14:44 Dose: 100 mls/hr Documented by: THIEN Reevaluation(s) Reevaluation #1: Re-evaluation patients right upper extremity weakness has improved, still some slight drift. Family did call and they were unaware of any prior weakness. None was noted in prior charts. Time: 14:32 Consultations Consultation #1: Dr. Donald tidwell, patient case discussed. Patient has had improving symptoms with some dysarthria and right upper extremity weakness that have improved she still has some mild drift. Was given aspirin in the department. CTA does not show acute occlusion, she was not a tPA candidate. She does have an elevated white count negative procalcitonin but had positive nitrates and leuks for UTI. Also noted a lung mass on her CTA which will require some further workup in the future. Patient is except plan for obsess Dr. Shah request if we can order an MRI potentially for this evening he is happy to see the patient. Time: 14:57 Vital Signs Vital signs: Vital Signs - 8 hr 11/07/20 12:02 11/07/20 12:03 11/07/20 12:16 Temperature 97.9 F Pulse Rate 68 64 64 Respiratory Rate 21 16 17 Blood Pressure 128/58 L 115/56 L Pulse Oximetry 94 96 97 11/07/20 12:30 11/07/20 12:31 11/07/20 12:51 Temperature Pulse Rate 62 60 61 Respiratory Rate 19 21 20 Blood Pressure 122/58 L 122/59 L Pulse Oximetry 97 97 94 11/07/20 13:00 11/07/20 13:15 11/07/20 13:30 Temperature Pulse Rate 61 60 60 Respiratory Rate 16 15 15 Blood Pressure 108/56 L 116/58 L 112/59 L Pulse Oximetry 97 98 97 11/07/20 13:45 11/07/20 14:00 11/07/20 14:15 Temperature Pulse Rate 58 L 65 64 Respiratory Rate 15 18 25 H Blood Pressure 119/58 L 133/62 Pulse Oximetry 98 97 97 11/07/20 14:30 11/07/20 15:00 Temperature Pulse Rate 63 59 L Respiratory Rate 17 17 Blood Pressure 126/63 Pulse Oximetry 98 98 MDM - Fall Lab Data Attestation: I reviewed the patient's lab results. Result diagrams: 11/07/20 12:24 11/07/20 12:24 Labs: Lab Results 11/07/20 11/07/20 11/07/20 Range/Units 12:15 12:24 12:24 WBC 14.2 H D (4.5-11.0) X10^3/uL RBC 4.54 (4.0-5.2) X10^6/uL Hgb 14.8 (12.0-16.0) g/dL Hct 43.8 (36-46) % MCV 96.5 (80-100) fL MCH 32.7 (26-34) PG MCHC 33.9 (30-36) % RDW 13.7 (11.6-14.8) % Plt Count 93 L (150-400) X10^3/uL Neut % (Auto) 90.8 H (50-75) % Lymph % (Auto) 1.5 L (25-40) % Gregg % (Auto) 7.3 (3-14) % Eos % (Auto) 0.2 L (2-4) % Baso % (Auto) 0.2 (0-2) % Neut # (Auto) 16257 H (7124-4002) /uL Lymph # (Auto) 200 L (8035-2839) /uL Gregg # (Auto) 1000 H (0-900) /uL Eos # (Auto) 0 (0-450) /uL Baso # (Auto) 0 (0-100) /uL PT 12.2 (10.1-12.7) SECONDS INR 1.1 (0.9-1.3) APTT 32 D (26.4-36.2) SECONDS Sodium (137-145) mmol/L Potassium (3.4-5.1) mmol/L Chloride (98-107) mmol/L Carbon Dioxide (22-32) mmol/L BUN (7-17) mg/dL Creatinine (0.52-1.04) mg/dL Estimated GFR (>60) mL/min BUN/Creatinine Ratio (6-22) Glucose (80-110) mg/dL Lactate (0.7-2.1) mmol/L Calcium (8.4-10.2) mg/dL Total Bilirubin (0.2-1.3) mg/dL AST (14-36) IU/L ALT (<35) IU/L Alkaline Phosphatase (38-126) U/L Total Creatine Kinase (30-135) U/L CK-MB (CK-2) CK-MB (CK-2) Rel Index Troponin I (0.01-0.034) ng/mL NT-Pro-B Natriuret Pep (<450) pg/mL Total Protein (6.3-8.2) g/dL Albumin (3.5-5.0) g/dL Globulin (1.7-4.1) g/dL Albumin/Globulin Ratio (1.0-2.8) Procalcitonin (<0.5) ng/mL TSH (0.47-4.68) uIU/mL SARS-CoV-2 (PCR) Negative (Negative) 11/07/20 11/07/20 11/07/20 Range/Units 12:24 12:24 12:24 WBC (4.5-11.0) X10^3/uL RBC (4.0-5.2) X10^6/uL Hgb (12.0-16.0) g/dL Hct (36-46) % MCV (80-100) fL MCH (26-34) PG MCHC (30-36) % RDW (11.6-14.8) % Plt Count (150-400) X10^3/uL Neut % (Auto) (50-75) % Lymph % (Auto) (25-40) % Gregg % (Auto) (3-14) % Eos % (Auto) (2-4) % Baso % (Auto) (0-2) % Neut # (Auto) (6940-4580) /uL Lymph # (Auto) (0746-2704) /uL Gregg # (Auto) (0-900) /uL Eos # (Auto) (0-450) /uL Baso # (Auto) (0-100) /uL PT (10.1-12.7) SECONDS INR (0.9-1.3) APTT (26.4-36.2) SECONDS Sodium 137 (137-145) mmol/L Potassium 4.0 (3.4-5.1) mmol/L Chloride 104 (98-107) mmol/L Carbon Dioxide 29 (22-32) mmol/L BUN 15 (7-17) mg/dL Creatinine 0.98 (0.52-1.04) mg/dL Estimated GFR 54.3 L (>60) mL/min BUN/Creatinine Ratio 15.3 (6-22) Glucose 127 H (80-110) mg/dL Lactate (0.7-2.1) mmol/L Calcium 9.3 (8.4-10.2) mg/dL Total Bilirubin 0.9 (0.2-1.3) mg/dL AST 21 (14-36) IU/L ALT 16 (<35) IU/L Alkaline Phosphatase 65 (38-126) U/L Total Creatine Kinase 21 L (30-135) U/L CK-MB (CK-2) TNP CK-MB (CK-2) Rel Index TNP Troponin I < 0.012 (0.01-0.034) ng/mL NT-Pro-B Natriuret Pep 961 H (<450) pg/mL Total Protein 7.2 (6.3-8.2) g/dL Albumin 3.9 (3.5-5.0) g/dL Globulin 3.3 (1.7-4.1) g/dL Albumin/Globulin Ratio 1.2 (1.0-2.8) Procalcitonin 0.44 (<0.5) ng/mL TSH (0.47-4.68) uIU/mL SARS-CoV-2 (PCR) (Negative) 11/07/20 11/07/20 Range/Units 12:24 12:24 WBC (4.5-11.0) X10^3/uL RBC (4.0-5.2) X10^6/uL Hgb (12.0-16.0) g/dL Hct (36-46) % MCV (80-100) fL MCH (26-34) PG MCHC (30-36) % RDW (11.6-14.8) % Plt Count (150-400) X10^3/uL Neut % (Auto) (50-75) % Lymph % (Auto) (25-40) % Gregg % (Auto) (3-14) % Eos % (Auto) (2-4) % Baso % (Auto) (0-2) % Neut # (Auto) (6528-5712) /uL Lymph # (Auto) (6562-7248) /uL Gregg # (Auto) (0-900) /uL Eos # (Auto) (0-450) /uL Baso # (Auto) (0-100) /uL PT (10.1-12.7) SECONDS INR (0.9-1.3) APTT (26.4-36.2) SECONDS Sodium (137-145) mmol/L Potassium (3.4-5.1) mmol/L Chloride (98-107) mmol/L Carbon Dioxide (22-32) mmol/L BUN (7-17) mg/dL Creatinine (0.52-1.04) mg/dL Estimated GFR (>60) mL/min BUN/Creatinine Ratio (6-22) Glucose (80-110) mg/dL Lactate 1.9 (0.7-2.1) mmol/L Calcium (8.4-10.2) mg/dL Total Bilirubin (0.2-1.3) mg/dL AST (14-36) IU/L ALT (<35) IU/L Alkaline Phosphatase (38-126) U/L Total Creatine Kinase (30-135) U/L CK-MB (CK-2) CK-MB (CK-2) Rel Index Troponin I (0.01-0.034) ng/mL NT-Pro-B Natriuret Pep (<450) pg/mL Total Protein (6.3-8.2) g/dL Albumin (3.5-5.0) g/dL Globulin (1.7-4.1) g/dL Albumin/Globulin Ratio (1.0-2.8) Procalcitonin (<0.5) ng/mL TSH 3.85 (0.47-4.68) uIU/mL SARS-CoV-2 (PCR) (Negative) Imaging Data Chest x-ray: Radiologist's Impression: [address] [place] [id number] ReportSigned Patient: Meg Beltran CMR#: [id number]: 8Acct:[id number]/Sex: 84 / FDate of Service: 11/07/20Loc: EDAccession Number: [id number] Procedure: XR chest 1V Ordering Provider: Elina Gutiérrez D.O. PROCEDURE: XR CHEST 1V INDICATIONS: right sided pain, s/p fall/syncope TECHNIQUE: One view of the chest was acquired. COMPARISON: [facility], [place], NM PET CT FUSION SKULL 2 THIGH, 12/29/2019, 17:55. [facility], CT, CT CHEST W CON, 12/04/2019, 23:16. [facility], CR, XR CHEST 1V, 12/04/2019, 20:31. [facility], CR, XR CHEST 1V, 11/15/2019, 12:46. [facility], CR, XR CHEST 1V, 11/10/2019, 3:02. [facility], CT, CT CERVICAL SPINE WO CON, 11/07/2020, 12:37. [facility], CT, CT HEAD/BRAIN WO CON, 11/07/2020, 12:37. [facility], CR, XR CHEST 1V, 11/06/2020, 17:55. FINDINGS: Surgical changes and devices: None. Lungs and pleura: On this semiupright portable chest examination, no large pneumothorax or large pleural effusions are seen. No focal infiltrates are seen. Low lung volumes are noted. This causes a crowded appearance to the lung markings and limits evaluation. Mediastinum: The cardiac contours are within normal limits. The aorta demonstrates calcification and tortuosity. Bones and chest wall: No suspicious bony lesions. Overlying soft tissues appear unremarkable. IMPRESSION: Limited portable chest examination, without a significant cardiopulmonary abnormality identified. Dictated by: Saw Mosley M.D. on 11/07/2020 at 11:55 Approved by: Saw Mosley M.D. on 11/07/2020 at 11:57 CT scan - head: Radiologist's Impression: [address] [id number] Scan ReportSigned Patient: Meg Beltran CMR#: [id number]: 8Acct:[id number]/Sex: 84 / FDate of Service: 11/07/20Loc: EDAccession Number: [id number] Procedure: CT head/brain wo con Ordering Provider: Elina Gutiérrez D.O. PROCEDURE: CT HEAD/BRAIN WO CON INDICATIONS: fall, syncope? left sided weakness TECHNIQUE: Noncontrast 4.5 mm thick angled axial sections acquired from the foramen magnum to the vertex, with coronal and sagittal reformats. For radiation dose reduction, the following was used: automated exposure control, adjustment of mA and/or kV according to patient size. COMPARISON: [facility], CT, CT HEAD/BRAIN WO CON, 10/27/2019, 11:39. [facility], CR, XR CHEST 1V, 11/07/2020, 12:44. [facility], CT, CT CERVICAL SPINE WO CON, 11/07/2020, 12:37. [facility], CT, CT HEAD/BRAIN WO CON, 12/04/2019, 23:16. FINDINGS: Image quality: Excellent. CSF spaces: Basal cisterns are patent. No extra-axial fluid collections. The ventricles are symmetric in size and shape. Brain: No intracranial bleeds or masses. There is cerebral volume loss for age, with resultant ventricular and sulcal prominence. There are periventricular and deep white matter chronic small vessel ischemic changes. There is intracranial internal carotid artery atherosclerosis. Skull and face: Calvarium and visualized facial bones appear intact, without s uspicious lesions. Sinuses: Visualized sinuses and mastoids are clear. IMPRESSION: No acute intracranial process is seen. No acute intracranial hemorrhage is seen. Note is made of age-appropriate brain parenchymal volume loss and chronic small vessel ischemic changes. If there is strong clinical suspicion for an acute stroke, please consider an MRI for further evaluation, as it is more sensitive (assuming that there is no contraindication to MRI). Dictated by: Saw Mosley M.D. on 11/07/2020 at 11:54 Approved by: Saw Mosley M.D. on 11/07/2020 at 11:55 CT - cervical spine: Radiologist's Impression: [address] [id number] Scan ReportSigned Patient: Meg Beltran CMR#: [id number]: 8Acct:[id number]/Sex: 84 / FDate of Service: 11/07/20Loc: EDAccession Number: [id number] Procedure: CT cervical spine wo con Ordering Provider: Elina Gutiérrez D.O. PROCEDURE: CT CERVICAL SPINE WO CON INDICATIONS: fall, syncope? left sided weakness TECHNIQUE: Noncontrast 3 mm thick sections acquired from the skull base to the T4 level. Sagittal and coronal reformats were then constructed. For radiation dose reduction, the following was used: automated exposure control, adjustment of mA and/or kV according to patient size. COMPARISON: [facility], CR, XR CHEST 1V, 11/07/2020, 12:44. [facility], CT, CT HEAD/BRAIN WO CON, 11/07/2020, 12:37. FINDINGS: Image quality: Excellent. Bones: No acute appearing fractures or dislocations. Mild anterior wedge deformities can be seen involving the T3 and T4 levels, without acute features. Visualized superior ribs are intact. Degenerative changes are seen, with moderate disc space narrowing at C4-C5 and C5-C6. Posteriorly directed endplate osteophytes can be seen at the C4-C5 level. Focal degenerative change is seen involving the C1-C2 interface an teriorly. Milder degenerative changes are seen elsewhere. Age-appropriate osteopenia is seen. Soft tissues: Prevertebral soft tissues are normal in thickness. No paravertebral hematomas. No apical pneumothoraces. Emphysematous changes can be seen at the lung apices. IMPRESSION: Cervical spine degenerative changes are seen, which are worst at the C4-C5 level. No acute fractures are seen. Chronic appearing anterior wedge deformities are noted T3 and T4. Dictated by: Saw Mosley M.D. on 11/07/2020 at 11:52 Approved by: Saw Mosley M.D. on 11/07/2020 at 11:54 CTA - brain/neck: Radiologist's Impression: [address] [id number] Scan ReportSigned Patient: Meg Beltran CMR#: [id number]: 8Acct:[id number]/Sex: 84 / FDate of Service: 11/07/20Loc: EDAccession Number: [id number] Procedure: CT angio head and neck Ordering Provider: Elina Gutiérrez D.O. PROCEDURE: CT ANGIO HEAD AND NECK INDICATIONS: left upper ext weakness, ? new v old, fall TECHNIQUE: After the administration of intravenous contrast, 1 mm thick sections acquired from the aortic arch through the [place]. Post-contrast 4.5 mm thick sections then re-acquired from the foramen magnum to the vertex. 3-dimensional jcagdmk-llrsdlfuw-ncsigqbwss (MIP) and/or volume rendering reformats were acquired of the central intracranial vasculature and neck separately. COMPARISON: [facility], [place], [place] PET CT FUSION SKULL 2 THIGH, 12/29/2019, 17:55. [facility], CT, CT CHEST W CON, 12/04/2019, 23:16. [facility], CT, CT CERVICAL SPINE WO CON, 11/07/2020, 12:37. [facility], CT, CT HEAD/BRAIN WO CON, 11/07/2020, 12:37. FINDINGS: Image quality: Excellent. BRAIN: CSF spaces: Ventricles are normal in size and shape. Basal cisterns are patent. No extra-axial fluid collections. Brain: No midline shift. No intracranial bleeds or masses. [place]-white matter interface appears intact. Age-related volume loss and moderate to severe small vessel ischemic change. Skull and face: Calvarium and facial bones appear intact, without suspicious lesions. Orbits appear normal. Sinuses: Sinuses and mastoids are clear. HEAD CT ANGIOGRAPHY: Anterior circulation: Intracranial internal carotid arteries are normal in size and flow. The flow within the paired anterior cerebral arteries is normal and symmetric. The flow within the middle cerebral arteries is normal and symmetric. The anterior communicating artery is seen. No aneurysms are seen. Posterior circulation: Visualized portions of the vertebral arteries demonstrate normal caliber, and join to form a normal appearing basilar artery. Flow within the posterior cerebral arteries is normal and symmetric. No aneurysms are seen. NECK CT ANGIOGRAPHY: Carotid system: The great vessels demonstrate a conventional anatomy as they arise from the aortic arch. The origins of the common carotid arteries appear patent. The common carotid arteries demonstrate normal caliber and courses. The bifurcation regions are both widely patent. The internal carotid arteries demonstrate normal calibers and courses. Less than 50% proximal left subclavian artery stenosis. Posterior circulation: The origins of the vertebral arteries both appear widely patent. The more superior extracranial portions of both vertebral arteries also demonstrate normal courses and calibers. They join to form a normal appearing basilar artery. Soft tissues: Visualized neck soft tissues demonstrate no suspicious abnormalities. Moderate centrilobular emphysema. Question left posterior lung mass versus masslike consolidation measuring approximately 4 cm in diameter. Bones: No suspicious bony lesions. Visualized cervical spine appears normally aligned. IMPRESSION: 1. Age-related volume loss and moderate to severe small vessel ischemic change. 2. No evidence acute stroke, hemorrhage, or mass. 3. Negative CTA head. No stenosis, aneurysm, occlusion, or focal filling defect. 4. Less than 50% proximal left subclavian artery stenosis. 5. No significant internal carotid artery stenosis. 6. Moderate centrilobular emphysema. 7. Question 4 cm left posterior lung mass versus masslike consolidation. Consider CT chest for further evaluation. Comment: Findings were discussed with Dr. Gutiérrez at the time of study dictation on 11/07/2020 at 1449 hours. Any quantitative measurements of stenosis were performed using NASCET criteria. Dictated by: Peter Edgar M.D. on 11/07/2020 at 14:37 Approved by: Peter Edgar M.D. on 11/07/2020 at 14:49 ECG Data Attestation: I personally reviewed and interpreted this ECG as follows: Interpretation: Sinus rhythm rate of 64, P are 166, a QRS of 95 and QTC of 422. Patient has RSR in 3. No acute ST changes are appreciated by myself despite report. Patient has a prior EKG from 11/22/2019 which appears similar. Patient had two EKGs performed in the department, repeat appears similar to initial EKG with a rate of 61, P are 162, QRS 86 and QTC of 432. MDM Narrative Medical decision making narrative: This is an 84-year-old female who is brought for ground level fall. She lives in the independent living facility she was seen here yesterday for right-sided chest pain and discharged home with Bactrim for a possible UTI. Patient is able to tell me that she was in bed and woke up on the floor. She does not recall if she had a syncopal episode but she was quite dizzy. She does have clear deficit on her right upper extremity that was not present yesterday when she was here in the emergency department. Patient is unable to give me in onset and is not a tPA candidate secondary to this. EMS and nursing staff here both who saw patient yesterday states her mental status is also slightly different and she appears more confused although alert. Patient has a leukocytosis or thrombocytopenia with a leftward shift, coags negative, CMP shows glucose of 127 A negative troponin elevated BNP at 961 and a negative procalcitonin. Urine yesterday was positive for nitrites as well as leukocyte esterase. covid swab is negative. Head CT, CT of C-spine are both negative, during patient's stay her weakness in her right upper extremity has been resolving. CT angiography shows a left lung mass but no acute vascular ch anges. Patient given ASA 324mg in department. I spoke with Dr. Bennett about observation for TIA and UTI and new lung mass that likely needs outpatient workup. Discharge Plan Departure Patient Disposition: Admitted as Observation Clinical Impression: Acute CVA (cerebrovascular accident), Acute UTI, Lung mass Admit Date/Time: 11/07/20 15:12 Admit Provider: Apollo Bennett
--- NOTE | 2020-11-07 12:14 | DI.RAD.S_ITS ---
PROCEDURE: XR CHEST 1V INDICATIONS: right sided pain, s/p fall/syncope TECHNIQUE: One view of the chest was acquired. COMPARISON: [facility], [place], [place] PET CT FUSION SKULL 2 THIGH, 12/29/2019, 17:55. [facility], CT, CT CHEST W CON, 12/04/2019, 23:16. [facility], [place], XR CHEST 1V, 12/04/2019, 20:31. [facility], [place], XR CHEST 1V, 11/15/2019, 12:46. [facility], [place], XR CHEST 1V, 11/10/2019, 3:02. [facility], CT, CT CERVICAL SPINE WO CON, 11/07/2020, 12:37. [facility], CT, CT HEAD/BRAIN WO CON, 11/07/2020, 12:37. [facility], [place], XR CHEST 1V, 11/06/2020, 17:55. FINDINGS: Surgical changes and devices: None. Lungs and pleura: On this semiupright portable chest examination, no large pneumothorax or large pleural effusions are seen. No focal infiltrates are seen. Low lung volumes are noted. This causes a crowded appearance to the lung markings and limits evaluation. Mediastinum: The cardiac contours are within normal limits. The aorta demonstrates calcification and tortuosity. Bones and chest wall: No suspicious bony lesions. Overlying soft tissues appear unremarkable. IMPRESSION: Limited portable chest examination, without a significant cardiopulmonary abnormality identified. Dictated by: Saw Mosley M.D. on 11/07/2020 at 11:55 Approved by: Saw Mosley M.D. on 11/07/2020 at 11:57
[2020-11-07 12:43] LABS: Add Manual Diff / Slide Review NO; Basophils Absolute Auto 0 /uL (0-100); Basophils Percent Auto 0.2 % (0-2); Eosinophils Absolute Auto 0 /uL (0-450); Eosinophils Percent Auto 0.2 % (2-4); Hematocrit 43.8 % (36-46); Hemoglobin 14.8 g/dL (12.0-16.0); Lymphocytes Absolute Auto 200 /uL (1100-4500); Lymphocytes Percent Auto 1.5 % (25-40); Mean Corpuscular HGB Conc 33.9 % (30-36); Mean Corpuscular Hemoglobin 32.7 PG (26-34); Mean Corpuscular Volume 96.5 fL (80-100); Monocytes Absolute Auto 1000 /uL (0-900); Monocytes Percent Auto 7.3 % (3-14); Neutrophils Absolute Auto 12900 /uL (1500-7000); Neutrophils Percent Auto 90.8 % (50-75); Platelet Count 93 X10^3/uL (150-400); Red Blood Cell Count 4.54 X10^6/uL (4.0-5.2); Red Cell Distribution Width 13.7 % (11.6-14.8); White Blood Cell Count 14.2 X10^3/uL (4.5-11.0)
[2020-11-07 12:48] LABS: COVID19 -Nasal RAPID Negative (Negative)
[2020-11-07] MEDS: SODIUM CHLORIDE 0.9% 1,000 ML 150 ML IV (12:50)
[2020-11-07 12:54] LABS: INR 1.1 (0.9-1.3); Prothrombin Time 12.2 SECONDS (10.1-12.7)
[2020-11-07 12:57] LABS: PTT Partial Thromboplastin Tim 32 SECONDS (26.4-36.2)
[2020-11-07 12:59] LABS: Alanine Aminotransferase 16 IU/L (<35); Albumin 3.9 g/dL (3.5-5.0); Albumin Globulin Ratio 1.2 (1.0-2.8); Alkaline Phosphatase 65 U/L (38-126); Aspartate Aminotransferase 21 IU/L (14-36); BUN Creatinine Ratio 15.3 (6-22); Bilirubin Total 0.9 mg/dL (0.2-1.3); Blood Urea Nitrogen 15 mg/dL (7-17); Calcium 9.3 mg/dL (8.4-10.2); Carbon Dioxide 29 mmol/L (22-32); Chloride 104 mmol/L (98-107); Creatine Kinase 21 U/L (30-135); Estimated Glomerular Filt Rate 54.3 mL/min (>60); Globulin 3.3 g/dL (1.7-4.1); Glucose 127 mg/dL (80-110); HEMOLYSIS < 15 (0-50); Sodium 137 mmol/L (137-145); Total Protein 7.2 g/dL (6.3-8.2)
[2020-11-07 13:00] LABS: Lactate (Lactic Acid) 1.9 mmol/L (0.7-2.1)
[2020-11-07 13:08] LABS: NT-proBNP (BNP-Adult 18+) 961 pg/mL (<450)
[2020-11-07 13:11] LABS: Troponin I < 0.012 ng/mL (0.01-0.034)
[2020-11-07 13:19] LABS: Procalcitonin 0.44 ng/mL (<0.5)
--- NOTE | 2020-11-07 13:21 | DI.CT.S_ITS ---
PROCEDURE: CT ANGIO HEAD AND NECK INDICATIONS: left upper ext weakness, ? new v old, fall TECHNIQUE: After the administration of intravenous contrast, 1 mm thick sections acquired from the aortic arch through the [place]. Post-contrast 4.5 mm thick sections then re-acquired from the foramen magnum to the vertex. 3-dimensional uliofen-easaykclu-tkvowgriyc (MIP) and/or volume rendering reformats were acquired of the central intracranial vasculature and neck separately. COMPARISON: [facility], [place], [place] PET CT FUSION SKULL 2 THIGH, 12/29/2019, 17:55. [facility], CT, CT CHEST W CON, 12/04/2019, 23:16. [facility], CT, CT CERVICAL SPINE WO CON, 11/07/2020, 12:37. [facility], CT, CT HEAD/BRAIN WO CON, 11/07/2020, 12:37. FINDINGS: Image quality: Excellent. BRAIN: CSF spaces: Ventricles are normal in size and shape. Basal cisterns are patent. No extra-axial fluid collections. Brain: No midline shift. No intracranial bleeds or masses. [place]-white matter interface appears intact. Age-related volume loss and moderate to severe small vessel ischemic change. Skull and face: Calvarium and facial bones appear intact, without suspicious lesions. Orbits appear normal. Sinuses: Sinuses and mastoids are clear. HEAD CT ANGIOGRAPHY: Anterior circulation: Intracranial internal carotid arteries are normal in size and flow. The flow within the paired anterior cerebral arteries is normal and symmetric. The flow within the middle cerebral arteries is normal and symmetric. The anterior communicating artery is seen. No aneurysms are seen. Posterior circulation: Visualized portions of the vertebral arteries demonstrate normal caliber, and join to form a normal appearing basilar artery. Flow within the posterior cerebral arteries is normal and symmetric. No aneurysms are seen. NECK CT ANGIOGRAPHY: Carotid system: The great vessels demonstrate a conventional anatomy as they arise from the aortic arch. The origins of the common carotid arteries appear patent. The common carotid arteries demonstrate normal caliber and courses. The bifurcation regions are both widely patent. The internal carotid arteries demonstrate normal calibers and courses. Less than 50% proximal left subclavian artery stenosis. Posterior circulation: The origins of the vertebral arteries both appear widely patent. The more superior extracranial portions of both vertebral arteries also demonstrate normal courses and calibers. They join to form a normal appearing basilar artery. Soft tissues: Visualized neck soft tissues demonstrate no suspicious abnormalities. Moderate centrilobular emphysema. Question left posterior lung mass versus masslike consolidation measuring approximately 4 cm in diameter. Bones: No suspicious bony lesions. Visualized cervical spine appears normally aligned. IMPRESSION: 1. Age-related volume loss and moderate to severe small vessel ischemic change. 2. No evidence acute stroke, hemorrhage, or mass. 3. Negative CTA head. No stenosis, aneurysm, occlusion, or focal filling defect. 4. Less than 50% proximal left subclavian artery stenosis. 5. No significant internal carotid artery stenosis. 6. Moderate centrilobular emphysema. 7. Question 4 cm left posterior lung mass versus masslike consolidation. Consider CT chest for further evaluation. Comment: Findings were discussed with Dr. Gutiérrez at the time of study dictation on 11/07/2020 at 1449 hours. Any quantitative measurements of stenosis were performed using NASCET criteria. Dictated by: Peter Edgar M.D. on 11/07/2020 at 14:37 Approved by: Peter Edgar M.D. on 11/07/2020 at 14:49
[2020-11-07 13:38] LABS: Thyroid Stimulating Hormone 3.85 uIU/mL (0.47-4.68)
[2020-11-07] MEDS: ASPIRIN 81 MG CHEW TAB 324 MG PO (14:31)
--- NOTE | 2020-11-07 14:36 | PC.NURSE ---
Cervical collar removed per Dr Gutiérrez.
[2020-11-07] MEDS: CEFTRIAXONE 1 GM/50 ML FROZ.PIGGY IV (14:44)
--- NOTE | 2020-11-07 15:06 | DI.MRI.S_ITS ---
PROCEDURE: MR STROKE Pre- and post-contrast brain MRI, non-contrast brain MR angiogram, pre- and postcontrast neck MR angiogram INDICATIONS: left upper extremity, dysarthria TECHNIQUE: Brain: Noncontrast axial T1 spin echo, axial T2 fast spin echo, sagittal and axial FLAIR, coronal T2 fast spin echo, axial gradient echo, axial diffusion and ADC through the brain. After the administration of contrast, axial 3D VIBE of the cranial vasculature and brain. Brain MRA: Non-contrast 3-D time of flight MR angiogram, with multiple tmsrbfh-tikvnijbd-fpywhiecdn (MIP) reformats performed. Neck MRA: Axial and sagittal TruFISP through the neck. Coronal dynamic MR angiogram during administration of contrast in the arterial and venous phases, with 3-dimenstional ymnhaux-zcytqshxg-ofjytqvtbm (MIP) reformats constructed from subtraction images. COMPARISON: [facility], CT, CT HEAD/BRAIN WO CON, 11/07/2020, 12:37. [facility], CT, CT ANGIO HEAD AND NECK, 11/07/2020, 13:58. FINDINGS: Image quality: Excellent. BRAIN: CSF spaces: Ventricles are normal in size and shape. Basal cisterns are patent. No extra-axial fluid collections. Brain: No intracranial bleeds or mass effects. [place]-white matter interface is normal. Diffusion weighted images show no acute ischemic insults. Brain parenchymal volume loss is seen. Chronic small vessel ischemic change can be seen. Brainstem appears normal. Normal intravascular flow voids are present. No abnormal intracranial enhancement. Skull and face: Calvarial marrow signal is normal. Orbits appear normal. Sinuses: Mild mucosal thickening is seen involving the left maxillary sinus. Sinuses and mastoids are otherwise clear. BRAIN MR ANGIOGRAM: Anterior circulation: Intracranial internal carotid arteries are normal in size and enhancement. The flow within the paired anterior cerebral arteries is normal and symmetric. The flow within the middle cerebral arteries is normal and symmetric. The anterior communicating artery is not well seen. No stenoses, occlusions, or aneurysms. Posterior circulation: The visualized portions of the vertebral arteries demonstrate normal caliber, and join to form a normal appearing basilar artery. The flow within the posterior cerebral arteries is normal and symmetric. No stenoses, occlusions, or aneurysms. Note is made of bilateral lens replacements. NECK MR ANGIOGRAM: Carotids: Great vessels demonstrate a conventional anatomy as they arise from the aortic arch. The origins of the common carotid arteries appear patent. The calibers and courses of both common carotid arteries are normal. The bifurcation regions appear normal bilaterally. The internal carotid arteries demonstrate normal course and caliber. Posterior circulation: The origins of the vertebral arteries appear patent. More superior portions of both vertebral arteries demonstrate normal course and caliber, and join to form a normal appearing basilar artery. Miscellaneous: Subclavian arteries appear patent. Pre-contrast images through the neck show no soft tissue abnormalities. IMPRESSION: BRAIN MRI: No findings of acute or subacute infarction can be seen. Note is made of age-appropriate brain parenchymal volume loss and chronic small vessel ischemic changes. No masses or abnormal enhancement can be seen. BRAIN MR ANGIOGRAM: No significant intracranial arterial abnormality is seen. NECK MR ANGIOGRAM: Within the arteries of the neck, no hemodynamically significant stenosis can be seen. Dictated by: Saw Mosley M.D. on 11/07/2020 at 15:07 Approved by: Saw Mosley M.D. on 11/07/2020 at 15:11
--- NOTE | 2020-11-07 15:35 | PC.NURSE ---
patient take to MRI.
--- NOTE | 2020-11-07 16:17 | PC.NURSE ---
Elizabeth @ [facility] [phone], called and updated. Mack dtr: [phone], called and left message to update dtr on admission.
--- NOTE | 2020-11-07 18:58 | PC.ADMIT ---
[address] Room 9 Admission Note: Safe hand off from [facility] ED. Patient arrived on the floor at 1645. VSS, lung sounds Rhonchi bilaterally in all lung almodovar. Patient is on tele: sinus derick, NIH score is zero. Patient states that she felt pain in her chest right before she fell. Currently patient has no chest pain. Patient is hard of hearing, and she did say she felt a little dizzy when she got of the bed. 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 States that she wears glasses with prizms and had a botched eye surgery. Patient is alert and oriented. Patient was educated about the use of call light, it's within reach, bed alarm is active and bed is low and locked. The patient,Meg Beltran,84 y/o, was given written information regarding hospital policies, unit procedures and contact persons. Patient's smoking status: Former smoker. Vital Signs - 8 hr 11/07/20 12:02 11/07/20 12:03 11/07/20 12:16 Temperature 97.9 F Pulse Rate 68 64 64 Respiratory Rate 21 16 17 Blood Pressure 128/58 L 115/56 L Pulse Oximetry 94 96 97 11/07/20 12:30 11/07/20 12:31 11/07/20 12:51 Temperature Pulse Rate 62 60 61 Respiratory Rate 19 21 20 Blood Pressure 122/58 L 122/59 L Pulse Oximetry 97 97 94 11/07/20 13:00 11/07/20 13:15 11/07/20 13:30 Temperature Pulse Rate 61 60 60 Respiratory Rate 16 15 15 Blood Pressure 108/56 L 116/58 L 112/59 L Pulse Oximetry 97 98 97 11/07/20 13:45 11/07/20 14:00 11/07/20 14:15 Temperature Pulse Rate 58 L 65 64 Respiratory Rate 15 18 25 H Blood Pressure 119/58 L 133/62 Pulse Oximetry 98 97 97 11/07/20 14:30 11/07/20 15:00 11/07/20 15:57 Temperature Pulse Rate 63 59 L 65 Respiratory Rate 17 17 Blood Pressure 126/63 Pulse Oximetry 98 98 97 11/07/20 16:00 11/07/20 16:06 11/07/20 16:15 Temperature Pulse Rate 63 63 60 Respiratory Rate 17 Blood Pressure 131/60 126/60 Pulse Oximetry 97 97 96 11/07/20 16:30 11/07/20 16:45 Temperature 97.7 F Pulse Rate 59 L 67 Respiratory Rate 18 Blood Pressure 116/56 L 114/66 Pulse Oximetry 96 99
--- NOTE | 2020-11-07 21:08 | PM.HP.1 ---
History of Present Illness History of Present Illness Date Patient Seen: 11/07/20 Time Patient Seen: 20:18 Chief complaint: Ground Level Fall Narrative: Ms. 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 The patient provides of fragmented history and is a questionable historian. She does state that she recalls being in [address] place this morning and then later found herself and another place not knowing how she got there. She does not recall falling however relates that she found herself on the floor and was too weak to get up adding that she knew she had to get to the bathroom to urinate. The patient does have a history of frequent falls. The patient was seen yesterday for complaints of right chest wall pain and has a history of osteoporosis with previous rib fractures and sternal fracture. No acute injury is found hour the patient was found to have a urinary tract infection and was discharged with Bactrim which appears the patient is again not yet started. In the ER the patient is found to have some facial asymmetry, slurring of speech, right arm weakness and ataxia which all resolved during stay in the ER.. 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 The patient denies fevers or chills, headaches or dizziness, nasal congestion or sore throat. She reports complaints of neck pain earlier but none presently. She denies complaints of chest pain or palpitations and has no shortness of breath cough or wheezing. She denies epigastric or abdominal pain and denies nausea vomiting the ER provider documentation notes the patient vomited x1 during transport with EMS. The patient denies constipation or diarrhea. Upon arrival to the ER the patient has a temperature 97.9?, heart rate of 64, blood pressure 128/58, respirations of 16 saturating 96% on air. Chest x-ray finds no significant cardiopulmonary abnormalities. A CT of the head is obtain with no acute hematoma or intracranial processes. A CT of the cervical spine finds degenerative changes without fractures with chronic appearing wedging of T3 and T4. A CT angiogram of head is reported as negative with no evidence of CVA, hematoma or mass with her the finding of central lobar emphysema. A brain MRI and angiogram further find no significant findings. On laboratory analysis WBCs are 14.2 with elevated neutrophils at 12,900, hemoglobin of 14.8 hematocrit of 43.8 and platelets of 93. She has a PT of 12.2, INR 1.1, PTT 32. Her electrolytes are within normal limits she has a BUN of 15 with creatinine 0.98. Her liver functions are all within normal limits she has a lactic acid of 1.9, procalcitonin of 0.44. Total CK is 21 and troponin is negative at less than 0.012. TSH is found to be 3.85. In the ER the patient received ceftriaxone 1 g IV. The patient is admitted to the hospitalist service for for TIA. PCP: Dr. Lang Patient History Medical History Acid reflux Adult failure to thrive Auditory hallucinations COPD (chronic obstructive pulmonary disease) Cough Dry eyes Frequent falls History of lung cancer in adulthood History of pneumothorax History of rib fracture Hyperlipidemia Hypothyroidism (acquired) Mobility impaired Non-small cell cancer of right lung Onychomycosis Physician orders for life-sustaining treatment (POLST) form indicates patient wish for [id number] status Short-term memory loss Small cell lung cancer, left lower lobe Thrombocytopenia UTI (urinary tract infection) Surgical History History of bilateral breast reduction surgery History of lung biopsy Family & Social History Family History Sister Cancer Sister Multiple complications of type 2 diabetes mellitus Social History: household members none Prior Living Arrangements Assisted Living Safety & Behavioral: Feels Safe in Current Yes Environment Been Physically Hurt or No Threatened By a Person Suicidal Ideation Description None Suicide Plan Description No Plan Tobacco & Substance use: Smoking Status Former smoker alcohol intake former alcohol intake frequency other Substance Use Type does not use Meds Home Medications and Allergies Home Medications Medication Instructions Recorded Confirmed Type nitrofurantoin monohyd/m-cryst 100 mg PO Q12H 5 Days #10 cap 11/06/20 11/07/20 Rx [Macrobid] Allergies Allergy/AdvReac Type Severity Reaction Status Date / Time No Known Drug Allergies Allergy Verified 06/16/20 10:55 Review of Systems Review of Systems ROS: Yes All systems reviewed with the patient and are negative except as otherwise documented Exam Vital Signs (past 8 hours): - 11/07/20 13:15 11/07/20 13:30 11/07/20 13:45 Temperature Pulse Rate 60 60 58 L Respiratory Rate 15 15 15 Blood Pressure 116/58 L 112/59 L 119/58 L Pulse Oximetry 98 97 98 11/07/20 14:00 11/07/20 14:15 11/07/20 14:30 Temperature Pulse Rate 65 64 63 Respiratory Rate 18 25 H 17 Blood Pressure 133/62 126/63 Pulse Oximetry 97 97 98 11/07/20 15:00 11/07/20 15:57 11/07/20 16:00 Temperature Pulse Rate 59 L 65 63 Respiratory Rate 17 Blood Pressure Pulse Oximetry 98 97 97 11/07/20 16:06 11/07/20 16:15 11/07/20 16:30 Temperature Pulse Rate 63 60 59 L Respiratory Rate 17 Blood Pressure 131/60 126/60 116/56 L Pulse Oximetry 97 96 96 11/07/20 16:45 Temperature 97.7 F Pulse Rate 67 Respiratory Rate 18 Blood Pressure 114/66 Pulse Oximetry 99 Oxygen Delivery Method Room Air Narrative Exam Narrative: GENERAL APPEARANCE: well developed, frail appearing elderly woman in no acute distress. HEENT: Atraumatic, symmetrical facies, no ptosis, PERRLA, conjunctiva clear, EOMs intact without nystagmus, mucous membranes are moist and pink without lesions or exudate. NECK/THYROID: Decreased range of motion, increased cervical lordosis without step-offs, nontender to palpation, no JVD, no carotid bruit, no thyromegaly, trachea midline. LYMPH NODES: no cervical or supraclavicular lymphadenopathy. SKIN: Justice, warm and dry, ecchymotic bruising to left arm, abrasion right knee. HEART: regular rate and rhythm, S1-S2, no murmur, no rubs or gallops, brisk capillary refill, 1+ dorsalis pedis pulses, no edema LUNGS: Bibasilar crackles without coarseness or wheezing, no cough present CHEST: Symmetrical movement, no accessory muscle use, good tidal volume, nontender to AP compression, right chest wall pain on lateral compression. ABDOMEN: Soft, no distention, no abdominal tenderness, no organomegaly, no flank or suprapubic tenderness, active bowel tones. EXTREMITIES: Decreased ROM right upper extremity with anterior elevation limited to 30-40 degrees, no drift, metal painter and BLE strength are 5/5 and symmetrical, no deformities or joint effusions. NEUROLOGIC: AAO to person, place and date but confused as to day or night, impaired memory and recall, NIH score 0, cranial nerves II-XII grossly intact, sensation intact to light touch, hearing grossly normal to speech. PSYCH: cooperative, appropriate with stable behavior Objective Labs Result Diagrams: 11/07/20 12:24 11/07/20 12:24 Labs: Laboratory Results - last 24 hr 11/07/20 11/07/20 11/07/20 12:15 12:24 12:24 WBC 14.2 H D RBC 4.54 Hgb 14.8 Hct 43.8 MCV 96.5 MCH 32.7 MCHC 33.9 RDW 13.7 Plt Count 93 L Neut % (Auto) 90.8 H Lymph % (Auto) 1.5 L [place] % (Auto) 7.3 Eos % (Auto) 0.2 L Baso % (Auto) 0.2 Neut # (Auto) 89908 H Lymph # (Auto) 200 L [place] # (Auto) 1000 H Eos # (Auto) 0 Baso # (Auto) 0 PT 12.2 INR 1.1 APTT 32 D Sodium Potassium Chloride Carbon Dioxide BUN Creatinine Estimated GFR BUN/Creatinine Ratio Glucose Lactate Calcium Total Bilirubin AST ALT Alkaline Phosphatase Total Creatine Kinase CK-MB (CK-2) CK-MB (CK-2) Rel Index Troponin I NT-Pro-B Natriuret Pep Total Protein Albumin Globulin Albumin/Globulin Ratio Procalcitonin TSH SARS-CoV-2 (PCR) Negative 11/07/20 11/07/20 11/07/20 12:24 12:24 12:24 WBC RBC Hgb Hct MCV MCH MCHC RDW Plt Count Neut % (Auto) Lymph % (Auto) [place] % (Auto) Eos % (Auto) Baso % (Auto) Neut # (Auto) Lymph # (Auto) [place] # (Auto) Eos # (Auto) Baso # (Auto) PT INR APTT Sodium 137 Potassium 4.0 Chloride 104 Carbon Dioxide 29 BUN 15 Creatinine 0.98 Estimated GFR 54.3 L BUN/Creatinine Ratio 15.3 Glucose 127 H Lactate Calcium 9.3 Total Bilirubin 0.9 AST 21 ALT 16 Alkaline Phosphatase 65 Total Creatine Kinase 21 L CK-MB (CK-2) TNP CK-MB (CK-2) Rel Index TNP Troponin I < 0.012 NT-Pro-B Natriuret Pep 961 H Total Protein 7.2 Albumin 3.9 Globulin 3.3 Albumin/Globulin Ratio 1.2 Procalcitonin 0.44 TSH SARS-CoV-2 (PCR) 11/07/20 11/07/20 12:24 12:24 WBC RBC Hgb Hct MCV MCH MCHC RDW Plt Count Neut % (Auto) Lymph % (Auto) [place] % (Auto) Eos % (Auto) Baso % (Auto) Neut # (Auto) Lymph # (Auto) [place] # (Auto) Eos # (Auto) Baso # (Auto) PT INR APTT Sodium Potassium Chloride Carbon Dioxide BUN Creatinine Estimated GFR BUN/Creatinine Ratio Glucose Lactate 1.9 Calcium Total Bilirubin AST ALT Alkaline Phosphatase Total Creatine Kinase CK-MB (CK-2) CK-MB (CK-2) Rel Index Troponin I NT-Pro-B Natriuret Pep Total Protein Albumin Globulin Albumin/Globulin Ratio Procalcitonin TSH 3.85 SARS-CoV-2 (PCR) Assessment & Plan Assessment & Plan narrative: This is an 84-year-old female patient sustained a ground level fall under unknown circumstances at home and was too weak to get up and presents to the hospital via EMS. Patient complains of continued right chest wall pain consistent with visit in the ER yesterday but presents with new fall with neurological deficits noted on ER exam upon arrival. 1. Ground level fall, TIA, possible syncope, acute, present on admission, active. -patient describes being in ?One place then found myself in another place on the floor and I do not know how it got there.? -patient has documented facial asymmetry, slurring of speech right arm drift ataxia documented in the ER that has fully resolved with a NIH score of 0 on admission. -CT and MRI finds no findings consistent with stroke intracranial hemorrhage or mass and angiography finds no vascular abnormalitie, no acute traumatic head or neck injury, notes chronic appearing wedging of T3 and T4. -patient experienced previous syncopal episode thought to be cardiac in origin related to bradycardia not evidence this admission. Patient will remain on telemetry. -in differential patient was diagnosed with UTI on ER visit yesterday and presents with elevated white count of 14.2 with neutrophils of 12,900, no evidence of sepsis and remains hemodynamically stable. -echocardiogram ordered for the morning -requested PT and OT evaluation. -will complete serial neurological evaluations. 2. Urinary tract infection, acute, present on admission, active. -Patient seen in the ER yesterday with urinalysis positive for nitrates, leukocyte esterase, wbc's and many bacteria and sent for culture. -initial culture resents find greater than 100,000 CFU of Gram-negative bacteria. Previous urine culture grew out E coli resistant to Bactrim. -patient started on ceftriaxone 1 g IV daily. 3. Right chest wall pain, acute, present on admission, active -patient has persistent chest wall pain on palpation history of osteoporosis without evidence of rib fracture, crepitus or subcutaneous emphysema. -ordered Tylenol 650 mg every 4 hours as needed for mild pain. 4. Hypothyroidism, chronic, stable. -TSH is 3.85. -patient is not currently treated medically. 5. Cognitive impairment, chronic, stable -patient previously on donepezil but no current medical management. -per [facility] documentation the patient is independent in all activities of daily living. 6. Hyperlipidemia, chronic, stable -the patient previously been on atorvastatin 10 mg daily but also no longer on current medical management. -ordered atorvastatin 20 mg daily in setting of TIA. -will obtain lipid panel 7. Lung cancer, no evidence of a recurrence, stable -patient with previous non-small cell cancer of the right lung and small cell cancel the left lower lobe. -patient has received chemo and radiation therapy and has sustained chronic radiation fibrotic changes to the lung. -patient last evaluated by Dr. Garcia in January 2020 finding no recurrence and no further need for oncology follow-up. VTE prophylaxis: Enoxaparin 40 mg daily IV fluid: Saline lock Diet: Heart healthy Code status DNR/DNI, the patient designates her daughter Mack Jones to be her surrogate decision maker. The patient is admitted to the hospital due to the severity of her symptoms requiring further monitoring and evaluation to prevent complications and adverse events. The patient is admitted as observation with expected length of stay to be less than 2 midnights. COVID-19 COVID-19 status: Negative Result date/Date tested (Pos, Neg/Pending): 11/07/20 Scores GCS Patricia coma scale eye opening: Spontaneous Patricia coma scale verbal response: Confused [place] coma scale motor response: Obey commands Patricia coma scale total score: 14 NIHSS Level of Conciousness: Alert, keenly responsive Ask month/age: Answers both questions correctly. Open/close eyes, close hand: Performs both tasks correctly Best gaze horizontal: Normal Visual almodovar: No visual loss Facial palsy: Normal symetrical movement Left arm drift: No drift for full 10 sec Right arm drift: No drift for full 10 sec Left leg drift: No drift for full 5 sec Right leg drift: No drift for full 5 sec Limb ataxia: Absent Sensory on face/arms/legs: Normal, no sensory loss Best language: No aphasia, normal Dysarthria: Normal Extinction or inattention: No abnormality Total NIH Stroke scale score: 0 Quality VTE Deep Vein Thrombosis/Pulmonary Embolism Present on Admission: No
[2020-11-08 00:14] VITALS: BP 148/66; PULSE 63; RESP 18; TEMP 36.3; O2SAT 96
[2020-11-08 04:58] VITALS: BP 113/58; PULSE 61; RESP 15; TEMP 36.3; O2SAT 95
[2020-11-08 05:41] LABS: Add Manual Diff / Slide Review NO; Basophils Absolute Auto 0 /uL (0-100); Basophils Percent Auto 0.2 % (0-2); Eosinophils Absolute Auto 400 /uL (0-450); Hemoglobin 13.5 g/dL (12.0-16.0); Lymphocytes Absolute Auto 500 /uL (1100-4500); Lymphocytes Percent Auto 5.9 % (25-40); Mean Corpuscular HGB Conc 33.7 % (30-36); Mean Corpuscular Hemoglobin 32.2 PG (26-34); Mean Corpuscular Volume 95.6 fL (80-100); Monocytes Absolute Auto 900 /uL (0-900); Monocytes Percent Auto 11.2 % (3-14); Neutrophils Absolute Auto 6200 /uL (1500-7000); Neutrophils Percent Auto 77.7 % (50-75); Platelet Count 97 X10^3/uL (150-400); Red Blood Cell Count 4.19 X10^6/uL (4.0-5.2); Red Cell Distribution Width 14.3 % (11.6-14.8)
[2020-11-08 05:48] LABS: BUN Creatinine Ratio 25.9 (6-22); Blood Urea Nitrogen 22 mg/dL (7-17); Calcium 8.8 mg/dL (8.4-10.2); Carbon Dioxide 29 mmol/L (22-32); Chloride 106 mmol/L (98-107); Cholesterol 187 mg/dL (140-199); Estimated Glomerular Filt Rate > 60.0 mL/min (>60); Glucose 89 mg/dL (80-110); HDL Cholesterol 51 mg/dL (40-60); HEMOLYSIS < 15 (0-50); LDL Cholesterol Calculated 121 mg/dL (<100); Magnesium 2.1 mg/dL (1.6-2.3); Sodium 136 mmol/L (137-145); Triglycerides 76 mg/dL (35-150)
[2020-11-08 05:59] LABS: Hemoglobin A1C% w Est Avg Glu 5.3 % (4.0-6.0)
[2020-11-08 08:53] VITALS: BP 107/55; PULSE 75; RESP 14; TEMP 36.4; O2SAT 96
--- NOTE | 2020-11-08 08:55 | PM.DS.1 ---
History of Present Illness History of Present Illness Date Patient Seen: 11/08/20 Time Patient Seen: 08:55 Chief complaint: Ground Level Fall Narrative: As per SREEKANTH Guerin: Ms. 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 The patient provides of fragmented history and is a questionable historian. She does state that she recalls being in [address] this morning and then later found herself and another place not knowing how she got there. She does not recall falling however relates that she found herself on the floor and was too weak to get up adding that she knew she had to get to the bathroom to urinate. The patient does have a history of frequent falls. The patient was seen yesterday for complaints of right chest wall pain and has a history of osteoporosis with previous rib fractures and sternal fracture. No acute injury is found hour the patient was found to have a urinary tract infection and was discharged with Bactrim which appears the patient is again not yet started. In the ER the patient is found to have some facial asymmetry, slurring of speech, right arm weakness and ataxia which all resolved during stay in the ER.. 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 The patient denies fevers or chills, headaches or dizziness, nasal congestion or sore throat. She reports complaints of neck pain earlier but none presently. She denies complaints of chest pain or palpitations and has no shortness of breath cough or wheezing. She denies epigastric or abdominal pain and denies nausea vomiting the ER provider documentation notes the patient vomited x1 during transport with EMS. The patient denies constipation or diarrhea. Upon arrival to the ER the patient has a temperature 97.9?, heart rate of 64, blood pressure 128/58, respirations of 16 saturating 96% on air. Chest x-ray finds no significant cardiopulmonary abnormalities. A CT of the head is obtain with no acute hematoma or intracranial processes. A CT of the cervical spine finds degenerative changes without fractures with chronic appearing wedging of T3 and T4. A CT angiogram of head is reported as negative with no evidence of CVA, hematoma or mass with her the finding of central lobar emphysema. A brain MRI and angiogram further find no significant findings. On laboratory analysis WBCs are 14.2 with elevated neutrophils at 12,900, hemoglobin of 14.8 hematocrit of 43.8 and platelets of 93. She has a PT of 12.2, INR 1.1, PTT 32. Her electrolytes are within normal limits she has a BUN of 15 with creatinine 0.98. Her liver functions are all within normal limits she has a lactic acid of 1.9, procalcitonin of 0.44. Total CK is 21 and troponin is negative at less than 0.012. TSH is found to be 3.85. In the ER the patient received ceftriaxone 1 g IV. The patient is admitted to the hospitalist service for for TIA. Discharge Providers Provider Date of admission: 11/07/20 15:12 Discharge Date: 11/08/20 Primary care physician: Gagan Lang DO Consults: 11/07/20 20:18 Consult to Discharge Planning Routine Comment: Consult to Occupational Therapy Evaluate & Treat Comment: TIA, generalized weakness Physician Instructions: Evaluate and treat Consult to Physical Therapy Evaluate & Treat Comment: TIA, generalized weakness Physician Instructions: Evaluate and Treat Discharge provider: Apollo Bennett DO Summary Hospital Course Discharge Diagnosis: 1. TIA, acute, resolved prior to admission. 2. Acute cystitis, present on admission, active 3. History of non-small cell lung cancer of the right lung 4. COPD, chronic, without exacerbation 5. Hyperlipidemia, chronic Hospital Course: Patient was admitted over concern for possible TIA with R arm weakness and possibly slurred speech. Stroke scale was 0 on admissionAnd symptoms did not recur. Symptoms may be related to patient's fall, or UTI. MRI was negative for acute CVA. Telemetry was unremarkable. Patient stable for return back to her assisted living. Continue UTI treatment with 2 additional days of cefdinir. Patient started on ASA and statin for possible TIA, although these medications can be revisisted as an outpatient. Exam Vital Signs (past 8 hours): - 11/08/20 04:58 Temperature 97.3 F L Pulse Rate 61 Respiratory Rate 15 Blood Pressure 113/58 L Pulse Oximetry 95 Oxygen Delivery Method Room Air Oxygen Flow Rate 0 Narrative Exam Narrative: GENERAL APPEARANCE: well developed, elderly woman in no acute distress. HEENT: Atraumatic, symmetrical facies, no ptosis, PERRLA, conjunctiva clear, EOMs intact without nystagmus, mucous membranes are moist and pink without lesions or exudate. NECK/THYROID: Decreased range of motion, increased cervical lordosis without step-offs, nontender to palpation, no JVD, no carotid bruit, no thyromegaly, trachea midline. LYMPH NODES: no cervical or supraclavicular lymphadenopathy. SKIN: [place], warm and dry, ecchymotic bruising to left arm, abrasion right knee. HEART: regular rate and rhythm, S1-S2, no murmur, no rubs or gallops, brisk capillary refill, no edema LUNGS: Bibasilar crackles without coarseness or wheezing, no cough present CHEST: Symmetrical movement, no accessory muscle use, good tidal volume, nontender to AP compression, right chest wall pain on lateral compression. ABDOMEN: Soft, no distention, no abdominal tenderness, no organomegaly, no flank or suprapubic tenderness, active bowel tones. 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 NEUROLOGIC: AAO to person, place and date but confused as to day or night, impaired memory and recall, NIH score 0, cranial nerves II-XII grossly intact, sensation intact to light touch, hearing grossly normal to speech. PSYCH: cooperative, appropriate with stable behavior Objective Labs Result Diagrams: 11/08/20 05:15 11/08/20 05:15 Labs: Laboratory Results - last 24 hr 11/07/20 11/07/20 11/07/20 12:15 12:24 12:24 WBC 14.2 H D RBC 4.54 Hgb 14.8 Hct 43.8 MCV 96.5 MCH 32.7 MCHC 33.9 RDW 13.7 Plt Count 93 L Neut % (Auto) 90.8 H Lymph % (Auto) 1.5 L Bent % (Auto) 7.3 Eos % (Auto) 0.2 L Baso % (Auto) 0.2 Neut # (Auto) 42913 H Lymph # (Auto) 200 L Bent # (Auto) 1000 H Eos # (Auto) 0 Baso # (Auto) 0 PT 12.2 INR 1.1 APTT 32 D Sodium Potassium Chloride Carbon Dioxide BUN Creatinine Estimated GFR BUN/Creatinine Ratio Glucose Hemoglobin A1c Lactate Calcium Magnesium Total Bilirubin AST ALT Alkaline Phosphatase Total Creatine Kinase CK-MB (CK-2) CK-MB (CK-2) Rel Index Troponin I NT-Pro-B Natriuret Pep Total Protein Albumin Globulin Albumin/Globulin Ratio Triglycerides Cholesterol LDL Cholesterol, Calc HDL Cholesterol Procalcitonin TSH SARS-CoV-2 (PCR) Negative 11/07/20 11/07/20 11/07/20 12:24 12:24 12:24 WBC RBC Hgb Hct MCV MCH MCHC RDW Plt Count Neut % (Auto) Lymph % (Auto) Bent % (Auto) Eos % (Auto) Baso % (Auto) Neut # (Auto) Lymph # (Auto) Bent # (Auto) Eos # (Auto) Baso # (Auto) PT INR APTT Sodium 137 Potassium 4.0 Chloride 104 Carbon Dioxide 29 BUN 15 Creatinine 0.98 Estimated GFR 54.3 L BUN/Creatinine Ratio 15.3 Glucose 127 H Hemoglobin A1c Lactate Calcium 9.3 Magnesium Total Bilirubin 0.9 AST 21 ALT 16 Alkaline Phosphatase 65 Total Creatine Kinase 21 L CK-MB (CK-2) TNP CK-MB (CK-2) Rel Index TNP Troponin I < 0.012 NT-Pro-B Natriuret Pep 961 H Total Protein 7.2 Albumin 3.9 Globulin 3.3 Albumin/Globulin Ratio 1.2 Triglycerides Cholesterol LDL Cholesterol, Calc HDL Cholesterol Procalcitonin 0.44 TSH SARS-CoV-2 (PCR) 11/07/20 11/07/20 11/08/20 12:24 12:24 05:15 WBC 8.0 RBC 4.19 Hgb 13.5 Hct 40.0 MCV 95.6 MCH 32.2 MCHC 33.7 RDW 14.3 Plt Count 97 L Neut % (Auto) 77.7 H Lymph % (Auto) 5.9 L Bent % (Auto) 11.2 Eos % (Auto) 5.0 H Baso % (Auto) 0.2 Neut # (Auto) 6200 Lymph # (Auto) 500 L Bent # (Auto) 900 Eos # (Auto) 400 Baso # (Auto) 0 PT INR APTT Sodium Potassium Chloride Carbon Dioxide BUN Creatinine Estimated GFR BUN/Creatinine Ratio Glucose Hemoglobin A1c Lactate 1.9 Calcium Magnesium Total Bilirubin AST ALT Alkaline Phosphatase Total Creatine Kinase CK-MB (CK-2) CK-MB (CK-2) Rel Index Troponin I NT-Pro-B Natriuret Pep Total Protein Albumin Globulin Albumin/Globulin Ratio Triglycerides Cholesterol LDL Cholesterol, Calc HDL Cholesterol Procalcitonin TSH 3.85 SARS-CoV-2 (PCR) 11/08/20 11/08/20 05:15 05:15 WBC RBC Hgb Hct MCV MCH MCHC RDW Plt Count Neut % (Auto) Lymph % (Auto) Bent % (Auto) Eos % (Auto) Baso % (Auto) Neut # (Auto) Lymph # (Auto) Bent # (Auto) Eos # (Auto) Baso # (Auto) PT INR APTT Sodium 136 L Potassium 4.0 Chloride 106 Carbon Dioxide 29 BUN 22 H Creatinine 0.85 Estimated GFR > 60.0 BUN/Creatinine Ratio 25.9 H Glucose 89 Hemoglobin A1c 5.3 Lactate Calcium 8.8 Magnesium 2.1 Total Bilirubin AST ALT Alkaline Phosphatase Total Creatine Kinase CK-MB (CK-2) CK-MB (CK-2) Rel Index Troponin I NT-Pro-B Natriuret Pep Total Protein Albumin Globulin Albumin/Globulin Ratio Triglycerides 76 Cholesterol 187 LDL Cholesterol, Calc 121 H HDL Cholesterol 51 Procalcitonin TSH SARS-CoV-2 (PCR) [facility] Medical History Acid reflux Adult failure to thrive Auditory hallucinations COPD (chronic obstructive pulmonary disease) Cough Dry eyes Frequent falls History of lung cancer in adulthood History of pneumothorax History of rib fracture Hyperlipidemia Hypothyroidism (acquired) Mobility impaired Non-small cell cancer of right lung Onychomycosis Physician orders for life-sustaining treatment (POLST) form indicates patient wish for [id number] status Short-term memory loss Small cell lung cancer, left lower lobe Thrombocytopenia UTI (urinary tract infection) Surgical History History of bilateral breast reduction surgery History of lung biopsy Family History Sister Cancer Sister Multiple complications of type 2 diabetes mellitus Social History household members: none Smoking Status: Former smoker alcohol intake: former Discharge Plan Discharge Plan Patient Disposition: Assisted Living Other facility: [facility] Provider Discharge Comment: Patient was admitted over concern for possible TIA with R arm weakness and possibly slurred speech. Stroke scale was 0, symptoms resolved. Symptoms may be related to patient's fall, or UTI. MRI was negative for acute CVA. Patient stable for return. Continue UTI treatment with 2 additional days of cefdinir. Patient started on ASA and statin for possible TIA, although these medications can be revisisted as an outpatient. Discharge orders & Medications Discharge Orders: Discharge (Order); Ordered 11/08/20 Ordered By: Apollo Bennett Prescriptions: New aspirin 81 mg Tablet,Delayed Release (Dr/Ec) 81 mg PO DAILY 30 Days Qty: 30 RF: 0 atorvastatin 40 mg tablet 40 mg PO BEDTIME 30 Days Qty: 30 RF: 0 Discontinued nitrofurantoin monohyd/m-cryst [Macrobid] 100 mg capsule 100 mg PO Q12H 5 Days Qty: 10 RF: 0 Follow up/Referrals: Gagan Lang DO [Primary Care Provider] - Discharge Health Status Precautions: Victor Diet/Activity/Treatments Diet: Diet as Tolerated Visit Report/Discharge Packet Instructions: Atorvastatin, Cefdinir Discharge Data Primary Care Provider: Gagan Lang Attending Provider: Apollo Bennett VTE Deep Vein Thrombosis/Pulmonary Embolism Present on Admission: No
[2020-11-08] MEDS: SODIUM CHLORIDE 0.9% FLUSH 10 ML IV (10:03)
[2020-11-08] MEDS: ASPIRIN EC 81 MG TABLET PO (10:03)
[2020-11-08] MEDS: ENOXAPARIN 40 MG/0.4 ML SYRINGE SUBCUT (10:03)
--- NOTE | 2020-11-08 10:08 | OT.IP.EVAL ---
Past Medical History (Last Reviewed 11/07/20 @ 22:23 by SREEKANTH Guerin) Acid reflux Adult failure to thrive Auditory hallucinations COPD (chronic obstructive pulmonary disease) Cough Dry eyes Frequent falls History of lung cancer in adulthood History of pneumothorax History of rib fracture Hyperlipidemia Hypothyroidism (acquired) Mobility impaired Non-small cell cancer of right lung Onychomycosis Physician orders for life-sustaining treatment (POLST) form indicates patient wish for [id number] status Short-term memory loss Small cell lung cancer, left lower lobe Thrombocytopenia UTI (urinary tract infection) Surgical History (Last Reviewed 11/07/20 @ 22:23 by SREEKANTH Guerin) History of bilateral breast reduction surgery History of lung biopsy Occupational Therapy Inpatient Evaluation/Re-Eval M1 PT/OT-IP Prior Functional Status Start: 11/08/20 10:13 Freq: NEEDED Status: Active Protocol: Document 11/08/20 10:13 [facility] (Rec: 11/08/20 10:39 [facility] [id number]) Medical Review Prior Functional Status Medical History Reviewed Yes Communication Independent Mobility and Gait Pt uses 4ww at the time in her room and at her MELBA. Activities of Daily Living and IADL's Per pt states completely independent with all her ADL's , has assist to vacuum, take out the trash, and meals provides. Social History Household Members none Living Arrangements Assisted Living Number of Floors (Floors) One Floor Home Environment Standard Height Toilet,Walk in Shower Home Equipment Front Wheel Walker,Four Wheel Walker,Straight Cane,Raised Toilet Seat w/Armrests,Hand Held Shower,Grab Bars In Shower M2 OT-IP Current Condition Start: 11/08/20 10:13 Freq: Status: Active Protocol: Document 11/08/20 10:13 [facility] (Rec: 11/08/20 10:39 [facility] [id number]) Occupational Therapy Current Condition Current Condition Evaluation Date 11/08/20 Treatment Diagnosis GLF, TIA M3 OT- IP Subjective and Pain Start: 11/08/20 10:13 Freq: Status: Active Protocol: Document 11/08/20 10:13 [facility] (Rec: 11/08/20 10:39 [facility] [id number]) OT- Subjective Occupational Therapy Visit Type Type Initial Evaluation Visit Start Time 09:00 Visit Stop Time 10:08 Total Visit Minutes 68 Occupational Therapy Visit Comments Patient Comments Pt agreeable to do a shower for OT eval and feels that she is close to her baseline. Patient/Caregiver Goals TO go home. OT Pain Assessment Pain When Pain Assessed At Rest Pain Present Pain Present Denied Pain M4 OT- IP ADL's Start: 11/08/20 10:13 Freq: Status: Active Protocol: Document 11/08/20 10:13 [facility] (Rec: 11/08/20 10:39 [facility] [id number]) OT [id number] Comments OT Self-Feeding Comments Not at meal time. OT ADL-Grooming General Evaluation Grooming Ability Independent OT ADL-Dressing General Eval Upper Body Dressing Ability Independent Lower Body Dressing Ability Minimal Assistance Areas Needing Assistance Socks Comments OT Dressing Comments Pt getting tired and therefore needing assist to get socks over her feet. Otherwise increased time to jean her brief and pants over her hips. Pt did have lose of balance but able to use grab abr to regain her balance on her own. OT ADL-Toileting Comments OT Toileting Comments Pt not having to use the toilet at this time. Suggested for pt to put on her glasses if having to use the bathroom at night. OT ADL-Bathing Bathing Type Bathing Type Shower General Evaluation Bathing Ability Minimal Assistance Areas Needing Assistance Wash/Dry Back Devices Bathing Equipment Grab Bars Comments OT Bathing Comments Pt needing assist to wash her back and educated would benefit from a long handled brush or use of long thin towel to assist to wash her back. Pt had several loss of balance while on her feet and encouraged her to have someone there initially when she showers or even wear her glasses would help with her safety showering. Pt states feels that she is safer at home for showering need as has more grab bars and in use to her shower at home. M5 OT- IP IADL's Start: 11/08/20 10:13 Freq: Status: Active Protocol: Document 11/08/20 10:13 [facility] (Rec: 11/08/20 10:39 [facility] [id number]) OT-Instrumental Activities of Daily Living Home Safety Awareness Ability to Problem Solve Emergency Able to Problem Solve Situations Home Safety Comments Pt could benefit from supervision from showering for safety as had several loss of balance while showering but able to use the grab bars to regain her balance , but pt feels that she is safer at home for showering needs. Medication Management Medication Management Comments Pt states no longer takes any medications. Pt would benefit from assist for medications if having to take any medications due to her decreased STM. Money Management Money Management Caregiver Provides Assistance Money Management Comments Pt states her daughter assist her with finances. Meal Preparation Meal Preparation Caregiver Provides Assist Human Service Technician Human Service Technician Caregiver Provides Assist Driving Driving Concerns Identified Regarding Safety M6 OT- IP Functional Cognition Start: 11/08/20 10:13 Freq: Status: Active Protocol: Document 11/08/20 10:13 [facility] (Rec: 11/08/20 10:39 [facility] [id number]) Cognitive Factors Limiting Selfcare Function Cognitive Ability Level of Alertness Alert Patient Orientation Name,Place,Situation Attention Span Ability Capable of Focused Attention, Capable of Sustained Attention Ability to Follow Commands Able to Follow One Step Commands Memory Description Short Term Impaired Safety Awareness Underestimates Need for Assistance Cognitive Comments Cognitive Assessment Comments Pt needing reminders while showering as forgot that she had already washed her hair. Pt would benefit from someone to be there initially while she showers. Pt feel that she is at baseline for needs and feels would be safer at home. OT- Vision and Hearing OT- Hearing Assessment OT- Hearing Assessment WFL OT- Vision Assessment Visual Acuity Glasses All The Time Vision Assessment Comments Pt does not have her prism glasses here in the hospital. Therefore pt see double. Pt would benefit from wearing her glasses even during showering needs and when up to use the bathroom. M7 OT- IP Mobility and Balance Start: 11/08/20 10:13 Freq: Status: Active Protocol: Document 11/08/20 10:13 [facility] (Rec: 11/08/20 10:39 [facility] [id number]) OT- Bed Mobility Assessment Rolling Level of Assistance Standby Assistance Supine to Sit Supine to Sit Assist Standby Assistance Sit to Supine Sit to Supine Assist Standby Assistance OT-Transfer Assessment Sit to and From Stand Sit to and from Stand Standby Assistance Transfers Transfer Ability Standby Assistance,Contact Guard Assistance Technique Transfer Destination Bed,Shower Stall Transfer Technique Stand Step Pivot Devices Transfer Assistive Devices Front Wheeled Walker Comments Mobility Comments Pt SBA with bed mobility and walking with FWW for level surfaces. Pt needing CGA to step over the threshold as did not have her glasses with her therefore having difficulty to see the threshold of the shower and needing CGA. Able to talk to case management that she would be best if someone could come and pick her up from the hospital and bring her glasses and FWW to help increase her safety. OT- Gait Assessment Gait Gait Assistance Required: Standby Assistance OT- Balance Assessment Sitting Balance and Reactions Static Sitting Balance Ability Normal Dynamic Sitting Balance Ability Normal Standing Balance and Reactions Static Standing Balance Ability Fair Dynamic Standing Balance Ability Poor M8 OT- IP Objective Assessments Start: 11/08/20 10:13 Freq: Status: Active Protocol: Document 11/08/20 10:13 [facility] (Rec: 11/08/20 10:39 [facility] [id number]) OT Gross Range of Motion Upper Extremity Range of Motion Assessment Right Impaired ROM Impairments RUE 0-95 OT Strength Upper Extremity Strength Assessment Right Impaired Comments Strength Comments BUE from elbow to distal 5/5. OT- Coordination Assessment Comments Coordination Comments Per functional observation of putting on her watch and socks pt did not have any issues. OT-Muscle Tone Assessment Muscle Tone WNL Yes M9 OT- IP Assessment and Plan Start: 11/08/20 10:13 Freq: Status: Active Protocol: Document 11/08/20 10:13 [facility] (Rec: 11/08/20 10:39 [facility] [id number]) OT Summary Assessment and Plan Potential Rehabilitation Potential Good Analytic Complexity at Evaluation Low Summary OT Impairments Balance,Functional Cognition, Functional Mobility Progress Towards Goals Progressing Toward Goals Assessment Summary Pt low complexity and here due to TIA and GLF. Pt's main barriers are her vision as does not have her glasses here in the hospital, decreased dynamic balance, and short term memory. Pt during the shower forget that she already washed her hair. Pt however feels that she is at her baseline for all needs. Pt would benefit from OT/PT home health to help improve her overall dynamic balance needs. IN addition pt would initially benefit from supervision for showering needs for safety. Goals Grooming Goal Independent Dressing Goal Independent Toileting Goal Independent Bathing Goal Independent Toilet Transfer Goal Independent Shower Transfer Goal Independent Days to Meet Goals 3 Frequency of Treatment Frequency Of Treatment Once a Day Treatment Plan OT Treatment Plan ADL Training,Functional Cognition Training,Functional Mobility,Patient/Family Education,Discharge Planning Discharge Recommendations OT Discharge Recommendations Home with Assistance,Home Health Home Equipment Needs long handled brush
--- NOTE | 2020-11-08 12:19 | PT.IIE ---
Surgical History (Last Reviewed 11/07/20 @ 22:23 by SREEKANTH Guerin) History of bilateral breast reduction surgery History of lung biopsy Medical History (Last Reviewed 11/07/20 @ 22:23 by SREEKANTH Guerin) Acid reflux Adult failure to thrive Auditory hallucinations COPD (chronic obstructive pulmonary disease) Cough Dry eyes Frequent falls History of lung cancer in adulthood History of pneumothorax History of rib fracture Hyperlipidemia Hypothyroidism (acquired) Mobility impaired Non-small cell cancer of right lung Onychomycosis Physician orders for life-sustaining treatment (POLST) form indicates patient wish for ye-xkj-uikkivccwpq status Short-term memory loss Small cell lung cancer, left lower lobe Thrombocytopenia UTI (urinary tract infection) Physical Therapy Inpatient Evaluation/Re-Eval M1 PT/OT-IP Prior Functional Status Start: 11/08/20 10:13 Freq: NEEDED Status: Active Protocol: Document 11/08/20 11:40 (Rec: 11/08/20 12:19 [id number]) Medical Review Prior Functional Status Medical History Reviewed Yes Communication Independent Mobility and Gait Pt uses 4ww at the time in her room and at her PRISON. Activities of Daily Living and IADL's Per pt states completely independent with all her ADL's , has assist to vaccuum, take out the trash, and meals provides. 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 States that she wears glasses with prizms and had a botched eye surgery Social History Household Members none Living Arrangements Assisted Living Number of Floors (Floors) One Floor Home Environment Standard Height Toilet,Walk in Shower Home Equipment Front Wheel Walker,Four Wheel Walker,Straight Cane,Raised Toilet Seat w/Armrests,Hand Held Shower,Grab Bars In Shower Employment Status Retired Additional Social History Comment Pt is a and lives in an assisted living facility in [facility]. Dtr lives closeby M2 PT-IP Current Condition Start: 11/08/20 08:31 Freq: NEEDED Status: Active Protocol: Document 11/08/20 11:40 (Rec: 11/08/20 12:19 [id number]) Physical Therapy Current Condition Current Condition Evaluation Date 11/08/20 Treatment Diagnosis TIA, UTI , GLF and generalized weakness Onset Date 11/07/20 Weight Bearing Status Weight Bearing Status Full Weight Bearing M3 PT-IP Subjective Start: 11/08/20 08:31 Freq: NEEDED Status: Active Protocol: Document 11/08/20 11:40 (Rec: 11/08/20 12:19 HH [id number]) Subjective Physical Therapy Visit Type Type Initial Evaluation Visit Start Time 10:14 Visit Stop Time 10:29 Total Visit Minutes 15 Notes pt just finished with OT Number of [employer] Visits 0 Physical Therapy Visit Comments Patient Comments I am feeling pretty good today Patient Goals I want to get my strength back Therapy Pain Assessment Pain Present Pain Present Denied Pain M4 PT-IP Mobility and Gait Start: 11/08/20 08:31 Freq: NEEDED Status: Active Protocol: Document 11/08/20 11:40 HH (Rec: 11/08/20 12:19 HH [id number]) PT-Bed Mobility Assessment Supine to Sit Supine to Sit Standby Assistance Sit to Supine Sit to Supine Standby Assistance Scooting Scooting to Edge of Bed Standby Assistance Scooting Up and Down in Bed Standby Assistance PT-Transfer Assessment Sit to and From Stand Sit to and from Stand Contact Guard Assistance,Use of Upper Extremities Equipment Transfer Assistive Device Gait Belt,Front Wheeled Walker Orthotic/Prosthetic Devices or Brace: No Transfers Transfer Destination Bed Transfer Technique FWW Transfer Ability Level of Assist Contact Guard Assistance,Use of Upper Extremities Comments Mobility Comments Pt just returned to her bed after OT assessment. She did not c/o fatigue and agreeable to mobilize with PT. She initially completed supine to long sit followed by pivoting herself to R side EOB SBA. Completed neurological assessment with pt and noticed mild weakness on R shoulder and minimally delayed fine motor response on RUE. Mild facial droop noted. Pt then stood up by pushing off from FWW CGA and noticed pt has excessive spontaneous weight shift. She then amb with FWW to hallway with CGA. Pt overall shows good endurance and did not c/o fatigue. However, pt tends to mildly drift her walker towards L side and often got caught with edges of the table/ wall possibly d/t her poor vision. Pt often needed to lean forward to look over obstacles in order to clear them She also showed a tendency to walk with minimal R foot clearance . Pt overall completed 1 lap of [facility] with CGA and returned to bed after with SBA. Call light placed within reach and bed alarm activated. Gait Assessment Gait Gait Assistance Required: Contact Guard Assist Distance (Feet) 212 Able to Maintain Weight Bearing Status Yes During Gait Assistive Devices Assistive Device Gait Belt,Front Wheeled Walker Orthotic/Prosthetic Devices or Brace: No Gait Deviations General Gait Pattern Decreased Stride Length, Decreased Feet Clearance, Flexed Trunk,Lateral Trunk Lean Factors Limiting Gait Function Factors Limiting Gait Function Decreased Activity Tolerance, Decreased Strength,Poor Balance,Poor Safety Awareness Comments Gait Comments see mobility comments Stair Climbing Assessment Comments Stair Climbing Comments pt does not have any steps at home PT-Balance Assessment Sitting Balance and Reactions Static Sitting Balance Ability Normal Dynamic Sitting Balance Ability Normal Standing Balance and Reactions Static Standing Balance Ability Good Dynamic Standing Balance Ability Good Device Used FWW M5 PT-IP Objective Assessments Start: 11/08/20 08:31 Freq: NEEDED Status: Active Protocol: Document 11/08/20 11:40 (Rec: 11/08/20 12:19 [id number]) Orientation Orientation/Cognition Level of Alertness Alert Orientation Name,Age,Birthday,Place, Situation Language Function Ability No Deficits Noted Safety Awareness Decreased Safety Awareness Memory Description Short Term Impaired Gross Range of Motion Upper Extremity ROM Assessment Within Functional Limits Lower Extremity ROM Assessment Within Functional Limits Strength Upper Extremity Strength Assessment Right Impaired Shoulder 4-/5 Elbow 4+/5 Wrist 4+/5 Lower Extremity Strength Assessment Within Functional Limits Comments Strength Comments slight weakness on RUE Shoulder > wrist. Pt stated she has shoulder issue for years so she is not sure if thats new. Coordination Assessment Gross Coordination Gross Coordination WNL Assessment Finger to Nose Test Normal Performance Pronation/Supination Test Normal Performance Foot Tapping Test Normal Performance Heel on [place] Test Normal Performance Sensation Assessment Sensation Gross Sensation WNL Muscle Tone Muscle Tone WNL Yes Other Assessments Other Other Assessments finger tapping with thumb test = slight delayed response and decreased accurary for motor execution than L M6 PT-IP Treatment Start: 11/08/20 08:31 Freq: NEEDED Status: Active Protocol: Document 11/08/20 11:40 (Rec: 11/08/20 12:19 [id number]) Physical Therapy Treatment Education Education Provided Safety M7 PT-IP Assessment and Plan Start: 11/08/20 08:31 Freq: NEEDED Status: Active Protocol: Document 11/08/20 11:40 (Rec: 11/08/20 12:19 [id number]) PT Summary Assessment and Plan Potential Rehabilitation Potential Good Status of Condition at Evaluation Evolving Summary Impairments ROM,Strength,Balance, Coordination,Cognition,Bed Mobility,Transfers,Gait, Activity Tolerance Assessment Summary This is a 84yo female admitted to d/t UTI, TIA and GLF. Pt lives in assisted living facility who is mostly IND for self care and needed assistance for IADLs. She uses 4WW at all times with multiple falls prior to admission. Upon assessment, pt 's mobility is somewhat close to baseline but with FWW. However, pt has very poor awareness who tends to have her walker caught with obstacles and occasional R foot drag which leads risk of falling. Pt also has some weakness on RUE, slight facial droop upon assessment. I suggest pt will benefit from home health to improve her mobility, strength and safety awareness. Goals Bed Mobility Goal Standby Assistance Transfer Goal Front Wheeled Walker,Four Wheeled Walker Gait Goal Front Wheel Walker,Four Wheel Walker Gait Distance 300 Days to Meet Goals 3 Frequency of Treatment Frequency Of Treatment Once a Day Treatment Plan Physical Therapy Treatment Plan Bed Mobility Training,Transfer Training,Gait Training, Therapeutic Exercise,Balance Retraining,Discharge Planning, Neuromuscular Re-ed Other Recommendations and Next Treatment mobility as theron Focus trial for 4WW Recommendations To Nursing Amount of Assist Needed 1 Person Assist Discharge Recommendations PT Discharge Recommendations Home with Assistance,Home Health Transportation Needs at Discharge Private Vehicle
--- NOTE | 2020-11-08 12:57 | CM.DPNOTE ---
Spoke to D[place] from [facility] and he said they could see patient within 2 days of discharge, which is today. Faxed clinicals & Face to Face to [facility] per Apurva on 11/08/20. Fax confirmation received. Samantha Ramsay CM Asst.
--- NOTE | 2020-11-08 13:25 | PC.NURSE ---
All discharge teaching done regarding new medications, s/s of stroke, s/s of infection, signs of a UTI. Patient said she was confused about teaching, I went over things a couple of times. Called Elizabeth and [facility] to let her know to go over teaching again with patient when she has her glasses on. Called the daughter Mack to also tell her what was going on, and to re-iterate teaching. Patient's medications were electronically sent to [facility]. Patient left facility w/ facility employee ambulette driver from [facility]. Patient had all belongings with her.
--- NOTE | 2020-11-08 15:25 | CM.IDA ---
Initial DCP Assessment Note Patient is an 84 yo female, resident of [facility] P# [phone] F#[phone]. Patient admitted observation w/UTI and suspected TIA, symptoms have cleared and patient has been DC today, back to facility w/ HH PCP: Gagan Lang Payer: [employer]/Luz Maria Placed call to Elizabeth at [facility]; she explained she had been on the phone w/patient's dtr this morning, who is currently out of town. Elizabeth and dtr Nichole Azevedo, grand dtr Terri in agreement for patient to return home today to [facility], facility van can pick patient up at 1300. Elizabeth explained that patient is currently in indp. living apt and patient's family working w/Elizabeth on securing additional medication assist and care assist for patient/NURSING HOME care. HH recommended by therapy team and patient, family, Elizabeth at [facility] agreeable and appreciative, request [facility]. JUICE Singh completed referral and faxed signed and completed F2F, HH order and clinical notes. This [employer] faxed signed med list, H+P, therapy notes, COVID Neg result and DC summary draft to [facility]. Updated MARK Avila w/ transport time, patient made aware and agreeable to plan. 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
== END 2020-11-08 13:31 ==
LOC: ED 15:05 → AC 15:13
PROVIDERS: Nurse Practitioner Adult Health; Admitting Provider Internal Medicine; Emergency Provider Emergency Medicine; PCP Family Medicine; Referring Provider Emergency Medicine; Visit Provider Internal Medicine
DX: G45.9 Transient cerebral ischemic attack, unspecified (principal); R53.1 Weakness; W18.30XA Fall on same level, unspecified, initial encounter; R47.81 Slurred speech; R07.89 Other chest pain; Z91.81 History of falling; Y92.099 Unspecified place in other non-institutional residence as the place of occurrence of the external cause; N39.0 Urinary tract infection, site not specified; E03.9 Hypothyroidism, unspecified; G31.84 Mild cognitive impairment of uncertain or unknown etiology; E78.5 Hyperlipidemia, unspecified; Z85.118 Personal history of other malignant neoplasm of bronchus and lung; Z20.822 Contact with and (suspected) exposure to COVID-19
CPT/HCPCS: 36415; 70450; 70496; 70498; 70548; 70553; 71045; 72125; 80048; 80053; 80061; 82550; 83036; 83605; 83735; 83880; 84145; 84443; 84484; 85025; 85610; 85730; 87040; 87635; 93005; 96361; 96365; 96372; 97162; 97165; 97530; 97535; 99284; C9803; G0378; J1650; Q9967

== ENCOUNTER → 2020-11-17 12:46 | Outpatient (CLI) | payer MEDICARE, OTHER, SELFPAY ==
[2020-11-07 15:22] VITALS: BMI 24.7
== END ==
PROVIDERS: PCP Family Medicine; Visit Provider Family Medicine
DX: N39.0 Urinary tract infection, site not specified (principal)
CPT/HCPCS: 87077; 87086; 87186

== ENCOUNTER → 2021-08-16 11:18 | Outpatient (CLI) | payer MEDICARE, OTHER, SELFPAY ==
[2020-11-07 15:22] VITALS: BMI 24.7
[2021-08-16 12:00] LABS: Add Manual Diff / Slide Review NO; Basophils Absolute Auto 0 /uL (0-100); Basophils Percent Auto 0.8 % (0-2); Eosinophils Absolute Auto 100 /uL (0-450); Eosinophils Percent Auto 1.8 % (2-4); Hematocrit 40.9 % (36-46); Hemoglobin 13.5 g/dL (12.0-16.0); Lymphocytes Absolute Auto 700 /uL (1100-4500); Lymphocytes Percent Auto 11.9 % (25-40); Mean Corpuscular Hemoglobin 32.3 PG (26-34); Mean Corpuscular Volume 97.8 fL (80-100); Monocytes Absolute Auto 800 /uL (0-900); Neutrophils Absolute Auto 4000 /uL (1500-7000); Neutrophils Percent Auto 71.5 % (50-75); Platelet Count 87 X10^3/uL (150-400); Red Blood Cell Count 4.18 X10^6/uL (4.0-5.2); Red Cell Distribution Width 14.2 % (11.6-14.8); White Blood Cell Count 5.7 X10^3/uL (4.5-11.0)
[2021-08-16 12:13] LABS: Appearance Urine UA CLEAR; Bilirubin Urine UA NEGATIVE (NEGATIVE); Color Urine UA YELLOW; Glucose Urine UA NEGATIVE (Negative); Ketones Urine UA NEGATIVE (NEGATIVE); Leukocyte Esterase Urine UA NEGATIVE (NEGATIVE); Nitrite Urine UA POSITIVE (Negative); Occult Blood Urine UA NEGATIVE (Negative); Protein Urine UA NEGATIVE (Negative); Specific Gravity Urine UA <=1.005 (1.000-1.035); Urobilinogen Urine UA 0.2 E.U./dL (0.2)
[2021-08-16 12:31] LABS: Alanine Aminotransferase 22 IU/L (<35); Albumin 3.8 g/dL (3.5-5.0); Albumin Globulin Ratio 1.4 (1.0-2.8); Alkaline Phosphatase 80 U/L (38-126); Aspartate Aminotransferase 28 IU/L (14-36); BUN Creatinine Ratio 28.8 (6-22); Bilirubin Total 0.5 mg/dL (0.2-1.3); Blood Urea Nitrogen 21 mg/dL (7-17); Calcium 9.1 mg/dL (8.4-10.2); Carbon Dioxide 30 mmol/L (22-32); Chloride 104 mmol/L (98-107); Cholesterol 128 mg/dL (140-199); Estimated Glomerular Filt Rate > 60.0 mL/min (>60); Globulin 2.8 g/dL (1.7-4.1); Glucose 76 mg/dL (80-110); HDL Cholesterol 58 mg/dL (40-60); HEMOLYSIS 30 (0-50); LDL Cholesterol Calculated 43 mg/dL (<100); Potassium 4.1 mmol/L (3.4-5.1); Sodium 139 mmol/L (137-145); Total Protein 6.6 g/dL (6.3-8.2); Triglycerides 133 mg/dL (35-150)
[2021-08-16 12:42] LABS: Bacteria Urine Many (>30); Culture Indicated Urine Specimen Cultured; RBC Urine None Seen (0-5/HPF); Squamous Epithelial Cell Urine 0-1 /HPF (0-5/HPF); WBC Urine 0-1/HPF (0-5/HPF)
[2021-08-16 13:02] LABS: TSH w/ Reflex to FT4 3.18 uIU/mL (0.47-4.68)
[2021-08-16 13:13] LABS: Thyroid Stimulating Hormone 3.23 uIU/mL (0.47-4.68)
[2021-08-17 14:02] LABS: Free T4, Direct Thyroxine 1.27 ng/dL (0.78-2.19)
== END ==
PROVIDERS: PCP Family Medicine; Referring Provider Family Medicine; Visit Provider Family Medicine
DX: E03.9 Hypothyroidism, unspecified (principal); E78.00 Pure hypercholesterolemia, unspecified; N39.0 Urinary tract infection, site not specified
CPT/HCPCS: 36415; 80053; 80061; 81001; 84439; 84443; 85025; 87077; 87086; 87186

== ENCOUNTER 2021-08-29 18:29 | Emergency (ER) | payer MEDICARE, OTHER, SELFPAY ==
[2020-11-07 15:22] VITALS: BMI 24.7
--- NOTE | 2021-08-29 18:55 | DI.RAD.S_ITS ---
PROCEDURE: XR WRIST LT MIN 3V INDICATIONS: fall TECHNIQUE: 3 views of the wrist were acquired. COMPARISON: None. FINDINGS: Bones: There is a comminuted nondisplaced intra-articular fracture of the radial metaphysis. An ulnar styloid fracture is present with mild displacement. There is osteopenia. No suspicious bony lesions. Scaphoid view: Scaphoid appears intact. Soft tissues: No suspicious soft tissue calcifications. Soft tissue swelling. IMPRESSION: 1. Nondisplaced, comminuted intra-articular fracture of the distal radial metaphysis. 2. Mildly displaced ulnar styloid fracture. 3. Osteopenia. Dictated by: Qing Velasco M.D. on 08/29/2021 at 19:05 Approved by: Qing Velasco M.D. on 08/29/2021 at 19:07
[2021-08-29 19:03] VITALS: BP 183/93; PULSE 60; RESP 20; TEMP 36.4; O2SAT 98
--- NOTE | 2021-08-29 19:29 | ED_ITS ---
HPI - Fall General Chief Complaint: Fall Stated Complaint: GLF Time Seen by Provider: 08/29/21 19:12 Source: EMS Mode of arrival: EMS History of Present Illness HPI Narrative: Patient is an 85-year-old female who arrives by EMS for evaluatio n of left wrist injury. Patient states she was at home in her assisted living facility. She states that she lost her balance and fell hurting her left wrist. She did hit her head. Was no loss of consciousness. Was unwitnessed. Arrived with a air splint around her left arm. She reports no other injuries from the event. Not on anticoagulation Related Data Previous Rx's Medication Instructions Recorded ciprofloxacin HCl 500 mg tablet 500 mg PO DAILY #3 tab 08/16/21 Allergies Allergy/AdvReac Type Severity Reaction Status Date / Time No Known Drug Allergies Allergy Verified 08/16/21 10:29 Review of Systems Constitutional Comments: Denies headache Musculoskeletal Comments: Left wrist pain Integumentary/Breasts Skin/Breast: Reports system reviewed and no additional complaints, except as documented Neurologic Neurologic: Reports system reviewed and no additional complaints, except as documented Hematologic/Lymphatic On Anticoagulants: No Patient History Medical History Acid reflux Adult failure to thrive Auditory hallucinations COPD (chronic obstructive pulmonary disease) Cough Dry eyes Elevated LDL cholesterol level Frequent falls History of lung cancer in adulthood History of pneumothorax History of rib fracture Hyperlipidemia Hypothyroidism (acquired) Mobility impaired Non-small cell cancer of right lung Onychomycosis Physician orders for life-sustaining treatment (POLST) form indicates patient wish for kd-hde-ptgjoeipcsu status Senile dementia Short-term memory loss Small cell lung cancer, left lower lobe Thrombocytopenia UTI (urinary tract infection) Surgical History History of bilateral breast reduction surgery History of lung biopsy Family History Sister Cancer Sister Multiple complications of type 2 diabetes mellitus Social History household members: none Smoking Status: Former smoker alcohol intake: former Smoking Status: Former smoker alcohol intake frequency: other Substance Use Type: does not use Exam Initial Vital Signs Initial Vital Signs: Vital Signs Temperature 97.6 F 08/29/21 19:03 Pulse Rate 60 08/29/21 19:03 Respiratory Rate 20 08/29/21 19:03 Blood Pressure 183/93 H 08/29/21 19:03 Pulse Oximetry 98 08/29/21 19:03 HENMT Head: normal to inspection and normocephalic Cardio Pulses: radial pulses present on the left Skin General: no rashes or lesions noted Neuro Sensory Exam: no sensory deficits noted Extrem Other: Left wrist and left elbow are unremarkable tenderness to palpation throughout the left wrist. The left hand is unremarkable Psych Appearance: grossly normal and well kempt Procedures Orthopedic Splinting/Casting Injury #1: Side: left Upper Extremity Injury Location: wrist Upper Extremity Immobilizer: volar splint Post splinting neuro exam: intact Post splinting vascular exam: intact Placed by: Nursing Course Orders Ordered: Discontinued Medications Hydrocodone Bitart/Acetaminophen (Hydrocodone/Acet 5/325 Tablet) 1 tab PO NOW ONE Stop: 08/29/21 19:31 Last Admin: 08/29/21 19:43 Dose: 1 tab Documented by: LUCIANA Hydrocodone Bitart/Acetaminophen (Hydrocodone/Acet 5/325 Prepack) 1 bottle MISC SEEINSTR ONE Stop: 08/29/21 20:30 Last Admin: 08/29/21 21:13 Dose: 1 bottle Documented by: LUCIANA Vital Signs Vital signs: Vital Signs - 8 hr 08/29/21 19:03 Temperature 97.6 F Pulse Rate 60 Respiratory Rate 20 Blood Pressure 183/93 H Pulse Oximetry 98 MDM - Fall Imaging Data Extremity x-ray #1: Radiologist's Impression: [address] [address] XRay Report Signed Patient: Meg Beltran MR#: [id number] : 1935 Acct:[id number] Age/Sex: 85 / F Date of Service: 08/29/21 Loc: ED Accession Number: [id number] ?? Procedure: XR wrist LT min 3V Ordering Provider: Elina Gutiérrez D.O. PROCEDURE:? XR WRIST LT MIN 3V ? INDICATIONS: fall ? TECHNIQUE:? 3 views of the wrist were acquired.? ? COMPARISON:? None. ? FINDINGS:? ? Bones:? There is a comminuted nondisplaced intra-articular fracture of the radial metaphysis.? An ulnar styloid fracture is present with mild displacement.? There is osteopenia.? No suspicious bony lesions.? ? Scaphoid view:? Scaphoid appears intact. ? Soft tissues:? No suspicious soft tissue calcifications.? Soft tissue swelling. ? IMPRESSION:? ? 1. Nondisplaced, comminuted intra-articular fracture of the distal radial metaphysis. 2. Mildly displaced ulnar styloid fracture. 3. Osteopenia. ? ? ? Dictated by: Qnig Velasco M.D. on 08/29/2021 at 19:05 ? ? Approved by: Qing Velasco M.D. on 08/29/2021 at 19:07?? MDM Narrative Medical decision making narrative: Was an unwitnessed fall but the patient states she has lost her balance falling over. She has broken her wrist in the past because of falling. She does have a left distal radius fracture. She was placed in a splint. She is neurovascularly intact. She was given care instructions and return precautions she expressed understanding and agreement. Discharge Plan Departure Patient Disposition: Home Clinical Impression: Left wrist fracture Instructions: How to Use a Sling, DI for Wrist Fracture, How to Take Care of Your Splint Activity Restrictions/Additional Instructions: The splint that was placed today needs to stay on and stay clean and stay dry. Contact the orthopedic provider at the number provided below for a follow-up next week so that the splint can be transitioned into a cast. Contact your primary doctor for follow-up as well. Return to the emergency department for any new or worsening symptoms Prescriptions: No Action ciprofloxacin HCl 500 mg tablet 500 mg PO DAILY Qty: 3 RF: 0 Referrals: Chad Rooney MD [Physician] - Gagan Lang DO [Primary Care Provider] -
[2021-08-29] MEDS: HYDROCODONE/ACET 5/325 TABLET 1 TAB PO (19:43)
--- NOTE | 2021-08-29 21:08 | PC.NURSE ---
Spoke with Dtr and spoke with Elizabeth at [facility] and updated then with DX and care provided here at the ED.
[2021-08-29] MEDS: HYDROCODONE/ACET 5/325 PREPACK 1 BOTTLE MISC (21:13)
== END 2021-08-29 22:04 | disposition home or self-care (01) ==
PROVIDERS: Emergency Provider Emergency Medicine; PCP Family Medicine
DX: S62.102A Fracture of unspecified carpal bone, left wrist, initial encounter for closed fracture (principal); S09.90XA Unspecified injury of head, initial encounter; W19.XXXA Unspecified fall, initial encounter
CPT/HCPCS: 29125; 73110; 99283